=== PATIENT | male | born 1955 | race African-American/Black ===

== ENCOUNTER 2019-03-13 10:47 | Outpatient (CLI) | payer MEDICARE, MEDICAID, SELFPAY ==
--- NOTE | ~2019-03-13 | CT_ITS ---
EXAMINATION: CT abdomen wo con EXAM DATE: 03/13/2019 11:10 INDICATION: Abnormal serum lab levels. TECHNIQUE: Spiral CT of the abdomen was performed without contrast. Axial, coronal and sagittal emelia ges were reviewed. The dose-length product (DLP) for this examination was 860.82 mGy-cm. The exposu re was tailored according to patient size (auto mA exposure control), and iterative reconstruction (A SIR) was used as additional dose reduction technique. Comparison is made to prior examination from . FINDINGS: The liver, spleen, adrenal glands and pancreas are unremarkable. Tiny gallstone. Otherwise unremarkable gallbladder. There is no nephrolithiasis or hydronephrosis. There is no retroperito ketty lymphadenopathy. There is mild scattered arteriosclerotic disease. Small umbilical fat-contain ing hernia. The appendix is normal. The stomach and small bowel are unremarkable. There is expected amount of c olonic stool. No free intraperitoneal gas. The heart is normal in size. There are no pericardial or pleural effusions. There are bibasilar linear opacities, subsegmental atelectasis. There are no osteoblastic or osteolytic lesions identified. IMPRESSION: 1. Cholelithiasis. 2. Small umbilical hernia. Reviewed, dictated and finalized at location B. 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
== END 2019-03-13 10:48 | disposition home or self-care (01) ==
PROVIDERS: PCP Nurse Practitioner Family; Visit Provider Nurse Practitioner Family
DX: R74.8 Abnormal levels of other serum enzymes (principal); K80.20 Calculus of gallbladder without cholecystitis without obstruction; K42.9 Umbilical hernia without obstruction or gangrene
CPT/HCPCS: 74150

== ENCOUNTER 2019-05-01 09:21 | Outpatient (CLI) | payer MEDICARE, MEDICAID, SELFPAY ==
[2019-05-01 09:51] LABS: Hematocrit 39.7 % (42.0-52.0); Hemoglobin 11.5 g/dL (14.0-18.0); Mean Corpuscular Hemoglobin 22.3 pg (26-34); Mean Corpuscular Volume 77.1 fl (80-100); Mean Platelet Volume 10.9 fl (7.4-10.4); Platelet Count Result 259 k/mm3 (150-375); Red Blood Count 5.15 M/mm3 (4.6-6.20); Red Cell Distribution Width 16.3 % (11.5-14.5); White Blood Count 10.2 K/mm3 (4.5-10.0)
[2019-05-01 10:03] LABS: Alanine Aminotransferase 17 U/L (4-50); Albumin Level 4.1 g/dL (3.5-5.1); Alkaline Phosphatase 98 U/L (38-126); Amylase 137 U/L (30-110); Aspartate Amino Transferase 20 U/L (17-59); Bilirubin,Total 0.1 mg/dL (0.2-1.3); Blood Urea Nitrogen 14 mg/dL (9-20); Calcium 9.1 mg/dL (8.4-10.2); Carbon Dioxide 35 mmol/L (22-30); Chloride 101 mmol/L (98-107); Estimated Glomerular Filt Rate > 60; Glucose 174 mg/dL (75-110); Lipase 338 U/L (23-300); Potassium 4.2 mmol/L (3.4-5.0); Sodium 138 mmol/L (137-145)
[2019-05-01 12:43] LABS: T4 Thyroxine 5.34 ug/dL (5.53-11.0)
== END 2019-05-01 09:22 | disposition home or self-care (01) ==
PROVIDERS: PCP Family Medicine; Visit Provider Nurse Practitioner Family
DX: R74.8 Abnormal levels of other serum enzymes (principal); E03.9 Hypothyroidism, unspecified
CPT/HCPCS: 36415; 80053; 82150; 83690; 84436; 84443; 85027

== ENCOUNTER 2019-07-27 08:53 | Outpatient (CLI) | payer MEDICARE, MEDICAID, SELFPAY ==
[2019-07-27] VITALS (8 sets, daily range): PULSE 92–128; O2SAT 85–94
--- NOTE | 2019-07-27 10:23 | HOMEO2EVAL ---
Home Oxygen Evaluation RC: Home Oxygen (O2) Evaluation Start: 07/27/19 10:18 Freq: Status: Active Protocol: RPE Activity Type Activity Date Activity User E-Sign Co-Sign Detail Recorded Client Recorded Date Recorded By Document 07/27/19 09:30 [email or web address] [email or web address] 07/27/19 10:23 VIVIANA Document 07/27/19 09:33 VIVIANA [email or web address] 07/27/19 10:23 VIVIANA Document 07/27/19 09:35 VIVIANA [email or web address] 07/27/19 10:23 VIVIANA Document 07/27/19 09:40 VIVIANA [email or web address] 07/27/19 10:23 VIVIANA Document 07/27/19 09:42 VIVIANA [email or web address] 07/27/19 10:23 VIVIANA Document 07/27/19 09:44 VIVIANA [email or web address] 07/27/19 10:23 VIVIANA Document 07/27/19 09:46 VIVIANA [email or web address] 07/27/19 10:23 VIVIANA Document 07/27/19 09:55 VIVIANA [email or web address] 07/27/19 10:23 VIVIANA 07/27/19 07/27/19 07/27/19 09:30 09:33 09:35 Home O2 Evaluation Test Phase Resting Resting Resting Oxygen Delivery Room Air Nasal Cannula Nasal Cannula Oxygen Flow Rate (L/min) 1 2 Pulse Oximetry (90-100 %) 87 L 87 L 93 Pulse Rate (60-100 beats/min) 92 Ambulation Distance (feet) Home Oxygen Evaluation Comments Treatment Charges 07/27/19 07/27/19 07/27/19 09:40 09:42 09:44 Home O2 Evaluation Test Phase Exercise Exercise Exercise Oxygen Delivery Nasal Cannula Nasal Cannula Nasal Cannula Oxygen Flow Rate (L/min) 2 3 4 Pulse Oximetry (90-100 %) 85 L 86 L 87 L Pulse Rate (60-100 beats/min) 118 H 123 H Ambulation Distance (feet) Home Oxygen Evaluation Comments Treatment Charges 07/27/19 07/27/19 09:46 09:55 Home O2 Evaluation Test Phase Exercise Resting Oxygen Delivery Nasal Cannula Nasal Cannula Oxygen Flow Rate (L/min) 5 2 Pulse Oximetry (90-100 %) 90 94 Pulse Rate (60-100 beats/min) 128 H 93 Ambulation Distance (feet) 450 Home Oxygen Evaluation Comments PT REQUIRES 2L AT REST AND 5 L WITH ACTIVITY Treatment Charges O2 Evaluation
== END 2019-07-27 08:54 | disposition home or self-care (01) ==
PROVIDERS: PCP Family Medicine; Visit Provider Nurse Practitioner Family
DX: J44.9 Chronic obstructive pulmonary disease, unspecified (principal)
CPT/HCPCS: 94618

== ENCOUNTER 2019-08-26 09:39 | Outpatient (CLI) | payer MEDICARE, MEDICAID, SELFPAY ==
[2019-08-26 10:12] LABS: Basophils Percent Auto 0.3 % (0.2-1.2); Eosinophils Absolute Auto 0.4 K/mm3 (0-0.3); Eosinophils Percent Auto 3.9 % (0-4.4); Hematocrit 39.6 % (42.0-52.0); Hemoglobin 11.8 g/dL (14.0-18.0); Immature Granulocyte Absolute 0.03 K/mm3 (0.00-0.031); Immature Granulocyte Percent A 0.3 % (0-0.5); Lymphocytes Absolute Auto 2.71 K/mm3 (0.9-3.2); Lymphocytes Percent Auto 26.9 % (18.3-44.2); Mean Corpuscular HGB Conc 29.8 g/dl (32-36); Mean Corpuscular Hemoglobin 22.8 pg (26-34); Mean Corpuscular Volume 76.4 fl (80-100); Mean Platelet Volume 10.7 fl (7.4-10.4); Monocytes Absolute Auto 0.7 K/mm3 (0.1-0.6); Monocytes Percent Auto 7.2 % (2.6-8.5); Neutrophils Absolute Auto 6.2 K/mm3 (1.3-6.7); Neutrophils Percent Auto 61.4 % (45.5-73.1); Platelet Count Result 271 k/mm3 (150-375); Red Blood Count 5.18 M/mm3 (4.6-6.20); Red Cell Distribution Width 16.5 % (11.5-14.5); White Blood Count 10.1 K/mm3 (4.5-10.0)
[2019-08-26 10:34] LABS: Hypochromasia 1+ (NORMAL); Ovalocytes 1+ (NORMAL); Platelet Estimate Adequate (Adequate)
[2019-08-26 10:51] LABS: LDL Cholesterol Direct 86 mg/dL
[2019-08-26 11:20] LABS: Alanine Aminotransferase 17 U/L (4-50); Albumin Level 4.1 g/dL (3.5-5.1); Alkaline Phosphatase 105 U/L (38-126); Amylase 292 U/L (30-110); Aspartate Amino Transferase 20 U/L (17-59); Bilirubin,Total < 0.1 mg/dL (0.2-1.3); Blood Urea Nitrogen 13 mg/dL (9-20); Calcium 8.8 mg/dL (8.4-10.2); Carbon Dioxide 30 mmol/L (22-30); Chloride 102 mmol/L (98-107); Cholesterol 154 mg/dL (0-200); Estimated Glomerular Filt Rate > 60; Glucose 140 mg/dL (75-110); HDL Direct 38 mg/dL; Sodium 138 mmol/L (137-145); Triglycerides 139 mg/dL (<150)
[2019-08-26 11:43] LABS: Lipase 3229 U/L (23-300)
== END 2019-08-26 09:40 | disposition home or self-care (01) ==
PROVIDERS: PCP Family Medicine; Visit Provider Nurse Practitioner
DX: E78.5 Hyperlipidemia, unspecified (principal); E11.9 Type 2 diabetes mellitus without complications; Z79.4 Long term (current) use of insulin; R53.83 Other fatigue; I10 Essential (primary) hypertension; E03.9 Hypothyroidism, unspecified; R74.8 Abnormal levels of other serum enzymes
CPT/HCPCS: 36415; 80053; 80061; 82150; 83690; 84443; 85025

== ENCOUNTER 2019-10-15 06:33 | Outpatient (CLI) | payer MEDICARE, MEDICAID, SELFPAY ==
--- NOTE | ~2019-10-15 | MR_ITS ---
EXAMINATION: MR MRCP wo/w con/w 3D wo ind DATE: 10/15/2019 08:19 INDICATION: Abnormal levels of other serum enzymes, elevated pancreatic enzymes TECHNIQUE: Magnetic resonance imaging (MRI) of the abdomen was performed without and with intravenous contrast. Sequences included coronal T2-weighted SS-FSE ARC, coronal T2-weighted FS SS-FSE, coronal T2-weighted 2D FS FIESTA, Water:Coronal LAVA-Flex, sagittal T2-weighted SS-FSE ARC, axial SSFSE ARC, axial 3D DualEcho, axial DWI B=600, axial T1-weighted LAVA, FAT:Coronal LAVA-Flex, and coronal in and opposed phase LAVA-Flex. Thick-slab T2-weighted FRFSE-XL images were obtained for magnetic resonance cholangiopancreatography (MRCP). Maximum intensity projection 3-D reconstructions of the volumetric data were created by the technologist. Postcontrast sequences included a time course of axial T1-weig hted LAVA, FAT:Coronal LAVA-Flex, coronal in and opposed phase LAVA-Flex, and Water:Coronal LAVA-Flex . COMPARISON: CTs dated 03/13/2019 and 03/07/2017 CONTRAST: Multihance, 20 cc FINDINGS: ABDOMEN MRI: The visualized lung bases are clear. The heart size is normal. The liver, spleen, gallbl adder, and adrenal glands are normal. No pancreatic mass is identified. The kidneys are unremarkable. There is no abnormal enhancement after contrast administration. No pathologically enlarged abdominal lymph nodes are identified. There are no dilated loops of bowel. There is a fat-containing umbilical hernia. ABDOMEN MRCP: There is no intrahepatic or extrahepatic biliary dilatation. No biliary stones or stric ture are identified. The pancreatic duct is normal in caliber. An accessory pancreatic duct terminate s at the minor papilla. The main pancreatic duct loops in the head of the pancreas and terminates at the major papilla. IMPRESSION: 1. Variant pancreatic ductal anatomy in a configuration consistent with ansa pancreatica. Reviewed, dictated and finalized at location A. IMPRESSION: 1. Variant pancreatic ductal anatomy in a configuration consistent with ansa pa ncreatica.
[2019-10-15 07:33] LABS: Estimated Glomerular Filt Rate > 60
== END 2019-10-15 06:34 | disposition home or self-care (01) ==
LOC: ANHIMG 06:35
PROVIDERS: PCP Family Medicine; Visit Provider Internal Medicine Gastroenterology
DX: R74.8 Abnormal levels of other serum enzymes (principal)
CPT/HCPCS: 74183; 76376; A9577

== ENCOUNTER 2019-11-09 07:55 | Outpatient (CLI) | payer MEDICARE, MEDICAID, SELFPAY ==
--- NOTE | ~2019-11-09 | US_ITS ---
EXAMINATION: US carotid duplex BI DATE: 11/09/2019 08:34 INDICATION: Right internal carotid artery occlusion. TECHNIQUE: Grayscale, color Doppler, and pulsed Doppler images of the cervical carotid arteries were obtained. The degree of vessel stenosis is placed in one of the following categories: normal, <50%, 5 0-69%, >=70% but less than near-occlusion, near-occlusion, or total occlusion. Note that percent sten osis relative to normal distal artery lumen diameter is indirectly measured from velocity measurement s as described by James, et al. Radiology 2003; 229:340-346. COMPARISON: Ultrasound 08/25/2018 FINDINGS: RIGHT: The right common carotid artery (CCA) peak systolic velocity (PSV) is 106 cm/s. The right internal ca rotid artery (ICA) is totally occluded. There is antegrade flow in the right vertebral artery. LEFT: The left CCA PSV is 142 cm/s. The left ICA PSV is 116 cm/s. The left ICA end-diastolic velocity (EDV) is cm/s. The left ICA/CCA PSV ratio is 0.8. Grayscale and color Doppler images yield an estimate of <50% diameter reduction from plaque in the ICA. There is antegrade flow in the left vertebral artery. IMPRESSION: 1. Total occlusion of right internal carotid artery. 2. <50% stenosis in the left internal carotid artery. Reviewed, dictated and finalized at location A.
== END 2019-11-09 07:56 | disposition home or self-care (01) ==
LOC: ANHIMG 07:57
PROVIDERS: PCP Family Medicine; Visit Provider Internal Medicine Cardiovascular Disease
DX: I65.23 Occlusion and stenosis of bilateral carotid arteries (principal)
CPT/HCPCS: 93880

== ENCOUNTER 2020-02-19 07:43 | Outpatient (CLI) | payer MEDICARE, MEDICAID, SELFPAY ==
--- NOTE | ~2020-02-19 | CT_ITS ---
EXAMINATION: CT lung screening DATE: 02/19/2020 08:10 INDICATION: Back to use TECHNIQUE: Computed tomography (CT) of the chest was performed without intravenous contrast. The dose -length product was 405.07 mGy-cm. Automated exposure control and iterative reconstruction technique were employed. COMPARISON: CT dated 03/06/2019 and 03/05/2018 FINDINGS: There is emphysema. No endobronchial lesions. There is linear subsegmental atelectasis/scar ring in the lower lung zones. No thoracic lymphadenopathy. Heart size normal. No significant pleural or pericardial effusion. No pneumothorax. There is a 6 mm pleural-based nodule left lower lobe unchan ged dating back to 03/05/2018, likely benign. No new pulmonary nodules or masses. Upper abdomen is kimberly ssly unremarkable. IMPRESSION: 1. Lung-RADS category 2: Benign appearance or behavior. Continue annual screening with noncontrast lo w-dose chest CT in 12 months. Reviewed, dictated and finalized at location A. 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 Lung-RADS category 2: Benign appearance or behavior. Continue annual screeni ng with noncontrast low-dose chest CT in 12 months.
== END 2020-02-19 07:44 | disposition home or self-care (01) ==
PROVIDERS: PCP Family Medicine; Visit Provider Internal Medicine Critical Care Medicine
DX: J43.9 Emphysema, unspecified (principal); Z12.2 Encounter for screening for malignant neoplasm of respiratory organs; Z72.0 Tobacco use
CPT/HCPCS: 71271

== ENCOUNTER 2020-04-29 09:44 | Outpatient (CLI) | payer MEDICARE, MEDICAID, SELFPAY ==
[2020-04-29 10:15] LABS: Alanine Aminotransferase 17 U/L (4-50); Albumin Level 4.1 g/dL (3.5-5.1); Alkaline Phosphatase 101 U/L (38-126); Anion Gap 6 mmol/L (8-16); Aspartate Amino Transferase 20 U/L (17-59); Bilirubin,Total < 0.1 mg/dL (0.2-1.3); Blood Urea Nitrogen 10 mg/dL (9-20); Calcium 8.9 mg/dL (8.4-10.2); Carbon Dioxide 32 mmol/L (22-30); Chloride 103 mmol/L (98-107); Cholesterol 137 mg/dL (0-200); Estimated Glomerular Filt Rate > 60; Glucose 110 mg/dL (75-110); HDL Direct 35 mg/dL; Potassium 4.1 mmol/L (3.4-5.0); Sodium 141 mmol/L (137-145); Triglycerides 91 mg/dL (<150)
[2020-04-29 10:26] LABS: LDL Cholesterol Direct 75 mg/dL
== END 2020-04-29 09:45 | disposition home or self-care (01) ==
PROVIDERS: PCP Family Medicine; Visit Provider Internal Medicine Cardiovascular Disease
DX: E78.5 Hyperlipidemia, unspecified (principal)
CPT/HCPCS: 36415; 80053; 80061

== ENCOUNTER 2020-05-17 17:07 | Outpatient (CLI) | payer MEDICARE, MEDICAID, SELFPAY ==
[2020-05-17 10:55] LABS: Free T4 Free Thyroxine 0.71 ng/mL (0.78-2.19)
[2020-05-17 14:19] LABS: T4 Thyroxine 5.22 ug/dL (5.53-11.0)
[2020-05-23 20:59] LABS: Triiodothryronine T3 Uptake 39 % (22-35)
== END 2020-05-17 17:08 | disposition home or self-care (01) ==
LOC: ANHLAB 17:07
PROVIDERS: PCP Family Medicine; Visit Provider Nurse Practitioner
DX: E03.9 Hypothyroidism, unspecified (principal)
CPT/HCPCS: 36415; 84436; 84439; 84443; 84479

== ENCOUNTER 2020-05-26 09:36 | Outpatient (CLI) | payer MEDICARE, MEDICAID, SELFPAY ==
--- NOTE | ~2020-05-26 | XR_ITS ---
EXAMINATION: XR chest 2V EXAM DATE: 05/26/2020 09:53 INDICATION: R05 - Cough, congestion. TECHNIQUE: Frontal and lateral projections of the chest obtained and reviewed. There is no prior [place] dy for comparison. FINDINGS: The lungs are clear. There are no pleural effusions. The cardiomediastinal silhouette is within normal limits. There is no pneumothorax suspected. The bones and soft tissues are unremarkab le. IMPRESSION: The lungs are clear. There are no pleural effusions. The cardiomediastinal silhouette i s within normal limits. There is no pneumothorax suspected. The bones and soft tissues are unremark able. IMPRESSION: No acute cardiopulmonary findings. Reviewed, dictated and finalized at location A. IMPRESSION: The lungs are clear. There are no pleural effusions. The cardiome diastinal silhouette is within normal limits. There is no pneumothorax suspect ed. The bones and soft tissues are unremarkable.
== END 2020-05-26 09:37 | disposition home or self-care (01) ==
LOC: ANHIMG 09:40
PROVIDERS: PCP Family Medicine; Visit Provider Nurse Practitioner
DX: R05 Cough (principal)
CPT/HCPCS: 71046

== ENCOUNTER 2020-10-28 12:35 | Outpatient (CLI) | payer MEDICARE, MEDICAID, SELFPAY ==
[2020-10-28 13:30] LABS: Alanine Aminotransferase 20 U/L (4-50); Albumin Level 4.5 g/dL (3.5-5.1); Alkaline Phosphatase 119 U/L (38-126); Anion Gap 7 mmol/L (8-16); Aspartate Amino Transferase 29 U/L (17-59); Bilirubin,Total 0.1 mg/dL (0.2-1.3); Blood Urea Nitrogen 14 mg/dL (9-20); Calcium 9.5 mg/dL (8.4-10.2); Carbon Dioxide 35 mmol/L (22-30); Chloride 101 mmol/L (98-107); Cholesterol 158 mg/dL (0-200); Estimated Glomerular Filt Rate > 60; Glucose 138 mg/dL (65-110); HDL Direct 39 mg/dL; Potassium 4.1 mmol/L (3.4-5.0); Sodium 143 mmol/L (137-145); Triglycerides 94 mg/dL (<150)
[2020-10-28 13:41] LABS: LDL Cholesterol Direct 85 mg/dL
[2020-10-28 14:11] LABS: Creatinine Urine 33.5 mg/dL
[2020-10-28 14:29] LABS: Microalbumin Urine Random < 6.0 mg/L (0-16.7)
== END 2020-10-28 12:36 | disposition home or self-care (01) ==
PROVIDERS: PCP Nurse Practitioner; Visit Provider Internal Medicine Endocrinology, Diabetes & Metabolism
DX: E11.65 Type 2 diabetes mellitus with hyperglycemia (principal); Z79.4 Long term (current) use of insulin; E11.59 Type 2 diabetes mellitus with other circulatory complications; I10 Essential (primary) hypertension; E03.9 Hypothyroidism, unspecified; E78.5 Hyperlipidemia, unspecified
CPT/HCPCS: 36415; 80053; 80061; 82043; 84443

== ENCOUNTER 2020-11-22 09:37 | Outpatient (CLI) | payer MEDICARE, MEDICAID, SELFPAY ==
[2020-11-22] VITALS (8 sets, daily range): PULSE 96–132; O2SAT 87–93
--- NOTE | 2020-11-22 10:23 | HOMEO2EVAL ---
Evaluation was performed at [facility] Home Oxygen Evaluation RC: Home Oxygen (O2) Evaluation Start: 11/22/20 10:20 Freq: Status: Active Protocol: RPE Activity Type Activity Date Activity User E-Sign Co-Sign Detail Recorded Client Recorded Date Recorded By Document 11/22/20 10:00 VIVIANA [id number] 11/22/20 10:23 VIVIANA Document 11/22/20 10:01 VIVIANA [email or web address] 11/22/20 10:23 VIVIANA Document 11/22/20 10:02 VIVIANA [email or web address] 11/22/20 10:23 VIVIANA Document 11/22/20 10:03 VIVIANA [email or web address] 11/22/20 10:23 VIVIANA Document 11/22/20 10:04 VIVIANA [email or web address] 11/22/20 10:23 VIVIANA Document 11/22/20 10:05 VIVIANA [email or web address] 11/22/20 10:23 VIVIANA Document 11/22/20 10:06 VIVIANA [email or web address] 11/22/20 10:23 VIVIANA Document 11/22/20 10:20 VIVIANA [email or web address] 11/22/20 10:23 VIVIANA 11/22/20 11/22/20 11/22/20 10:00 10:01 10:02 Home O2 Evaluation Test Phase Resting Resting Resting Oxygen Delivery Room Air Nasal Cannula Nasal Cannula Oxygen Flow Rate (L/min) 1 2 Pulse Oximetry (90-100 %) 87 L 87 L 87 L Pulse Rate (60-100 beats/min) 97 Ambulation Distance (feet) Home Oxygen Evaluation Comments Treatment Charges O2 Evaluation - Outpatient 11/22/20 11/22/20 11/22/20 10:03 10:04 10:05 Home O2 Evaluation Test Phase Resting Resting Exercise Oxygen Delivery Nasal Cannula Nasal Cannula Nasal Cannula Oxygen Flow Rate (L/min) 3 4 4 Pulse Oximetry (90-100 %) 87 L 93 87 L Pulse Rate (60-100 beats/min) 132 H Ambulation Distance (feet) Home Oxygen Evaluation Comments Treatment Charges 11/22/20 11/22/20 10:06 10:20 Home O2 Evaluation Test Phase Exercise Resting Oxygen Delivery Nasal Cannula Nasal Cannula Oxygen Flow Rate (L/min) 5 4 Pulse Oximetry (90-100 %) 92 93 Pulse Rate (60-100 beats/min) 96 Ambulation Distance (feet) 700 Home Oxygen Evaluation Comments PT REQUIRES 4 L AT REST AND 5 L WITH EXERTION Treatment Charges
--- NOTE | 2020-11-22 10:24 | PCRCNOTE ---
HOME O2 EVAL COMPLETED. PT REQUIRES 4 L REST AND 5L WITH EXERTION. PT WALKED WELL, APPROX 700 FEET. PT USED [facility]OSPITAL [facility] WHILE AT [facility], WAITING FOR 1 OCCLAIRE CHANDRA, TO ENSURE HE HAS ENOUGH O2 TO GET BACK HOME. 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
== END 2020-11-22 09:38 | disposition home or self-care (01) ==
PROVIDERS: PCP Nurse Practitioner; Visit Provider Nurse Practitioner Family
DX: J44.9 Chronic obstructive pulmonary disease, unspecified (principal)
CPT/HCPCS: 94618

== ENCOUNTER 2021-01-15 10:28 | Emergency (ER) | payer MEDICARE, MEDICAID, SELFPAY ==
--- NOTE | ~2021-01-15 | XR_ITS ---
EXAMINATION: XR chest 1V portable DATE: 01/15/2021 12:44 INDICATION: Shortness of breath TECHNIQUE: frontal view of the chest was obtained. COMPARISON: Chest radiograph dated 05/26/2020 FINDINGS: The lungs remain clear with no focal airspace opacities, pulmonary edema, pleural effusion or pneumot horax. The cardiomediastinal silhouette is normal. IMPRESSION: 1. No acute cardiopulmonary disease. Reviewed, dictated and finalized at location A. 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
[2021-01-15 10:52] VITALS: BP 126/76; PULSE 95; RESP 18; TEMP 36.4; O2SAT 96
--- NOTE | 2021-01-15 10:58 | ECG_ITS ---
Measurements Intervals [place] Rate: 90 P: 68 RI: 139 QRS: 61 QRSD: 85 T: 87 QT: 334 QTc: 411 Interpretive Statements SINUS RHYTHM EARLY PRECORDIAL R/S TRANSITION NONSPECIFIC T-WAVE ABNORMALITY- LAT/HIGH LAT LEADS BORDERLINE ECG Electronically Signed On 01-15-2021 17:07:16 EMERGENCY MEDICAL SERVICES COORDINATOR by Júnior Harding D.O.
[2021-01-15 12:42] VITALS: BP 138/77; PULSE 89; RESP 21; O2SAT 100
[2021-01-15 12:58] VITALS: PULSE 79
[2021-01-15 13:09] LABS: Basophils Percent Auto 0.3 % (0.2-1.2); Eosinophils Absolute Auto 0.3 K/mm3 (0-0.3); Eosinophils Percent Auto 2.8 % (0-4.4); Hematocrit 41.1 % (42.0-52.0); Hemoglobin 12.2 g/dL (14.0-18.0); Immature Granulocyte Absolute 0.03 K/mm3 (0.00-0.031); Immature Granulocyte Percent A 0.3 % (0-0.5); Lymphocytes Percent Auto 22.1 % (18.3-44.2); Mean Corpuscular HGB Conc 29.7 g/dl (32-36); Mean Corpuscular Hemoglobin 22.6 pg (26-34); Mean Platelet Volume 10.3 fl (7.4-10.4); Monocytes Absolute Auto 0.7 K/mm3 (0.1-0.6); Monocytes Percent Auto 6.8 % (2.6-8.5); Neutrophils Absolute Auto 6.7 K/mm3 (1.3-6.7); Neutrophils Percent Auto 67.7 % (45.5-73.1); Platelet Count Result 276 k/mm3 (150-375); Red Blood Count 5.41 M/mm3 (4.6-6.20); Red Cell Distribution Width 18.1 % (11.5-14.5)
--- NOTE | 2021-01-15 13:10 | ED.GENADULT ---
HPI - General Adult General Chief complaint: Shortness of Breath/Dyspnea Stated complaint: SOB Time Seen by Provider: 01/15/21 12:33 Source: patient and RN notes reviewed History of Present Illness HPI narrative: Patient is a 65 y/o male complaining of moderate to severe SOB starting 1 week. He states that exertion like walking upstairs worsens his symptoms. He has some chest congestion and cough, which are resolving. He has no fever or chest pain. He has history of COPD and he is on O2 at 6L usually. He has been vaccinated against COVID. Related Data Home Medications Medication Instructions Recorded Confirmed aspirin 81 mg tablet,delayed 81 mg PO DAILY 01/29/19 11/22/20 release glimepiride 4 mg tablet 4 mg PO DAILY tablet 04/28/19 11/22/20 insulin degludec 100 unit/mL (3 44 unit SUB-Q DAILY ml 05/10/20 11/22/20 mL) subcutaneous pen Allergies Allergy/AdvReac Type Severity Reaction Status Date / Time lisinopril Allergy Unknown unknown Verified 11/22/20 12:58 Review of Systems Constitutional: Constitutional: Denies chills, Denies fever(s), Denies headache(s) and Denies weakness Eyes: Eyes: Denies blurry vision ENT: Denies headache(s) and Denies neck pain Cardiovascular: Cardiovascular: Denies chest pain and Reports dyspnea Respiratory: Respiratory: Reports chest congestion, Reports cough and Reports dyspnea Gastrointestinal: Gastrointestinal: Denies abdominal pain, Denies diarrhea, Denies nausea and Denies vomiting Genitourinary: Genitourinary: Denies hematuria and Denies dysuria Musculoskeletal: Musculoskeletal: Denies back pain and Denies neck pain Neurologic: Denies headache(s) and Denies weakness [facility] Past Medical History Medical History CAD (coronary artery disease) Carotid occlusion, right Chronic pancreatitis Chronic respiratory failure with hypoxia, on home O2 therapy COPD (chronic obstructive pulmonary disease) Dyslipidemia Former smoker Hypertension Hypothyroid OTTO (obstructive sleep apnea) Type 2 diabetes mellitus treated with insulin Follows with endocrine Surgical History Surgical History H/O colonoscopy 09/2014 Family History Family History Father Acute myocardial infarction Hypertension, Onset Age: 56 Family history of heart disease in male family member before age 55 Sibling Family history of congenital heart disease, Onset Age: 32 Mother Family history of malignant neoplasm of breast in first degree relative Family history of primary malignant neoplasm of liver Other Asthma Social History Social History Years smoked: 44 Smoking status: Former smoker Second hand tobacco smoke exposure: No Smoking end date: 02/11/13 Alcohol intake: never Substance use: never Gender identity (if verbalized by the patient): Male Exam Const: General: no acute distress and well developed Orientation/consciousness: oriented to person, oriented to place, oriented to time and patient oriented x3 HENMT: Head: normocephalic Ears: external ears normal General nose exam: Normal external nose present Eyes: General: appearance normal, both eyes and all related structures Conjunctivae: conjunctivae normal Neck: Neck: normal visual inspection and full ROM Chest: Chest palpation & inspection: normal inspection of the chest and no tenderness Resp: Effort & Inspection: normal respiratory effort Auscultation: clear to auscultation bilaterally Cardio: Rate: regular rate Rhythm: regular rhythm GI: GI Palp: No abdominal tenderness and Yes Soft to palpation Skin: General skin exam: normal color and turgor normal Neuro: General: oriented to person, oriented to place, oriented to time and patient oriented x3 Cognition (Neuro): normal cognition Extrem
[2021-01-15 13:19] LABS: Alanine Aminotransferase 19 U/L (4-50); Albumin Level 4.1 g/dL (3.5-5.1); Alkaline Phosphatase 105 U/L (38-126); Anion Gap 7 mmol/L (8-16); Aspartate Amino Transferase 22 U/L (17-59); Bilirubin,Total 0.2 mg/dL (0.2-1.3); Blood Urea Nitrogen 13 mg/dL (9-20); Calcium 8.9 mg/dL (8.4-10.2); Carbon Dioxide 35 mmol/L (22-30); Chloride 98 mmol/L (98-107); Estimated CRCL calculation 100 ml/min; Estimated Glomerular Filt Rate > 60; Glucose 59 mg/dL (65-110); Potassium 3.9 mmol/L (3.4-5.0); Sodium 140 mmol/L (137-145)
[2021-01-15 13:26] LABS: NT Pro B Type Natriuretic Pept 16 pg/mL (5-100)
[2021-01-15 13:28] LABS: Platelet Estimate Adequate (Adequate)
[2021-01-15 13:29] LABS: Anisocytosis 1+ (NORMAL); Troponin I < 0.012 ng/mL (0.000-0.034)
[2021-01-15] MEDS: IPRATROPIUM BR 0.02% INH SOLN 0.5 MG/2.5 ML VIAL 1 MG INHALATION (13:42)
[2021-01-15] MEDS: ALBUTEROL SULFATE NEB 2.5 MG/0.5 ML INH 5 MG INHALATION (13:42)
[2021-01-15 13:43] VITALS: PULSE 81; RESP 16
[2021-01-15 14:20] LABS: D Dimer 0.42 ug/mL (<0.48)
[2021-01-15 16:01] LABS: Troponin I < 0.012 ng/mL (0.000-0.034)
[2021-01-15 17:54] VITALS: BP 138/77; PULSE 73; RESP 18; O2SAT 100
== END 2021-01-15 17:55 | disposition home or self-care (01) ==
PROVIDERS: Emergency Provider Emergency Medicine; PCP Nurse Practitioner
DX: J44.1 Chronic obstructive pulmonary disease with (acute) exacerbation (principal); I25.10 Atherosclerotic heart disease of native coronary artery without angina pectoris; I10 Essential (primary) hypertension; E03.9 Hypothyroidism, unspecified; E11.9 Type 2 diabetes mellitus without complications; Z79.4 Long term (current) use of insulin; E78.5 Hyperlipidemia, unspecified
CPT/HCPCS: 36415; 71045; 80053; 83880; 84484; 85025; 85380; 93005; 94640; 99284

== ENCOUNTER 2021-04-28 08:56 | Outpatient (CLI) | payer MEDICARE, MEDICAID, SELFPAY ==
--- NOTE | ~2021-04-28 | CT_ITS ---
EXAMINATION:CT lung screening DATE: 04/28/2021 09:10 INDICATION: Personal history of nicotine dependence. Smoker who quit 8 years ago with 36 pack year hi story. TECHNIQUE: Computed tomography (CT) of the chest was performed without intravenous contrast. Automate d exposure control and iterative reconstruction technique were employed. The dose-length product (DLP ) was 466.63 mGy-cm. COMPARISON: Chest CT 02/19/2020 FINDINGS: There is moderate emphysema. There is mild atelectasis bilaterally. There is a 6 mm nodule in left lower lobe without change. No pleural effusion. The heart size is normal. There are coronary artery calcifications. No pericardial effusion. There is a gallstone in the gallbladder, which is nor mal in size. There is mild thoracic spondylosis. IMPRESSION: 1. Lung-RADS category 2: Benign appearance or behavior. Continue annual screening with noncontrast lo w-dose chest CT in 12 months. Reviewed, dictated and finalized at location A. IMPRESSION: 1. Lung-RADS category 2: Benign appearance or behavior. Continue annual screeni ng with noncontrast low-dose chest CT in 12 months.
== END 2021-04-28 08:57 | disposition home or self-care (01) ==
LOC: ANHIMG 08:58
PROVIDERS: PCP Nurse Practitioner; Visit Provider Physician Assistant
DX: Z12.2 Encounter for screening for malignant neoplasm of respiratory organs (principal); Z87.891 Personal history of nicotine dependence
CPT/HCPCS: 71271

== ENCOUNTER 2021-05-15 08:26 | Outpatient (CLI) | payer MEDICARE, MEDICAID, SELFPAY ==
--- NOTE | ~2021-05-15 | US_ITS ---
EXAMINATION: US carotid duplex BI EXAM DATE: 05/15/2021 09:52 INDICATION: I65.21 - Occlusion and stenosis of right carotid artery. TECHNIQUE: Grayscale, color and pulsed Doppler images of the cervical carotid arteries were obtained . The degree of vessel stenosis is placed in one of the following categories: normal, <50% stenosis, 50-69% stenosis, >=70% stenosis but less than near-occlusion, near-occlusion, or occlusion. Note that percent stenosis relative to normal distal artery lumen diameter is indirectly measured from velocit y measurements as described by James, et al. Radiology 2003; 229:340-346. Comparison is made to prior examination from 11/09/2019. FINDINGS: RIGHT SIDE: Right common carotid artery peak systolic velocity (PSV in cm/s): 80 Right bulb/internal carotid artery peak systolic velocity (PSV in cm/s): 68 proximally Right internal carotid artery end diastolic velocity (EDV in cm/s): 7 Right ICA/CCA peak systolic ratio: Right external carotid artery peak systolic velocity (PSV in cm/s): 94 Right vertebral artery antegrade flow: yes There is severe carotid bulb arteriosclerosis. Very weak Doppler signal within proximal ICA, can't co nfirm it more distally. Likely completely occluded ICA, which has been reported previously. LEFT SIDE: Left common carotid artery peak systolic velocity (PSV in cm/s): 122 Left bulb/internal carotid artery peak systolic velocity (PSV in cm/s): 98 Left internal carotid artery end diastolic velocity (EDV in cm/s): 35 Left ICA/CCA peak systolic ratio: 0.8 Left external carotid artery peak systolic velocity (PSV in cm/s): 104 Left vertebral artery antegrade flow: yes There is mild scattered carotid plaque. Velocity and Doppler waveforms in the common and internal carotid arteries is normal. IMPRESSION: 1. Severe right greater bulb arteriosclerosis, equivocal reconstitution, development of trickle of f low. 2. Less than 50 percent stenosis in the left internal carotid artery. Reviewed, dictated and finalized at location A. IMPRESSION: 1. Severe right greater bulb arteriosclerosis, equivocal reconstitution, devel opment of trickle of flow. 2. Less than 50 percent stenosis in the left internal carotid artery.
== END 2021-05-15 08:27 | disposition home or self-care (01) ==
LOC: ANHIMG 08:28
PROVIDERS: Visit Provider Internal Medicine Cardiovascular Disease
DX: I65.23 Occlusion and stenosis of bilateral carotid arteries (principal)
CPT/HCPCS: 93880

== ENCOUNTER 2021-06-07 10:14 | Outpatient (CLI) | payer MEDICARE, MEDICAID, SELFPAY ==
[2021-06-07 10:50] LABS: Basophils Percent Auto 0.4 % (0.2-1.2); Eosinophils Absolute Auto 0.3 K/mm3 (0-0.3); Hematocrit 43.2 % (42.0-52.0); Hemoglobin 12.2 g/dL (14.0-18.0); Immature Granulocyte Absolute 0.03 K/mm3 (0.00-0.031); Immature Granulocyte Percent A 0.3 % (0-0.5); Lymphocytes Absolute Auto 2.33 K/mm3 (0.9-3.2); Lymphocytes Percent Auto 23.3 % (18.3-44.2); Mean Corpuscular HGB Conc 28.2 g/dl (32-36); Mean Corpuscular Hemoglobin 21.9 pg (26-34); Mean Corpuscular Volume 77.7 fl (80-100); Mean Platelet Volume 10.6 fl (7.4-10.4); Monocytes Absolute Auto 0.8 K/mm3 (0.1-0.6); Monocytes Percent Auto 7.6 % (2.6-8.5); Neutrophils Absolute Auto 6.6 K/mm3 (1.3-6.7); Neutrophils Percent Auto 65.4 % (45.5-73.1); Platelet Count Result 287 k/mm3 (150-375); Red Blood Count 5.56 M/mm3 (4.6-6.20); Red Cell Distribution Width 16.7 % (11.5-14.5)
[2021-06-07 11:08] LABS: Alanine Aminotransferase 18 U/L (4-50); Albumin Level 4.5 g/dL (3.5-5.1); Alkaline Phosphatase 111 U/L (38-126); Anion Gap 4 mmol/L (8-16); Aspartate Amino Transferase 23 U/L (17-59); Bilirubin,Total 0.2 mg/dL (0.2-1.3); Blood Urea Nitrogen 14 mg/dL (9-20); Calcium 8.9 mg/dL (8.4-10.2); Carbon Dioxide 33 mmol/L (22-30); Chloride 101 mmol/L (98-107); Cholesterol 184 mg/dL (0-200); Estimated Glomerular Filt Rate > 60; Glucose 112 mg/dL (65-110); HDL Direct 42 mg/dL; Sodium 138 mmol/L (137-145); Triglycerides 90 mg/dL (<150)
[2021-06-07 11:19] LABS: LDL Cholesterol Direct 101 mg/dL
[2021-06-07 11:35] LABS: Platelet Estimate Adequate (Adequate)
[2021-06-07 11:36] LABS: Anisocytosis 1+ (NORMAL); Ovalocytes 1+ (NORMAL)
[2021-06-07 11:37] LABS: Prostate Specific Antigen 1.5 ng/mL (< OR = 4.0)
[2021-06-07 13:58] LABS: Free T4 Free Thyroxine Reflex 0.98 ng/dL (0.78-2.19)
[2021-06-07 14:41] LABS: Total Triiodothyronine (T3) 1.19 NG/ML (0.97-1.69)
== END 2021-06-07 10:15 | disposition home or self-care (01) ==
LOC: ANHLAB 10:18
PROVIDERS: PCP Nurse Practitioner; Visit Provider Nurse Practitioner
DX: E78.5 Hyperlipidemia, unspecified (principal); I10 Essential (primary) hypertension; E03.9 Hypothyroidism, unspecified; Z12.5 Encounter for screening for malignant neoplasm of prostate
CPT/HCPCS: 36415; 80053; 80061; 84153; 84439; 84443; 84480; 85025; G0103

== ENCOUNTER 2021-10-27 11:41 | Inpatient (IN) | payer MEDICARE, MEDICAID, SELFPAY ==
[2021-10-27] VITALS (22 sets, daily range): BP systolic 150–201; BP diastolic 66–85; PULSE 77–118; RESP 16–29; TEMP 36.5–36.8; O2SAT 94–100; BMI 44.4
--- NOTE | ~2021-10-27 | XR_ITS ---
EXAMINATION: XR chest 1V portable DATE: 10/27/2021 13:21 INDICATION: Chest pain. Shortness of breath. TECHNIQUE: A single frontal view of the chest was obtained on 2 radiographs. COMPARISON: Chest single view 01/15/2021, chest CT 04/28/2021 FINDINGS: Sensitivity is decreased by obesity. There is no pneumonia, pleural effusion, pneumothorax. The heart size is normal. IMPRESSION: 1. No acute cardiopulmonary disease. Reviewed, dictated and finalized at location A.
--- NOTE | ~2021-10-27 | CT_ITS ---
EXAMINATION: CTA chest PE protocol DATE: 10/29/2021 11:49 INDICATION: Shortness of breath. TECHNIQUE: Computed tomography angiography (CTA) of the chest was performed with 200 mL Omnipaque-350 intravenous contrast timed to evaluate the pulmonary arteries. Coronal maximum intensity projection 3D-reconstructions were created by the technologist. Automated exposure control and iterative reconst ruction technique were employed. The dose-length product was 2121.97 mGy-cm. COMPARISON: Chest CT 04/28/2021 FINDINGS: There is moderate emphysema. There is a chronic 6 mm nodule in left lower lobe, likely titus gn. There is mild atelectasis bilaterally. No pleural effusion. The heart size is normal. There are c oronary artery calcifications. No pericardial effusion. There is no pulmonary embolus. There is moder ate thoracic spondylosis. IMPRESSION: 1. No pulmonary embolus. 2. Moderate emphysema. Reviewed, dictated and finalized at location A.
--- NOTE | 2021-10-27 12:29 | ED.SOB ---
HPI - SOB/Dyspnea General Chief Complaint: Shortness of Breath/Dyspnea Stated Complaint: shortness of breath - COPD Time Seen by Provider: 10/27/21 12:18 History of Present Illness HPI Narrative: Patient is a 66-year-old male with a history of COPD (on 4 L O2), hypertension, hyperlipidemia, CAD, OTTO presenting with shortness of breath. Patient states that starting about 3 days ago he noticed worsening in his baseline dyspnea. States that he feels okay if he does not move but once he gets up to walk he quickly runs out of breath. He called his physician who called in oral steroids for him which seemed to help for about a day but then his symptoms returned. States he took a COVID test at home and it was negative. Also states that he has had a more productive cough than usual. States he has some chest tightness as well. He denies fevers, headache, palpitations, abdominal pain, nausea or vomiting, diarrhea, leg swelling, dysuria. Related Data Home Medications Medication Instructions Recorded Confirmed aspirin 81 mg tablet,delayed 81 mg PO DAILY 01/29/19 10/27/21 release (Adult Low Dose Aspirin) glimepiride 4 mg tablet 4 mg PO DAILY 04/28/19 10/27/21 insulin degludec 100 unit/mL (3 44 unit subcut DAILY 05/10/20 10/27/21 mL) subcutaneous pen (Tresiba FlexTouch U-100 insulin) budesonide-formoterol HFA 160 2 puff inhalation BID 10/27/21 10/27/21 mcg-4.5 mcg/actuation aerosol inhaler (Symbicort) ezetimibe 10 mg tablet 10 mg PO DAILY 10/27/21 10/27/21 fluticasone propionate 50 1 spray intranasal BID 10/27/21 10/27/21 mcg/actuation nasal spray,suspension furosemide 40 mg tablet 40 mg PO BID 10/27/21 10/27/21 Allergies Allergy/AdvReac Type Severity Reaction Status Date / Time lisinopril Allergy Unknown unknown Verified 10/27/21 19:25 Review of Systems Review of Systems: All systems reviewed & are unremarkable except as noted in HPI and below PMFSH Past Medical History Medical History CAD (coronary artery disease) Carotid occlusion, right Chronic pancreatitis Chronic respiratory failure with hypoxia, on home O2 therapy COPD (chronic obstructive pulmonary disease) Dyslipidemia Former smoker Hypertension Hypothyroid OTTO (obstructive sleep apnea) Type 2 diabetes mellitus treated with insulin Follows with endocrine Surgical History Surgical History H/O colonoscopy 09/2014 Family History Family History Father Acute myocardial infarction Hypertension, Onset Age: 56 Family history of heart disease in male family member before age 55 Sibling Family history of congenital heart disease, Onset Age: 32 Mother Family history of malignant neoplasm of breast in first degree relative Family history of primary malignant neoplasm of liver Other Asthma Social History Social History (Updated 10/27/21 @ 17:39 by Vanesa Neumann NP) Social History: The patient is and has his is the durable power contract attorney for healthcare. The patient has 5 biological children. He is disabled. He is a former smoker. He denies any alcohol marijuana or illicit drugs. Code status full code Years smoked: 44 Smoking status: Former smoker Second hand tobacco smoke exposure: No Smoking end date: 02/11/13 Alcohol intake: never Substance use: never Substance use type: does not use Gender identity (if verbalized by the patient): Male Spiritual care concerns: No Exam Narrative: GENERAL: Well-appearing, well-nourished, and in no acute distress. HEAD: Normocephalic, atraumatic. EYES: PERRLA and EOMI. ENT: Nares clear, no rhinorrhea or epistaxis. Mucous membranes moist. NECK: Supple. CHEST: Diminished breath sounds bilaterally with scattered wheezing HEART: Regular rate and rhythm. No murmur heard. Normal
--- NOTE | 2021-10-27 12:32 | ECG_ITS ---
Measurements Intervals [place] Rate: 80 P: 62 MT: 143 QRS: 35 QRSD: 83 T: 37 QT: 346 QTc: 401 Interpretive Statements SINUS RHYTHM WITH SINUS ARRHYTHMIA EARLY PRECORDIAL R/S TRANSITION NONSPECIFIC T-WAVE ABNORMALITY- INF/HIGH LAT LEADS BORDERLINE ECG COMPARED TO ECG 01/15/2021 11:01:21 SINUS ARRHYTHMIA NOW PRESENT Electronically Signed On 10-27-2021 21:23:37 CDT by Júnior Harding D.O.
[2021-10-27] MEDS: IPRATROPIUM BR 0.02% INH SOLN 0.5 MG/2.5 ML VIAL INHALATION ×2 (13:05→20:15)
[2021-10-27] MEDS: ALBUTEROL SULFATE NEB 2.5 MG/3 ML INH 5 MG INHALATION ×3 (13:05→13:49)
[2021-10-27 13:15] LABS: Basophils Percent Auto 0.2 % (0.2-1.2); Eosinophils Percent Auto 0.1 % (0-4.4); Hematocrit 41.9 % (42.0-52.0); Immature Granulocyte Absolute 0.12 K/mm3 (0.00-0.031); Lymphocytes Absolute Auto 0.88 K/mm3 (0.9-3.2); Mean Corpuscular HGB Conc 28.6 g/dl (32-36); Mean Corpuscular Volume 76.7 fl (80-100); Monocytes Absolute Auto 0.4 K/mm3 (0.1-0.6); Monocytes Percent Auto 2.8 % (2.6-8.5); Neutrophils Absolute Auto 11.2 K/mm3 (1.3-6.7); Neutrophils Percent Auto 88.9 % (45.5-73.1); Platelet Count Result 285 k/mm3 (150-375); Red Blood Count 5.46 M/mm3 (4.6-6.20); Red Cell Distribution Width 17.7 % (11.5-14.5); White Blood Count 12.6 K/mm3 (4.5-10.0)
[2021-10-27] MEDS: SODIUM CHLORIDE 0.9% IV 1,000 ML 999 ML IV CONT (13:25)
[2021-10-27 13:30] LABS: Alanine Aminotransferase 21 U/L (6-50); Albumin Level 4.3 g/dL (3.5-5.1); Alkaline Phosphatase 94 U/L (38-126); Anion Gap 7 mmol/L (8-16); Aspartate Amino Transferase 29 U/L (17-59); Bilirubin,Total 0.2 mg/dL (0.2-1.3); Blood Urea Nitrogen 15 mg/dL (9-20); Calcium 8.9 mg/dL (8.4-10.2); Carbon Dioxide 37 mmol/L (22-30); Chloride 97 mmol/L (98-107); Estimated Glomerular Filt Rate > 60; Glucose 183 mg/dL (65-110); Potassium 4.6 mmol/L (3.4-5.0); Sodium 141 mmol/L (137-145)
[2021-10-27] MEDS: methylPREDNISolone SOD SUCC 125 MG VIAL IV PUSH (13:31)
[2021-10-27 13:40] LABS: Troponin I < 0.012 ng/mL (0.000-0.034)
[2021-10-27 13:52] LABS: Ovalocytes 1+ (NORMAL); Platelet Estimate Adequate (Adequate)
[2021-10-27 13:53] LABS: Anisocytosis 1+ (NORMAL)
[2021-10-27] MEDS: ALBUTEROL SULFATE NEB 2.5 MG/3 ML INH 10 MG INHALATION (15:34)
--- NOTE | 2021-10-27 16:13 | PM.IMHP ---
H&P: HPI History of Present Illness Date/Time: 10/27/21 16:13 Chief Complaint: Shortness of breath Narrative: This is a 66-year-old male patient who has a history of COPD and states that he is chronically on oxygen at 6 L per nasal cannula. The patient also has a history of hypertension, hyperlipidemia, coronary artery disease and obstructive sleep apnea. The patient stated that he has been short of breath for the last 3 days. The patient took 2 COVID test at home was found to be negative. The patient feels okay he does not move but if he gets up and walks around he E become short of breath. The patient denies any nausea vomiting fever diarrhea. He has no leg swelling. His white count is elevated 12.6. His H&H is 12.0 in 41.9 which is his baseline. His COVID test is negative hears well. Chest x-ray was read as no acute cardiopulmonary disease. The patient was given IV fluids and nebulizer treatments in the emergency room. He was also given Solu-Medrol. The patient is being admitted to observation status on the date of service of 10/27/2021. Review of Systems Review of Systems: see hpi All systems reviewed & are unremarkable except as noted in HPI and below Constitutional: Constitutional: Reports as per HPI and Reports no additional constitutional complaints Eyes: Eyes: Reports as per HPI and Reports no additional eye complaints ENT: Reports system reviewed and no additional complaints, except as documented and Reports Normal hearing present Cardiovascular: Cardiovascular: Reports no additional cardiovascular complaints Respiratory: Respiratory: Reports no additional respiratory complaints and Reports no additional respiratory complaints Gastrointestinal: Gastrointestinal: Reports as per HPI and Reports no additional gastrointestinal complaints Musculoskeletal: Musculoskeletal: Reports no additional musculoskeletal complaints Integumentary/Breasts: Skin/Breast: Reports system reviewed and no additional complaints, except as docu and Reports as per HPI Neurologic: Reports system reviewed and no additional complaints, except as documented, Reports as per HPI and Reports Normal hearing present Psychiatric: Psychiatric: Reports no additional psychiatric complaints and Reports as per HPI Endocrine: Endocrine: Reports no additional endocrine complaints Hematologic/Lymphatic: Hematologic/Lymphatic: Reports no additional hematologic/lymphatic complaints Allergic/Immunologic: Allergic/Immunologic: Reports no additional allergic/immunologic complaints [facility] Past Medical History Medical History CAD (coronary artery disease) Carotid occlusion, right Chronic pancreatitis Chronic respiratory failure with hypoxia, on home O2 therapy COPD (chronic obstructive pulmonary disease) Dyslipidemia Former smoker Hypertension Hypothyroid OTTO (obstructive sleep apnea) Type 2 diabetes mellitus treated with insulin Follows with endocrine Surgical History Surgical History H/O colonoscopy 09/2014 Family History Family History Father Acute myocardial infarction Hypertension, Onset Age: 56 Family history of heart disease in male family member before age 55 Sibling Family history of congenital heart disease, Onset Age: 32 Mother Family history of malignant neoplasm of breast in first degree relative Family history of primary malignant neoplasm of liver Other Asthma Social History Social History (Updated 10/27/21 @ 17:39 by Vanesa Neumann NP) Social History: The 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 The patient has 5 biological children. He is disabled. He is a former smoker. He denies any alcohol marijuana or illicit drugs. Code status full code Years smoked: 44 Smoking status: Former smo
[2021-10-27 16:54] LABS: SARS-CoV-2 RNA PCR Negative
--- NOTE | 2021-10-27 19:25 | ADMGEN ---
This patient, Juni Merchant, was admitted to Medical Room 259-01 @1915. Patient/family oriented to hospital policies and general routines including ID bracelet, bed and alarms, visiting hours, pain management, procedures, bathroom and other care routines, personal items, smoking policy, room service/diet, and visiting hours. Information on how to activate the Rapid Response Team has been discussed. Patient/Family are encouraged to report perceived risks to care and to ask questions if they do not understand what they are told or what they should do.
[2021-10-27] MEDS: ALBUTEROL SULFATE NEB 2.5 MG/3 ML INH INHALATION (20:15)
[2021-10-27] MEDS: methylPREDNISolone SOD SUCC 125 MG VIAL 60 MG IV PUSH (21:18)
[2021-10-27 21:34] LABS: Glucose Point of Care 179 mg/dl (65-105)
[2021-10-27] MEDS: FLUTICASONE PROPIONATE 0.05% NA SPR 16 GM BTL (*BKC) 1 SPRAY NASAL (22:38)
[2021-10-27] MEDS: GABAPENTIN 300 MG CAPSULE PO (22:38)
[2021-10-28] VITALS (20 sets, daily range): BP systolic 148–154; BP diastolic 69–83; PULSE 83–110; RESP 16–22; TEMP 36.4–36.8; O2SAT 94–99
[2021-10-28] MEDS: IPRATROPIUM BR 0.02% INH SOLN 0.5 MG/2.5 ML VIAL INHALATION ×4 (02:21→20:25)
[2021-10-28] MEDS: ALBUTEROL SULFATE NEB 2.5 MG/3 ML INH INHALATION ×2 (02:21→08:17)
[2021-10-28] MEDS: LEVOTHYROXINE SODIUM 112 MCG TABLET PO (05:39)
[2021-10-28] MEDS: methylPREDNISolone SOD SUCC 125 MG VIAL 60 MG IV PUSH (05:39)
[2021-10-28 05:52] LABS: Basophils Percent Auto 0.1 % (0.2-1.2); Hematocrit 40.5 % (42.0-52.0); Hemoglobin 11.5 g/dL (14.0-18.0); Immature Granulocyte Percent A 0.7 % (0-0.5); Lymphocytes Absolute Auto 0.98 K/mm3 (0.9-3.2); Lymphocytes Percent Auto 6.8 % (18.3-44.2); Mean Corpuscular HGB Conc 28.4 g/dl (32-36); Mean Corpuscular Hemoglobin 22.1 pg (26-34); Mean Corpuscular Volume 77.7 fl (80-100); Mean Platelet Volume 11.4 fl (7.4-10.4); Monocytes Absolute Auto 0.4 K/mm3 (0.1-0.6); Monocytes Percent Auto 2.9 % (2.6-8.5); Neutrophils Absolute Auto 12.8 K/mm3 (1.3-6.7); Neutrophils Percent Auto 89.5 % (45.5-73.1); Platelet Count Result 279 k/mm3 (150-375); Red Blood Count 5.21 M/mm3 (4.6-6.20); Red Cell Distribution Width 18.2 % (11.5-14.5); White Blood Count 14.4 K/mm3 (4.5-10.0)
[2021-10-28 06:00] LABS: Alanine Aminotransferase 19 U/L (6-50); Alkaline Phosphatase 105 U/L (38-126); Anion Gap 9 mmol/L (8-16); Aspartate Amino Transferase 21 U/L (17-59); Bilirubin,Total 0.2 mg/dL (0.2-1.3); Blood Urea Nitrogen 19 mg/dL (9-20); Carbon Dioxide 31 mmol/L (22-30); Chloride 99 mmol/L (98-107); Estimated CRCL calculation 126 ml/min; Estimated Glomerular Filt Rate > 60; Glucose 215 mg/dL (65-110); Magnesium 2.4 mg/dL (1.6-2.3); Potassium 4.3 mmol/L (3.4-5.0); Sodium 139 mmol/L (137-145)
[2021-10-28 06:07] LABS: Lactic Acid Reflex 1.4 mmol/L (0.7-2.0)
[2021-10-28 07:00] LABS: Ovalocytes 1+ (NORMAL); Platelet Estimate Adequate (Adequate)
[2021-10-28] MEDS: FLUTICASONE/SALMETEROL 115-21 MCG INHALER 1 PUFF 2 PUFF INHALATION ×2 (08:19→20:34)
[2021-10-28 08:30] LABS: Free T4 Free Thyroxine Reflex 0.74 ng/dL (0.78-2.19)
[2021-10-28 09:02] LABS: Glucose Point of Care 164 mg/dl (65-105)
[2021-10-28] MEDS: FLUTICASONE PROPIONATE 0.05% NA SPR 16 GM BTL (*BKC) 1 SPRAY NASAL ×2 (09:27→17:38)
[2021-10-28] MEDS: INSULIN GLARGINE (*BKC) 100 UNITS/ML 44 UNITS SUB-Q (09:27)
[2021-10-28] MEDS: GLIMEPIRIDE 2 MG TABLET 4 MG PO (09:28)
[2021-10-28] MEDS: polyethylene glycoL 3350 17 GM POWD.PACK PO (09:28)
[2021-10-28] MEDS: GABAPENTIN 300 MG CAPSULE PO ×3 (09:28→17:38)
[2021-10-28] MEDS: LOVASTATIN 20 MG TABLET 40 MG PO (09:28)
[2021-10-28] MEDS: EZETIMIBE 10 MG TABLET PO (09:29)
[2021-10-28] MEDS: FUROSEMIDE 40 MG TABLET PO ×2 (09:29→17:38)
[2021-10-28] MEDS: ENOXAPARIN 40 MG/0.4 ML SYRINGE SUB-Q (09:29)
[2021-10-28] MEDS: ASPIRIN 81 MG ENTERIC TABLET PO (09:29)
[2021-10-28] MEDS: ROFLUMILAST 500 MCG TABLET PO (09:30)
[2021-10-28] MEDS: EMPAGLIFLOZIN 25 MG TABLET PO (09:30)
[2021-10-28] MEDS: POTASSIUM CHLORIDE 10 MEQ TABLET.ER PO (09:30)
[2021-10-28] MEDS: LORATADINE 10 MG TABLET PO (09:30)
--- NOTE | 2021-10-28 12:12 | PM.IMPN ---
Progress Note: A&P Assessment and Plan (1) COPD exacerbation: Code(s): J44.1 - Chronic obstructive pulmonary disease with (acute) exacerbation Status: Acute Assessment and Plan: patient presented with increased shortness of breath and wheezing, consistent with COPD exacerbation continue IV Solu-Medrol, weaned to 40 mg q8h continue breathing treatments. Transition albuterol nebs to Xopenex given mild tachycardia. Continue ipratropium nebs no indication for antibiotics at this time. No change in sputum quality. continue home daliresp and advair supportive care (2) Chronic respiratory failure with hypoxia, on home O2 therapy: Code(s): J96.11 - Chronic respiratory failure with hypoxia; Z99.81 - Dependence on supplemental oxygen Status: Acute Assessment and Plan: patient maintained on 6 L supplemental O2 at rest and with activity and 6 L bleed in to CPAP at night continue supplemental oxygen maintaining adequate O2 sats on his baseline oxygen requirement (3) OTTO (obstructive sleep apnea): Code(s): G47.33 - Obstructive sleep apnea (adult) (pediatric) Status: Chronic Assessment and Plan: continue home CPAP (4) Hypertension: Qualifiers: Hypertension type: essential hypertension Qualified Code(s): I10 - Essential (primary) hypertension Code(s): I10 - Essential (primary) hypertension Status: Acute Assessment and Plan: blood pressure reviewed and has been slightly elevated, however improved from admission. Last BP 154/83 continue home diltiazem monitor BP trends (5) Type 2 diabetes mellitus treated with insulin: Code(s): E11.9 - Type 2 diabetes mellitus without complications; Z79.4 - USP (current) use of insulin Status: Chronic Assessment and Plan: A1c is 7.4. blood sugars reasonably controlled today, 164-215 anticipate blood sugars to run a bit higher while on steroid continue Accu-Cheks, sliding scale insulin, hypoglycemic protocol continue home Lantus 44 units daily continue home Jardiance and glimepiride monitor glucose trends (6) Hypothyroid: Qualifiers: Hypothyroidism type: unspecified Qualified Code(s): E03.9 - Hypothyroidism, unspecified Code(s): E03.9 - Hypothyroidism, unspecified Status: Acute Assessment and Plan: TSH is low at 0.25, T4 is also low at 0.74 will check T3 continue home levothyroxine at this time Subjective Date/time seen: 10/28/21 12:12 Interval history: date of service: 10/28/2021 Juni Merchant is a 66-year-old male with a history of COPD, chronic respiratory failure on 6 L supplemental oxygen, OTTO on CPAP at night, CAD, carotid artery disease, type 2 diabetes mellitus, hypertension, hypothyroidism, chronic pancreatitis who is seen in follow-up for COPD exacerbation. The patient states he is feeling a little bit better today. He presented with complaints of shortness of breath and chest tightness. He states that his chest tightness is markedly improved, although he still notes slight discomfort. This seems to improve after getting a breathing treatment. He complains of nasal congestion, which seems to be a chronic issue for him. He endorses phlegm stuck in his throat. He denies increased sputum production, actually stating that his sputum has lessened but he is unfortunately not able to expect rate. He does admit it is easier for him to take a deep breath today. Does endorse dyspnea on exertion, stating earlier today he bent over to grab something and felt short of breath after that. He denies wheezing. He denies chest pain. No palpitations. He does endorse feeling some sensation of anxiety. He has no additional concerns. He is tolerating his diet. Denies nausea, vomiting, abdominal pain, urinary symptoms. Endorses chronic, unchanged lower extremity edema. Review of Systems Review of Syste
[2021-10-28 12:15] LABS: Hemoglobin A1C 7.4 % (<5.7)
[2021-10-28 12:51] LABS: Glucose Point of Care 198 mg/dl (65-105)
[2021-10-28] MEDS: methylPREDNISolone SOD SUCC 40 MG VIAL IV PUSH ×2 (14:20→21:06)
[2021-10-28 17:07] LABS: Glucose Point of Care 178 mg/dl (65-105)
[2021-10-28] MEDS: guaiFENesin 12 HR 600 MG TABCR PO (21:06)
[2021-10-28 21:25] LABS: Glucose Point of Care 244 mg/dl (65-105)
[2021-10-29] VITALS (17 sets, daily range): BP systolic 146–171; BP diastolic 71–82; PULSE 67–118; RESP 16–20; TEMP 36.5–36.8; O2SAT 95–99
[2021-10-29] MEDS: IPRATROPIUM BR 0.02% INH SOLN 0.5 MG/2.5 ML VIAL INHALATION ×2 (01:47→08:20)
[2021-10-29 05:30] LABS: Hematocrit 41.8 % (42.0-52.0); Hemoglobin 12.2 g/dL (14.0-18.0); Mean Corpuscular HGB Conc 29.2 g/dl (32-36); Mean Corpuscular Hemoglobin 22.1 pg (26-34); Mean Corpuscular Volume 75.6 fl (80-100); Mean Platelet Volume 10.8 fl (7.4-10.4); Platelet Count Result 306 k/mm3 (150-375); Red Blood Count 5.53 M/mm3 (4.6-6.20); Red Cell Distribution Width 17.6 % (11.5-14.5); White Blood Count 14.5 K/mm3 (4.5-10.0)
[2021-10-29 05:56] LABS: Anion Gap 9 mmol/L (8-16); Blood Urea Nitrogen 23 mg/dL (9-20); Calcium 8.9 mg/dL (8.4-10.2); Carbon Dioxide 35 mmol/L (22-30); Chloride 99 mmol/L (98-107); Estimated CRCL calculation 126 ml/min; Estimated Glomerular Filt Rate > 60; Glucose 159 mg/dL (65-110); Potassium 4.1 mmol/L (3.4-5.0); Sodium 143 mmol/L (137-145)
[2021-10-29] MEDS: methylPREDNISolone SOD SUCC 40 MG VIAL IV PUSH ×2 (05:56→17:52)
[2021-10-29] MEDS: LEVOTHYROXINE SODIUM 112 MCG TABLET PO (05:56)
[2021-10-29] MEDS: FLUTICASONE/SALMETEROL 115-21 MCG INHALER 1 PUFF 2 PUFF INHALATION ×2 (08:25→20:39)
[2021-10-29 08:43] LABS: Glucose Point of Care 159 mg/dl (65-105)
[2021-10-29] MEDS: FLUTICASONE PROPIONATE 0.05% NA SPR 16 GM BTL (*BKC) 1 SPRAY NASAL ×2 (09:05→17:53)
[2021-10-29] MEDS: polyethylene glycoL 3350 17 GM POWD.PACK PO (09:05)
[2021-10-29] MEDS: POTASSIUM CHLORIDE 10 MEQ TABLET.ER PO (09:06)
[2021-10-29] MEDS: ROFLUMILAST 500 MCG TABLET PO (09:06)
[2021-10-29] MEDS: FUROSEMIDE 40 MG TABLET PO ×2 (09:06→17:52)
[2021-10-29] MEDS: guaiFENesin 12 HR 600 MG TABCR PO ×2 (09:06→20:32)
[2021-10-29] MEDS: GLIMEPIRIDE 2 MG TABLET 4 MG PO (09:06)
[2021-10-29] MEDS: ASPIRIN 81 MG ENTERIC TABLET PO (09:06)
[2021-10-29] MEDS: EMPAGLIFLOZIN 25 MG TABLET PO (09:06)
[2021-10-29] MEDS: LOVASTATIN 20 MG TABLET 40 MG PO (09:06)
[2021-10-29] MEDS: EZETIMIBE 10 MG TABLET PO (09:06)
[2021-10-29] MEDS: GABAPENTIN 300 MG CAPSULE PO ×3 (09:06→17:52)
[2021-10-29] MEDS: LORATADINE 10 MG TABLET PO (09:06)
[2021-10-29] MEDS: INSULIN GLARGINE (*BKC) 100 UNITS/ML 44 UNITS SUB-Q (09:10)
--- NOTE | 2021-10-29 10:05 | ECG_ITS ---
Measurements Intervals [place] Rate: 104 P: 77 VT: 132 QRS: 35 QRSD: 80 T: 0 QT: 333 QTc: 440 Interpretive Statements SINUS TACHYCARDIA NONSPECIFIC ST & T-WAVE ABNORMALITY- DIFFUSE LEADS BASELINE ARTIFACT- V2, V4 BORDERLINE ECG COMPARED TO ECG 10/27/2021 13:31:36 SINUS TACHYCARDIA NOW PRESENT Electronically Signed On 10-29-2021 21:39:01 CDT by Júnior Harding D.O.
--- NOTE | 2021-10-29 10:40 | P.PNIM_ITS ---
Progress Note: A&P Assessment and Plan (1) COPD exacerbation: Code(s): J44.1 - Chronic obstructive pulmonary disease with (acute) exacerbation Status: Acute Assessment and Plan: patient presented with increased shortness of breath and wheezing, consistent with COPD exacerbation * continue IV Solu-Medrol, weaned to 40 mg q12h * continue breathing treatments. Xopenex and ipratropium. Transitioned to prn to reduce tachycardia. * no indication for antibiotics at this time. No change in sputum quality. * continue home daliresp and advair * supportive care (2) Chronic respiratory failure with hypoxia, on home O2 therapy: Code(s): J96.11 - Chronic respiratory failure with hypoxia; Z99.81 - Dependence on supplemental oxygen Status: Acute Assessment and Plan: patient maintained on 6 L supplemental O2 at rest and with activity and 6 L bleed in to CPAP at night * continue supplemental oxygen * maintaining adequate O2 sats on his baseline oxygen requirement (3) OTTO (obstructive sleep apnea): Code(s): G47.33 - Obstructive sleep apnea (adult) (pediatric) Status: Chronic Assessment and Plan: continue home CPAP (4) Hypertension: Qualifiers: Hypertension type: essential hypertension Qualified Code(s): I10 - Essential (primary) hypertension Code(s): I10 - Essential (primary) hypertension Status: Acute Assessment and Plan: blood pressure reviewed and has been slightly elevated, however improved from admission. Last BP 171/82 * continue home diltiazem and lasix * monitor BP trends (5) Type 2 diabetes mellitus treated with insulin: Code(s): E11.9 - Type 2 diabetes mellitus without complications; Z79.4 - transmitter tester (current) use of insulin Status: Chronic Assessment and Plan: A1c is 7.4. blood sugars reasonably controlled today, 150-190 * anticipate blood sugars to run a bit higher while on steroids * continue Accu-Cheks, sliding scale insulin, hypoglycemic protocol * continue home Lantus 44 units daily * continue home Jardiance and glimepiride * monitor glucose trends (6) Hypothyroid: Qualifiers: Hypothyroidism type: unspecified Qualified Code(s): E03.9 - Hypothyroidism, unspecified Code(s): E03.9 - Hypothyroidism, unspecified Status: Acute Assessment and Plan: TSH is low at 0.25, T4 is also low at 0.74 * T3 pending * continue home levothyroxine at this time (7) Sinus tachycardia: Code(s): R00.0 - Tachycardia, unspecified Status: Acute Assessment and Plan: Sinus tachycardia evident on telemetry and EKG * Likely secondary to albuterol * Possibly worsened due to anxiety * Continue to monitor on telemetry Subjective Date/time seen: 10/29/21 9:30 Interval history: Date of service: 10/29/2021 Juni Merchant is a 66-year-old male with a history of COPD, chronic respiratory failure on 6 L supplemental oxygen, OTTO on CPAP at night, CAD, carotid artery disease, type 2 diabetes mellitus, hypertension, hypothyroidism, chronic pancreatitis who is seen in follow-up for COPD exacerbation. He is feeling bet ter today But states he is still a bit under the weather. He still feels that he has mucus in his chest that he cannot get up. He was able to expectorates some clear sputum today. He denies wheezing. He has very mild chest tightness, but states overall this is improved. He did have a bowel movement today. He denies chest pain or palpitation
--- NOTE | 2021-10-29 10:40 | PM.IMPN ---
Progress Note: A&P Assessment and Plan (1) COPD exacerbation: Code(s): J44.1 - Chronic obstructive pulmonary disease with (acute) exacerbation Status: Acute Assessment and Plan: patient presented with increased shortness of breath and wheezing, consistent with COPD exacerbation continue IV Solu-Medrol, weaned to 40 mg q12h continue breathing treatments. Xopenex and ipratropium. Transitioned to prn to reduce tachycardia. no indication for antibiotics at this time. No change in sputum quality. continue home daliresp and advair supportive care (2) Chronic respiratory failure with hypoxia, on home O2 therapy: Code(s): J96.11 - Chronic respiratory failure with hypoxia; Z99.81 - Dependence on supplemental oxygen Status: Acute Assessment and Plan: patient maintained on 6 L supplemental O2 at rest and with activity and 6 L bleed in to CPAP at night continue supplemental oxygen maintaining adequate O2 sats on his baseline oxygen requirement (3) OTTO (obstructive sleep apnea): Code(s): G47.33 - Obstructive sleep apnea (adult) (pediatric) Status: Chronic Assessment and Plan: continue home CPAP (4) Hypertension: Qualifiers: Hypertension type: essential hypertension Qualified Code(s): I10 - Essential (primary) hypertension Code(s): I10 - Essential (primary) hypertension Status: Acute Assessment and Plan: blood pressure reviewed and has been slightly elevated, however improved from admission. Last BP 171/82 continue home diltiazem and lasix monitor BP trends (5) Type 2 diabetes mellitus treated with insulin: Code(s): E11.9 - Type 2 diabetes mellitus without complications; Z79.4 - superintendent terminal (current) use of insulin Status: Chronic Assessment and Plan: A1c is 7.4. blood sugars reasonably controlled today, 150-190 anticipate blood sugars to run a bit higher while on steroids continue Accu-Cheks, sliding scale insulin, hypoglycemic protocol continue home Lantus 44 units daily continue home Jardiance and glimepiride monitor glucose trends (6) Hypothyroid: Qualifiers: Hypothyroidism type: unspecified Qualified Code(s): E03.9 - Hypothyroidism, unspecified Code(s): E03.9 - Hypothyroidism, unspecified Status: Acute Assessment and Plan: TSH is low at 0.25, T4 is also low at 0.74 T3 pending continue home levothyroxine at this time (7) Sinus tachycardia: Code(s): R00.0 - Tachycardia, unspecified Status: Acute Assessment and Plan: Sinus tachycardia evident on telemetry and EKG Likely secondary to albuterol Possibly worsened due to anxiety Continue to monitor on telemetry Subjective Date/time seen: 10/29/21 9:30 Interval history: Date of service: 10/29/2021 Juni Merchant is a 66-year-old male with a history of COPD, chronic respiratory failure on 6 L supplemental oxygen, OTTO on CPAP at night, CAD, carotid artery disease, type 2 diabetes mellitus, hypertension, hypothyroidism, chronic pancreatitis who is seen in follow-up for COPD exacerbation. He is feeling better today But states he is still a bit under the weather. He still feels that he has mucus in his chest that he cannot get up. He was able to expectorates some clear sputum today. He denies wheezing. He has very mild chest tightness, but states overall this is improved. He did have a bowel movement today. He denies chest pain or palpitations. He has no additional concerns. Updated at 11:00 am Rapid response called. Patient found in room in respiratory distress with tachycardia. Patient states he had sputum stuck in his throat and was trying to expectorate but was not able to. This caused him to become short of breath. He then states that he panicked. He was up walking around trying to clear his throat. He complained of OLIVIER. Nursing and medical staff responde
[2021-10-29 12:31] LABS: Glucose Point of Care 189 mg/dl (65-105)
[2021-10-29] MEDS: FUROSEMIDE INJ 40 MG/4 ML VIAL IV PUSH (12:35)
[2021-10-29 17:23] LABS: Glucose Point of Care 166 mg/dl (65-105)
[2021-10-29 22:14] LABS: Glucose Point of Care 265 mg/dl (65-105)
[2021-10-30] VITALS (19 sets, daily range): BP systolic 148–170; BP diastolic 61–83; PULSE 69–107; RESP 14–20; TEMP 36.5–36.6; O2SAT 95–98
[2021-10-30] MEDS: methylPREDNISolone SOD SUCC 40 MG VIAL IV PUSH ×2 (05:46→17:40)
[2021-10-30] MEDS: LEVOTHYROXINE SODIUM 112 MCG TABLET PO (05:46)
[2021-10-30 06:30] LABS: Anion Gap 8 mmol/L (8-16); Blood Urea Nitrogen 23 mg/dL (9-20); Calcium 8.9 mg/dL (8.4-10.2); Carbon Dioxide 33 mmol/L (22-30); Chloride 98 mmol/L (98-107); Estimated CRCL calculation 126 ml/min; Estimated Glomerular Filt Rate > 60; Glucose 122 mg/dL (65-110); Sodium 139 mmol/L (137-145)
[2021-10-30 07:36] LABS: Hematocrit 44.1 % (42.0-52.0); Hemoglobin 12.9 g/dL (14.0-18.0); Mean Corpuscular HGB Conc 29.3 g/dl (32-36); Mean Corpuscular Volume 75.3 fl (80-100); Mean Platelet Volume 10.7 fl (7.4-10.4); Platelet Count Result 314 k/mm3 (150-375); Red Blood Count 5.86 M/mm3 (4.6-6.20); White Blood Count 15.1 K/mm3 (4.5-10.0)
[2021-10-30 08:29] LABS: Glucose Point of Care 132 mg/dl (65-105)
[2021-10-30] MEDS: GABAPENTIN 300 MG CAPSULE PO ×3 (09:33→17:40)
[2021-10-30] MEDS: EZETIMIBE 10 MG TABLET PO (09:33)
[2021-10-30] MEDS: FLUTICASONE PROPIONATE 0.05% NA SPR 16 GM BTL (*BKC) 1 SPRAY NASAL ×2 (09:33→17:39)
[2021-10-30] MEDS: guaiFENesin 12 HR 600 MG TABCR PO ×2 (09:33→19:32)
[2021-10-30] MEDS: EMPAGLIFLOZIN 25 MG TABLET PO (09:33)
[2021-10-30] MEDS: ASPIRIN 81 MG ENTERIC TABLET PO (09:34)
[2021-10-30] MEDS: ROFLUMILAST 500 MCG TABLET PO (09:34)
[2021-10-30] MEDS: FUROSEMIDE 40 MG TABLET PO ×2 (09:34→17:40)
[2021-10-30] MEDS: POTASSIUM CHLORIDE 10 MEQ TABLET.ER PO (09:34)
[2021-10-30] MEDS: GLIMEPIRIDE 2 MG TABLET 4 MG PO (09:34)
[2021-10-30] MEDS: LOVASTATIN 20 MG TABLET 40 MG PO (09:34)
[2021-10-30] MEDS: polyethylene glycoL 3350 17 GM POWD.PACK PO (09:34)
[2021-10-30] MEDS: LORATADINE 10 MG TABLET PO (09:34)
[2021-10-30] MEDS: INSULIN GLARGINE (*BKC) 100 UNITS/ML 44 UNITS SUB-Q (09:35)
[2021-10-30] MEDS: ENOXAPARIN 40 MG/0.4 ML SYRINGE SUB-Q (09:35)
[2021-10-30] MEDS: FLUTICASONE/SALMETEROL 115-21 MCG INHALER 1 PUFF 2 PUFF INHALATION ×2 (10:06→19:39)
[2021-10-30 12:11] LABS: Glucose Point of Care 215 mg/dl (65-105)
[2021-10-30] MEDS: INSULIN ASPART (*BKC) 100 UNITS/ML SUB-Q (12:41)
--- NOTE | 2021-10-30 13:19 | P.PNIM_ITS ---
Progress Note: A&P Assessment and Plan (1) COPD exacerbation: Code(s): J44.1 - Chronic obstructive pulmonary disease with (acute) exacerbation Status: Acute Assessment and Plan: patient presented with increased shortness of breath and wheezing, consistent with COPD exacerbation * continue IV Solu-Medrol 40 mg q12h. plan to transition to p.o. prednisone tomorrow * xopenex and ipratropium nebs p.r.n. * no indication for antibiotics at this time. No change in sputum quality. * continue home daliresp and advair * supportive care (2) Chronic respiratory failure with hypoxia, on home O2 therapy: Code(s): J96.11 - Chronic respiratory failure with hypoxia; Z99.81 - Dependence on supplemental oxygen Status: Acute Assessment and Plan: patient maintained on 6 L supplemental O2 at rest and with activity and 6 L bleed in to CPAP at night * continue supplemental oxygen * maintaining adequate O2 sats on his baseline oxygen requirement (3) OTTO (obstructive sleep apnea): Code(s): G47.33 - Obstructive sleep apnea (adult) (pediatric) Status: Chronic Assessment and Plan: continue home CPAP (4) Hypertension: Qualifiers: Hypertension type: essential hypertension Qualified Code(s): I10 - Essential (primary) hypertension Code(s): I10 - Essential (primary) hypertension Status: Acute Assessment and Plan: blood pressure reviewed and is stable. Last BP 158/83 * continue home diltiazem and lasix * monitor BP trends (5) Type 2 diabetes mellitus treated with insulin: Code(s): E11.9 - Type 2 diabetes mellitus without complications; Z79.4 - long term care social worker (current) use of insulin Status: Chronic Assessment and Plan: A1c is 7.4. blood sugars reasonably controlled today, 120-215 * anticipate blood sugars to run a bit higher while on steroids * continue Accu-Cheks, sliding scale insulin, hypoglycemic protocol * continue home Lantus 44 units daily * continue home Jardiance and glimepiride * monitor glucose trends (6) Hypothyroid: Qualifiers: Hypothyroidism type: unspecified Qualified Code(s): E03.9 - Hypothyroidism, unspecified Code(s): E03.9 - Hypothyroidism, unspecified Status: Acute Assessment and Plan: TSH is low at 0.25, T4 is also low at 0.74 * T3 pending * continue home levothyroxine at this time (7) Sinus tachycardia: Code(s): R00.0 - Tachycardia, unspecified Status: Acute Assessment and Plan: Sinus tachycardia evident on telemetry and EKG * Likely secondary to albuterol * Possibly worsened due to anxiety * CTA negative for PE * Will check orthostatics * Improved today * Continue to monitor on telemetry Subjective Date/time seen: 10/30/21 13:19 Interval history: Date of service: 10/29/2021 Juni Merchant is a 66-year-old male with a history of COPD, chronic respiratory failure on 6 L supplemental oxygen, OTTO on CPAP at night, CAD, carotid artery disease, type 2 diabetes mellitus, hypertension, hypothyroidism, chronic pancreatitis who is seen in follow-up for COPD exacerbation. he feels better today. He endorses some mild chest tightness. He states he has been coughing a bit more today but is not able to unlodge any phlegm. he did get up with bit of clear white mucus this morning. He denies wheezing. He denies chest pain or palpitations. Today he states that some food got caught in his throat while he was trying to eat. he states
--- NOTE | 2021-10-30 13:19 | PM.IMPN ---
Progress Note: A&P Assessment and Plan (1) COPD exacerbation: Code(s): J44.1 - Chronic obstructive pulmonary disease with (acute) exacerbation Status: Acute Assessment and Plan: patient presented with increased shortness of breath and wheezing, consistent with COPD exacerbation continue IV Solu-Medrol 40 mg q12h. plan to transition to p.o. prednisone tomorrow xopenex and ipratropium nebs p.r.n. no indication for antibiotics at this time. No change in sputum quality. continue home daliresp and advair supportive care (2) Chronic respiratory failure with hypoxia, on home O2 therapy: Code(s): J96.11 - Chronic respiratory failure with hypoxia; Z99.81 - Dependence on supplemental oxygen Status: Acute Assessment and Plan: patient maintained on 6 L supplemental O2 at rest and with activity and 6 L bleed in to CPAP at night continue supplemental oxygen maintaining adequate O2 sats on his baseline oxygen requirement (3) OTTO (obstructive sleep apnea): Code(s): G47.33 - Obstructive sleep apnea (adult) (pediatric) Status: Chronic Assessment and Plan: continue home CPAP (4) Hypertension: Qualifiers: Hypertension type: essential hypertension Qualified Code(s): I10 - Essential (primary) hypertension Code(s): I10 - Essential (primary) hypertension Status: Acute Assessment and Plan: blood pressure reviewed and is stable. 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 blood sugars reasonably controlled today, 120-215 anticipate blood sugars to run a bit higher while on steroids continue Accu-Cheks, sliding scale insulin, hypoglycemic protocol continue home Lantus 44 units daily continue home Jardiance and glimepiride monitor glucose trends (6) Hypothyroid: Qualifiers: Hypothyroidism type: unspecified Qualified Code(s): E03.9 - Hypothyroidism, unspecified Code(s): E03.9 - Hypothyroidism, unspecified Status: Acute Assessment and Plan: TSH is low at 0.25, T4 is also low at 0.74 T3 pending continue home levothyroxine at this time (7) Sinus tachycardia: Code(s): R00.0 - Tachycardia, unspecified Status: Acute Assessment and Plan: Sinus tachycardia evident on telemetry and EKG Likely secondary to albuterol Possibly worsened due to anxiety CTA negative for PE Will check orthostatics Improved today Continue to monitor on telemetry Subjective Date/time seen: 10/30/21 13:19 Interval history: Date of service: 10/29/2021 Juni Merchant is a 66-year-old male with a history of COPD, chronic respiratory failure on 6 L supplemental oxygen, OTTO on CPAP at night, CAD, carotid artery disease, type 2 diabetes mellitus, hypertension, hypothyroidism, chronic pancreatitis who is seen in follow-up for COPD exacerbation. he feels better today. He endorses some mild chest tightness. He states he has been coughing a bit more today but is not able to unlodge any phlegm. he did get up with bit of clear white mucus this morning. He denies wheezing. He denies chest pain or palpitations. Today he states that some food got caught in his throat while he was trying to eat. he states this happens to him from time to time. He denies dysphagia with liquids and denies odynophagia. Denies nausea, vomiting, abdominal pain. No fevers or chills. He does admit that yesterday when he became tachycardic and a rapid response was called, he had been up attempting jumping jacks and toe touches. He states he wanted to get back on to his exercise regimen. discussed that while he is in the hospital, should focus on rest and re
[2021-10-30 17:07] LABS: Glucose Point of Care 125 mg/dl (65-105)
--- NOTE | 2021-10-30 17:40 | PCSTNOTE ---
Please refer to the Bedside Swallow Evaluation in the EMR. Please note, silent aspiration cannot be ruled out at bedside.
[2021-10-30] MEDS: IPRATROPIUM BR 0.02% INH SOLN 0.5 MG/2.5 ML VIAL INHALATION (19:40)
[2021-10-30 21:48] LABS: Glucose Point of Care 225 mg/dl (65-105)
[2021-10-31] VITALS (9 sets, daily range): BP systolic 157; BP diastolic 84; PULSE 74–113; RESP 16–20; TEMP 36.7; O2SAT 98
[2021-10-31 05:46] LABS: Mean Corpuscular HGB Conc 29.5 g/dl (32-36); Mean Corpuscular Hemoglobin 22.3 pg (26-34); Mean Corpuscular Volume 75.3 fl (80-100); Mean Platelet Volume 11.1 fl (7.4-10.4); Platelet Count Result 322 k/mm3 (150-375); Red Blood Count 5.84 M/mm3 (4.6-6.20); White Blood Count 16.1 K/mm3 (4.5-10.0)
[2021-10-31 05:55] LABS: Anion Gap 10 mmol/L (8-16); Blood Urea Nitrogen 21 mg/dL (9-20); Calcium 8.8 mg/dL (8.4-10.2); Carbon Dioxide 35 mmol/L (22-30); Chloride 95 mmol/L (98-107); Estimated CRCL calculation 126 ml/min; Estimated Glomerular Filt Rate > 60; Glucose 142 mg/dL (65-110); Potassium 3.7 mmol/L (3.4-5.0); Sodium 140 mmol/L (137-145)
[2021-10-31] MEDS: LEVOTHYROXINE SODIUM 112 MCG TABLET PO (06:32)
[2021-10-31 07:51] LABS: Glucose Point of Care 116 mg/dl (65-105)
[2021-10-31] MEDS: FLUTICASONE/SALMETEROL 115-21 MCG INHALER 1 PUFF 2 PUFF INHALATION (08:13)
[2021-10-31] MEDS: ASPIRIN 81 MG ENTERIC TABLET PO (08:14)
[2021-10-31] MEDS: predniSONE 20 MG TABLET 40 MG PO (08:14)
[2021-10-31] MEDS: EMPAGLIFLOZIN 25 MG TABLET PO (08:15)
[2021-10-31] MEDS: ENOXAPARIN 40 MG/0.4 ML SYRINGE SUB-Q (08:15)
[2021-10-31] MEDS: EZETIMIBE 10 MG TABLET PO (08:15)
[2021-10-31] MEDS: GABAPENTIN 300 MG CAPSULE PO ×2 (08:16→12:13)
[2021-10-31] MEDS: GLIMEPIRIDE 2 MG TABLET 4 MG PO (08:16)
[2021-10-31] MEDS: FLUTICASONE PROPIONATE 0.05% NA SPR 16 GM BTL (*BKC) 1 SPRAY NASAL (08:16)
[2021-10-31] MEDS: guaiFENesin 12 HR 600 MG TABCR PO (08:16)
[2021-10-31] MEDS: FUROSEMIDE 40 MG TABLET PO (08:16)
[2021-10-31] MEDS: LORATADINE 10 MG TABLET PO (08:17)
[2021-10-31] MEDS: LOVASTATIN 20 MG TABLET 40 MG PO (08:17)
[2021-10-31] MEDS: POTASSIUM CHLORIDE 10 MEQ TABLET.ER PO (08:17)
[2021-10-31] MEDS: ROFLUMILAST 500 MCG TABLET PO (08:17)
[2021-10-31] MEDS: polyethylene glycoL 3350 17 GM POWD.PACK PO (08:17)
[2021-10-31] MEDS: INSULIN GLARGINE (*BKC) 100 UNITS/ML 44 UNITS SUB-Q (08:22)
--- NOTE | 2021-10-31 11:21 | PM.DS ---
DS: Admitting Diagnosis Discharge Date 10/31/2021 Admitting Diagnosis COPD exacerbation DS: Discharge Diagnosis Discharge Diagnosis (1) COPD exacerbation: Code(s): J44.1 - Chronic obstructive pulmonary disease with (acute) exacerbation Status: Acute Assessment and Plan: patient presented with increased shortness of breath and wheezing, consistent with COPD exacerbation treated with IV Solu-Medrol which was able to be weaned to p.o. prednisone. Continue prednisone as an outpatient to complete 5 total days. symptomatic improvement with xopenex and ipratropium nebs during admission. Continue home nebs as needed with rescue inhaler no indication for antibiotics . No change in sputum quality. continue home daliresp and advair patient has pulmonology follow-up scheduled in 2 weeks (2) Chronic respiratory failure with hypoxia, on home O2 therapy: Code(s): J96.11 - Chronic respiratory failure with hypoxia; Z99.81 - Dependence on supplemental oxygen Status: Acute Assessment and Plan: patient maintained on 6 L supplemental O2 at rest and with activity and 6 L bleed in to CPAP at night O2 sats remained stable on home oxygen requirements (3) OTTO (obstructive sleep apnea): Code(s): G47.33 - Obstructive sleep apnea (adult) (pediatric) Status: Chronic Assessment and Plan: continue home CPAP (4) Hypertension: Qualifiers: Hypertension type: essential hypertension Qualified Code(s): I10 - Essential (primary) hypertension Code(s): I10 - Essential (primary) hypertension Status: Acute Assessment and Plan: blood pressure reviewed and remained stable continue home diltiazem and lasix (5) Type 2 diabetes mellitus treated with insulin: Code(s): E11.9 - Type 2 diabetes mellitus without complications; 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 blood sugars were reasonably controlled during admission especially while on IV antibiotics continue home insulin regimen continue home Jardiance and glimepiride (6) Hypothyroid: Qualifiers: Hypothyroidism type: unspecified Qualified Code(s): E03.9 - Hypothyroidism, unspecified Code(s): E03.9 - Hypothyroidism, unspecified Status: Acute Assessment and Plan: TSH is low at 0.25, T4 is also low at 0.74 T3 pending at time of discharge patient will follow-up with PCP and will need repeat TSH in 4 weeks continue home levothyroxine (7) Sinus tachycardia: Code(s): R00.0 - Tachycardia, unspecified Status: Acute Assessment and Plan: Sinus tachycardia evident on telemetry and EKG Likely secondary to beta agonist effect, possibly worsened due to anxiety CTA negative for PE Orthostatics negative Improved with transition to Xopenox and then decreasing nebs from scheduled to prn DS: Summary Hospital Course Hospital Course: date of admission: 10/27/2021 date of discharge: 10/31/2021 Juni Merchant is a 66-year-old male with a history of COPD, chronic respiratory failure on 6 L supplemental oxygen, OTTO on CPAP at night, CAD, carotid artery disease, type 2 diabetes mellitus, hypertension, hypothyroidism, chronic pancreatitis who presented to the emergency department on 10/27/2021 with with complaints of worsened dyspnea. On presentation to the ED, he was mildly tachypneic and tachycardic with BP elevated and oxygen says stable on chronic 6 L O2, white blood cell count 14.5, additional laboratory workup unremarkable, TSH low, and CXR showed no acute cardiopulmonary disease. He was admitted to the hospitalist service for further evaluation and management. Please see above for further details. He had symptomatic improvement following steroids and breathing treatments. He will continue prednisone as an outpatient. 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
[2021-10-31] MEDS: IPRATROPIUM BR 0.02% INH SOLN 0.5 MG/2.5 ML VIAL INHALATION (11:32)
[2021-10-31 12:07] LABS: Glucose Point of Care 149 mg/dl (65-105)
== END 2021-10-31 14:22 | disposition home or self-care (01) | DRG 191 ==
LOC: ANHED 12:32 → ANH3MEDSUR 17:54 → ANH2MED 18:29
PROVIDERS: Nurse Practitioner; Physician Assistant; Admitting Provider Internal Medicine; Emergency Provider Emergency Medicine; PCP Nurse Practitioner; Visit Provider Family Medicine
DX: J44.1 Chronic obstructive pulmonary disease with (acute) exacerbation (principal); J96.11 Chronic respiratory failure with hypoxia; Z68.41 Body mass index [BMI] 40.0-44.9, adult; Z20.822 Contact with and (suspected) exposure to COVID-19; G47.33 Obstructive sleep apnea (adult) (pediatric); E11.9 Type 2 diabetes mellitus without complications; E03.9 Hypothyroidism, unspecified; R00.0 Tachycardia, unspecified; T48.6X5A Adverse effect of antiasthmatics, initial encounter; F41.9 Anxiety disorder, unspecified; I25.10 Atherosclerotic heart disease of native coronary artery without angina pectoris; I10 Essential (primary) hypertension; E78.5 Hyperlipidemia, unspecified; I65.21 Occlusion and stenosis of right carotid artery; E66.9 Obesity, unspecified; Z99.81 Dependence on supplemental oxygen; Z79.4 Long term (current) use of insulin; Z79.82 Long term (current) use of aspirin; Z87.891 Personal history of nicotine dependence
CPT/HCPCS: 36415; 71045; 71275; 80048; 80053; 82728; 82948; 83036; 83605; 83735; 84439; 84443; 84481; 84484; 85025; 85027; 92610; 93005; 94640; 94667; 96361; 96372; 96374; 96376; 99285; A9270; C9803; G0378; J1650; J1815; J1940; J2920; J2930; J7030; J7512; Q9967; U0003; U0005

== ENCOUNTER 2021-11-10 09:33 | Outpatient (CLI) | payer MEDICARE, MEDICAID, SELFPAY ==
[2021-11-10 20:58] LABS: Alanine Aminotransferase 29 U/L (6-50); Albumin Level 3.9 g/dL (3.5-5.1); Alkaline Phosphatase 102 U/L (38-126); Amylase 176 U/L (30-110); Anion Gap 6 mmol/L (8-16); Aspartate Amino Transferase 32 U/L (17-59); Bilirubin,Total 0.2 mg/dL (0.2-1.3); Blood Urea Nitrogen 15 mg/dL (9-20); Calcium 9.2 mg/dL (8.4-10.2); Carbon Dioxide 37 mmol/L (22-30); Chloride 97 mmol/L (98-107); Cholesterol 179 mg/dL (0-200); Estimated Glomerular Filt Rate > 60; Glucose 191 mg/dL (65-110); HDL Direct 58 mg/dL; Lipase 546 U/L (23-300); Potassium 4.4 mmol/L (3.4-5.0); Sodium 140 mmol/L (137-145); Triglycerides 140 mg/dL (<150)
[2021-11-10 21:06] LABS: Basophils Absolute Auto 0.1 K/mm3 (0.0-0.1); Basophils Percent Auto 0.3 % (0.2-1.2); Eosinophils Absolute Auto 0.2 K/mm3 (0-0.3); Eosinophils Percent Auto 1.6 % (0-4.4); Hematocrit 41.8 % (42.0-52.0); Hemoglobin 11.9 g/dL (14.0-18.0); Immature Granulocyte Absolute 0.08 K/mm3 (0.00-0.031); Immature Granulocyte Percent A 0.5 % (0-0.5); Lymphocytes Absolute Auto 2.14 K/mm3 (0.9-3.2); Lymphocytes Percent Auto 14.5 % (18.3-44.2); Mean Corpuscular HGB Conc 28.5 g/dl (32-36); Mean Corpuscular Hemoglobin 21.7 pg (26-34); Mean Corpuscular Volume 76.3 fl (80-100); Mean Platelet Volume 11.1 fl (7.4-10.4); Monocytes Absolute Auto 1.2 K/mm3 (0.1-0.6); Monocytes Percent Auto 7.8 % (2.6-8.5); Neutrophils Absolute Auto 11.1 K/mm3 (1.3-6.7); Neutrophils Percent Auto 75.3 % (45.5-73.1); Platelet Count Result 270 k/mm3 (150-375); Red Blood Count 5.48 M/mm3 (4.6-6.20); Red Cell Distribution Width 17.5 % (11.5-14.5); White Blood Count 14.7 K/mm3 (4.5-10.0)
[2021-11-10 21:10] LABS: LDL Cholesterol Direct 94 mg/dL
[2021-11-10 21:26] LABS: Creatinine Urine 68.8 mg/dL
[2021-11-10 21:34] LABS: MALB Creatinine Ratio < 8.7 mg/g (0-30); Microalbumin Urine Random < 6.0 mg/L (0-16.7)
[2021-11-10 21:49] LABS: Hypochromasia 1+ (NORMAL); Platelet Estimate Adequate (Adequate)
[2021-11-10 21:50] LABS: Ovalocytes 1+ (NORMAL); Target Cells 1+ (NORMAL)
[2021-11-10 21:51] LABS: Schistocytes None Seen (NORMAL)
== END 2021-11-10 09:34 | disposition home or self-care (01) ==
PROVIDERS: PCP Nurse Practitioner; Visit Provider Nurse Practitioner
DX: D72.829 Elevated white blood cell count, unspecified (principal); R10.10 Upper abdominal pain, unspecified; E11.65 Type 2 diabetes mellitus with hyperglycemia; Z79.4 Long term (current) use of insulin; E11.69 Type 2 diabetes mellitus with other specified complication; E78.5 Hyperlipidemia, unspecified; E11.59 Type 2 diabetes mellitus with other circulatory complications; I15.2 Hypertension secondary to endocrine disorders; E03.9 Hypothyroidism, unspecified
CPT/HCPCS: 36415; 80053; 80061; 82043; 82150; 83690; 84443; 85025

== ENCOUNTER 2021-11-29 11:49 | Outpatient (CLI) | payer MEDICARE, MEDICAID, SELFPAY ==
[2021-11-29 12:48] VITALS: PULSE 104; O2SAT 87
[2021-11-29 12:50] VITALS: PULSE 104; O2SAT 86
[2021-11-29 12:51] VITALS: PULSE 104; O2SAT 92
[2021-11-29 12:53] VITALS: PULSE 114; O2SAT 87
[2021-11-29 12:55] VITALS: PULSE 114; O2SAT 93
--- NOTE | 2021-11-29 14:05 | HOMEO2EVAL ---
Evaluation was performed at [facility] Home Oxygen Evaluation RC: Home Oxygen (O2) Evaluation Start: 11/29/21 13:19 Freq: Status: Active Protocol: RPE Activity Type Activity Date Activity User E-sign Co-sign Detail Recorded Client Recorded Date Recorded By Document 11/29/21 12:48 DJO [email or web address] 11/29/21 14:05 DJO Document 11/29/21 12:50 [email or web address] [email or web address] 11/29/21 14:05 DJO Document 11/29/21 12:51 [email or web address] [email or web address] 11/29/21 14:05 DJO Document 11/29/21 12:53 [email or web address] [email or web address] 11/29/21 14:05 DJO Document 11/29/21 12:55 [email or web address] [email or web address] 11/29/21 14:05 DJO 11/29/21 11/29/21 11/29/21 12:48 12:50 12:51 Home O2 Evaluation [Oxygen] -Test Phase Resting Resting Resting -Oxygen Delivery Room Air Nasal Cannula Nasal Cannula -Oxygen Flow Rate (L/min) 1 2 [Pulse Oximetry] -Pulse Oximetry (90-100 %) 87 L 86 L 92 [Pulse Rate] -Pulse Rate (60-100 beats/min) 104 H 104 H 104 H [Evaluation] -Activity Tolerance [Exercise] -Ambulation Distance (feet) -Ambulation Distance (meters) [Comments] -Home Oxygen Evaluation Comments [Charges] -Treatment Charges 11/29/21 11/29/21 12:53 12:55 Home O2 Evaluation [Oxygen] -Test Phase Exercise Exercise -Oxygen Delivery Nasal Cannula Nasal Cannula -Oxygen Flow Rate (L/min) 2 3 [Pulse Oximetry] -Pulse Oximetry (90-100 %) 87 L 93 [Pulse Rate] -Pulse Rate (60-100 beats/min) 114 H 114 H [Evaluation] -Activity Tolerance Good Good [Exercise] -Ambulation Distance (feet) 100 -Ambulation Distance (meters) 30.47 [Comments] -Home Oxygen Evaluation Comments 2LPM AT REST, 3LPM WITH ACTIVITY. [Charges] -Treatment Charges O2 Evaluation - Inpatient
--- NOTE | 2021-11-29 14:07 | PCRCNOTE ---
PT. REFUSED ABG, PROVIDERS OFFICE AWARE.
--- NOTE | 2021-12-08 17:02 | WPDPFTINT ---
PFT Procedure Performed PFT Procedure Performed Spirometry with Pre/Post Bronchodilator Plethysmography (Lung Vol) Diffusing Cap (DLCO) Flow Vol Loop PFT Interpretation DOS: 11/29/2021 REQUESTING: Yamilet Mazariegos PA-C REASON FOR TESTING: COPD, chronic respiratory failure on oxygen PULMONARY FUNCTION TESTS Results are reliable and reproducible. Spirometry: pre bronchodilator FEV1 is 0.71 L, 25%, severely decreased. Pre bronchodilator FVC is 1.87 L, 50%, severely reduced. FEV1 / FVC ratio is 38%, consistent with airflow obstruction. After bronchodilator administration there is a 5% increase in FEV1, not significant. There is a 23% increase in the FVC, this becomes 2.3 L, 62% predicted. This is greater than 12% and greater than 200 mL so this is statistically significant. Lung volumes: Total lung capacity 7.45 L, 120%, upper limit normal. Residual volume is 5.58 L, 253% predicted, severe air trapping. RV/TLC is 75%, severe air trapping. Airway resistance increased, 548%. Diffusion: DLCO 10.8, 40% predicted, severely decreased. DLCO/VA is 3.54, 87% predicted, normal. Flow volume loop: Severe coving of the expiratory limb. IMPRESSION: Extremely severe obstructive ventilatory impairment with good response to bronchodilator, severe air trapping, severe diffusion impairment which corrects for alveolar volume. Compared to a study 02/22/2017, FVC about the same, and FEV1 was similar. FEV1/FVC the same. There was a good response to bronchodilator 29% increase in the FVC. Total lung capacity was 109%, now 120%. RV was 207%, now 253%. DLCO was 44% now 40%. DLCO/ VA was 101% now 87%. Nancy Jimenez MD
== END 2021-11-29 11:50 | disposition home or self-care (01) ==
LOC: ANHPFT 11:52
PROVIDERS: PCP Nurse Practitioner; Visit Provider Physician Assistant
DX: J44.9 Chronic obstructive pulmonary disease, unspecified (principal); J96.11 Chronic respiratory failure with hypoxia; Z99.81 Dependence on supplemental oxygen
CPT/HCPCS: 94060; 94618; 94726; 94729

== ENCOUNTER 2022-01-18 07:55 | Outpatient (CLI) | payer MEDICARE, MEDICAID, SELFPAY ==
--- NOTE | 2022-01-18 08:07 | ECHO_ITS ---
Patient Info Name: Juni Merchant Age: 66 years : 1955 Gender: Male Ht: 70 in Wt: 300 lbs BSA: 2.66 m2 HR: 87 bpm BP: 153 / 82 mmHg Technical Quality: Poor Exam Date: 01/18/2022 9:17 AM Exam Location: [facility] Patient Status: Outpatient Admit Date: 01/18/2022 Staff Ordering Physician: Júnior Harding DO Senior Consulting Manager: Azar Francisco RDCS Attending Provider: Júnior Harding DO Referring Physician: Mehdi SHARP; Exam Type: CA echo dop color flow w con Study Info Indications R06.09 - Other forms of dyspnea Complete two-dimensional, color flow and Doppler transthoracic echocardiogram is performed with contrast to opacify the left ventricle and to improve the deliniation of the left ventricle endocardial borders. Contrast/Agitated Saline Contrast/Ag. Saline: Definity Amount: 3.00 ml Administered By: Azar Francisco RDCS Existing IV Access: Yes IV Access Condition: patent with no signs of infiltration Summary 1. Technically suboptimal study due to poor sonographic images. 2. Definity contrast administered improved wall motion interpretation. 3. Left ventricular chamber dimension is normal. 4. Left ventricular systolic function is normal, estimated at 60-65%. 5. The left ventricular diastolic function is grade I diastolic dysfunction. 6. E/e' 6 is not elevated. Left Ventricle Definity contrast administered improved wall motion interpretation. Technically suboptimal study due to poor sonographic images. E/e' 6 is not elevated. Left ventricular chamber dimension is normal. Left ventricular systolic function is normal, estimated at 60-65%. The left ventricular diastolic function is grade I diastolic dysfunction. Right Ventricle Right ventricular systolic function is normal and with normal TAPSE 2.1 cm. Right ventricular chamber dimension is normal. Left Atria Left atrial chamber dimension is normal. Right Atria Right atrial chamber dimension is normal. Aortic Valve The aortic valve is not well visualized. Cannot determine number of aortic valve leaflets. There is no aortic valve stenosis. There is no aortic valve regurgitation. Pulmonic Valve There is no pulmonic regurgitation. Mitral Valve There is no mitral valve stenosis. There is no mitral valve regurgitation. Tricuspid Valve There is no tricuspid valve regurgitation. Pericardium/Pleural There is no pericardial effusion. Inferior Vena Cava Normal inferior vena cava with >50% collapse upon inspiration consistent with normal right atrial pressure, 5 mmHg. Aorta The aortic root size at the sinus of Valsalva is not well visualized. Left Ventricular Outflow Tract Name Value Normal LVOT Doppler LVOT Peak Gradient 5 mmHg LVOT Mean Gradient 3 mmHg LVOT VTI 23.43 cm LVOT VTI/AV VTI Ratio 0.95 Mitral Valve Name Value Normal MV Doppler
[2022-01-18] MEDS: PERFLUTREN LIPID MICROSPHERES 1.5 ML VIAL DILUTED TO 10 ML TOTAL VOLUME IV PUSH (09:30)
== END 2022-01-18 07:56 | disposition home or self-care (01) ==
LOC: ANHCARD 07:57
PROVIDERS: PCP Nurse Practitioner; Visit Provider Internal Medicine Cardiovascular Disease
DX: R06.09 Other forms of dyspnea (principal)
CPT/HCPCS: C8929; Q9957

== ENCOUNTER 2022-03-13 11:14 | Outpatient (RCR) | payer MEDICARE, MEDICAID, SELFPAY | END 2022-06-11 23:59 | disposition home or self-care (01) | LOC: ANHLAB 11:14 | PROVIDERS: PCP Nurse Practitioner; Visit Provider Internal Medicine Critical Care Medicine | DX: J44.9 Chronic obstructive pulmonary disease, unspecified (principal) | CPT/HCPCS: 87015; 87070; 87077; 87102; 87106; 87116; 87185; 87205; 87206 ==

== ENCOUNTER 2022-04-30 08:44 | Outpatient (CLI) | payer MEDICARE, MEDICAID, SELFPAY ==
--- NOTE | ~2022-04-30 | CT_ITS ---
CT Scan of the Chest without Contrast: Clinical Indication: Smoking history, lung cancer screening Technique: Contiguous sections were acquired throughout the chest without intravenous contrast. Dose reduction technique was used on this scan by utilizing automated exposure control and iterative recon struction technique. The dose-length product (DLP) was 516.08 mGy-cm. COMPARISON: 10/29/2021 Findings: There is no evidence of any significant mediastinal, hilar or axillary lymphadenopathy. There are ath erosclerotic calcifications of the aorta. Coronary calcium cages are present. There is no evidence of pleural or pericardial effusion. The lungs are clear. No pulmonary nodules or infiltrates are noted. Mild emphysema noted. Minimal bib asilar scarring noted. Images through the upper abdomen reveal no abnormalities. Impression: Lung-RADS 2: Benign appearance. 12 month follow-up screening CT advised. Mild emphysema. Mild bibasilar scarring. Reviewed, dictated and finalized at [facility]. Impression: Lung-RADS 2: Benign appearance. 12 month follow-up screening CT advised. Mild emphysema. Mild bibasilar scarring.
== END 2022-04-30 08:45 | disposition home or self-care (01) ==
PROVIDERS: PCP Nurse Practitioner; Visit Provider Physician Assistant
DX: Z12.2 Encounter for screening for malignant neoplasm of respiratory organs (principal); Z87.891 Personal history of nicotine dependence
CPT/HCPCS: 71271

== ENCOUNTER 2022-05-21 09:33 | Outpatient (CLI) | payer MEDICARE, MEDICAID, SELFPAY ==
[2022-05-21 10:10] LABS: Basophils Percent Auto 0.3 % (0.2-1.2); Eosinophils Absolute Auto 0.3 K/mm3 (0-0.3); Eosinophils Percent Auto 2.9 % (0-4.4); Hematocrit 44.6 % (42.0-52.0); Hemoglobin 12.7 g/dL (14.0-18.0); Immature Granulocyte Absolute 0.02 K/mm3 (0.00-0.031); Immature Granulocyte Percent A 0.2 % (0-0.5); Lymphocytes Absolute Auto 2.11 K/mm3 (0.9-3.2); Lymphocytes Percent Auto 22.2 % (18.3-44.2); Mean Corpuscular HGB Conc 28.5 g/dl (32-36); Mean Corpuscular Hemoglobin 22.7 pg (26-34); Mean Corpuscular Volume 79.8 fl (80-100); Mean Platelet Volume 10.4 fl (7.4-10.4); Monocytes Absolute Auto 0.6 K/mm3 (0.1-0.6); Monocytes Percent Auto 6.5 % (2.6-8.5); Neutrophils Absolute Auto 6.4 K/mm3 (1.3-6.7); Neutrophils Percent Auto 67.9 % (45.5-73.1); Platelet Count Result 232 k/mm3 (150-375); Red Blood Count 5.59 M/mm3 (4.6-6.20); Red Cell Distribution Width 17.5 % (11.5-14.5); White Blood Count 9.5 K/mm3 (4.5-10.0)
[2022-05-21 10:25] LABS: Hemoglobin A1C 6.5 % (<5.7)
[2022-05-21 10:28] LABS: Amylase 121 U/L (30-110)
[2022-05-21 10:29] LABS: Alanine Aminotransferase 20 U/L (6-50); Alkaline Phosphatase 99 U/L (38-126); Anisocytosis 1+ (NORMAL); Aspartate Amino Transferase 24 U/L (17-59); Bilirubin,Total 0.4 mg/dL (0.2-1.3); Blood Urea Nitrogen 12 mg/dL (9-20); Calcium 8.8 mg/dL (8.4-10.2); Carbon Dioxide > 40 mmol/L (22-30); Chloride 96 mmol/L (98-107); Cholesterol 188 mg/dL (0-200); Estimated Glomerular Filt Rate > 60; Glucose 82 mg/dL (65-110); HDL Direct 41 mg/dL; Hypochromasia 2+ (NORMAL); Platelet Estimate Adequate (Adequate); Potassium 4.2 mmol/L (3.4-5.0); Sodium 140 mmol/L (137-145); Triglycerides 112 mg/dL (<150)
[2022-05-21 10:30] LABS: Schistocytes None Seen (NORMAL)
[2022-05-21 10:37] LABS: LDL Cholesterol Direct 111 mg/dL
[2022-05-21 10:54] LABS: Prostate Specific Antigen 1.9 ng/mL (< OR = 4.0)
[2022-05-21 11:03] LABS: Creatinine Urine 144.7 mg/dL
[2022-05-21 11:21] LABS: MALB Creatinine Ratio < 4.1 mg/g (0-30); Microalbumin Urine Random < 6.0 mg/L (0-16.7)
== END 2022-05-21 09:34 | disposition home or self-care (01) ==
PROVIDERS: PCP Nurse Practitioner; Visit Provider Internal Medicine Gastroenterology
DX: Z12.5 Encounter for screening for malignant neoplasm of prostate (principal); I10 Essential (primary) hypertension; J44.9 Chronic obstructive pulmonary disease, unspecified; E11.9 Type 2 diabetes mellitus without complications; E78.5 Hyperlipidemia, unspecified; K86.1 Other chronic pancreatitis; R74.8 Abnormal levels of other serum enzymes
CPT/HCPCS: 36415; 80053; 80061; 82043; 82150; 83036; 84153; 85025; G0103

== ENCOUNTER 2022-06-06 11:05 | Outpatient (CLI) | payer MEDICARE, MEDICAID, SELFPAY ==
--- NOTE | ~2022-06-06 | US_ITS ---
EXAMINATION: US carotid duplex BI DATE: 06/06/2022 11:50 INDICATION: Occlusion and stenosis of right carotid artery. TECHNIQUE: Grayscale, color Doppler, and pulsed Doppler images of the cervical carotid arteries were obtained. The degree of vessel stenosis is placed in one of the following categories: normal, <50%, 5 0-69%, >=70% but less than near-occlusion, near-occlusion, or total occlusion. Note that percent sten osis relative to normal distal artery lumen diameter is indirectly measured from velocity measurement s as described by James, et al. Radiology 2003; 229:340-346. COMPARISON: Ultrasound 05/15/2021 FINDINGS: RIGHT: The right common carotid artery (CCA) peak systolic velocity (PSV) is 64 cm/s. There is total occlusi on of right internal carotid artery (ICA). There is antegrade flow in the right vertebral artery. LEFT: The left CCA PSV is 165 cm/s. The left ICA PSV is 173 cm/s. The left ICA end-diastolic velocity is 33 cm/s. The left ICA/CCA PSV ratio is 1.1. Grayscale and color Doppler images yield an estimate of <50 % diameter reduction from plaque in the ICA. There is antegrade flow in the left vertebral artery. IMPRESSION: 1. Total occlusion of right internal carotid artery. 2. <50% stenosis in the left internal carotid artery. Reviewed, dictated and finalized at location A.
== END 2022-06-06 11:06 | disposition home or self-care (01) ==
LOC: ANHIMG 11:06
PROVIDERS: PCP Nurse Practitioner; Visit Provider Internal Medicine Cardiovascular Disease
DX: I65.23 Occlusion and stenosis of bilateral carotid arteries (principal)
CPT/HCPCS: 93880

== ENCOUNTER 2022-10-08 09:19 | Outpatient (CLI) | payer MEDICARE, MEDICAID, SELFPAY ==
[2022-10-08 15:05] LABS: Alanine Aminotransferase 19 U/L (6-50); Alkaline Phosphatase 79 U/L (38-126); Anion Gap 6 mmol/L (8-16); Aspartate Amino Transferase 28 U/L (17-59); Bilirubin,Total 0.3 mg/dL (0.2-1.3); Blood Urea Nitrogen 13 mg/dL (9-20); Calcium 8.9 mg/dL (8.4-10.2); Carbon Dioxide 39 mmol/L (22-30); Chloride 97 mmol/L (98-107); Estimated Glomerular Filt Rate > 60; Glucose 87 mg/dL (65-110); Potassium 4.1 mmol/L (3.4-5.0); Sodium 142 mmol/L (137-145)
== END 2022-10-08 09:20 | disposition home or self-care (01) ==
PROVIDERS: PCP Family Medicine; Visit Provider Nurse Practitioner Family
DX: R74.8 Abnormal levels of other serum enzymes (principal); R10.9 Unspecified abdominal pain
CPT/HCPCS: 36415; 80053

== ENCOUNTER 2022-11-05 08:49 | Outpatient (CLI) | payer MEDICARE, MEDICAID, SELFPAY ==
[2022-11-05 18:58] LABS: Alanine Aminotransferase 18 U/L (6-50); Albumin Level 4.2 g/dL (3.5-5.1); Alkaline Phosphatase 86 U/L (38-126); Anion Gap 4 mmol/L (8-16); Aspartate Amino Transferase 25 U/L (17-59); Bilirubin,Total 0.4 mg/dL (0.2-1.3); Blood Urea Nitrogen 16 mg/dL (9-20); Calcium 8.8 mg/dL (8.4-10.2); Carbon Dioxide 39 mmol/L (22-30); Chloride 98 mmol/L (98-107); Cholesterol 163 mg/dL (0-200); Estimated Glomerular Filt Rate > 60; Glucose 90 mg/dL (65-110); HDL Direct 39 mg/dL; Lipase 292 U/L (23-300); Potassium 4.1 mmol/L (3.4-5.0); Sodium 141 mmol/L (137-145); Triglycerides 61 mg/dL (<150)
[2022-11-05 19:09] LABS: LDL Cholesterol Direct 95 mg/dL
[2022-11-05 19:28] LABS: Hemoglobin A1C 6.3 % (<5.7)
[2022-11-05 19:48] LABS: Basophils Percent Auto 0.4 % (0.2-1.2); Eosinophils Absolute Auto 0.3 K/mm3 (0-0.3); Eosinophils Percent Auto 2.5 % (0-4.4); Hematocrit 43.5 % (42.0-52.0); Hemoglobin 12.1 g/dL (14.0-18.0); Immature Granulocyte Absolute 0.03 K/mm3 (0.00-0.031); Immature Granulocyte Percent A 0.3 % (0-0.5); Lymphocytes Absolute Auto 2.51 K/mm3 (0.9-3.2); Lymphocytes Percent Auto 24.1 % (18.3-44.2); Mean Corpuscular HGB Conc 27.8 g/dl (32-36); Mean Corpuscular Hemoglobin 22.1 pg (26-34); Mean Corpuscular Volume 79.5 fl (80-100); Mean Platelet Volume 11.7 fl (7.4-10.4); Monocytes Absolute Auto 0.7 K/mm3 (0.1-0.6); Monocytes Percent Auto 7.1 % (2.6-8.5); Neutrophils Absolute Auto 6.8 K/mm3 (1.3-6.7); Neutrophils Percent Auto 65.6 % (45.5-73.1); Platelet Count Result 219 k/mm3 (150-375); Red Blood Count 5.47 M/mm3 (4.6-6.20); Red Cell Distribution Width 16.2 % (11.5-14.5); White Blood Count 10.4 K/mm3 (4.5-10.0)
[2022-11-05 20:02] LABS: Hypochromasia 1+ (NORMAL); Platelet Estimate Adequate (Adequate)
[2022-11-05 20:03] LABS: Ovalocytes 1+ (NORMAL); Schistocytes None Seen (NORMAL)
[2022-11-05 20:19] LABS: Vitamin D 25 Hydroxy 41.6 ng/mL
[2022-11-06 17:49] LABS: Prostate Specific Antigen 2.1 ng/mL (< OR = 4.0)
== END 2022-11-05 08:50 | disposition home or self-care (01) ==
PROVIDERS: PCP Family Medicine; Visit Provider Nurse Practitioner Family
DX: E11.9 Type 2 diabetes mellitus without complications (principal); Z79.4 Long term (current) use of insulin; E78.5 Hyperlipidemia, unspecified; I10 Essential (primary) hypertension; K86.1 Other chronic pancreatitis; Z12.5 Encounter for screening for malignant neoplasm of prostate; Z13.21 Encounter for screening for nutritional disorder; Z13.29 Encounter for screening for other suspected endocrine disorder; E53.8 Deficiency of other specified B group vitamins
CPT/HCPCS: 36415; 80053; 80061; 82306; 82607; 83036; 83690; 84153; 84443; 85025; G0103

== ENCOUNTER → 2022-11-07 09:55 | Outpatient (CLI) | payer MEDICARE, MEDICAID, SELFPAY ==
--- NOTE | ~2022-11-07 | US_ITS ---
US soft tissue UE RT 11/07/2022 10:17 Indication: Evaluate for foreign body. Procedure: High-resolution Limited ultrasound of the right upper extremity soft tissues Comparison: No prior studies for comparison. Findings: Normal heterogeneous soft tissues. No foreign bodies identified. Impression: 1: Normal limited ultrasound of the right upper extremity soft tissues without evidence for foreign b giovana. Reviewed, dictated and finalized at location L. Impression: 1: Normal limited ultrasound of the right upper extremity soft tissues without evidence for foreign body.
== END ==
PROVIDERS: PCP Nurse Practitioner Family; Visit Provider Nurse Practitioner Family
DX: S50.859A Superficial foreign body of unspecified forearm, initial encounter (principal); X58.XXXA Exposure to other specified factors, initial encounter
CPT/HCPCS: 76882

== ENCOUNTER 2022-11-12 10:38 | Outpatient (CLI) | payer MEDICARE, MEDICAID, SELFPAY ==
--- NOTE | ~2022-11-12 | CT_ITS ---
CT Scan of the Chest without Contrast: Clinical Indication: Lung cancer screening, personal history of nicotine dependence Technique: Contiguous sections were acquired throughout the chest without intravenous contrast. Dose reduction technique was used on this scan by utilizing automated exposure control and iterative recon struction technique. The dose-length product (DLP) was 443.22 mGy-cm. COMPARISON: 04/30/2022, 04/28/2021 Findings: There is no evidence of any significant mediastinal, hilar or axillary lymphadenopathy. The mediastin al soft tissues appear normal. There is no evidence of pleural or pericardial effusion. Mild emphysema noted. There are areas of linear bibasilar scarring. No distinct pulmonary nodule evid ent. Images through the upper abdomen reveal small calcified gallstone. Impression: Lung RADS 2: Benign appearance. 12 month follow-up screening CT advised. Reviewed, dictated and finalized at [facility]. Impression: Lung RADS 2: Benign appearance. 12 month follow-up screening CT advised.
== END 2022-11-12 10:39 | disposition home or self-care (01) ==
PROVIDERS: PCP Nurse Practitioner Family; Visit Provider Internal Medicine Critical Care Medicine
DX: Z12.2 Encounter for screening for malignant neoplasm of respiratory organs (principal); Z87.891 Personal history of nicotine dependence
CPT/HCPCS: 71271

== ENCOUNTER 2022-11-27 11:05 | Outpatient (CLI) | payer MEDICARE, MEDICAID, SELFPAY ==
[2022-11-27 11:50] LABS: Alanine Aminotransferase 17 U/L (6-50); Albumin Level 4.3 g/dL (3.5-5.1); Alkaline Phosphatase 90 U/L (38-126); Amylase 191 U/L (30-110); Aspartate Amino Transferase 22 U/L (17-59); Bilirubin,Total 0.4 mg/dL (0.2-1.3); Blood Urea Nitrogen 13 mg/dL (9-20); Carbon Dioxide > 40 mmol/L (22-30); Chloride 95 mmol/L (98-107); Estimated Glomerular Filt Rate > 60; Glucose 95 mg/dL (65-110); Lipase 621 U/L (23-300); Potassium 4.3 mmol/L (3.4-5.0); Sodium 140 mmol/L (137-145)
== END 2022-11-27 11:06 | disposition home or self-care (01) ==
LOC: ANHLAB 11:07
PROVIDERS: PCP Nurse Practitioner Family; Visit Provider Internal Medicine Gastroenterology
DX: R74.8 Abnormal levels of other serum enzymes (principal); K86.1 Other chronic pancreatitis
CPT/HCPCS: 36415; 80053; 82150; 83690

== ENCOUNTER 2022-12-14 17:09 | Inpatient (IN) | payer MEDICARE, MEDICAID, SELFPAY ==
[2022-12-14] VITALS (18 sets, daily range): BP systolic 101–184; BP diastolic 77–107; PULSE 64–118; RESP 14–30; TEMP 36.6–36.8; O2SAT 80–100; BMI 40.4
--- NOTE | ~2022-12-14 | XR_ITS ---
XR chest 2V 12/14/2022 18:20 Indication: Shortness of breath. COPD. Procedure: PA and lateral views of the chest Comparison: Comparison to multiple prior studies sequentially, with oldest reviewed study dated 05/04. Findings: Patchy bilateral airspace disease, compatible with pneumonia. Heart size normal. No pleural effusion or pneumothorax. No acute osseous abnormality. Impression: 1: Patchy bilateral airspace disease, compatible with pneumonia. Reviewed, dictated and finalized at location A. Impression: 1: Patchy bilateral airspace disease, compatible with pneumonia.
--- NOTE | 2022-12-14 17:28 | ECG_ITS ---
Measurements Intervals [place] Rate: 108 P: 68 CA: 155 QRS: 60 QRSD: 72 T: 57 QT: 304 QTc: 409 Interpretive Statements SINUS TACHYCARDIA NONSPECIFIC T-WAVE ABNORMALITY- INF/HIGH LAT LEADS BASELINE WANDER- V1-V3 ABNORMAL ECG COMPARED TO ECG 10/29/2021 10:20:27 NO SIGNIFICANT CHANGES Electronically Signed On 12-14-2022 19:00:05 CDT by Júnior Harding D.O.
--- NOTE | 2022-12-14 17:28 | ECG_ITS ---
Measurements Intervals [place] Rate: 81 P: 59 [place]: 128 QRS: 66 QRSD: 90 T: 45 QT: 346 QTc: 403 Interpretive Statements SINUS RHYTHM CANNOT RULE OUT SEPTAL INFARCT, AGE INDETERMINATE ST ELEVATION IN DIFFUSE LEADS- PROBABLY EARLY REPOOLARIZATION ABNORMALITY BORDERLINE ECG COMPARED TO ECG 12/14/2022 18:02:55 SINUS RHYTHM NOW PRESENT Electronically Signed On 12-14-2022 19:01:06 CDT by Júnior Harding D.O.
[2022-12-14 18:20] LABS: Basophils Percent Auto 0.3 % (0.2-1.2); Eosinophils Absolute Auto 0.3 K/mm3 (0-0.3); Eosinophils Percent Auto 2.9 % (0-4.4); Hematocrit 42.6 % (42.0-52.0); Hemoglobin 11.4 g/dL (14.0-18.0); Immature Granulocyte Absolute 0.03 K/mm3 (0.00-0.031); Immature Granulocyte Percent A 0.3 % (0-0.5); Lymphocytes Absolute Auto 1.95 K/mm3 (0.9-3.2); Lymphocytes Percent Auto 17.2 % (18.3-44.2); Mean Corpuscular HGB Conc 26.8 g/dl (32-36); Mean Corpuscular Hemoglobin 21.8 pg (26-34); Mean Corpuscular Volume 81.5 fl (80-100); Mean Platelet Volume 11.4 fl (7.4-10.4); Monocytes Absolute Auto 0.7 K/mm3 (0.1-0.6); Monocytes Percent Auto 6.1 % (2.6-8.5); Neutrophils Absolute Auto 8.3 K/mm3 (1.3-6.7); Neutrophils Percent Auto 73.2 % (45.5-73.1); Platelet Count Result 216 k/mm3 (150-375); Red Blood Count 5.23 M/mm3 (4.6-6.20); Red Cell Distribution Width 16.3 % (11.5-14.5); White Blood Count 11.4 K/mm3 (4.5-10.0)
[2022-12-14 18:38] LABS: Alanine Aminotransferase 17 U/L (6-50); Albumin Level 3.9 g/dL (3.5-5.1); Alkaline Phosphatase 89 U/L (38-126); Aspartate Amino Transferase 24 U/L (17-59); Bilirubin,Total 0.4 mg/dL (0.2-1.3); Blood Urea Nitrogen 13 mg/dL (9-20); Calcium 8.6 mg/dL (8.4-10.2); Carbon Dioxide > 40 mmol/L (22-30); Chloride 98 mmol/L (98-107); Estimated CRCL calculation 123 ml/min; Estimated Glomerular Filt Rate > 60; Glucose 138 mg/dL (65-110); Sodium 140 mmol/L (137-145)
[2022-12-14 18:53] LABS: Platelet Estimate Adequate (Adequate)
[2022-12-14 18:54] LABS: Hypochromasia 1+ (NORMAL); Schistocytes None Seen (NORMAL)
[2022-12-14 18:55] LABS: Anisocytosis 2+ (NORMAL)
--- NOTE | 2022-12-14 19:13 | PC.NURSE ---
Assumed care of pt from MYA Skelton at this time.
--- NOTE | 2022-12-14 19:49 | ED.SOB ---
HPI - SOB/Dyspnea General Chief Complaint: Shortness of Breath/Dyspnea Stated Complaint: COPD Time Seen by Provider: 12/14/22 19:08 History of Present Illness HPI Narrative: Patient is a 67-year-old male who presents the emergency department this afternoon complaining of shortness of breath. Patient does have a history of COPD and does wear oxygen at home [id number] 5 L. Today he was noted to be satting 79 to 80% on his home 5 L and he was increased to 6 L with improvement of his oxygenation to 90%. Patient admits that he has been having a mild cough the past few days but thought that it was just his COPD. Patient states that within the past week his shortness of breath has significantly increased and he finally decided to come to the emergency department for further evaluation. He denies any sick contacts or exposure to COVID and denies any additional symptoms including chest pain, nausea, vomiting, abdominal pain, dysuria, hematuria, constipation, diarrhea, melena, hematochezia, fevers or chills. He also denies any headaches, dizziness, lightheadedness, blurry visions, focal weakness, numbness and or tingling. There are no other modifying, alleviating, or precipitating factors at this time. Related Data Home Medications Medication Instructions Recorded Confirmed aspirin 81 mg tablet,delayed 81 mg PO DAILY 01/29/19 12/14/22 release (Adult Low Dose Aspirin) glimepiride 4 mg tablet 4 mg PO DAILY 04/28/19 12/14/22 insulin degludec 100 unit/mL (3 40 unit subcut DAILY 05/11/22 12/14/22 mL) subcutaneous pen (Tresiba FlexTouch U-100 insulin) insulin lispro 200 unit/mL (3 mL) 18 unit subcut QACDINNER 05/11/22 12/14/22 subcutaneous pen (Humalog KwikPen U-200 Insulin) blood-glucose meter,continuous 11/05/22 12/14/22 (Ibotta G7 Qual Research Manager) atorvastatin 40 mg tablet 40 mg PO DAILY 12/14/22 12/14/22 azelastine 137 mcg (0.1 %) nasal 1 spray intranasal HS 12/14/22 12/14/22 spray aerosol ezetimibe 10 mg tablet 10 mg PO DAILY 12/14/22 12/14/22 fluticasone propionate 50 1 spray intranasal DAILY 12/14/22 12/14/22 mcg/actuation nasal spray,suspension furosemide 40 mg tablet 40 mg PO BID 12/14/22 12/14/22 levothyroxine 100 mcg tablet 100 mcg PO DAILY 12/14/22 12/14/22 [id number] cap PO 12/14/22 12,000-38,000-60,000 unit capsule,delayed rel (Creon) Allergies Allergy/AdvReac Type Severity Reaction Status Date / Time lisinopril Allergy Unknown Swelling Verified 12/14/22 23:53 Review of Systems Review of Systems: All systems are reviewed and are negative unless stated otherwise in the HPI. [facility] Past Medical History Medical History Bloating CAD (coronary artery disease) Carotid occlusion, right Chronic pancreatitis Chronic respiratory failure with hypoxia, on home O2 therapy COPD (chronic obstructive pulmonary disease) Dyslipidemia Elevated amylase Former smoker Hypertension Hypothyroid OTTO (obstructive sleep apnea) Right flank discomfort Type 2 diabetes mellitus treated with insulin Follows with endocrine Surgical History Surgical History H/O colonoscopy 09/2014 Family History Family History Father Acute myocardial infarction Hypertension, Onset Age: 56 Family history of heart disease in male family member before age 55 Sibling Family history of congenital heart disease, Onset Age: 32 Mother Family history of malignant neoplasm of breast in first degree relative Family history of primary malignant neoplasm of liver Other Asthma Social History Social History Social History: The patient is and has his is the durable power insurance attorney for healthcare. The patient has 5 biological children. He is disabled. He is a former smoker.
--- NOTE | 2022-12-14 20:09 | PM.IMHP ---
H&P: HPI History of Present Illness Date/Time: 12/14/22 20:09 Chief Complaint: SOB Narrative: This is a 67-year-old male with past medical history significant for COPD, dyslipidemia, type diabetes mellitus, peripheral neuropathy, chronic pancreatic insufficiency, chronic respiratory failure on supplemental oxygen at home, obstructive sleep apnea. Patient presents to the emergency room due to worsening shortness of breath worse at exertion, bilateral lower extremity ankle edema, cough productive of clear white sputum in the mornings. Denies fevers, rigors, chills, no n/v/abdominal pain. Preliminary work up was significant for chest x-ray show patchy infiltrates. Patient has been admitted for further evaluation management and treatment. CT Scan of the Chest without Contrast: Clinical Indication: Lung cancer screening, personal history of nicotine dependence Technique: Contiguous sections were acquired throughout the chest without intravenous contrast. Dose reduction technique was used on this scan by utilizing automated exposure control and iterative reconstruction technique. The dose-length product (DLP) was 443.22 mGy-cm. COMPARISON: 04/30/2022, 04/28/2021 Findings: There is no evidence of any significant mediastinal, hilar or axillary lymphadenopathy. The mediastinal soft tissues appear normal. There is no evidence of pleural or pericardial effusion. Mild emphysema noted. There are areas of linear bibasilar scarring. No distinct pulmonary nodule evident. Images through the upper abdomen reveal small calcified gallstone. Impression: Lung RADS 2: Benign appearance. 12 month follow-up screening CT advised. XR chest 2V 12/14/2022 18:20 Indication: Shortness of breath. COPD. Procedure: PA and lateral views of the chest Comparison: Comparison to multiple prior studies sequentially, with oldest reviewed study dated? 05/04/2018. Findings: Patchy bilateral airspace disease, compatible with pneumonia. Heart size normal. No pleural effusion or pneumothorax. No acute osseous abnormality. Impression: 1: Patchy bilateral airspace disease, compatible with pneumonia. Review of Systems Review of Systems: sob, leg swelling Constitutional: Constitutional: Denies chills, Reports fatigue, Denies fever(s), Denies malaise, Denies night sweats and Reports weakness Eyes: Eyes: Denies change in vision ENT: Denies dysphagia, Denies vertigo, Denies dizziness and Denies odynophagia Cardiovascular: Cardiovascular: Denies chest pain, Reports leg edema, Denies radiating jaw, neck or arm pain, Denies palpitations, Reports dyspnea, Reports dyspnea on exertion and Reports orthopnea Respiratory: Respiratory: Denies change in phlegm color and Reports cough Gastrointestinal: Gastrointestinal: Denies abdominal pain, Denies dyspepsia, Denies heartburn, Denies diarrhea, Denies nausea and Denies vomiting Genitourinary: Genitourinary: Denies dysuria and Denies flank pain Musculoskeletal: Musculoskeletal: Reports back pain and Reports muscle weakness Integumentary/Breasts: Skin/Breast: Denies rash Neurologic: Denies focal weakness and Denies Sensory deficit (Neuro) Psychiatric: Psychiatric: Reports no additional psychiatric complaints and Reports as per HPI Endocrine: Endocrine: Denies cold intolerance, Denies fatigue, Denies flushing, Denies heat intolerance, Denies polyphagia, Denies polydipsia and Denies palpitations Hematologic/Lymphatic: Hematologic/Lymphatic: Reports no additional hematologic/lymphatic complaints and Reports as per HPI Allergic/Immunologic: Allergic/Immunologic: Reports no additional allergic/immunologic complaints and Reports as per HPI PMFSH Past Medical History Medical History Bloating CAD (coronary artery disease) Carotid occlusion, right Chronic pancreatitis Chronic respiratory failure with hypoxia, on home O2 therapy COPD (chronic obstructiv
[2022-12-14] MEDS: AZITHROMYCIN 500 MG/NS 250 ML 500 MG/250 ML BAG 250 MG IVPB (21:21)
--- NOTE | 2022-12-14 23:07 | ADMGEN ---
This patient, Juni Merchant, was admitted to Medical Room 255-. Patient/family oriented to hospital policies and general routines including ID bracelet, bed and alarms, visiting hours, pain management, procedures, bathroom and other care routines, personal items, smoking policy, room service/diet, and visiting hours. Information on how to activate the Rapid Response Team has been discussed. Patient/Family are encouraged to report perceived risks to care and to ask questions if they do not understand what they are told or what they should do.
[2022-12-15] VITALS (13 sets, daily range): BP systolic 136–158; BP diastolic 63–76; PULSE 82–105; RESP 16–22; TEMP 36.3–36.4; O2SAT 95–98
--- NOTE | 2022-12-15 | ECHO_ITS ---
Patient Info Name: Juni Merchant Age: 67 years : 1955 Gender: Male Ht: 70 in Wt: 282 lbs BSA: 2.57 m2 HR: 78 bpm BP: 148 / 69 mmHg Technical Quality: Poor Exam Date: 12/15/2022 10:10 AM Exam Location: Echo Lab Exam Room: [facility] Patient Status: Inpatient Admit Date: 12/14/2022 Staff Ordering Physician: Beba Adler MD Corporate Compliance Manager: Stephanie Villanueva RDCS Attending Provider: Beba Adler MD Referring Physician: Vitor ROACH; Exam Type: CA echo dop color flow w con Study Info Indications - edema copd Complete two-dimensional, color flow and Doppler transthoracic echocardiogram is performed with contrast to opacify the left ventricle and to improve the deliniation of the left ventricle endocardial borders. Contrast/Agitated Saline Contrast/Ag. Saline: Definity Amount: 3.00 ml Administered By: Stephanie Villanueva [facility] Existing IV Access: Yes IV Access Condition: patent with no signs of infiltration Reason for Poor Study: patient body habitus Summary 1. Technically suboptimal study due to poor sonographic images. 2. Definity contrast administered improved wall motion interpretation. 3. Left ventricular chamber dimension is normal. 4. Left ventricular systolic function is normal, estimated at 65-70%. 5. The left ventricular diastolic function is grade I diastolic dysfunction. 6. Right ventricular chamber dimension is mildly enlarged. 7. Left atrial chamber dimension is mildly enlarged. 8. There is mild mitral valve regurgitation. 9. Mild pulmonary hypertension, estimated pulmonary arterial systolic pressure is 40 mmHg. Left Ventricle Definity contrast administered improved wall motion interpretation. Tissue doppler is not performed. Technically suboptimal study due to poor sonographic images. Left ventricular chamber dimension is normal. Left ventricular systolic function is normal, estimated at 65-70%. The left ventricular diastolic function is grade I diastolic dysfunction. Right Ventricle Right ventricular chamber dimension is mildly enlarged. Right ventricular systolic function is normal. Left Atria Left atrial chamber dimension is mildly enlarged. Right Atria Right atrial chamber dimension is normal. Aortic Valve The aortic valve is trileaflet. There is no aortic valve stenosis. There is no aortic valve regurgitation. Pulmonic Valve There is no pulmonic regurgitation. Mitral Valve There is no mitral valve stenosis. There is mild mitral valve regurgitation. Tricuspid Valve There is no tricuspid valve regurgitation. Mild pulmonary hypertension, estimated pulmonary arterial systolic pressure is 40 mmHg. Pericardium/Pleural There is no pericardial effusion. Inferior Vena Cava Normal inferior vena cava with >50% collapse upon inspiration consistent with normal right atrial pressure, 5 mmHg. Aorta The aortic root size at the sinus of Valsalva is not well visualized. Left Ventricular Outflow Tract Name Value Normal LVOT Doppler LVOT Peak Gradient 5 mmHg LVOT Mean Gradient 3 mmHg LVOT VTI 16.94 cm LVOT VTI/AV VTI Ratio 0.84 Pulmonic Valve
[2022-12-15] MEDS: IPRATROPIUM BR 0.02% INH SOLN 0.5 MG/2.5 ML VIAL INHALATION ×4 (01:50→21:01)
[2022-12-15] MEDS: ALBUTEROL SULFATE NEB 2.5 MG/3 ML INH INHALATION ×4 (01:50→21:03)
[2022-12-15 02:30] LABS: NT Pro B Type Natriuretic Pept < 20 pg/mL (19.9-100)
[2022-12-15] MEDS: LEVOTHYROXINE SODIUM 100 MCG TABLET PO (06:21)
--- NOTE | 2022-12-15 07:24 | PM.IMPN ---
Progress Note: A&P Assessment and Plan (1) Community acquired pneumonia: Code(s): J18.9 - Pneumonia, unspecified organism Status: Acute Assessment and Plan: Presented with shortness of breath Leukocytosis 11.4, Neutrophils 73% Chest XR with patchy bilateral airspace disease, compatible with PNA. Respiratory panel ordered Blood cultures pending On Rocephin and Azithromycin Scheduled ipratropium/albuterol, Flonase, Mucinex DM IS and PEP therapy (2) Chronic respiratory failure with hypoxia, on home O2 therapy: Code(s): J96.11 - Chronic respiratory failure with hypoxia; Z99.81 - Dependence on supplemental oxygen Status: Acute Assessment and Plan: Baseline oxygen requirements are 6 L nc at home Currently on baseline oxygen at rest (3) COPD exacerbation: Code(s): J44.1 - Chronic obstructive pulmonary disease with (acute) exacerbation Status: Acute Assessment and Plan: Home inhalers ordered No audible wheeze appreciated (4) OTTO (obstructive sleep apnea): Code(s): G47.33 - Obstructive sleep apnea (adult) (pediatric) Status: Chronic Assessment and Plan: Auto titrate for OTTO home orders (5) Type 2 diabetes mellitus treated with insulin: Code(s): E11.9 - Type 2 diabetes mellitus without complications; Z79.4 - terminal operator (current) use of insulin Status: Chronic Assessment and Plan: Lantus 40 units daily and oral antidiabetics at home hold oral agents and place on SSI achs accu checks DM diet hypoglycemia protocol (6) CAD (coronary artery disease): Qualifiers: Associated angina: unspecified whether angina present Coronary Disease-Associated Artery/Lesion type: unspecified vessel or lesion type [place] vs. transplanted heart: [place] heart Qualified Code(s): I25.10 - Atherosclerotic heart disease of [place] coronary artery without angina pectoris Code(s): I25.10 - Atherosclerotic heart disease of [place] coronary artery without angina pectoris Status: Chronic Assessment and Plan: On ASA, Atorvastatin, zetia and lovastatin. Also taking diltiazem and Lasix. Plan Feeding:DM diet Analgesia:Tylenol Thromboembolic prophylaxis: lovenox Ulcer prophylaxis: na Glycemic control: SSI with hypoglycemia protocol and Lantus Bowel regimen: prn miralax Lines: PIV Antibiotics: Rocephin and Azithromycin Disposition: Subjective Date/time seen: 12/15/22 07:24 Interval history: HPI obtained from the chart, This is a 67-year-old male with past medical history significant for COPD, dyslipidemia, type diabetes mellitus, peripheral neuropathy, chronic pancreatic insufficiency, chronic respiratory failure on supplemental oxygen at home, obstructive sleep apnea.? Patient presents to the emergency room due to worsening shortness of breath worse at exertion, bilateral lower extremity ankle edema. 12/15: Very pleasant gentleman seen in his room today, sitting at the edge of the bed in no acute distress. He says that he is feeling much improved from when he 1st presented to the ER. He is still having shortness of breath at rest at times but he says that his dizziness and headache have resolved. At baseline he wears 6 L nasal cannula and can ambulate approximately 25 ft with his oxygen tank before becoming short of breath. He states that he has a good appetite and is drinking plenty of fluids. I reviewed plain the care with him and answered questions. Review of Systems Review of Systems: All systems reviewed & are unremarkable except as noted in HPI and below Exam Narrative: General: well appearing, well developed, well nourished, appears stated age. HEENT: normocephalic, atraumatic. Mucous membranes moist. EOMI, PERRLA, bilateral sclera anicteric, no conjunctival injection. Neck supple without JVD, lymphadenopathy, or bruit. Respiratory: diminised to auscultation bilaterally. No rales/rhonic/w
[2022-12-15] MEDS: FLUTICASONE/UMECLIDIN/VILANTER 100-62.5-25 MCG ELLIPTA 1 PUFF INHALATION (07:26)
[2022-12-15 08:09] LABS: Basophils Percent Auto 0.2 % (0.2-1.2); Eosinophils Absolute Auto 0.3 K/mm3 (0-0.3); Eosinophils Percent Auto 2.8 % (0-4.4); Hematocrit 42.3 % (42.0-52.0); Hemoglobin 11.5 g/dL (14.0-18.0); Immature Granulocyte Absolute 0.03 K/mm3 (0.00-0.031); Immature Granulocyte Percent A 0.3 % (0-0.5); Lymphocytes Absolute Auto 2.17 K/mm3 (0.9-3.2); Mean Corpuscular HGB Conc 27.2 g/dl (32-36); Mean Corpuscular Hemoglobin 22.1 pg (26-34); Mean Corpuscular Volume 81.3 fl (80-100); Mean Platelet Volume 10.9 fl (7.4-10.4); Monocytes Absolute Auto 0.7 K/mm3 (0.1-0.6); Neutrophils Absolute Auto 6.7 K/mm3 (1.3-6.7); Neutrophils Percent Auto 67.7 % (45.5-73.1); Platelet Count Result 209 k/mm3 (150-375); Red Cell Distribution Width 16.3 % (11.5-14.5); White Blood Count 9.9 K/mm3 (4.5-10.0)
[2022-12-15 08:23] LABS: Alanine Aminotransferase 17 U/L (6-50); Alkaline Phosphatase 89 U/L (38-126); Aspartate Amino Transferase 22 U/L (17-59); Bilirubin,Total 0.4 mg/dL (0.2-1.3); Blood Urea Nitrogen 12 mg/dL (9-20); Calcium 8.7 mg/dL (8.4-10.2); Carbon Dioxide > 40 mmol/L (22-30); Chloride 96 mmol/L (98-107); Estimated CRCL calculation 119 ml/min; Estimated Glomerular Filt Rate > 60; Glucose 94 mg/dL (65-110); Potassium 3.8 mmol/L (3.4-5.0); Sodium 143 mmol/L (137-145)
[2022-12-15 08:37] LABS: Glucose Point of Care 88 mg/dl (65-105)
[2022-12-15 08:56] LABS: Platelet Estimate Adequate (Adequate)
[2022-12-15 08:57] LABS: Hypochromasia 1+ (NORMAL); Poikilocytosis 1+ (NORMAL); Schistocytes None Seen (NORMAL)
[2022-12-15] MEDS: ASPIRIN 81 MG ENTERIC TABLET PO (10:08)
[2022-12-15] MEDS: cefTRIAXone 2 GM/NS 100 ML 2 GM/100 ML BAG IVPB (10:08)
[2022-12-15] MEDS: FLUTICASONE PROPIONATE 0.05% NA SPR 16 GM BTL (*BKC) 2 SPRAY NASAL (10:08)
[2022-12-15] MEDS: FUROSEMIDE 40 MG TABLET PO ×2 (10:09→17:48)
[2022-12-15] MEDS: dilTIAZem HCL CD 240 MG CAP.24HR PO (10:09)
[2022-12-15] MEDS: ROFLUMILAST 500 MCG TABLET PO (10:09)
[2022-12-15] MEDS: GABAPENTIN 300 MG CAPSULE PO ×2 (10:09→17:48)
[2022-12-15] MEDS: EZETIMIBE 10 MG TABLET PO (10:09)
[2022-12-15] MEDS: ATORVASTATIN 40 MG TABLET PO (10:10)
[2022-12-15] MEDS: LOVASTATIN 20 MG TABLET 40 MG PO (10:10)
[2022-12-15] MEDS: ENOXAPARIN 40 MG/0.4 ML SYRINGE SUB-Q (10:14)
[2022-12-15] MEDS: PERFLUTREN LIPID MICROSPHERES 1.5 ML VIAL DILUTED TO 10 ML TOTAL VOLUME IV PUSH (10:30)
--- NOTE | 2022-12-15 12:03 | IVDEFINITY ---
Prior to administration of IV Definity the patient was educated on the risks and benefits of the imaging enhancing agent including potential adverse side effects. The patient verbalized understanding. Allergies were verified. No exclusion criteria were identified and at least one of the following inclusion criteria were met: 1) physician request, 2) patient technically difficult to image (per the [place] [employer]chocardi[employer] guidelines of two or more segments not discernable within the apical view), or 3) questionable left ventricular function. ?
[2022-12-15 12:09] LABS: Glucose Point of Care 269 mg/dl (65-105)
[2022-12-15] MEDS: INSULIN ASPART (*BKC) 100 UNITS/ML SUB-Q (12:20)
[2022-12-15 16:55] LABS: Glucose Point of Care 138 mg/dl (65-105)
[2022-12-15] MEDS: AZELASTINE HCL NASAL 0.1% 137 MCG/SPR 30 ML BTL 2 SPRAY NASAL (20:13)
[2022-12-15] MEDS: guaiFENesin 600 MG/DEXTROMETHORPHAN 30 MG SR TAB 12 HR 1 TAB PO (20:13)
[2022-12-15 21:35] LABS: Glucose Point of Care 133 mg/dl (65-105)
[2022-12-15] MEDS: AZITHROMYCIN 250 MG TABLET 500 MG PO (22:58)
[2022-12-16] VITALS (9 sets, daily range): BP systolic 148–156; BP diastolic 66–75; PULSE 86–100; RESP 16–20; TEMP 36.2; O2SAT 92–98
[2022-12-16] MEDS: ALBUTEROL SULFATE NEB 2.5 MG/3 ML INH INHALATION ×2 (01:34→09:01)
[2022-12-16] MEDS: IPRATROPIUM BR 0.02% INH SOLN 0.5 MG/2.5 ML VIAL INHALATION ×2 (01:35→09:01)
[2022-12-16] MEDS: LEVOTHYROXINE SODIUM 100 MCG TABLET PO (05:32)
--- NOTE | 2022-12-16 06:52 | PM.IMPN ---
Progress Note: A&P Assessment and Plan (1) Community acquired pneumonia: Code(s): J18.9 - Pneumonia, unspecified organism Status: Acute Assessment and Plan: Admit to med tele Started on Zithromax and Rocephin Continue to monitor Supportive care (2) Chronic respiratory failure with hypoxia, on home O2 therapy: Code(s): J96.11 - Chronic respiratory failure with hypoxia; Z99.81 - Dependence on supplemental oxygen Status: Acute Assessment and Plan: Continue supplemental O2 Try and keep O2 sat at 92-94% (3) COPD exacerbation: Code(s): J44.1 - Chronic obstructive pulmonary disease with (acute) exacerbation Status: Acute Assessment and Plan: Breathing treatments (4) OTTO (obstructive sleep apnea): Code(s): G47.33 - Obstructive sleep apnea (adult) (pediatric) Status: Chronic Assessment and Plan: Currently on Oxygen by [facility] (5) Obesity, morbid, BMI 40.0-49.9: Code(s): E66.01 - Morbid (severe) obesity due to excess calories Status: Acute Assessment and Plan: Lifestyle and diet modifications (6) Type 2 diabetes mellitus treated with insulin: Code(s): E11.9 - Type 2 diabetes mellitus without complications; Z79.4 - alf (current) use of insulin Status: Chronic Assessment and Plan: Holding Ezetimibe/Glimepiride Continue Insulin lantus and rapid acting continue to monitor (7) CAD (coronary artery disease): Qualifiers: Associated angina: unspecified whether angina present Coronary Disease-Associated Artery/Lesion type: unspecified vessel or lesion type [place] vs. transplanted heart: [place] heart Qualified Code(s): I25.10 - Atherosclerotic heart disease of [place] coronary artery without angina pectoris Code(s): I25.10 - Atherosclerotic heart disease of [place] coronary artery without angina pectoris Status: Chronic Assessment and Plan: chest pain free Subjective Date/time seen: 12/16/22 06:52 Interval history: HPI obtained from the chart, This is a 67-year-old male with past medical history significant for COPD, dyslipidemia, type diabetes mellitus, peripheral neuropathy, chronic pancreatic insufficiency, chronic respiratory failure on supplemental oxygen at home, obstructive sleep apnea.? Patient presents to the emergency room due to worsening shortness of breath worse at exertion, bilateral lower extremity ankle edema. 12/15: Very pleasant gentleman seen in his room today, sitting at the edge of the bed in no acute distress. He says that he is feeling much improved from when he 1st presented to the ER. He is still having shortness of breath at rest at times but he says that his dizziness and headache have resolved. At baseline he wears 6 L nasal cannula and can ambulate approximately 25 ft with his oxygen tank before becoming short of breath. He states that he has a good appetite and is drinking plenty of fluids. I reviewed plain the care with him and answered questions. 12/16: No acute events overnight. Mr. Merchant states he feels even better today than yesterday. He has not been having dizziness and his weakness and fatigue have resolved. He is requiring only 3 L of nasal cannula and usually he uses up to 6 L at home. His lung sounds are clear and diminished. He feels well enough to discharge home today. Exam Narrative: General: well appearing, well developed, well nourished, appears stated age. HEENT: normocephalic, atraumatic. Mucous membranes moist. EOMI, PERRLA, bilateral sclera anicteric, no conjunctival injection. Neck supple without JVD, lymphadenopathy, or bruit. Respiratory: diminised to auscultation bilaterally. No rales/rhonic/wheezes. Cardiovascular: Regular rate and rhythm, normal S1-S2 upon auscultation. No murmurs, rubs, or clicks. PMI is nondisplaced, capillary re-fill less than 3 second. Abdomen: Soft, obese, no pulsatile masses, non-distended and non-tender. N
[2022-12-16 07:13] LABS: Basophils Percent Auto 0.2 % (0.2-1.2); Eosinophils Absolute Auto 0.3 K/mm3 (0-0.3); Eosinophils Percent Auto 3.1 % (0-4.4); Hemoglobin 10.9 g/dL (14.0-18.0); Immature Granulocyte Absolute 0.02 K/mm3 (0.00-0.031); Immature Granulocyte Percent A 0.2 % (0-0.5); Lymphocytes Absolute Auto 2.04 K/mm3 (0.9-3.2); Lymphocytes Percent Auto 22.4 % (18.3-44.2); Mean Corpuscular HGB Conc 27.3 g/dl (32-36); Mean Corpuscular Hemoglobin 21.9 pg (26-34); Mean Corpuscular Volume 80.5 fl (80-100); Mean Platelet Volume 10.9 fl (7.4-10.4); Monocytes Absolute Auto 0.6 K/mm3 (0.1-0.6); Monocytes Percent Auto 6.9 % (2.6-8.5); Neutrophils Absolute Auto 6.1 K/mm3 (1.3-6.7); Neutrophils Percent Auto 67.2 % (45.5-73.1); Platelet Count Result 202 k/mm3 (150-375); Red Blood Count 4.97 M/mm3 (4.6-6.20); Red Cell Distribution Width 16.1 % (11.5-14.5); White Blood Count 9.1 K/mm3 (4.5-10.0)
[2022-12-16 07:23] LABS: Alanine Aminotransferase 17 U/L (6-50); Albumin Level 3.9 g/dL (3.5-5.1); Alkaline Phosphatase 83 U/L (38-126); Aspartate Amino Transferase 21 U/L (17-59); Bilirubin,Total 0.5 mg/dL (0.2-1.3); Blood Urea Nitrogen 13 mg/dL (9-20); Calcium 8.7 mg/dL (8.4-10.2); Carbon Dioxide > 40 mmol/L (22-30); Chloride 96 mmol/L (98-107); Estimated CRCL calculation 136 ml/min; Estimated Glomerular Filt Rate > 60; Glucose 102 mg/dL (65-110); Potassium 3.8 mmol/L (3.4-5.0); Sodium 139 mmol/L (137-145)
[2022-12-16 08:23] LABS: Hypochromasia 2+ (NORMAL); Ovalocytes 1+ (NORMAL); Platelet Estimate Adequate (Adequate); Poikilocytosis 1+ (NORMAL); Schistocytes None Seen (NORMAL)
[2022-12-16 08:37] LABS: Glucose Point of Care 103 mg/dl (65-105)
[2022-12-16] MEDS: FLUTICASONE/UMECLIDIN/VILANTER 100-62.5-25 MCG ELLIPTA 1 PUFF INHALATION (09:01)
[2022-12-16] MEDS: FLUTICASONE PROPIONATE 0.05% NA SPR 16 GM BTL (*BKC) 2 SPRAY NASAL (10:19)
[2022-12-16] MEDS: ASPIRIN 81 MG ENTERIC TABLET PO (10:19)
[2022-12-16] MEDS: GABAPENTIN 300 MG CAPSULE PO (10:20)
[2022-12-16] MEDS: EZETIMIBE 10 MG TABLET PO (10:20)
[2022-12-16] MEDS: LOVASTATIN 20 MG TABLET 40 MG PO (10:20)
[2022-12-16] MEDS: ROFLUMILAST 500 MCG TABLET PO (10:20)
[2022-12-16] MEDS: ATORVASTATIN 40 MG TABLET PO (10:20)
[2022-12-16] MEDS: dilTIAZem HCL CD 240 MG CAP.24HR PO (10:20)
[2022-12-16] MEDS: FUROSEMIDE 40 MG TABLET PO (10:20)
[2022-12-16] MEDS: guaiFENesin 600 MG/DEXTROMETHORPHAN 30 MG SR TAB 12 HR 1 TAB PO (10:21)
[2022-12-16] MEDS: ENOXAPARIN 40 MG/0.4 ML SYRINGE SUB-Q (10:28)
[2022-12-16] MEDS: INSULIN GLARGINE (*BKC) 100 UNITS/ML 40 UNITS SUB-Q (10:28)
--- NOTE | 2022-12-16 11:34 | PM.DS ---
DS: Admitting Diagnosis Discharge Date 12/16 Admitting Diagnosis Shortness of breath DS: Discharge Diagnosis Discharge Diagnosis (1) Community acquired pneumonia: Code(s): J18.9 - Pneumonia, unspecified organism Status: Acute Assessment and Plan: Admit to med tele Started on Zithromax and Rocephin Continue to monitor Supportive care (2) Chronic respiratory failure with hypoxia, on home O2 therapy: Code(s): J96.11 - Chronic respiratory failure with hypoxia; Z99.81 - Dependence on supplemental oxygen Status: Acute Assessment and Plan: Continue supplemental O2 Try and keep O2 sat at 92-94% (3) COPD exacerbation: Code(s): J44.1 - Chronic obstructive pulmonary disease with (acute) exacerbation Status: Acute Assessment and Plan: Breathing treatments (4) OTTO (obstructive sleep apnea): Code(s): G47.33 - Obstructive sleep apnea (adult) (pediatric) Status: Chronic Assessment and Plan: Currently on O[facility] by [facility] (5) Obesity, morbid, BMI 40.0-49.9: Code(s): E66.01 - Morbid (severe) obesity due to excess calories Status: Acute Assessment and Plan: Lifestyle and diet modifications (6) Type 2 diabetes mellitus treated with insulin: Code(s): E11.9 - Type 2 diabetes mellitus without complications; Z79.4 - custodial (current) use of insulin Status: Chronic Assessment and Plan: Holding Ezetimibe/Glimepiride Continue Insulin lantus and rapid acting continue to monitor (7) CAD (coronary artery disease): Qualifiers: Coronary Disease-Associated Artery/Lesion type: unspecified vessel or lesion type [place] vs. transplanted heart: [place] heart Associated angina: unspecified whether angina present Qualified Code(s): I25.10 - Atherosclerotic heart disease of [place] coronary artery without angina pectoris Code(s): I25.10 - Atherosclerotic heart disease of [place] coronary artery without angina pectoris Status: Chronic Assessment and Plan: chest pain free DS: Summary Hospital Course Hospital Course: This is a 67-year-old male with past medical history significant for COPD, dyslipidemia, type diabetes mellitus, peripheral neuropathy, chronic pancreatic insufficiency, chronic respiratory failure on supplemental oxygen at home, obstructive sleep apnea.? Patient presents to the emergency room due to worsening shortness of breath worse at exertion, bilateral lower extremity ankle edema. 12/15:? Very pleasant gentleman seen in his room today, sitting at the edge of the bed in no acute distress.? He says that he is feeling much improved from when he 1st presented to the ER.? He is still having shortness of breath at rest at times but he says that his dizziness and headache have resolved.? At baseline he wears 6 L nasal cannula and can ambulate approximately 25 ft with his oxygen tank before becoming short of breath.? He states that he has a good appetite and is drinking plenty of fluids.? I reviewed plain the care with him and answered questions. 12/16:? No acute events overnight.? Mr. Merchant states he feels even better today than yesterday.? He has not been having dizziness and his weakness and fatigue have resolved.? He is requiring only 3 L of nasal cannula and usually he uses up to 5-6 L at home.? His lung sounds are clear and diminished. He denies increased sputum production and has lung sounds have no adventitious wheeze, rhonchi, rales. Blood cultures have NGTD.He feels well enough to discharge home today. Status at Discharge Cognitive/behavioral status at discharge: A&O x4 pleasant Time Spent with Patient Time attestation: Total time spent providing and/or coordinating discharge services:47 Exam Narrative: General: well appearing, well developed, well nourished, appears stated age. HEENT: normocephalic, atraumatic. Mucous membranes moist. EOMI, PERRLA, bilateral sclera anicteric, no conjunctival injectio
[2022-12-16 11:53] LABS: Glucose Point of Care 132 mg/dl (65-105)
== END 2022-12-16 14:40 | disposition home or self-care (01) | DRG 194 ==
LOC: ANHED 20:26 → ANH2MED 22:26
PROVIDERS: Emergency Medicine; Admitting Provider Internal Medicine; Emergency Provider Emergency Medicine; PCP Nurse Practitioner Family; Visit Provider Nurse Practitioner Acute Care
DX: J18.9 Pneumonia, unspecified organism (principal); J44.0 Chronic obstructive pulmonary disease with (acute) lower respiratory infection; J44.1 Chronic obstructive pulmonary disease with (acute) exacerbation; J96.11 Chronic respiratory failure with hypoxia; K86.1 Other chronic pancreatitis; E78.5 Hyperlipidemia, unspecified; E03.9 Hypothyroidism, unspecified; E11.42 Type 2 diabetes mellitus with diabetic polyneuropathy; E66.01 Morbid (severe) obesity due to excess calories; G47.33 Obstructive sleep apnea (adult) (pediatric); I25.10 Atherosclerotic heart disease of native coronary artery without angina pectoris; I10 Essential (primary) hypertension; Z68.41 Body mass index [BMI] 40.0-44.9, adult; Z20.822 Contact with and (suspected) exposure to COVID-19; Z87.891 Personal history of nicotine dependence; Z99.81 Dependence on supplemental oxygen; Z79.82 Long term (current) use of aspirin; Z79.84 Long term (current) use of oral hypoglycemic drugs; Z79.4 Long term (current) use of insulin
CPT/HCPCS: 36415; 71046; 80053; 82948; 83880; 85025; 87040; 87633; 93005; 94640; 94667; 99285; A9270; C8929; J0456; J0696; J1650; J1815; Q9957

== ENCOUNTER 2023-01-17 07:58 | Outpatient (CLI) | payer MEDICARE, MEDICAID, SELFPAY ==
[2023-01-17] VITALS (8 sets, daily range): PULSE 96–124; O2SAT 84–90
--- NOTE | 2023-01-17 08:35 | HOMEO2EVAL ---
Evaluation was performed at [facility] Home Oxygen Evaluation RC: Home Oxygen (O2) Evaluation Start: 01/17/23 08:31 Freq: Status: Active Protocol: RPE Activity Type Activity Date Activity User E-sign Co-sign Detail Recorded Client Recorded Date Recorded By Document 01/17/23 07:45 DJO [email or web address] 01/17/23 08:35 DJO Document 01/17/23 07:50 [email or web address] [email or web address] 01/17/23 08:35 DJO Document 01/17/23 07:55 [email or web address] [email or web address] 01/17/23 08:35 DJO Document 01/17/23 08:00 [email or web address] [email or web address] 01/17/23 08:35 DJO Document 01/17/23 08:05 [email or web address] [email or web address] 01/17/23 08:35 DJO Document 01/17/23 08:10 [email or web address] [email or web address] 01/17/23 08:35 DJO Document 01/17/23 08:15 [email or web address] [email or web address] 01/17/23 08:35 DJO Document 01/17/23 08:25 [email or web address] [email or web address] 01/17/23 08:35 DJO 01/17/23 01/17/23 01/17/23 07:45 07:50 07:55 Home O2 Evaluation [Oxygen] -Test Phase Resting Resting Resting -Oxygen Delivery Room Air Nasal Cannula Nasal Cannula -Oxygen Flow Rate (L/min) 2 3 [Pulse Oximetry] -Pulse Oximetry (90-100 %) 84 L 85 L 86 L [Pulse Rate] -Pulse Rate (60-100 beats/min) 104 H 104 H 102 H [Charges] -Evaluation Charges O2 Evaluation by Pulmonary 01/17/23 01/17/23 01/17/23 08:00 08:05 08:10 Home O2 Evaluation [Oxygen] -Test Phase Resting Resting Exercise -Oxygen Delivery Nasal Cannula Nasal Cannula Nasal Cannula -Oxygen Flow Rate (L/min) 4 5 5 [Pulse Oximetry] -Pulse Oximetry (90-100 %) 87 L 90 87 L [Pulse Rate] -Pulse Rate (60-100 beats/min) 100 96 122 H [Charges] -Evaluation Charges 01/17/23 01/17/23 08:15 08:25 Home O2 Evaluation [Oxygen] -Test Phase Exercise Resting -Oxygen Delivery Nasal Cannula Nasal Cannula -Oxygen Flow Rate (L/min) 6 5 [Pulse Oximetry] -Pulse Oximetry (90-100 %) 90 90 [Pulse Rate] -Pulse Rate (60-100 beats/min) 124 H 96 [Charges] -Evaluation Charges
== END 2023-01-17 07:59 | disposition home or self-care (01) ==
LOC: ANHPFT 08:00
PROVIDERS: PCP Family Medicine; Visit Provider Internal Medicine Critical Care Medicine
DX: J96.11 Chronic respiratory failure with hypoxia (principal); J44.9 Chronic obstructive pulmonary disease, unspecified; Z99.81 Dependence on supplemental oxygen
CPT/HCPCS: 94618

== ENCOUNTER 2023-03-05 11:34 | Outpatient (CLI) | payer MEDICARE, MEDICAID, SELFPAY ==
--- NOTE | ~2023-03-05 | XR_ITS ---
EXAMINATION: XR chest 2V 03/05/2023 12:00 INDICATION: Recent pneumonia. PROCEDURE: 2 view chest COMPARISON: Comparison to multiple prior studies sequentially, with oldest reviewed study dated 04/2022. FINDINGS: Heart size normal. No focal air space disease, pulmonary edema, pleural effusion or suspect ed pneumothorax. No definite persistent focal infiltrate in either lung. No effusion or pneumothorax. No acute osseous abnormality. The cardiomediastinal silhouette is within normal limits. There are n o pleural effusions. There is no pneumothorax suspected. IMPRESSION: 1: NO ACUTE CARDIOPULMONARY DISEASE. Reviewed, dictated and finalized at location L. [place] HOST/HOSTESS
== END 2023-03-05 11:35 | disposition home or self-care (01) ==
LOC: ANHIMG 11:41
PROVIDERS: PCP Family Medicine; Visit Provider Internal Medicine Critical Care Medicine
DX: R06.00 Dyspnea, unspecified (principal)
CPT/HCPCS: 71046

== ENCOUNTER 2023-03-20 07:33 | Outpatient (CLI) | payer MEDICARE, MEDICAID, SELFPAY ==
[2023-03-20 08:16] LABS: PCO2 ABG 74.6 mmHg (35.0-45.0); pH ABG 7.355 (7.350-7.450)
[2023-03-20 08:17] LABS: Base Excess ABG 12.3 mEq/l (+/-2.0); HCO3 ABG 40.7 mEq/l (22.0-26.0); PO2 ABG 44.5 mmHg (80.0-100.0)
[2023-03-20 08:18] LABS: Alveolar/Arterial O2 Gradient 154.9 mmHg; Oxygen Content ABG 13.6 %vol (16.0-22.0); Oxygen Saturation ABG 76.2 % (95.0-100.0)
[2023-03-20 08:19] LABS: Device NASAL CANNULA; Modified Allen's Test Pass; Oxyhemoglobin 80.9 % THb (90.0-100.0); PO2 FiO2 Ratio Arterial Blood 1.11 %; Site Drawn RIGHT RADIAL
[2023-03-20 08:20] LABS: Fractional Inspired Oxygen 40 %
[2023-03-20 08:44] LABS: Alveolar/Arterial O2 Gradient 154.9 mmHg; Base Excess ABG 12.3 mEq/l (+/-2.0); Carboxyhemoglobin 0.5 % THb (0-2.0); Fractional Inspired Oxygen 40 %; HCO3 ABG 40.7 mEq/l (22.0-26.0); Methemoglobin ABG 0.3 %THb (0-1.5); Oxygen Content ABG 13.6 %vol (16.0-22.0); PO2 FiO2 Ratio Arterial Blood 1.11 %; Reduced Hemoglobin 18.4 %THb (0-5.0); pH ABG 7.355 (7.350-7.450)
[2023-03-20 08:45] LABS: PCO2 ABG 74.6 mmHg (35.0-45.0); PO2 ABG 44.5 mmHg (80.0-100.0)
[2023-03-20 08:46] LABS: Device NASAL CANNULA; Modified Allen's Test Pass; Oxygen Saturation ABG 76.2 % (95.0-100.0); Oxyhemoglobin 80.8 % THb (90.0-100.0); Site Drawn RIGHT RADIAL
== END 2023-03-20 07:34 | disposition home or self-care (01) ==
LOC: ANHPFT 07:33
PROVIDERS: PCP Family Medicine; Visit Provider Internal Medicine Critical Care Medicine
DX: R06.00 Dyspnea, unspecified (principal); Z87.891 Personal history of nicotine dependence
CPT/HCPCS: 36600; 82375; 82805; 83050

== ENCOUNTER 2023-03-26 11:49 | Inpatient (IN) | payer MEDICARE, MEDICAID, SELFPAY ==
[2023-03-26] VITALS (19 sets, daily range): BP systolic 146–184; BP diastolic 71–88; PULSE 93–128; RESP 22–36; TEMP 36.1–37.6; O2SAT 74–100; BMI 42.3
--- NOTE | ~2023-03-26 | XR_ITS ---
XR chest 1V portable DATE: 03/26/2023 12:19 INDICATION: Dyspnea TECHNIQUE: Portable AP chest on March 26, 2023 at 1209 hours COMPARISON: 03/05/2023 2 view chest FINDINGS: Mild infiltrate or atelectasis is suggested in the mid and lower lung zones. Normal heart size. No hilar or mediastinal enlargement. Left costophrenic angle is excluded. No right pleural effusion is evident. No evidence of pneumothorax. Pulmonary vasculature appears within wily l range. IMPRESSION: Limited examination with suggestion of mild infiltrate or atelectasis in the mid and lowe r lung zones Reviewed, dictated and finalized at location L. AGE BATTERY CHARGER IMPRESSION: Limited examination with suggestion of mild infiltrate or atelectas is in the mid and lower lung zones
--- NOTE | ~2023-03-26 | XR_ITS ---
EXAM: XR shoulder LT min 2V DATE: 03/29/2023 13:47 HISTORY: shoulder pain . COMPARISON: None available. FINDINGS: Normal mineralization. No fracture or dislocation. No lytic or blastic lesion. Mild AC prabha nt and glenohumeral joint degenerative change. No erosion or periosteal change. Soft tissues within n ormal limits. IMPRESSION: No acute osseous finding the left shoulder. Reviewed, dictated and finalized at location K. [facility]
--- NOTE | 2023-03-26 11:58 | ECG_ITS ---
Measurements Intervals [place] Rate: 116 P: 71 MN: 140 QRS: 56 QRSD: 76 T: 165 QT: 276 QTc: 384 Interpretive Statements SINUS TACHYCARDIA NONSPECIFIC ST AND T-WAVE ABNORMALITY COMPARED TO ECG 12/14/2022 18:50:[address] NOW PRESENT [address] AND T-WAVE ABNORMALITY NOW PRESENT Electronically Signed On 03-26-2023 15:20:51 THIRD HELPER by Diamond Vidal M.D.
[2023-03-26 12:36] LABS: Base Excess ABG 10.4 mEq/l (+/-2.0); Fractional Inspired Oxygen 36 %; Oxygen Content ABG 16.8 %vol (16.0-22.0); Oxygen Saturation ABG 90.7 % (95.0-100.0); Oxyhemoglobin 92.5 % THb (90.0-100.0); PO2 ABG 73.9 mmHg (80.0-100.0); PO2 FiO2 Ratio Arterial Blood 2.05 %; Total Hemoglobin 12.9 g/dL (12.0-18.0)
[2023-03-26 12:39] LABS: pH ABG 7.227 (7.350-7.450)
[2023-03-26] MEDS: SODIUM CHLORIDE 0.9% IV 1,000 ML 999 ML IV CONT ×2 (12:39→14:34)
[2023-03-26 12:40] LABS: Device NASAL CANNULA; Modified Allen's Test Pass; PCO2 ABG 103.3 mmHg (35.0-45.0); Site Drawn RIGHT RADIAL
--- NOTE | 2023-03-26 12:41 | ED.SOB ---
HPI - SOB/Dyspnea General Chief Complaint: Shortness of Breath/Dyspnea Stated Complaint: trouble breathing Time Seen by Provider: 03/26/23 11:58 Source: patient Limitations: no limitations History of Present Illness HPI Narrative: Patient is a 67-year-old male presents emergency department complaining of shortness of breath. Patient states she has been feeling short of breath for past 3 days it has been getting progressively worse 14, further evaluation. Patient is to history of stone passed. Patient admits to wearing 6 L supplemental oxygen via nasal cannula as of late. Patient admits to a recent increase in his diuretic. Patient admits to follow with her doctor regularly. Patient denies chest pain, bloody bowel movements, urinary discomfort, nausea, vomiting, abdominal pain, numbness, weakness, fever, sore throat, nasal congestion, history of blood clots, unilateral lower extremity swelling. Patient admits to slight cough that is nonproductive. Patient admits to smoking. Related Data Home Medications Medication Instructions Recorded Confirmed aspirin 81 mg tablet,delayed 81 mg PO DAILY 01/29/19 03/05/23 release (Adult Low Dose Aspirin) glimepiride 4 mg tablet 4 mg PO DAILY 04/28/19 03/05/23 insulin degludec 100 unit/mL (3 40 unit subcut DAILY 05/11/22 03/05/23 mL) subcutaneous pen (Tresiba FlexTouch U-100 insulin) insulin lispro 200 unit/mL (3 mL) 18 unit subcut QACDINNER 05/11/22 03/05/23 subcutaneous pen (Humalog KwikPen U-200 Insulin) blood-glucose meter,continuous 11/05/22 03/05/23 (Dexcom G7 General Office Assistant) atorvastatin 40 mg tablet 40 mg PO DAILY 12/14/22 03/05/23 ezetimibe 10 mg tablet 10 mg PO DAILY 12/14/22 03/05/23 levothyroxine 100 mcg tablet 100 mcg PO DAILY 12/14/22 03/05/23 raezmh-zulnaosp-ygigpyd cap PO 12/14/22 03/05/23 12,000-38,000-60,000 unit capsule,delayed rel (Creon) Allergies Allergy/AdvReac Type Severity Reaction Status Date / Time lisinopril Allergy Unknown Swelling Verified 03/05/23 10:30 Review of Systems Review of Systems: A 10 system review of systems was completed on the patient and is negative except for what is stated in the HPI. Nursing and ancillary documentation was reviewed. [facility] Past Medical History Medical History Bloating CAD (coronary artery disease) Carotid occlusion, right Chronic pancreatitis Chronic respiratory failure with hypoxia, on home O2 therapy COPD (chronic obstructive pulmonary disease) Dyslipidemia Elevated amylase Former smoker Hypertension Hypothyroid OTTO (obstructive sleep apnea) Right flank discomfort Type 2 diabetes mellitus treated with insulin Follows with endocrine Surgical History Surgical History H/O colonoscopy 09/2014 Family History Family History Father Acute myocardial infarction Hypertension, Onset Age: 56 Family history of heart disease in male family member before age 55 Sibling Family history of congenital heart disease, Onset Age: 32 Mother Family history of malignant neoplasm of breast in first degree relative Family history of primary malignant neoplasm of liver Other Asthma Social History Social History Social History: The patient is and has his is 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 The patient has 5 biological children. He is disabled. He is a former smoker. He denies any alcohol marijuana or illicit drugs. Code status full code Caffeine-coffee/soda Years smoked: 44 Smoking status: Never smoker Second hand tobacco smoke exposure: No Smoking end date: 02/11/13 Alcohol intake: never Substance use: never Substance use type: does not use Lack of Transportation: YES Lack of Food: Often True Current Housing: I Have Ho
[2023-03-26 12:45] LABS: Basophils Percent Auto 0.4 % (0.2-1.2); Eosinophils Absolute Auto 0.2 K/mm3 (0-0.3); Eosinophils Percent Auto 1.8 % (0-4.4); Hematocrit 44.6 % (42.0-52.0); Hemoglobin 11.8 g/dL (14.0-18.0); Immature Granulocyte Absolute 0.08 K/mm3 (0.00-0.031); Immature Granulocyte Percent A 0.8 % (0-0.5); Lymphocytes Absolute Auto 1.95 K/mm3 (0.9-3.2); Lymphocytes Percent Auto 20.4 % (18.3-44.2); Mean Corpuscular HGB Conc 26.5 g/dl (32-36); Mean Corpuscular Hemoglobin 22.2 pg (26-34); Mean Corpuscular Volume 83.8 fl (80-100); Mean Platelet Volume 10.2 fl (7.4-10.4); Monocytes Absolute Auto 0.9 K/mm3 (0.1-0.6); Monocytes Percent Auto 9.3 % (2.6-8.5); Neutrophils Absolute Auto 6.5 K/mm3 (1.3-6.7); Neutrophils Percent Auto 67.3 % (45.5-73.1); Nucleated Red Blood Cells Perc 0.2 % (0.0-0.2); Platelet Count Result 237 k/mm3 (150-375); Red Blood Count 5.32 M/mm3 (4.6-6.20); Red Cell Distribution Width 16.4 % (11.5-14.5); White Blood Count 9.6 K/mm3 (4.5-10.0)
[2023-03-26 12:55] LABS: Lactic Acid Reflex 0.8 mmol/L (0.7-2.0)
[2023-03-26 12:58] LABS: Alanine Aminotransferase 21 U/L (6-50); Albumin Level 4.2 g/dL (3.5-5.1); Alkaline Phosphatase 102 U/L (38-126); Aspartate Amino Transferase 24 U/L (17-59); Bilirubin,Total 0.3 mg/dL (0.2-1.3); Blood Urea Nitrogen 11 mg/dL (9-20); Calcium 9.2 mg/dL (8.4-10.2); Carbon Dioxide > 40 mmol/L (22-30); Chloride 99 mmol/L (98-107); Estimated CRCL calculation 109 ml/min; Estimated Glomerular Filt Rate > 60; Glucose 102 mg/dL (65-110); Potassium 4.6 mmol/L (3.4-5.0); Sodium 141 mmol/L (137-145)
[2023-03-26 12:59] LABS: INR 0.9; Prothrombin Time 12.8 Seconds (11.1-14.7)
[2023-03-26 12:59] LABS: CRP 1.1 mg/dL (<1.0); Lipase 118 U/L (23-300); Magnesium 2.5 mg/dL (1.6-2.3)
[2023-03-26] MEDS: IPRATROPIUM 0.5 MG/ALBUTEROL SULFATE 2.5 MG AMPUL.NEB 3 ML 6 ML INHALATION (12:59)
[2023-03-26 13:00] LABS: Partial Thromboplastin Time 25.3 SECONDS (22.3-36.8)
[2023-03-26 13:06] LABS: D Dimer 0.64 ug/mL (<0.48)
[2023-03-26 13:08] LABS: NT Pro B Type Natriuretic Pept < 20 pg/mL (19.9-100); Troponin I < 0.012 ng/mL (0.000-0.034)
[2023-03-26 13:21] LABS: Influenza A QL RT-PCR Negative (Negative); Influenza B QL RT-PCR Negative (Negative); RSV RNA, RT-PCR Negative (Negative); SARS-CoV-2 RNA PCR Negative (Negative)
[2023-03-26] MEDS: FUROSEMIDE INJ 40 MG/4 ML VIAL IV PUSH (13:23)
[2023-03-26 14:20] LABS: Appearance Urine Clear (Clear); Bilirubin Urine Negative (Negative); Blood Urine Negative (Negative); Color Urine Yellow (Yellow); Glucose Urine UA 3+ mg/dL (Negative); Ketones Urine Negative (Negative); Leukocyte Esterase Ur Negative LEU/UL (Negative); Nitrate Urine Negative (Negative); Protein Urine Negative (Negative); Specific Grav Ur 1.016 (1.001-1.035); Urobilinogen Urine 0.2 mg/dL (<2.0)
[2023-03-26 14:26] LABS: Add Urine Microscopic? NO
[2023-03-26] MEDS: AZITHROMYCIN 500 MG/NS 250 ML 500 MG/250 ML BAG 250 MG IVPB (14:34)
--- NOTE | 2023-03-26 16:00 | PM.IMHP ---
H&P: HPI History of Present Illness Date/Time: 03/26/23 16:00 Chief Complaint: SOB Narrative: 67 y/o M presents here with SOB with PMH of CAD, COPD on home O2 (6L NC), chronic pancreatitis, dyslipidemia, HTN, hypothyroidism, carotid occlusion (R), HTN, OTTO (on CPAP), and DM2. Patient presents here with SOB and dry cough for the past 3 days with progressive worsening. Patient has been wears 6L NC at baseline. Patient did have a recent increase in his diuretic (Lasix 40 mg once daily to 40 mg BID) 2 weeks ago. Denies any chest pain or tightness, N/V/D, fever, chills, body aches. No history of DVT, PE or unilateral LE swelling. No increased fatigue or changes in appetite. Reports compliance with CPAP at night. Patient reports has been sick - has bronchitis. No other sick contacts or recent illnesses. Initial VS at presentation: 99.6F, HR 125, RR 24, 159/71, 74% on RA. Placed on 4L with improvement to 97%, ultimately placed on BiPAP. ED workup showed no leukocytosis, mild anemia with a hemoglobin of 11.8, D-dimer 0.64 (age adjusted cut off - 0.67), CO2 >40 and magnesium 2.5 otherwise unremarkable chemistry panel. UA showed 3+ glucose. Viral PCR negative. CXR was a limited examination, imaging suggestive of mild infiltrate or atelectasis in the mid and lower lung zones. EKG showed sinus tachycardia with ST/T wave abnormality. pH 7.227, pCO2 103.3, pO2 73.9, HCO3 42, O2 sat 90.7% while on NC. No current complaints upon admission. Mild somnolence and remains moderately tachypneic. Review of Systems Review of Systems: All systems reviewed & are unremarkable except as noted in HPI and below [facility] Past Medical History Medical History Bloating CAD (coronary artery disease) Carotid occlusion, right Chronic pancreatitis Chronic respiratory failure with hypoxia, on home O2 therapy COPD (chronic obstructive pulmonary disease) Dyslipidemia Elevated amylase Former smoker Hypertension Hypothyroid OTTO (obstructive sleep apnea) Right flank discomfort Type 2 diabetes mellitus treated with insulin Follows with endocrine Surgical History Surgical History H/O colonoscopy 09/2014 Family History Family History Father Acute myocardial infarction Hypertension, Onset Age: 56 Family history of heart disease in male family member before age 55 Sibling Family history of congenital heart disease, Onset Age: 32 Mother Family history of malignant neoplasm of breast in first degree relative Family history of primary malignant neoplasm of liver Other Asthma Social History Social History Social History: The patient is and has his is the durable power corporate attorney for healthcare. The patient has 5 biological children. He is disabled. He is a former smoker. He denies any alcohol marijuana or illicit drugs. Code status full code Caffeine-coffee/soda Smoking packs per day: 1 Smoking cigarettes per day: 20.0 Years smoked: 9 Smoking pack-years: 9.00 Smoking status: Former smoker Tobacco type: cigarettes Second hand tobacco smoke exposure: No Smoking end date: 02/11/13 Alcohol intake: never Substance use: never Substance use type: does not use Do You Feel Safe in your Home?: Yes Lack of Transportation: No Lack of Food: Never True Current Housing: I Have Housing Concerned About Future Housing: No Difficulty Paying Gas/Electric Bills: No Difficulty Paying for Meds: No Currently Unemployed: No Education: High School Diploma/GED Difficulty w/ Childcare or Family Care: No Living arrangements: with family Occupation/Education: retired Gender identity (if verbalized by the patient): Male Spiritual care concerns: No Meds Home Medicat
[2023-03-26 16:20] LABS: Troponin I < 0.012 ng/mL (0.000-0.034)
--- NOTE | 2023-03-26 16:44 | ADMGEN ---
This patient, Juni Merchant, was admitted to IMU Room 213-01. Patient/family oriented to hospital policies and general routines including ID bracelet, bed and alarms, visiting hours, pain management, procedures, bathroom and other care routines, personal items, smoking policy, room service/diet, and visiting hours. Information on how to activate the Rapid Response Team has been discussed. Patient/Family are encouraged to report perceived risks to care and to ask questions if they do not understand what they are told or what they should do.
[2023-03-26 16:48] LABS: Glucose Point of Care 70 mg/dl (65-105)
[2023-03-26 17:08] LABS: Alveolar/Arterial O2 Gradient 80.7 mmHg; Base Excess ABG 6.7 mEq/l (+/-2.0); Fractional Inspired Oxygen 35 %; HCO3 ABG 37.1 mEq/l (22.0-26.0); Oxygen Content ABG 16.5 %vol (16.0-22.0); Oxygen Saturation ABG 88.3 % (95.0-100.0); Oxyhemoglobin 91.7 % THb (90.0-100.0); PO2 ABG 66.1 mmHg (80.0-100.0); PO2 FiO2 Ratio Arterial Blood 1.89 %; Total Hemoglobin 12.8 g/dL (12.0-18.0)
[2023-03-26 17:11] LABS: pH ABG 7.241 (7.350-7.450)
[2023-03-26 17:12] LABS: Device NON-INVASIVE VENT; Modified Allen's Test Pass; PCO2 ABG 88.4 mmHg (35.0-45.0); Site Drawn RIGHT RADIAL
[2023-03-26 17:13] LABS: Non-Invasive Expiratory Pressure 6 CMH2O; Non-Invasive Inspiratory Pressure 14 CMH2O; Non-Invasive Vent Rate 4 /MIN
[2023-03-26] MEDS: predniSONE 20 MG TABLET 40 MG PO (18:29)
[2023-03-26] MEDS: IPRATROPIUM 0.5 MG/ALBUTEROL SULFATE 2.5 MG AMPUL.NEB 3 ML INHALATION ×2 (19:43→23:11)
[2023-03-26 20:23] LABS: MRSA (PCR) NOT DETECTED (NOT DETECTE)
[2023-03-26] MEDS: FUROSEMIDE 40 MG TABLET PO (20:28)
[2023-03-26] MEDS: GABAPENTIN 300 MG CAPSULE PO (20:28)
[2023-03-27] VITALS (30 sets, daily range): BP systolic 130–182; BP diastolic 69–84; PULSE 92–128; RESP 17–29; TEMP 36.2–36.9; O2SAT 91–100
[2023-03-27 00:41] LABS: Glucose Point of Care 84 mg/dl (65-105)
[2023-03-27] MEDS: IPRATROPIUM 0.5 MG/ALBUTEROL SULFATE 2.5 MG AMPUL.NEB 3 ML INHALATION ×5 (03:57→21:11)
[2023-03-27 04:40] LABS: Alveolar/Arterial O2 Gradient 85.4 mmHg; Base Excess ABG 9.9 mEq/l (+/-2.0); Fractional Inspired Oxygen 35 %; HCO3 ABG 39.8 mEq/l (22.0-26.0); Oxygen Saturation ABG 88.6 % (95.0-100.0); Oxyhemoglobin 91.2 % THb (90.0-100.0); PO2 ABG 64.2 mmHg (80.0-100.0); PO2 FiO2 Ratio Arterial Blood 1.83 %; Total Hemoglobin 12.5 g/dL (12.0-18.0)
[2023-03-27 04:41] LABS: Basophils Percent Auto 0.2 % (0.2-1.2); Hematocrit 42.3 % (42.0-52.0); Hemoglobin 11.3 g/dL (14.0-18.0); Immature Granulocyte Absolute 0.07 K/mm3 (0.00-0.031); Immature Granulocyte Percent A 0.7 % (0-0.5); Lymphocytes Absolute Auto 1.02 K/mm3 (0.9-3.2); Lymphocytes Percent Auto 9.7 % (18.3-44.2); Mean Corpuscular HGB Conc 26.7 g/dl (32-36); Mean Corpuscular Hemoglobin 22.1 pg (26-34); Mean Corpuscular Volume 82.8 fl (80-100); Mean Platelet Volume 10.7 fl (7.4-10.4); Monocytes Absolute Auto 0.4 K/mm3 (0.1-0.6); Monocytes Percent Auto 3.3 % (2.6-8.5); Neutrophils Absolute Auto 9.1 K/mm3 (1.3-6.7); Neutrophils Percent Auto 86.1 % (45.5-73.1); Platelet Count Result 245 k/mm3 (150-375); Red Blood Count 5.11 M/mm3 (4.6-6.20); Red Cell Distribution Width 16.2 % (11.5-14.5); White Blood Count 10.5 K/mm3 (4.5-10.0)
[2023-03-27 04:41] LABS: Modified Allen's Test Pass; Site Drawn LEFT RADIAL; pH ABG 7.283 (7.350-7.450)
[2023-03-27 04:42] LABS: Device NON-INVASIVE VENT; Non-Invasive Expiratory Pressure 6 CMH2O; Non-Invasive Inspiratory Pressure 14 CMH2O; Non-Invasive Vent Rate 4 /MIN
[2023-03-27 05:12] LABS: Alanine Aminotransferase 17 U/L (6-50); Albumin Level 3.9 g/dL (3.5-5.1); Alkaline Phosphatase 103 U/L (38-126); Aspartate Amino Transferase 31 U/L (17-59); Bilirubin,Total 0.4 mg/dL (0.2-1.3); Blood Urea Nitrogen 16 mg/dL (9-20); Calcium 8.9 mg/dL (8.4-10.2); Carbon Dioxide > 40 mmol/L (22-30); Chloride 99 mmol/L (98-107); Estimated CRCL calculation 107 ml/min; Estimated Glomerular Filt Rate > 60; Glucose 130 mg/dL (65-110); Magnesium 2.4 mg/dL (1.6-2.3); Potassium 4.4 mmol/L (3.4-5.0); Sodium 140 mmol/L (137-145)
[2023-03-27 05:28] LABS: Hemoglobin A1C 6.1 % (<5.7)
[2023-03-27] MEDS: LEVOTHYROXINE SODIUM 100 MCG TABLET PO (06:18)
[2023-03-27] MEDS: ENOXAPARIN 40 MG/0.4 ML SYRINGE SUB-Q ×2 (08:14→21:39)
[2023-03-27] MEDS: POTASSIUM CHLORIDE 10 MEQ ER TABLET PO (08:14)
[2023-03-27] MEDS: predniSONE 20 MG TABLET 40 MG PO (08:14)
[2023-03-27] MEDS: dilTIAZem HCL CD 240 MG CAP.24HR PO (08:14)
[2023-03-27] MEDS: GABAPENTIN 300 MG CAPSULE PO ×2 (08:15→17:14)
[2023-03-27] MEDS: EZETIMIBE 10 MG TABLET PO (08:15)
[2023-03-27] MEDS: ATORVASTATIN 40 MG TABLET PO (08:15)
[2023-03-27] MEDS: EMPAGLIFLOZIN 25 MG TABLET PO (08:15)
[2023-03-27] MEDS: FUROSEMIDE 40 MG TABLET PO (08:15)
[2023-03-27] MEDS: ROFLUMILAST 500 MCG TABLET PO (08:15)
[2023-03-27] MEDS: FLUTICASONE/UMECLIDIN/VILANTER 100-62.5-25 MCG ELLIPTA 1 PUFF INHALATION (08:18)
[2023-03-27 08:36] LABS: Glucose Point of Care 117 mg/dl (65-105)
[2023-03-27] MEDS: AZITHROMYCIN 500 MG/NS 250 ML 500 MG/250 ML BAG 250 MG IVPB (09:31)
[2023-03-27] MEDS: INSULIN GLARGINE (*BKC) 100 UNITS/ML 40 UNITS SUB-Q (10:01)
--- NOTE | 2023-03-27 11:33 | PM.IMPN ---
Progress Note: A&P Assessment and Plan (1) COPD exacerbation: Code(s): J44.1 - Chronic obstructive pulmonary disease with (acute) exacerbation Status: Acute (2) Pneumonia: Qualifiers: Laterality: unspecified laterality Lung location: unspecified part of lung Pneumonia type: due to unspecified organism Qualified Code(s): J18.9 - Pneumonia, unspecified organism Code(s): J18.9 - Pneumonia, unspecified organism Status: Acute (3) Dyspnea: Code(s): R06.00 - Dyspnea, unspecified Status: Acute (4) Community acquired pneumonia: Code(s): J18.9 - Pneumonia, unspecified organism Status: Acute (5) COPD exacerbation: Code(s): J44.1 - Chronic obstructive pulmonary disease with (acute) exacerbation Status: Acute (6) OTTO (obstructive sleep apnea): Code(s): G47.33 - Obstructive sleep apnea (adult) (pediatric) Status: Chronic (7) Obesity, morbid, BMI 40.0-49.9: Code(s): E66.01 - Morbid (severe) obesity due to excess calories Status: Acute Plan Acute on chronic respiratory failure with hypercapnia - initial O2 sat - 74%, improvement with NC. - ABG, initial: pH 7.227, pCO2 103.3, pO2 73.9, HCO3 42, O2 sat 90.7% while on NC. Placed on BiPAP. - ABG, post-BiPAP: pH? 7.241, pCO2? 88.4, pO2 66.1, HCO3 37.1, O2 sat 88.3% while on BiPAP. continue BiPAP. - repeat ABG in AM, patient agrees with plan to continue BiPAP overnight. - CXR: limited examination with suggestion of mild infiltrate or atelectasis in the mid and lower lung zones? - BNP: <20 - d dimer: 0.64, age adjusted cut off - 0.67 - DDx: acute/chronic hypercapnic respiratory failure, pneumonia, and/or COPD exacerbation. Less likely PE given d-dimer WNL when adjusted for age. Possible resulting in COPD exacerbation and pneumonia Continue current management Consult automatic paint sprayer operator for evaluation treatment. Composition Weatherboard Applier recommend continue antibiotics, or steroid, discontinue Lasix and diamox (2) Pneumonia: ?Qualifiers: ?Laterality:?unspecified laterality??Lung location:?unspecified part of lung??Pneumonia type:?due to unspecified organism? Qualified Code(s):?J18.9 - Pneumonia, unspecified organism ?Code(s): J18.9 - Pneumonia, unspecified organism ?Status:?Acute ?Assessment and Plan: - Meets SIRS criteria: tachycardia and tachypnea. no elevation in WBC, afebrile, and lactic acid is 0.8 - blood cultures pending - started on ceftriaxone and azithromycin - continue to monitor VS - maintain O2 sat above 92% - add MRSA PCR and sputum culture (3) COPD exacerbation: ?Code(s): J44.1 - Chronic obstructive pulmonary disease with (acute) exacerbation ?Status:?Acute ?Assessment and Plan: - ipratropium/albuterol inhaler Q6H JAMES - started on? azithromycin and ceftriaxone - prednisone 40 mg p.o. daily times 7 days, start today -continue: daliresp, breztri inhaler, (4) Type 2 diabetes mellitus treated with insulin: ?Code(s): E11.9 - Type 2 diabetes mellitus without complications; Z79.4 - group home (current) use of insulin ?Status:?Chronic ?Assessment and Plan: - Hypoglycemia protocol - POC blood glucose ACHS - home medications -? continue Jardiance, Tresiba 40 units daily, Humalog? 18 units QACDinner, and glimepiride - correct regimen ordered - high dose TIDWM and HS due to BMI and patient placed on steroids - A1C ordered. Last 6.3% on 11/05/22 - continue gabapentin (5) Hypertension: ?Qualifiers: ?Hypertension type:?essential hypertension? Qualified Code(s):?I10 - Essential (primary) hypertension ?Code(s): I10 - Essential (primary) hypertension ?Status:?Acute ?Assessment and Plan: - chronic, modestly elevated at present - continue diltiazem and diuretics (Lasix 40 BID and diamox 125 mg PO daily) - monitor - HLD: continue home statin and zetia - hypothyroidism:? Continue levothyroxine, reassess TSH Di
--- NOTE | 2023-03-27 15:12 | PM.CNPUL ---
Assessment and Plan Assessment and plan (1) COPD exacerbation: Code(s): J44.1 - Chronic obstructive pulmonary disease with (acute) exacerbation Status: Acute Assessment and Plan: This 67-year-old man with a history of morbid obesity obstructive sleep apnea advanced COPD with chronic hypoxemic hypercapnic respiratory failure presented with increasing shortness of breath. Diagnostic studies suggest acute on chronic hypercapnic respiratory failure related to COPD exacerbation. The patient is currently on BiPAP support with blood gases still showing low pH. On physical exam he had distant breath sounds. There is no evidence of a new infiltrates on chest x-ray and no evidence of congestive heart failure as the BNP on admission was very low. Agree with current antibiotic regimen and oral steroids. I have discontinued Lasix and Diamox tablets. I have increased Lovenox to b.i.d. for better DVT prophylaxis given his morbid obesity. Need to increase the minute ventilation via BiPAP to lower pCO2. Blood gases were ordered. (2) Chronic respiratory failure with hypoxia, on home O2 therapy: Code(s): J96.11 - Chronic respiratory failure with hypoxia; Z99.81 - Dependence on supplemental oxygen Status: Acute (3) OTTO (obstructive sleep apnea): Code(s): G47.33 - Obstructive sleep apnea (adult) (pediatric) Status: Chronic (4) Obesity, morbid, BMI 40.0-49.9: Code(s): E66.01 - Morbid (severe) obesity due to excess calories Status: Acute (5) Type 2 diabetes mellitus treated with insulin: Code(s): E11.9 - Type 2 diabetes mellitus without complications; Z79.4 - [facility] (current) use of insulin Status: Chronic (6) CAD (coronary artery disease): Qualifiers: Coronary Disease-Associated Artery/Lesion type: unspecified vessel or lesion type [place] vs. transplanted heart: [place] heart Associated angina: unspecified whether angina present Qualified Code(s): I25.10 - Atherosclerotic heart disease of [place] coronary artery without angina pectoris Code(s): I25.10 - Atherosclerotic heart disease of [place] coronary artery without angina pectoris Status: Chronic History of Present Illness History of Present Illness Consult date: 03/27/23 Chief complaint: COPD Exacerbation Narrative: This 67-year-old man with a history of chronic hypoxemic hypercapnic respiratory failure related to COPD presented with shortness of breath. The patient has advanced COPD with moderate centrilobular emphysema on chest imaging studies and pulmonary function testing showing FEV1 of approximately 0.7 L along with air trapping and severely reduced lung diffusion capacity. The patient has had history of a frequent COPD exacerbations, obstructive sleep apnea on CPAP, intolerance to NPPV, hypertension hypothyroidism, diabetes mellitus type 2, history of chronic pancreatitis. The patient has been on triple inhaler Daliresp and supplemental oxygen at 5 6 liters/minute via nasal cannula. One day prior to hospitalization he is overnight oximetry showed significant oxyhemoglobin desaturation on his stander oxygen flow. The patient presented with a shortness of breath and dry cough for the past 3 days. He had no significant sputum production chest pain or wheezing. He had mild coughing. On evaluation in the emergency room he was found to have acute on chronic hypercapnic respiratory failure in a patient has been treated with BiPAP support using pressures 14/6 and 35% FiO2. His last ABG earlier today still showed acute on chronic hypercapnic respiratory failure with a pH around 7.22. Patient has been on treatment with steroids antibiotics for COPD exacerbation. Review of previous chest imaging studies showed prominent pulmonary arteries but on recent echocardiogram his calculated pulmonary artery systolic pressure is in the range of 35-40 mmHg. Review of Systems Review of Systems: All systems reviewed & are unrema
[2023-03-27] MEDS: GLIMEPIRIDE 2 MG TABLET 4 MG PO (17:14)
[2023-03-27 17:23] LABS: Glucose Point of Care 164 mg/dl (65-105)
[2023-03-27 20:43] LABS: Glucose Point of Care 177 mg/dl (65-105)
[2023-03-28] VITALS (30 sets, daily range): BP systolic 124–158; BP diastolic 67–77; PULSE 82–116; RESP 17–30; TEMP 36.3–36.6; O2SAT 94–100
[2023-03-28] MEDS: IPRATROPIUM 0.5 MG/ALBUTEROL SULFATE 2.5 MG AMPUL.NEB 3 ML INHALATION ×5 (00:10→20:03)
[2023-03-28] MEDS: SALINE 0.65% NAS SOLN 44 ML BTL 1 SPRAY NASAL (00:51)
[2023-03-28] MEDS: LEVOTHYROXINE SODIUM 100 MCG TABLET PO (05:58)
[2023-03-28 07:45] LABS: Glucose Point of Care 53 mg/dl (65-105)
[2023-03-28] MEDS: GLUCOSE ORAL GEL 15 GM OF GLUCSE IN 37.5 GM TUBE PO (07:50)
[2023-03-28 08:18] LABS: Glucose Point of Care 108 mg/dl (65-105)
[2023-03-28] MEDS: FLUTICASONE/UMECLIDIN/VILANTER 100-62.5-25 MCG ELLIPTA 1 PUFF INHALATION (08:22)
[2023-03-28] MEDS: predniSONE 20 MG TABLET 40 MG PO (09:12)
[2023-03-28] MEDS: POTASSIUM CHLORIDE 10 MEQ ER TABLET PO (09:13)
[2023-03-28] MEDS: EZETIMIBE 10 MG TABLET PO (09:13)
[2023-03-28] MEDS: GABAPENTIN 300 MG CAPSULE PO ×2 (09:13→17:19)
[2023-03-28] MEDS: ROFLUMILAST 500 MCG TABLET PO (09:14)
[2023-03-28] MEDS: EMPAGLIFLOZIN 25 MG TABLET PO (09:14)
[2023-03-28] MEDS: dilTIAZem HCL CD 240 MG CAP.24HR PO (09:14)
[2023-03-28] MEDS: ATORVASTATIN 40 MG TABLET PO (09:14)
[2023-03-28] MEDS: INSULIN GLARGINE (*BKC) 100 UNITS/ML 40 UNITS SUB-Q (09:16)
[2023-03-28] MEDS: ENOXAPARIN 40 MG/0.4 ML SYRINGE SUB-Q ×2 (09:18→21:54)
--- NOTE | 2023-03-28 09:49 | PM.PNPUL ---
Progress Note: A&P Assessment and Plan (1) COPD exacerbation: Code(s): J44.1 - Chronic obstructive pulmonary disease with (acute) exacerbation Status: Acute Assessment and Plan: This 67-year-old man with a history of morbid obesity obstructive sleep apnea advanced COPD with chronic hypoxemic hypercapnic respiratory failure presented with increasing shortness of breath. Diagnostic studies suggest acute on chronic hypercapnic respiratory failure related to COPD exacerbation. . On physical exam he had distant breath sounds. There is no evidence of a new infiltrates on chest x-ray and no evidence of congestive heart failure as the BNP on admission was very low. Patient has been on BiPAP support and on last ABG his pH was 7.28. No new ABGs could be drawn. BiPAP pressures were increased yesterday in an effort to decrease the hypercapnia. Patient had some difficulty getting used to higher IPAP pressure. On today's exam he looks with less shortness of breath, very alert and cooperative. He still has distant breath sounds with a very mild expiratory wheezing. Plan: Continue with current regimen i.e. oral steroids antibiotics DVT prophylaxis. I will lower BiPAP support to 16/8. Will follow along with you. (2) Chronic respiratory failure with hypoxia, on home O2 therapy: Code(s): J96.11 - Chronic respiratory failure with hypoxia; Z99.81 - Dependence on supplemental oxygen Status: Acute (3) Obesity, morbid, BMI 40.0-49.9: Code(s): E66.01 - Morbid (severe) obesity due to excess calories Status: Acute (4) OTTO (obstructive sleep apnea): Code(s): G47.33 - Obstructive sleep apnea (adult) (pediatric) Status: Chronic Subjective Date/time seen: 03/28/23 09:49 Interval history: Patient has no new respiratory symptoms. He stated his breathing seems to be getting better. Currently on nasal cannula. He had some difficulty adjusting to higher BiPAP pressures last night. No blood gases were drawn yesterday. Appears fully alert and cooperative. Review of Systems Review of Systems: All systems reviewed & are unremarkable except as noted in HPI and below (HPI and below) Exam Narrative: GENERAL APPEARANCE: Well developed, well nourished, alert and cooperative, appears to be in [id number] distress while on BiPAP support SKIN: Inspection of the skin reveals no rashes, ulcerations or petechiae. HEENT: Sclerae anicteric and conjunctivae pink and moist. Extraocular movements were intact and pupils were equal, round, and reactive to light. NECK: Supple. There was no thyroid enlargement, and no tenderness, or masses were felt. LUNGS: Distant breath sounds, no wheezing CARDIAC: There was a regular rate and rhythm without any murmurs, gallops, rubs. ABDOMEN: Soft and nontender with normal bowel sounds. There was no organomegaly. LYMPH NODES: No lymphadenopathy was appreciated in the neck. EXTREMITIES: No cyanosis, clubbing or edema. NEUROLOGIC: Alert and oriented x 3. Normal affect. Objective Data Vital Signs Vital Signs: Vital Signs - 24 hr 03/27/23 10:00 03/27/23 12:08 03/27/23 12:13 Temperature Pulse Rate 111 H 100 104 H Respiratory Rate Blood Pressure Pulse Oximetry Oxygen Delivery Oxygen Flow Rate Fraction of Inspired Oxygen 03/27/23 12:12 03/27/23 12:00 03/27/23 14:00 Temperature 36.8 C Pulse Rate 114 H 107 H 99 Respiratory Rate 19 Blood Pressure 149/74 H Pulse Oximetry 96 Oxygen Delivery Oxygen Flow Rate Fraction of Inspired Oxygen 03/27/23 12:00 03/27/23 16:05 03/27/23 16:16 Temperature 36.9 C Pulse Rate 95 100 Respiratory Rate 20 19 Blood Pressure 132/77 Pulse Oximetry 95 96 96 Oxygen Delivery Nasal Cannula BiPAP Oxygen Flow Rate 6 Fraction of Inspired Oxygen 03/27/23 16:35 03/27/23 16:00 03/27/23 18:00 Temperature Pulse Rate 93 99 102 H Respiratory Rate 17 Blood Pressure Pulse Oxim
--- NOTE | 2023-03-28 10:26 | PM.IMPN ---
Progress Note: A&P Assessment and Plan (1) COPD exacerbation: Code(s): J44.1 - Chronic obstructive pulmonary disease with (acute) exacerbation Status: Acute (2) Pneumonia: Qualifiers: Laterality: unspecified laterality Lung location: unspecified part of lung Pneumonia type: due to unspecified organism Qualified Code(s): J18.9 - Pneumonia, unspecified organism Code(s): J18.9 - Pneumonia, unspecified organism Status: Acute (3) Dyspnea: Code(s): R06.00 - Dyspnea, unspecified Status: Acute (4) Community acquired pneumonia: Code(s): J18.9 - Pneumonia, unspecified organism Status: Acute (5) OTTO (obstructive sleep apnea): Code(s): G47.33 - Obstructive sleep apnea (adult) (pediatric) Status: Chronic (6) Obesity, morbid, BMI 40.0-49.9: Code(s): E66.01 - Morbid (severe) obesity due to excess calories Status: Acute Plan Acute on chronic respiratory failure with hypercapnia - initial O2 sat - 74%, improvement with NC. - ABG, initial: pH 7.227, pCO2 103.3, pO2 73.9, HCO3 42, O2 sat 90.7% while on NC. Placed on BiPAP. - ABG, post-BiPAP: pH? 7.241, pCO2? 88.4, pO2 66.1, HCO3 37.1, O2 sat 88.3% while on BiPAP. continue BiPAP. - repeat ABG in AM, patient agrees with plan to continue BiPAP overnight. - CXR: limited examination with suggestion of mild infiltrate or atelectasis in the mid and lower lung zones? - BNP: <20 - d dimer: 0.64, age adjusted cut off - 0.67 - DDx: acute/chronic hypercapnic respiratory failure, pneumonia, and/or COPD exacerbation. Less likely PE given d-dimer WNL when adjusted for age. Possible resulting in COPD exacerbation and pneumonia Continue current management Consult rotary soil stabilizer operator for evaluation treatment. Portable Canteen Operator recommend continue antibiotics, or steroid, discontinue Lasix and diamox Will obtain ABG today, patient is off BiPAP during the day (2) Pneumonia: ?Qualifiers: ?Laterality:?unspecified laterality??Lung location:?unspecified part of lung??Pneumonia type:?due to unspecified organism? Qualified Code(s):?J18.9 - Pneumonia, unspecified organism ?Code(s): J18.9 - Pneumonia, unspecified organism ?Status:?Acute ?Assessment and Plan: - Meets SIRS criteria: tachycardia and tachypnea. no elevation in WBC, afebrile, and lactic acid is 0.8 - blood cultures pending - started on ceftriaxone and azithromycin - continue to monitor VS - maintain O2 sat above 92% - add MRSA PCR and sputum culture (3) COPD exacerbation: ?Code(s): J44.1 - Chronic obstructive pulmonary disease with (acute) exacerbation ?Status:?Acute ?Assessment and Plan: - ipratropium/albuterol inhaler Q6H JAMES - started on? azithromycin and ceftriaxone - prednisone 40 mg p.o. daily times 7 days, start today -continue: daliresp, breztri inhaler, (4) Type 2 diabetes mellitus treated with insulin: ?Code(s): E11.9 - Type 2 diabetes mellitus without complications; Z79.4 - jail (current) use of insulin ?Status:?Chronic ?Assessment and Plan: - Hypoglycemia protocol - POC blood glucose ACHS - home medications -? continue Jardiance, Tresiba 40 units daily, Humalog? 18 units QACDinner, and glimepiride - correct regimen ordered - high dose TIDWM and HS due to BMI and patient placed on steroids - A1C ordered. Last 6.3% on 11/05/22 - continue gabapentin (5) Hypertension: ?Qualifiers: ?Hypertension type:?essential hypertension? Qualified Code(s):?I10 - Essential (primary) hypertension ?Code(s): I10 - Essential (primary) hypertension ?Status:?Acute ?Assessment and Plan: - chronic, modestly elevated at present - continue diltiazem and diuretics (Lasix 40 BID and diamox 125 mg PO daily) - monitor - HLD: continue home statin and zetia - hypothyroidism:? Continue levothyroxine, reassess TSH Diet: NPO GI Prophylaxis: not currently indicated DVT Prophylaxis: SCDs, En
[2023-03-28] MEDS: AZITHROMYCIN 500 MG/NS 250 ML 500 MG/250 ML BAG 250 MG IVPB (11:09)
[2023-03-28 11:18] LABS: Basophils Percent Auto 0.3 % (0.2-1.2); Eosinophils Absolute Auto 0.2 K/mm3 (0-0.3); Eosinophils Percent Auto 1.5 % (0-4.4); Hematocrit 41.4 % (42.0-52.0); Hemoglobin 11.5 g/dL (14.0-18.0); Immature Granulocyte Absolute 0.05 K/mm3 (0.00-0.031); Immature Granulocyte Percent A 0.4 % (0-0.5); Mean Corpuscular HGB Conc 27.8 g/dl (32-36); Mean Corpuscular Hemoglobin 22.3 pg (26-34); Mean Corpuscular Volume 80.2 fl (80-100); Mean Platelet Volume 10.9 fl (7.4-10.4); Monocytes Absolute Auto 0.9 K/mm3 (0.1-0.6); Monocytes Percent Auto 8.2 % (2.6-8.5); Neutrophils Percent Auto 71.6 % (45.5-73.1); Platelet Count Result 267 k/mm3 (150-375); Red Blood Count 5.16 M/mm3 (4.6-6.20); Red Cell Distribution Width 16.1 % (11.5-14.5); White Blood Count 11.1 K/mm3 (4.5-10.0)
[2023-03-28 11:21] LABS: Glucose Point of Care 94 mg/dl (65-105)
[2023-03-28 11:33] LABS: Anion Gap 3 mmol/L (8-16); Blood Urea Nitrogen 18 mg/dL (9-20); Calcium 9.1 mg/dL (8.4-10.2); Carbon Dioxide 39 mmol/L (22-30); Chloride 98 mmol/L (98-107); Estimated CRCL calculation 107 ml/min; Estimated Glomerular Filt Rate > 60; Glucose 101 mg/dL (65-110); Potassium 3.6 mmol/L (3.4-5.0); Sodium 140 mmol/L (137-145)
[2023-03-28 12:01] LABS: Platelet Estimate Adequate (Adequate); Schistocytes None Seen (NORMAL)
[2023-03-28 12:02] LABS: Hypochromasia 1+ (NORMAL)
[2023-03-28 13:55] LABS: Alveolar/Arterial O2 Gradient 144.9 mmHg; Base Excess ABG 7.9 mEq/l (+/-2.0); Device NASAL CANNULA; Fractional Inspired Oxygen 44 %; HCO3 ABG 36.4 mEq/l (22.0-26.0); Modified Allen's Test Pass; Oxygen Content ABG 17.4 %vol (16.0-22.0); Oxygen Saturation ABG 95.7 % (95.0-100.0); Oxyhemoglobin 95.3 % THb (90.0-100.0); PO2 ABG 87.8 mmHg (80.0-100.0); Site Drawn RIGHT RADIAL; Total Hemoglobin 12.9 g/dL (12.0-18.0); pH ABG 7.327 (7.350-7.450)
[2023-03-28 13:57] LABS: PCO2 ABG 71.1 mmHg (35.0-45.0)
--- NOTE | 2023-03-28 14:39 | PC.NURSE ---
On 03/28/23, the student, [Anastacia Carlos ], provided care and completed [employer] documentation on this patient. I have reviewed the student's documentation and agree with the findings.
--- NOTE | 2023-03-28 15:04 | PC.NURSE ---
On 03/28/23, the student, [Anastacia Carlos ], provided care and completed Tame documentation on this patient. I have reviewed the student's documentation and agree with the findings.
[2023-03-28 16:06] LABS: Glucose Point of Care 133 mg/dl (65-105)
[2023-03-28] MEDS: GLIMEPIRIDE 2 MG TABLET 4 MG PO (17:19)
[2023-03-28 20:31] LABS: Glucose Point of Care 169 mg/dl (65-105)
[2023-03-29] VITALS (22 sets, daily range): BP systolic 139–192; BP diastolic 54–90; PULSE 83–106; RESP 16–31; TEMP 36.5–37.1; O2SAT 91–100
[2023-03-29] MEDS: IPRATROPIUM 0.5 MG/ALBUTEROL SULFATE 2.5 MG AMPUL.NEB 3 ML INHALATION ×4 (00:37→20:28)
[2023-03-29] MEDS: LEVOTHYROXINE SODIUM 100 MCG TABLET PO (05:30)
[2023-03-29 06:32] LABS: Glucose Point of Care 166 mg/dl (65-105)
[2023-03-29] MEDS: FLUTICASONE/UMECLIDIN/VILANTER 100-62.5-25 MCG ELLIPTA 1 PUFF INHALATION (07:51)
[2023-03-29 08:03] LABS: Glucose Point of Care 57 mg/dl (65-105)
--- NOTE | 2023-03-29 08:03 | PM.IMPN ---
Progress Note: A&P Assessment and Plan (1) COPD exacerbation: Code(s): J44.1 - Chronic obstructive pulmonary disease with (acute) exacerbation Status: Acute (2) Pneumonia: Qualifiers: Laterality: unspecified laterality Lung location: unspecified part of lung Pneumonia type: due to unspecified organism Qualified Code(s): J18.9 - Pneumonia, unspecified organism Code(s): J18.9 - Pneumonia, unspecified organism Status: Acute (3) Dyspnea: Code(s): R06.00 - Dyspnea, unspecified Status: Acute (4) Community acquired pneumonia: Code(s): J18.9 - Pneumonia, unspecified organism Status: Acute (5) OTTO (obstructive sleep apnea): Code(s): G47.33 - Obstructive sleep apnea (adult) (pediatric) Status: Chronic (6) Obesity, morbid, BMI 40.0-49.9: Code(s): E66.01 - Morbid (severe) obesity due to excess calories Status: Acute Plan Acute on chronic respiratory failure with hypercapnia - initial O2 sat - 74%, improvement with NC. - ABG, initial: pH 7.227, pCO2 103.3, pO2 73.9, HCO3 42, O2 sat 90.7% while on NC. Placed on BiPAP. - ABG, post-BiPAP: pH? 7.241, pCO2? 88.4, pO2 66.1, HCO3 37.1, O2 sat 88.3% while on BiPAP. continue BiPAP. - repeat ABG in AM, patient agrees with plan to continue BiPAP overnight. - CXR: limited examination with suggestion of mild infiltrate or atelectasis in the mid and lower lung zones? - BNP: <20 - d dimer: 0.64, age adjusted cut off - 0.67 - DDx: acute/chronic hypercapnic respiratory failure, pneumonia, and/or COPD exacerbation. Less likely PE given d-dimer WNL when adjusted for age. Possible resulting in COPD exacerbation and pneumonia Continue current management Consult polytechnic teacher for evaluation treatment. Hand Reamer recommend continue antibiotics, or steroid, discontinue Lasix and diamox ABG showed improvement of CO2 retention. Patient is off BiPAP during the day (2) Pneumonia: ?Qualifiers: ?Laterality:?unspecified laterality??Lung location:?unspecified part of lung??Pneumonia type:?due to unspecified organism? Qualified Code(s):?J18.9 - Pneumonia, unspecified organism ?Code(s): J18.9 - Pneumonia, unspecified organism ?Status:?Acute ?Assessment and Plan: - Meets SIRS criteria: tachycardia and tachypnea. no elevation in WBC, afebrile, and lactic acid is 0.8 - blood cultures pending - started on ceftriaxone and azithromycin - continue to monitor VS - maintain O2 sat above 92% - add MRSA PCR and sputum culture (3) COPD exacerbation: ?Code(s): J44.1 - Chronic obstructive pulmonary disease with (acute) exacerbation ?Status:?Acute ?Assessment and Plan: - ipratropium/albuterol inhaler Q6H JAMES - started on? azithromycin and ceftriaxone - prednisone 40 mg p.o. daily times 7 days, start today -continue: daliresp, breztri inhaler, (4) Type 2 diabetes mellitus treated with insulin: ?Code(s): E11.9 - Type 2 diabetes mellitus without complications; Z79.4 - detention (current) use of insulin ?Status:?Chronic ?Assessment and Plan: - Hypoglycemia protocol - POC blood glucose ACHS Home medication: jardiance, Tresiba 40 units daily, Humalog? 18 units QACDinner, and glimepiride Due to hypoglycemia, discontinue Amaryl Humalog 18 dinner time, decrease Lantus to 40 units daily Continue insulin sliding scale high dose TIDWM Hypothyroidism Continue Synthroid 100 mcg daily p.o. (5) Hypertension: ?Qualifiers: ?Hypertension type:?essential hypertension? Qualified Code(s):?I10 - Essential (primary) hypertension ?Code(s): I10 - Essential (primary) hypertension ?Status:?Acute ?Assessment and Plan: - chronic, modestly elevated at present - continue diltiazem and diuretics (Lasix 40 BID and diamox 125 mg PO daily) - monitor - HLD: continue home statin and zetia - hypothyroidism:? Continue levothyroxine, reassess TSH Diet: Diabetic diet GI P
[2023-03-29 08:36] LABS: Glucose Point of Care 101 mg/dl (65-105)
--- NOTE | 2023-03-29 09:39 | PM.PNPUL ---
Progress Note: A&P Assessment and Plan (1) COPD exacerbation: Code(s): J44.1 - Chronic obstructive pulmonary disease with (acute) exacerbation Status: Acute Assessment and Plan: This 67-year-old man with a history of morbid obesity obstructive sleep apnea advanced COPD with chronic hypoxemic hypercapnic respiratory failure presented with increasing shortness of breath. Diagnostic studies suggest acute on chronic hypercapnic respiratory failure related to COPD exacerbation. . On physical exam he had distant breath sounds. There is no evidence of a new infiltrates on chest x-ray and no evidence of congestive heart failure as the BNP on admission was very low. Patient has been on BiPAP support and on last ABG his pH was 7.32. Current BiPAP pressures 16/6. On today's exam he looks with less shortness of breath, very alert and cooperative. Chest auscultation showed distant breath sounds no wheezing. Of note the patient has had history of COPD with chronic hypoxemic hypercapnic respiratory failure, requiring relatively high oxygen flow to maintain O2 saturation over 90. CPAP at night for sleep disordered breathing and reportedly did not tolerate NPPV. Plan: Continue with current regimen i.e. oral steroids antibiotics DVT prophylaxis. Restart Lasix p.o. (2) Chronic respiratory failure with hypoxia, on home O2 therapy: Code(s): J96.11 - Chronic respiratory failure with hypoxia; Z99.81 - Dependence on supplemental oxygen Status: Acute (3) Obesity, morbid, BMI 40.0-49.9: Code(s): E66.01 - Morbid (severe) obesity due to excess calories Status: Acute (4) OTTO (obstructive sleep apnea): Code(s): G47.33 - Obstructive sleep apnea (adult) (pediatric) Status: Chronic Subjective Date/time seen: 03/29/23 09:39 Interval history: Patient has no new respiratory symptoms. Has been using BiPAP support at night but not during the day. Less shortness of breath. No fever or lower extremity edema Review of Systems Review of Systems: All systems reviewed & are unremarkable except as noted in HPI and below (HPI and below) Exam Narrative: GENERAL APPEARANCE: Well developed, well nourished, alert and cooperative, appears to be in [id number] distress while on BiPAP support SKIN: Inspection of the skin reveals no rashes, ulcerations or petechiae. HEENT: Sclerae anicteric and conjunctivae pink and moist. Extraocular movements were intact and pupils were equal, round, and reactive to light. NECK: Supple. There was no thyroid enlargement, and no tenderness, or masses were felt. LUNGS: Distant breath sounds, no wheezing CARDIAC: There was a regular rate and rhythm without any murmurs, gallops, rubs. ABDOMEN: Soft and nontender with normal bowel sounds. There was no organomegaly. LYMPH NODES: No lymphadenopathy was appreciated in the neck. EXTREMITIES: No cyanosis, clubbing or edema. NEUROLOGIC: Alert and oriented x 3. Normal affect. Objective Data Vital Signs Vital Signs: Vital Signs - 24 hr 03/28/23 10:00 03/28/23 10:00 03/28/23 12:30 Temperature 36.3 C L Pulse Rate 104 H 111 H 104 H Respiratory Rate 20 20 Blood Pressure 124/70 Pulse Oximetry 96 96 Oxygen Delivery Nasal Cannula Oxygen Flow Rate 6 03/28/23 13:15 03/28/23 12:00 03/28/23 12:00 Temperature Pulse Rate 102 H 113 H Respiratory Rate 17 Blood Pressure Pulse Oximetry 96 Oxygen Delivery Nasal Cannula Oxygen Flow Rate 6 03/28/23 14:00 03/28/23 15:51 03/28/23 17:05 Temperature 36.4 C Pulse Rate 94 106 H 99 Respiratory Rate 20 18 Blood Pressure 154/67 H Pulse Oximetry 95 Oxygen Delivery Oxygen Flow Rate 03/28/23 17:21 03/28/23 16:00 03/28/23 18:00 Temperature Pulse Rate 105 H 106 H 103 H Respiratory Rate 18 Blood Pressure Pulse Oximetry Oxygen Delivery Oxygen Flow Rate 03/28/23 16:00 03/28/23 19:35 03/28/23 20:03 Temperature 36.6 C
[2023-03-29] MEDS: ENOXAPARIN 40 MG/0.4 ML SYRINGE SUB-Q ×2 (10:14→20:26)
[2023-03-29] MEDS: dilTIAZem HCL CD 240 MG CAP.24HR PO (10:15)
[2023-03-29] MEDS: EMPAGLIFLOZIN 25 MG TABLET PO (10:15)
[2023-03-29] MEDS: ROFLUMILAST 500 MCG TABLET PO (10:15)
[2023-03-29] MEDS: POTASSIUM CHLORIDE 10 MEQ ER TABLET PO (10:15)
[2023-03-29] MEDS: EZETIMIBE 10 MG TABLET PO (10:15)
[2023-03-29] MEDS: GABAPENTIN 300 MG CAPSULE PO ×2 (10:15→16:28)
[2023-03-29] MEDS: ATORVASTATIN 40 MG TABLET PO (10:15)
[2023-03-29] MEDS: predniSONE 20 MG TABLET 40 MG PO (10:15)
[2023-03-29] MEDS: AZITHROMYCIN 500 MG/NS 250 ML 500 MG/250 ML BAG 250 MG IVPB (10:16)
[2023-03-29 10:32] LABS: Basophils Percent Auto 0.3 % (0.2-1.2); Eosinophils Absolute Auto 0.1 K/mm3 (0-0.3); Eosinophils Percent Auto 0.9 % (0-4.4); Hematocrit 39.7 % (42.0-52.0); Hemoglobin 11.2 g/dL (14.0-18.0); Immature Granulocyte Absolute 0.04 K/mm3 (0.00-0.031); Immature Granulocyte Percent A 0.3 % (0-0.5); Lymphocytes Absolute Auto 2.52 K/mm3 (0.9-3.2); Lymphocytes Percent Auto 21.4 % (18.3-44.2); Mean Corpuscular HGB Conc 28.2 g/dl (32-36); Mean Corpuscular Hemoglobin 22.4 pg (26-34); Mean Corpuscular Volume 79.6 fl (80-100); Monocytes Percent Auto 8.2 % (2.6-8.5); Neutrophils Absolute Auto 8.1 K/mm3 (1.3-6.7); Neutrophils Percent Auto 68.9 % (45.5-73.1); Platelet Count Result 261 k/mm3 (150-375); Red Blood Count 4.99 M/mm3 (4.6-6.20); Red Cell Distribution Width 16.2 % (11.5-14.5); White Blood Count 11.8 K/mm3 (4.5-10.0)
[2023-03-29 10:47] LABS: Anion Gap 2 mmol/L (8-16); Blood Urea Nitrogen 18 mg/dL (9-20); Carbon Dioxide 38 mmol/L (22-30); Chloride 99 mmol/L (98-107); Estimated CRCL calculation 108 ml/min; Estimated Glomerular Filt Rate > 60; Glucose 113 mg/dL (65-110); Potassium 3.6 mmol/L (3.4-5.0); Sodium 139 mmol/L (137-145)
[2023-03-29 10:48] LABS: Hypochromasia 1+ (NORMAL); Platelet Estimate Adequate (Adequate); Schistocytes None Seen (NORMAL)
[2023-03-29 12:22] LABS: Glucose Point of Care 121 mg/dl (65-105)
[2023-03-29 16:22] LABS: Glucose Point of Care 167 mg/dl (65-105)
--- NOTE | 2023-03-29 17:48 | PC.NURSE ---
This patient, Juni Merchant, was transferred to [facility] on 03/29/23 at 1748. Personal belongings sent with patient. Report given to Lali ROQUE. Appropriate documentation sent with patient.
[2023-03-29 21:13] LABS: Glucose Point of Care 185 mg/dl (65-105)
[2023-03-30] VITALS (16 sets, daily range): BP systolic 122–165; BP diastolic 52–67; PULSE 84–104; RESP 18–28; TEMP 36.1–36.4; O2SAT 93–100
[2023-03-30] MEDS: IPRATROPIUM 0.5 MG/ALBUTEROL SULFATE 2.5 MG AMPUL.NEB 3 ML INHALATION ×4 (02:46→21:22)
[2023-03-30] MEDS: LEVOTHYROXINE SODIUM 100 MCG TABLET PO (05:24)
[2023-03-30 06:31] LABS: Glucose Point of Care 68 mg/dl (65-105)
[2023-03-30 06:46] LABS: Basophils Percent Auto 0.2 % (0.2-1.2); Eosinophils Absolute Auto 0.1 K/mm3 (0-0.3); Eosinophils Percent Auto 0.5 % (0-4.4); Hematocrit 40.9 % (42.0-52.0); Hemoglobin 11.6 g/dL (14.0-18.0); Immature Granulocyte Absolute 0.05 K/mm3 (0.00-0.031); Immature Granulocyte Percent A 0.4 % (0-0.5); Lymphocytes Absolute Auto 2.83 K/mm3 (0.9-3.2); Lymphocytes Percent Auto 21.1 % (18.3-44.2); Mean Corpuscular HGB Conc 28.4 g/dl (32-36); Mean Corpuscular Hemoglobin 22.4 pg (26-34); Mean Corpuscular Volume 78.8 fl (80-100); Mean Platelet Volume 10.7 fl (7.4-10.4); Monocytes Absolute Auto 0.9 K/mm3 (0.1-0.6); Monocytes Percent Auto 6.9 % (2.6-8.5); Neutrophils Absolute Auto 9.5 K/mm3 (1.3-6.7); Neutrophils Percent Auto 70.9 % (45.5-73.1); Platelet Count Result 269 k/mm3 (150-375); Red Blood Count 5.19 M/mm3 (4.6-6.20); Red Cell Distribution Width 15.9 % (11.5-14.5); White Blood Count 13.4 K/mm3 (4.5-10.0)
[2023-03-30 06:52] LABS: Anion Gap 2 mmol/L (8-16); Blood Urea Nitrogen 15 mg/dL (9-20); Calcium 9.1 mg/dL (8.4-10.2); Carbon Dioxide 36 mmol/L (22-30); Chloride 102 mmol/L (98-107); Estimated CRCL calculation 124 ml/min; Estimated Glomerular Filt Rate > 60; Glucose 81 mg/dL (65-110); Potassium 3.8 mmol/L (3.4-5.0); Sodium 140 mmol/L (137-145)
[2023-03-30 07:03] LABS: Glucose Point of Care 100 mg/dl (65-105)
[2023-03-30 07:48] LABS: Anisocytosis 1+ (NORMAL); Hypochromasia 1+ (NORMAL); Microcytosis 1+ (NORMAL); Ovalocytes 1+ (NORMAL); Platelet Estimate Adequate (Adequate); Schistocytes None Seen (NORMAL)
[2023-03-30] MEDS: FLUTICASONE/UMECLIDIN/VILANTER 100-62.5-25 MCG ELLIPTA 1 PUFF INHALATION (08:34)
[2023-03-30] MEDS: ATORVASTATIN 40 MG TABLET PO (08:49)
[2023-03-30] MEDS: EZETIMIBE 10 MG TABLET PO (08:49)
[2023-03-30] MEDS: EMPAGLIFLOZIN 25 MG TABLET PO (08:49)
[2023-03-30] MEDS: ENOXAPARIN 40 MG/0.4 ML SYRINGE SUB-Q ×2 (08:49→20:15)
[2023-03-30] MEDS: POTASSIUM CHLORIDE 10 MEQ ER TABLET PO (08:49)
[2023-03-30] MEDS: FUROSEMIDE 40 MG TABLET PO (08:49)
[2023-03-30] MEDS: predniSONE 20 MG TABLET 40 MG PO (08:49)
[2023-03-30] MEDS: GABAPENTIN 300 MG CAPSULE PO ×2 (08:49→17:36)
[2023-03-30] MEDS: dilTIAZem HCL CD 240 MG CAP.24HR PO (08:49)
[2023-03-30] MEDS: AZITHROMYCIN 500 MG/NS 250 ML 500 MG/250 ML BAG 250 MG IVPB (08:50)
[2023-03-30] MEDS: ROFLUMILAST 500 MCG TABLET PO (08:50)
--- NOTE | 2023-03-30 09:49 | PM.PNPUL ---
Progress Note: A&P Assessment and Plan (1) COPD exacerbation: Code(s): J44.1 - Chronic obstructive pulmonary disease with (acute) exacerbation Status: Acute Assessment and Plan: This 67-year-old man with a history of morbid obesity obstructive sleep apnea advanced COPD with chronic hypoxemic hypercapnic respiratory failure presented with increasing shortness of breath. Diagnostic studies suggest acute on chronic hypercapnic respiratory failure related to COPD exacerbation. Initially, on physical exam he had distant breath sounds. There is no evidence of a new infiltrates on chest x-ray and no evidence of congestive heart failure as the BNP on admission was very low. Patient was treated with steroids nebulized short-acting bronchodilators antibiotics and BiPAP support for COPD exacerbation. His respiratory status has improved over the last 24 hours. On physical exam, there is more air entry to his lungs with no wheezing. Last ABGs showed pH 7.32. Continues to use a BiPAP support at night. Plan: Continue with current regimen i.e. oral steroids, antibiotics DVT, prophylaxis, BiPAP support at night. Anticipate discharging patient home a in a day or so. (2) Chronic respiratory failure with hypoxia, on home O2 therapy: Code(s): J96.11 - Chronic respiratory failure with hypoxia; Z99.81 - Dependence on supplemental oxygen Status: Acute (3) Obesity, morbid, BMI 40.0-49.9: Code(s): E66.01 - Morbid (severe) obesity due to excess calories Status: Acute (4) OTTO (obstructive sleep apnea): Code(s): G47.33 - Obstructive sleep apnea (adult) (pediatric) Status: Chronic Subjective Date/time seen: 03/30/23 09:49 Interval history: Patient doing better. Has less shortness of breath no cough or wheezing. Using BiPAP support at night, just supplemental oxygen via nasal cannula during the day Review of Systems Review of Systems: All systems reviewed & are unremarkable except as noted in HPI and below (HPI and below) Exam Narrative: GENERAL APPEARANCE: Well developed, well nourished, alert and cooperative, appears to be in mild respiratory distress while on supplemental oxygen via nasal cannula SKIN: Inspection of the skin reveals no rashes, ulcerations or petechiae. HEENT: Sclerae anicteric and conjunctivae pink and moist. Extraocular movements were intact and pupils were equal, round, and reactive to light. NECK: Supple. There was no thyroid enlargement, and no tenderness, or masses were felt. LUNGS: Distant breath sounds, no wheezing CARDIAC: There was a regular rate and rhythm without any murmurs, gallops, rubs. ABDOMEN: Soft and nontender with normal bowel sounds. There was no organomegaly. LYMPH NODES: No lymphadenopathy was appreciated in the neck. EXTREMITIES: No cyanosis, clubbing or edema. NEUROLOGIC: Alert and oriented x 3. Normal affect. Objective Data Vital Signs Vital Signs: Vital Signs - 24 hr 03/29/23 12:00 03/29/23 14:02 03/29/23 14:13 Temperature 37.1 C Pulse Rate 96 89 85 Respiratory Rate 18 18 18 Blood Pressure 140/76 Pulse Oximetry 99 Oxygen Delivery Oxygen Flow Rate 03/29/23 15:38 03/29/23 20:29 03/29/23 20:29 Temperature 36.7 C Pulse Rate 106 H 87 87 Respiratory Rate 21 H 18 18 Blood Pressure 139/86 Pulse Oximetry 98 95 Oxygen Delivery Nasal Cannula Oxygen Flow Rate 3 03/29/23 20:45 03/30/23 02:43 03/29/23 23:45 Temperature 36.5 C Pulse Rate 94 84 92 Respiratory Rate 18 26 H 31 H Blood Pressure 155/71 H Pulse Oximetry 91 100 Oxygen Delivery BiPAP Oxygen Flow Rate 03/30/23 02:49 03/30/23 02:51 03/30/23 04:45 Temperature 36.1 C L Pulse Rate 85 98 Respiratory Rate 22 H 28 H 20 Blood Pressure 122/52 L Pulse Oximetry 100 96 Oxygen Delivery BiPAP Oxygen Flow Rate 03/30/23 08:09 03/30/23 08:09 03/30/23 08:20 Temperature Pulse Rate 90 88 Respiratory Rate 24 H 24 H Blood Pressu
[2023-03-30 11:32] LABS: Glucose Point of Care 134 mg/dl (65-105)
--- NOTE | 2023-03-30 15:54 | PM.IMPN ---
Progress Note: A&P Assessment and Plan (1) COPD exacerbation: Code(s): J44.1 - Chronic obstructive pulmonary disease with (acute) exacerbation Status: Acute (2) Pneumonia: Qualifiers: Laterality: unspecified laterality Lung location: unspecified part of lung Pneumonia type: due to unspecified organism Qualified Code(s): J18.9 - Pneumonia, unspecified organism Code(s): J18.9 - Pneumonia, unspecified organism Status: Acute (3) Dyspnea: Code(s): R06.00 - Dyspnea, unspecified Status: Acute (4) Community acquired pneumonia: Code(s): J18.9 - Pneumonia, unspecified organism Status: Acute (5) OTTO (obstructive sleep apnea): Code(s): G47.33 - Obstructive sleep apnea (adult) (pediatric) Status: Chronic (6) Obesity, morbid, BMI 40.0-49.9: Code(s): E66.01 - Morbid (severe) obesity due to excess calories Status: Acute Plan Acute on chronic respiratory failure with hypercapnia - initial O2 sat - 74%, improvement with NC. - ABG, initial: pH 7.227, pCO2 103.3, pO2 73.9, HCO3 42, O2 sat 90.7% while on NC. Placed on BiPAP. - ABG, post-BiPAP: pH? 7.241, pCO2? 88.4, pO2 66.1, HCO3 37.1, O2 sat 88.3% while on BiPAP. continue BiPAP. - repeat ABG in AM, patient agrees with plan to continue BiPAP overnight. - CXR: limited examination with suggestion of mild infiltrate or atelectasis in the mid and lower lung zones? - BNP: <20 - d dimer: 0.64, age adjusted cut off - 0.67 - DDx: acute/chronic hypercapnic respiratory failure, pneumonia, and/or COPD exacerbation. Less likely PE given d-dimer WNL when adjusted for age. Possible resulting in COPD exacerbation and pneumonia Continue current management Consult painter hand for evaluation treatment. Temporary Data Entry Clerk recommend continue antibiotics, or steroid, discontinue Lasix and diamox ABG showed improvement of CO2 retention. Patient is off BiPAP during the day (2) Pneumonia: ?Qualifiers: ?Laterality:?unspecified laterality??Lung location:?unspecified part of lung??Pneumonia type:?due to unspecified organism? Qualified Code(s):?J18.9 - Pneumonia, unspecified organism ?Code(s): J18.9 - Pneumonia, unspecified organism ?Status:?Acute ?Assessment and Plan: - Meets SIRS criteria: tachycardia and tachypnea. no elevation in WBC, afebrile, and lactic acid is 0.8 - blood cultures pending - started on ceftriaxone and azithromycin - continue to monitor VS - maintain O2 sat above 92% - add MRSA PCR and sputum culture 03/30/23: Currently on Ceftriaxone and Azithromycin; may be able to DC tomorrow (3) COPD exacerbation: ?Code(s): J44.1 - Chronic obstructive pulmonary disease with (acute) exacerbation ?Status:?Acute ?Assessment and Plan: - ipratropium/albuterol inhaler Q6H JAMES - started on? azithromycin and ceftriaxone - prednisone 40 mg p.o. daily times 7 days, start today -continue: daliresp, breztri inhaler, 03/30/23: No wheezing; improved dyspneic (4) Type 2 diabetes mellitus treated with insulin: ?Code(s): E11.9 - Type 2 diabetes mellitus without complications; Z79.4 - assisted (current) use of insulin ?Status:?Chronic ?Assessment and Plan: - Hypoglycemia protocol - POC blood glucose ACHS Home medication: jardiance, Tresiba 40 units daily, Humalog? 18 units QACDinner, and glimepiride Due to hypoglycemia, discontinue Amaryl Humalog 18 dinner time, decrease Lantus to 40 units daily Continue insulin sliding scale high dose TIDWM Hypothyroidism Continue Synthroid 100 mcg daily p.o. (5) Hypertension: ?Qualifiers: ?Hypertension type:?essential hypertension? Qualified Code(s):?I10 - Essential (primary) hypertension ?Code(s): I10 - Essential (primary) hypertension ?Status:?Acute ?Assessment and Plan: - chronic, modestly elevated at present - continue diltiazem and diuretics (Lasix 40 BID and diamox 125 mg PO daily) - monitor - HLD:
[2023-03-30 16:37] LABS: Fractional Inspired Oxygen 28 %; HCO3 VBG 32.8 mEq/l (24.0-30.0); PCO2 VBG 51.2 mmHg (42.0-48.0); PO2 VBG 81.1 mmHg (35.0-45.0)
[2023-03-30 16:41] LABS: Device NASAL CANNULA; pH VBG 7.424 (7.300-7.400)
[2023-03-30 16:53] LABS: Glucose Point of Care 194 mg/dl (65-105)
[2023-03-30 20:55] LABS: Glucose Point of Care 156 mg/dl (65-105)
[2023-03-31] VITALS (14 sets, daily range): BP systolic 166; BP diastolic 78; PULSE 71–144; RESP 18–28; TEMP 37.2; O2SAT 83–98
[2023-03-31] MEDS: IPRATROPIUM 0.5 MG/ALBUTEROL SULFATE 2.5 MG AMPUL.NEB 3 ML INHALATION ×2 (02:41→08:51)
[2023-03-31] MEDS: LEVOTHYROXINE SODIUM 100 MCG TABLET PO (06:08)
[2023-03-31 06:39] LABS: Alanine Aminotransferase 21 U/L (6-50); Albumin Level 3.8 g/dL (3.5-5.1); Alkaline Phosphatase 84 U/L (38-126); Anion Gap 6 mmol/L (8-16); Aspartate Amino Transferase 22 U/L (17-59); Bilirubin,Total 0.5 mg/dL (0.2-1.3); Blood Urea Nitrogen 16 mg/dL (9-20); Calcium 9.2 mg/dL (8.4-10.2); Carbon Dioxide 33 mmol/L (22-30); Chloride 100 mmol/L (98-107); Estimated CRCL calculation 143 ml/min; Estimated Glomerular Filt Rate > 60; Glucose 90 mg/dL (65-110); Potassium 3.7 mmol/L (3.4-5.0); Sodium 139 mmol/L (137-145)
[2023-03-31 07:33] LABS: Glucose Point of Care 92 mg/dl (65-105)
[2023-03-31] MEDS: FLUTICASONE/UMECLIDIN/VILANTER 100-62.5-25 MCG ELLIPTA 1 PUFF INHALATION (08:51)
[2023-03-31 08:57] LABS: Basophils Percent Auto 0.2 % (0.2-1.2); Eosinophils Absolute Auto 0.1 K/mm3 (0-0.3); Eosinophils Percent Auto 0.6 % (0-4.4); Hematocrit 39.4 % (42.0-52.0); Hemoglobin 11.3 g/dL (14.0-18.0); Immature Granulocyte Absolute 0.05 K/mm3 (0.00-0.031); Immature Granulocyte Percent A 0.4 % (0-0.5); Lymphocytes Absolute Auto 3.17 K/mm3 (0.9-3.2); Mean Corpuscular HGB Conc 28.7 g/dl (32-36); Mean Corpuscular Hemoglobin 22.3 pg (26-34); Mean Corpuscular Volume 77.7 fl (80-100); Mean Platelet Volume 11.4 fl (7.4-10.4); Monocytes Absolute Auto 0.7 K/mm3 (0.1-0.6); Neutrophils Absolute Auto 9.8 K/mm3 (1.3-6.7); Neutrophils Percent Auto 70.8 % (45.5-73.1); Platelet Count Result 245 k/mm3 (150-375); Red Blood Count 5.07 M/mm3 (4.6-6.20); White Blood Count 13.8 K/mm3 (4.5-10.0)
[2023-03-31] MEDS: AZITHROMYCIN 500 MG/NS 250 ML 500 MG/250 ML BAG 250 MG IVPB (09:23)
[2023-03-31] MEDS: predniSONE 20 MG TABLET 40 MG PO (09:29)
[2023-03-31] MEDS: ATORVASTATIN 40 MG TABLET PO (09:29)
[2023-03-31] MEDS: EMPAGLIFLOZIN 25 MG TABLET PO (09:34)
[2023-03-31] MEDS: ROFLUMILAST 500 MCG TABLET PO (09:34)
[2023-03-31] MEDS: GABAPENTIN 300 MG CAPSULE PO (09:34)
[2023-03-31] MEDS: FUROSEMIDE 40 MG TABLET PO (09:34)
[2023-03-31] MEDS: dilTIAZem HCL CD 240 MG CAP.24HR PO (09:34)
[2023-03-31] MEDS: EZETIMIBE 10 MG TABLET PO (09:34)
[2023-03-31] MEDS: POTASSIUM CHLORIDE 10 MEQ ER TABLET PO (09:34)
--- NOTE | 2023-03-31 10:26 | PM.PNPUL ---
Progress Note: A&P Assessment and Plan (1) COPD exacerbation: Code(s): J44.1 - Chronic obstructive pulmonary disease with (acute) exacerbation Status: Acute Assessment and Plan: A 67-year-old male patient with a history of morbid obesity, obstructive sleep apnea, and advanced COPD with chronic hypoxemic hypercapnic respiratory failure was admitted due to increased shortness of breath. Diagnostic tests indicate acute on chronic hypercapnic respiratory failure attributed to a COPD exacerbation. On initial physical examination, breath sounds were distant. No new infiltrates were detected on the chest x-ray and there was no sign of congestive heart failure, as indicated by low BNP levels on admission. The patient was treated for COPD exacerbation with steroids, nebulized short-acting bronchodilators, antibiotics, and BiPAP support. Over the past 48 hours, his respiratory status has improved significantly, with increased air entry to his lungs and no wheezing. The latest ABGs showed a pH of 7.32. He continues to use BiPAP support at night and is currently on a relatively low oxygen flow of about 2-3 liters/minute via nasal cannula, compared to the higher flows of 5-6 liters/minute he was using at home prior to hospitalization. Recent overnight oximetry at home showed significant oxyhemoglobin desaturation while the patient was receiving CPAP for his sleep apnea and supplemental oxygen via nasal cannula. It is likely that the patient's nocturnal hypoxemia was related to the longstanding exacerbation of his COPD. Now that his COPD has improved, he requires less oxygen. Discharge Plan: The patient is approved for discharge. He will continue with his maintenance bronchodilators, Breztri inhaler twice daily, short-acting bronchodilators for p.r.n. use, including a rescue albuterol inhaler and nebulized short-acting bronchodilators, Daliresp 500 mcg p.o. daily, and his regular Lasix dose of 40 mg p.o. daily. He will also continue with his CPAP support at night and home supplemental oxygen at his usual flow of 5-6 liters/minute at night. Oxygen use during the day will be determined by a home oxygen evaluation prior to discharge. He will need to continue with Augmentin twice daily for another 5 days, and a prednisone taper regimen as follows: Prednisone 30 mg p.o. daily for 3 days, then 20 mg daily for 3 days, then 10 mg daily for 3 days. The patient is followed by the outpatient pulmonary clinic at [facility] and he will schedule an appointment with his market investigator in about 3-4 weeks. Please feel free to call with any questions. (2) Chronic respiratory failure with hypoxia, on home O2 therapy: Code(s): J96.11 - Chronic respiratory failure with hypoxia; Z99.81 - Dependence on supplemental oxygen Status: Acute (3) Obesity, morbid, BMI 40.0-49.9: Code(s): E66.01 - Morbid (severe) obesity due to excess calories Status: Acute (4) OTTO (obstructive sleep apnea): Code(s): G47.33 - Obstructive sleep apnea (adult) (pediatric) Status: Chronic Subjective Date/time seen: 03/31/23 10:26 Interval history: Patient feels better. He has no new respiratory symptoms. No cough wheezing. Shortness of breath about baseline while on low-flow oxygen via nasal cannula. Willing to go home Review of Systems Review of Systems: All systems reviewed & are unremarkable except as noted in HPI and below Exam Narrative: GENERAL APPEARANCE: Well developed, well nourished, alert and cooperative, appears to be in mild respiratory distress while on supplemental oxygen via nasal cannula SKIN: Inspection of the skin reveals no rashes, ulcerations or petechiae. HEENT: Sclerae anicteric and conjunctivae pink and moist. Extraocular movements were intact and pupils were equal, round, and reactive to light. NECK: Supple. There was no thyroid enlargement, and no tenderness, or masses were felt. LUNGS: Distant breath sounds, no wheezing
[2023-03-31 11:35] LABS: Glucose Point of Care 111 mg/dl (65-105)
--- NOTE | 2023-03-31 13:55 | PM.DS ---
DS: Admitting Diagnosis Discharge Date 03/31/23 Admitting Diagnosis 1. Shortness of breath 2. COPD Exacerbation 3. CAP DS: Discharge Diagnosis Discharge Diagnosis (1) COPD exacerbation: Code(s): J44.1 - Chronic obstructive pulmonary disease with (acute) exacerbation Status: Acute (2) Pneumonia: Qualifiers: Laterality: unspecified laterality Lung location: unspecified part of lung Pneumonia type: due to unspecified organism Qualified Code(s): J18.9 - Pneumonia, unspecified organism Code(s): J18.9 - Pneumonia, unspecified organism Status: Acute (3) Dyspnea: Code(s): R06.00 - Dyspnea, unspecified Status: Acute (4) Community acquired pneumonia: Code(s): J18.9 - Pneumonia, unspecified organism Status: Acute (5) OTTO (obstructive sleep apnea): Code(s): G47.33 - Obstructive sleep apnea (adult) (pediatric) Status: Chronic (6) Obesity, morbid, BMI 40.0-49.9: Code(s): E66.01 - Morbid (severe) obesity due to excess calories Status: Acute Plan Acute on chronic respiratory failure with hypercapnia - initial O2 sat - 74%, improvement with NC. - ABG, initial: pH 7.227, pCO2 103.3, pO2 73.9, HCO3 42, O2 sat 90.7% while on NC. Placed on BiPAP. - ABG, post-BiPAP: pH? 7.241, pCO2? 88.4, pO2 66.1, HCO3 37.1, O2 sat 88.3% while on BiPAP. continue BiPAP. - repeat ABG in AM, patient agrees with plan to continue BiPAP overnight. - CXR: limited examination with suggestion of mild infiltrate or atelectasis in the mid and lower lung zones? - BNP: <20 - d dimer: 0.64, age adjusted cut off - 0.67 - DDx: acute/chronic hypercapnic respiratory failure, pneumonia, and/or COPD exacerbation. Less likely PE given d-dimer WNL when adjusted for age. Possible resulting in COPD exacerbation and pneumonia Continue current management Consult director learning for evaluation treatment. Sas Developer Analyst recommend continue antibiotics, or steroid, discontinue Lasix and diamox ABG showed improvement of CO2 retention. Patient is off BiPAP during the day (2) Pneumonia: ?Qualifiers: ?Laterality:?unspecified laterality??Lung location:?unspecified part of lung??Pneumonia type:?due to unspecified organism? Qualified Code(s):?J18.9 - Pneumonia, unspecified organism ?Code(s): J18.9 - Pneumonia, unspecified organism ?Status:?Acute ?Assessment and Plan: - Meets SIRS criteria: tachycardia and tachypnea. no elevation in WBC, afebrile, and lactic acid is 0.8 - blood cultures pending - started on ceftriaxone and azithromycin - continue to monitor VS - maintain O2 sat above 92% - add MRSA PCR and sputum culture 03/30/23: Currently on Ceftriaxone and Azithromycin; may be able to DC tomorrow (3) COPD exacerbation: ?Code(s): J44.1 - Chronic obstructive pulmonary disease with (acute) exacerbation ?Status:?Acute ?Assessment and Plan: - ipratropium/albuterol inhaler Q6H JAMES - started on? azithromycin and ceftriaxone - prednisone 40 mg p.o. daily times 7 days, start today -continue: daliresp, breztri inhaler, 03/30/23: No wheezing; improved dyspneic (4) Type 2 diabetes mellitus treated with insulin: ?Code(s): E11.9 - Type 2 diabetes mellitus without complications; Z79.4 - shelter (current) use of insulin ?Status:?Chronic ?Assessment and Plan: - Hypoglycemia protocol - POC blood glucose ACHS Home medication: jardiance, Tresiba 40 units daily, Humalog? 18 units QACDinner, and glimepiride Due to hypoglycemia, discontinue Amaryl Humalog 18 dinner time, decrease Lantus to 40 units daily Continue insulin sliding scale high dose TIDWM Hypothyroidism Continue Synthroid 100 mcg daily p.o. (5) Hypertension: ?Qualifiers: ?Hypertension type:?essential hypertension? Qualified Code(s):?I10 - Essential (primary) hypertension ?Code(s): I10 - Essential (primary) hypertension ?Status:?Acute ?Assessment and Plan: - chroni
--- NOTE | 2023-03-31 14:00 | HOMEO2EVAL ---
Evaluation was performed at [facility] Home Oxygen Evaluation RC: Home Oxygen (O2) Evaluation Start: 03/31/23 11:21 Freq: ONCE Status: Active Protocol: RPE Activity Type Activity Date Activity User E-sign Co-sign Detail Recorded Client Recorded Date Recorded By Document 03/31/23 13:20 DLW [email or web address] 03/31/23 13:47 DLW Document 03/31/23 13:22 DLW [email or web address] 03/31/23 13:48 DLW Document 03/31/23 13:24 DLW [email or web address] 03/31/23 13:49 DLW Document 03/31/23 13:26 DLW [email or web address] 03/31/23 13:54 DLW Document 03/31/23 13:27 [email or web address] [email or web address] 03/31/23 13:57 DLW Document 03/31/23 13:28 DLW [email or web address] 03/31/23 13:57 DLW Document 03/31/23 13:29 DLW [email or web address] 03/31/23 13:58 DLW Document 03/31/23 13:31 DLW [email or web address] 03/31/23 13:59 DLW Document 03/31/23 13:32 [email or web address] [email or web address] 03/31/23 14:00 DLW 03/31/23 03/31/23 03/31/23 13:20 13:22 13:24 Home O2 Evaluation [Oxygen] -Test Phase Resting Resting Resting -Oxygen Delivery Room Air Nasal Cannula Nasal Cannula -Oxygen Flow Rate (L/min) 1 2 [Pulse Oximetry] -Pulse Oximetry (90-100 %) 87 L 89 L 91 [Pulse Rate] -Pulse Rate (60-100 beats/min) 116 H 114 H 113 H [Evaluation] -Activity Tolerance Good Good -Rating of Perceived Dyspnea (PD) [Exercise] -Ambulation Distance (feet) -Ambulation Distance (meters) [Charges] -Evaluation Charges O2 Evaluation by 03/31/23 03/31/23 03/31/23 13:26 13:27 13:28 Home O2 Evaluation [Oxygen] -Test Phase Exercise Exercise Exercise -Oxygen Delivery Nasal Cannula Nasal Cannula Nasal Cannula -Oxygen Flow Rate (L/min) 2 2 3 [Pulse Oximetry] -Pulse Oximetry (90-100 %) 89 L 83 L 83 L [Pulse Rate] -Pulse Rate (60-100 beats/min) 131 H 141 H 144 H [Evaluation] -Activity Tolerance Good Good Good -Rating of Perceived Dyspnea (PD) +2 Mild, Some +2 Mild, Some Difficulty, Difficulty, Noticeable to Noticeable to the Observer the Observer [Exercise] -Ambulation Distance (feet) -Ambulation Distance (meters) [Charges] -Evaluation Charges 03/31/23 03/31/23 03/31/23 13:29 13:31 13:32 Home O2 Evaluation [Oxygen] -Test Phase Exercise Exercise Exercise -Oxygen Delivery Nasal Cannula Nasal Cannula Nasal Cannula -Oxygen Flow Rate (L/min) 4 5 6 [Pulse Oximetry] -Pulse Oximetry (90-100 %) 84 L 85 L 92 [Pulse Rate] -Pulse Rate (60-100 beats/min) 136 H 144 H 127 H [Evaluation] -Activity Tolerance Good Good Good -Rating of Perceived Dyspnea (PD) +2 Mild, Some +2 Mild, Some +2 Mild, Some Difficulty, Difficulty, Difficulty, Noticeable to Noticeable to Noticeable to the Observer the Observer the Observer [Exercise] -Ambulation Distance (feet) 500 -Ambulation Distance (meters) 152.39 [Charges] -Evaluation Charges
--- NOTE | 2023-03-31 14:01 | PCRCNOTE ---
Home oxygen evaluation done. Pt requires 2L at rest 6L with activity . RN informed.
== END 2023-03-31 14:31 | disposition home or self-care (01) | DRG 189 ==
LOC: ANHED 15:22 → ANHIMU 15:59 → ANH3MEDSUR 03-29 17:38
PROVIDERS: Hospitalist; Student in an Organized Health Care Education/Training Program; Admitting Provider Internal Medicine; Emergency Provider Student in an Organized Health Care Education/Training Program; PCP Nurse Practitioner Family; Visit Provider Internal Medicine
DX: J96.22 Acute and chronic respiratory failure with hypercapnia (principal); J18.9 Pneumonia, unspecified organism; J44.0 Chronic obstructive pulmonary disease with (acute) lower respiratory infection; J44.1 Chronic obstructive pulmonary disease with (acute) exacerbation; K86.1 Other chronic pancreatitis; Z68.41 Body mass index [BMI] 40.0-44.9, adult; J96.11 Chronic respiratory failure with hypoxia; J43.2 Centrilobular emphysema; E66.01 Morbid (severe) obesity due to excess calories; E03.9 Hypothyroidism, unspecified; E11.9 Type 2 diabetes mellitus without complications; E78.5 Hyperlipidemia, unspecified; G47.33 Obstructive sleep apnea (adult) (pediatric); I65.21 Occlusion and stenosis of right carotid artery; I10 Essential (primary) hypertension; I25.10 Atherosclerotic heart disease of native coronary artery without angina pectoris; Z79.84 Long term (current) use of oral hypoglycemic drugs; Z79.4 Long term (current) use of insulin; Z20.822 Contact with and (suspected) exposure to COVID-19; Z99.81 Dependence on supplemental oxygen; Z99.89 Dependence on other enabling machines and devices; Z79.82 Long term (current) use of aspirin; Z87.891 Personal history of nicotine dependence
CPT/HCPCS: 36415; 36600; 71045; 73030; 80048; 80053; 81003; 82803; 82805; 82948; 83036; 83605; 83690; 83735; 83880; 84443; 84484; 85025; 85380; 85610; 85730; 86140; 87040; 87637; 87641; 93005; 94002; 94003; 94618; 94640; 96365; 96366; 96367; 96372; 96375; 96376; 99285; A9270; G0378; J0456; J0696; J1650; J1815; J1940; J7030; J7512

== ENCOUNTER 2023-04-30 09:03 | Outpatient (CLI) | payer MEDICARE, MEDICAID, SELFPAY ==
--- NOTE | ~2023-04-30 | XR_ITS ---
Left Shoulder Technique: AP and scapular Y views were obtained. Clinical History: Pain Findings: No fracture or dislocation is seen. Osseous alignment is anatomic. The glenohumeral and acr omioclavicular joint spaces are preserved. Possible tiny focus of calcific tendinitis at the supraspi natus tendon insertion. Impression: Possible tiny focus of calcific tendinitis of the rotator cuff, as detailed above. Reviewed, dictated and finalized at location M. Impression: Possible tiny focus of calcific tendinitis of the rotator cuff, as detailed abo fermín.
--- NOTE | ~2023-04-30 | XR_ITS ---
AP view of the pelvis and AP and lateral views of the left hip Clinical history: Pain Findings: No acute fracture or dislocation is seen. Osseous alignment is anatomic. Bilateral hip and SI joint spaces are preserved. Soft tissues are unremarkable. Impression: No significant abnormality is seen. Reviewed, dictated and finalized at [facility]. Impression: No significant abnormality is seen.
[2023-04-30 10:38] LABS: Anion Gap 4 mmol/L (8-16); Blood Urea Nitrogen 11 mg/dL (9-20); Calcium 9.3 mg/dL (8.4-10.2); Carbon Dioxide 34 mmol/L (22-30); Chloride 102 mmol/L (98-107); Estimated Glomerular Filt Rate > 60; Glucose 94 mg/dL (65-110); Potassium 4.3 mmol/L (3.4-5.0); Sodium 140 mmol/L (137-145)
== END 2023-04-30 09:04 | disposition home or self-care (01) ==
PROVIDERS: PCP Nurse Practitioner Family; Referring Provider Nurse Practitioner Family; Visit Provider Internal Medicine Endocrinology, Diabetes & Metabolism
DX: M25.512 Pain in left shoulder (principal); M25.552 Pain in left hip; E11.65 Type 2 diabetes mellitus with hyperglycemia; E11.59 Type 2 diabetes mellitus with other circulatory complications; I15.2 Hypertension secondary to endocrine disorders; E03.9 Hypothyroidism, unspecified; Z79.4 Long term (current) use of insulin
CPT/HCPCS: 36415; 73030; 73502; 80048; 84443

== ENCOUNTER 2023-05-23 08:52 | Outpatient (CLI) | payer MEDICARE, MEDICAID, SELFPAY ==
--- NOTE | ~2023-05-23 | US_ITS ---
EXAMINATION: US soft tissue abdomen DATE: 05/23/2023 09:26 INDICATION: Upper abdominal pain. TECHNIQUE: Multiple grayscale and Doppler ultrasound images of the abdomen were obtained. COMPARISON: None FINDINGS: There is no abnormal mass or hernia in the patient's area of concern in anterior abdominal wall. IMPRESSION: 1. No abnormal mass or hernia in the patient's area of concern in anterior abdominal wall. Reviewed, dictated and finalized at location A. IMPRESSION: 1. No abnormal mass or hernia in the patient's area of concern in anterior abdo ashu wall.
--- NOTE | ~2023-05-23 | US_ITS ---
EXAMINATION: US carotid duplex BI DATE: 05/23/2023 09:26 INDICATION: Right carotid stenosis/occlusion. TECHNIQUE: Grayscale, color Doppler, and pulsed Doppler images of the cervical carotid arteries were obtained. The degree of vessel stenosis is placed in one of the following categories: normal, <50%, 5 0-69%, >=70% but less than near-occlusion, near-occlusion, or total occlusion. Note that percent sten osis relative to normal distal artery lumen diameter is indirectly measured from velocity measurement s as described by James, et al. Radiology 2003; 229:340-346. COMPARISON: None. FINDINGS: LEFT: The left common carotid artery (CCA) peak systolic velocity (PSV) is 126 cm/s. The left internal [place] artery (ICA) PSV is 103 cm/s. The left ICA end-diastolic velocity (EDV) is 34 cm/s. The left ICA/ CCA PSV ratio is 1.2. Grayscale and color Doppler images yield an estimate of <50% diameter reduction from plaque in the ICA. The external carotid artery (ECA) PSV is 104 cm/s. There is antegrade flow i n the left vertebral artery. RIGHT: The right CCA PSV is 97 cm/s. The right ICA is occluded with no vascular flow on color Doppler. The E CA PSV is 71 cm/s. There is antegrade flow in the left vertebral artery. IMPRESSION: 1. Persistent complete occlusion of the right internal carotid artery. 2. <50% stenosis in the left internal carotid artery. Reviewed, dictated and finalized at location B.
== END 2023-05-23 08:53 | disposition home or self-care (01) ==
PROVIDERS: PCP Nurse Practitioner Family; Referring Provider Internal Medicine Cardiovascular Disease; Visit Provider Nurse Practitioner Family
DX: I65.23 Occlusion and stenosis of bilateral carotid arteries (principal)
CPT/HCPCS: 76705; 93880

== ENCOUNTER 2023-05-30 09:24 | Outpatient (CLI) | payer MEDICARE, MEDICAID, SELFPAY ==
[2023-05-30 10:47] LABS: Alanine Aminotransferase 15 U/L (6-50); Albumin Level 4.5 g/dL (3.5-5.1); Alkaline Phosphatase 85 U/L (38-126); Amylase 111 U/L (30-110); Anion Gap 7 mmol/L (4-12); Aspartate Amino Transferase 22 U/L (17-59); Bilirubin,Total 0.5 mg/dL (0.2-1.3); Blood Urea Nitrogen 14 mg/dL (9-20); Calcium 8.9 mg/dL (8.4-10.2); Carbon Dioxide 33 mmol/L (22-30); Chloride 101 mmol/L (98-107); Estimated Glomerular Filt Rate > 60; Glucose 132 mg/dL (65-110); Lipase 296 U/L (23-300); Sodium 141 mmol/L (137-145)
== END 2023-05-30 09:25 | disposition home or self-care (01) ==
LOC: ANHLAB 09:25
PROVIDERS: PCP Nurse Practitioner Family; Visit Provider Internal Medicine Gastroenterology
DX: R74.8 Abnormal levels of other serum enzymes (principal); K86.1 Other chronic pancreatitis; R14.0 Abdominal distension (gaseous)
CPT/HCPCS: 36415; 80053; 82150; 83690

== ENCOUNTER 2023-08-29 12:08 | Outpatient (CLI) | payer MEDICARE, MEDICAID, SELFPAY ==
[2023-08-29 13:42] LABS: Creatinine Urine 165.4 mg/dL
[2023-08-29 13:47] LABS: MALB Creatinine Ratio 4.1 mg/g (0-30); Microalbumin Urine Random 6.7 mg/L (0-16.7)
[2023-08-29 13:52] LABS: Free T4 Free Thyroxine 0.88 ng/mL (0.78-2.19)
== END 2023-08-29 12:09 | disposition home or self-care (01) ==
PROVIDERS: PCP Nurse Practitioner Family
DX: E78.5 Hyperlipidemia, unspecified (principal); E11.65 Type 2 diabetes mellitus with hyperglycemia; E03.9 Hypothyroidism, unspecified; E11.69 Type 2 diabetes mellitus with other specified complication; Z79.4 Long term (current) use of insulin
CPT/HCPCS: 36415; 82043; 84439; 84443

== ENCOUNTER 2023-11-18 09:56 | Outpatient (CLI) | payer MEDICARE, MEDICAID, SELFPAY ==
[2023-11-18 10:57] LABS: Creatinine Urine 123.6 mg/dL
[2023-11-18 10:57] LABS: Alanine Aminotransferase 20 U/L (6-50); Alkaline Phosphatase 102 U/L (38-126); Anion Gap 5 mmol/L (4-12); Aspartate Amino Transferase 24 U/L (17-59); Bilirubin,Total 0.4 mg/dL (0.2-1.3); Blood Urea Nitrogen 11 mg/dL (9-20); Calcium 8.9 mg/dL (8.4-10.2); Carbon Dioxide 37 mmol/L (22-30); Chloride 97 mmol/L (98-107); Cholesterol 165 mg/dL (0-200); Estimated Glomerular Filt Rate > 60; Glucose 117 mg/dL (65-110); HDL Direct 46 mg/dL; Potassium 4.3 mmol/L (3.4-5.0); Sodium 139 mmol/L (137-145); Triglycerides 113 mg/dL (<150)
[2023-11-18 10:58] LABS: Hemoglobin A1C 7.6 % (<5.7)
[2023-11-18 11:09] LABS: LDL Cholesterol Direct 80 mg/dL
[2023-11-18 11:13] LABS: MALB Creatinine Ratio < 4.9 mg/g (0-30); Microalbumin Urine Random < 6.0 mg/L (0-16.7)
[2023-11-18 11:30] LABS: Prostate Specific Antigen 2.5 ng/mL (< OR = 4.0)
[2023-11-18 11:33] LABS: Free T4 Free Thyroxine 1.02 ng/mL (0.78-2.19)
== END 2023-11-18 09:57 | disposition home or self-care (01) ==
PROVIDERS: Internal Medicine Cardiovascular Disease; Internal Medicine Endocrinology, Diabetes & Metabolism; PCP Student in an Organized Health Care Education/Training Program; Visit Provider Student in an Organized Health Care Education/Training Program
DX: E78.5 Hyperlipidemia, unspecified (principal); Z79.4 Long term (current) use of insulin; E11.65 Type 2 diabetes mellitus with hyperglycemia; E03.9 Hypothyroidism, unspecified; Z12.5 Encounter for screening for malignant neoplasm of prostate
CPT/HCPCS: 36415; 80053; 80061; 82043; 83036; 84153; 84439; 84443; G0103

== ENCOUNTER 2023-12-05 10:12 | Outpatient (CLI) | payer MEDICARE, MEDICAID, SELFPAY ==
--- NOTE | ~2023-12-05 | CT_ITS ---
EXAMINATION: CT lung screening DATE: 12/05/2023 10:49 INDICATION: Z87.891 - Personal history of nicotine dependence TECHNIQUE: Computed tomography (CT) of the chest was performed without intravenous contrast. Addition al 3D reconstructions utilizing coronal maximum intensity projection (MIP) were performed. Automated exposure control and iterative reconstruction technique were employed. The dose-length product was 35 1.46 mGy-cm. COMPARISON: 11/12/2022 FINDINGS: Mild to moderate emphysema. Again seen are a few scattered <3 mm pulmonary nodules in both lungs. No interval change in a larger 5 mm pleural-based nodule at the lateral left lower lobe. Mild discoid at electasis at the right middle and bilateral lower lobes. No pneumonia, pulmonary edema or pleural eff usion. Heart size is normal. Atherosclerotic coronary artery calcifications. No pericardial effusion. Thoracic aorta is normal in caliber. No pathologically enlarged thoracic lymphadenopathy. Calcified gallstone within the normal-appearing portion of the incompletely visualized gallbladder. Moderate th oracic spondylosis. IMPRESSION: 1. Lung-RADS category 2: Benign appearance or behavior. Continue annual screening with noncontrast lo w-dose chest CT in 12 months. Reviewed, dictated and finalized at location A. IMPRESSION: 1. Lung-RADS category 2: Benign appearance or behavior. Continue annual screeni ng with noncontrast low-dose chest CT in 12 months.
== END 2023-12-05 10:13 | disposition home or self-care (01) ==
LOC: ANHIMG 10:13
PROVIDERS: PCP Student in an Organized Health Care Education/Training Program; Visit Provider Internal Medicine Critical Care Medicine
DX: Z12.2 Encounter for screening for malignant neoplasm of respiratory organs (principal); Z87.891 Personal history of nicotine dependence
CPT/HCPCS: 71271

== ENCOUNTER 2024-02-07 15:45 | Inpatient (IN) | payer MEDICARE, MEDICAID, SELFPAY ==
[2024-02-07] VITALS (7 sets, daily range): BP systolic 127–153; BP diastolic 61–77; PULSE 114–139; RESP 19–25; TEMP 38.8; O2SAT 84–97
--- NOTE | ~2024-02-07 | XR_ITS ---
XR chest 1V portable Ordering provider: Kike Tsang MD History: 68 years Male with . cough, fever . Comparison: March 26, 2023 FINDINGS: MEDIASTINUM: The cardiac silhouette is not enlarged. Congestive cris. LUNGS: No effusions or pneumothorax. Bilateral interstitial thickening more on the left side suggesti ve of pneumonitis. Pulmonary edema is not excluded. OTHER: No free air under the diaphragm. Degenerative changes of the spine. IMPRESSION: Bilateral pneumonitis more on the left side. Differential include pulmonary edema although less likel y. Reviewed, dictated and finalized at location A. EIN CHEMIST IMPRESSION: Bilateral pneumonitis more on the left side. Differential include pulmonary swapna ma although less likely.
--- NOTE | ~2024-02-07 | US_ITS ---
EXAMINATION: US venous doppler [facility] DATE: 02/08/2024 07:57 INDICATION: Covid positive. Elevated d-dimer. TECHNIQUE: Grayscale ultrasound images without and with compression and Doppler ultrasound images of the bilateral lower extremity veins were obtained. COMPARISON: None. FINDINGS: The visualized portions of right common femoral vein, profunda (deep) femoral vein, femoral vein, pop liteal vein, posterior tibial veins, peroneal veins, gastrocnemius vein and greater saphenous vein ou tflow are patent. The visualized portions of left common femoral vein, profunda femoral vein, femoral vein, popliteal v ein, posterior tibial veins, peroneal veins, gastrocnemius vein and greater saphenous vein outflow ar e patent. IMPRESSION: 1. No deep venous thrombosis in either lower limb. Reviewed, dictated and finalized at location A. [employer]OR OF PROPERTY MANAGEMENT
--- NOTE | 2024-02-07 17:04 | ECG_ITS ---
Test Date: 2024-02-07 17:14:42 Measurements Intervals [place] Rate: 128 P: 73 MT: 136 QRS: 60 QRSD: 68 T: 89 QT: 279 QTc: 408 Interpretive Statements SINUS TACHYCARDIA NONSPECIFIC T-WAVE ABNORMALITY ABNORMAL ECG Electronically Signed On 02-07-2024 17:29:34 [employer] by Juan Myers M.D.
--- NOTE | 2024-02-07 17:32 | ED_ITS ---
HPI - SOB/Dyspnea General Chief Complaint: Shortness of Breath/Dyspnea <Fauzia Kern PA-C - Last Filed: 02/07/24 23:43> Stated Complaint: sob, dizzy <Fauzia Kern PA-C - Last Filed: 02/07/24 23:43> Time Seen by Provider: 02/07/24 17:05 <KUN Sims Last Filed: 02/07/24 23:43> Source: patient <KUN Sims Last Filed: 02/07/24 23:43> Mode of arrival: EMS <KUN Sims Last Filed: 02/07/24 23:43> Limitations: no limitations <KUN Sims Last Filed: 02/07/24 23:43> History of Present Illness HPI Narrative: Patient is a 68 y/o male, with PMH of COPD, chronic resp failure on 5L NC, DM, diastolic dysfunction, who presents to the ED via EMS with report of shortness of breath. Patient reports he has been sick for the last 1 week with cough, congestion, body aches, weakness. Began feeling increasingly weak and short of breath today which prompted him to contact EMS. Was noted to be hypoxic into the 70s on his 5 L. Also noted to be febrile. Patient denied known fevers at home. Denies chest pain. Denies lower extremity swelling. Denies nausea, vomiting. 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) atorvastatin 40 mg tablet 40 mg PO DAILY 12/14/22 02/08/24 02/07/24 10:00 History levothyroxine 100 mcg tablet 100 mcg PO DAILY 12/14/22 02/08/24 02/07/24 10:00 History albuterol sulfate 2.5 mg/3 mL 2.5 mg inhalation Q6H shortness of 02/08/24 02/08/24 02/07/24 19:00 History (0.083 %) solution for nebulization breath or wheezing albuterol sulfate 90 mcg/actuation See Rx Instructions .Route 02/08/24 02/08/24 02/05/24 History aerosol inhaler .COMPLEX PRN shortness of breath or wheezing roflumilast 500 mcg tablet 500 mcg PO HS 02/08/24 02/08/24 02/06/24 22:00 History <Fauzia Kern PA-C - Last Filed: 02/07/24 23:43> Allergies/Adverse Reactions: Allergies Allergy/AdvReac Type Severity Reaction Status Date / Time lisinopril Allergy Unknown Swelling Verified 02/07/24 18:53 <Fauzia Kern PA-C - Last Filed: 02/07/24 23:43> Review of Systems 2 Review of Systems: All systems reviewed & are unremarkable except as noted in HPI. 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 Calcific tendinitis of left shoulder Abdominal pain Rotator cuff dysfunction Left shoulder pain Bloating Elevated amylase Right flank discomfort Chronic respiratory failure with hypoxia, on home O2 therapy Carotid occlusion, right Chronic pancreatitis Former smoker COPD (chronic obstructive pulmonary disease) OTTO (obstructive sleep apnea) Hypertension Dyslipidemia Type 2 diabetes mellitus treated with insulin Follows with endocrine CAD (coronary artery disease) Hypothyroid <Fauzia Kern PA-C - Last Filed: 02/07/24 23:43> Surgical History Surgical History: Surgical History H/O colonoscopy 09/2014 <Fauzia Kern PA-C - Last Filed: 02/07/24 23:43> Family History Family History: Family History Father Family history of heart disease in male family member before age 55 Acute myocardial infarction Hypertension, Onset Age: 56 Drug addiction Sibling Family history of congenital heart disease, Onset Age: 32 Mother Family history of primary malignant neoplasm of liver Family history of malignant neoplasm of breast in first degree relative Asthma Sibling Chronic obstructive pulmonary disease <Fauzia Kern PA-C - Last Filed: 02/07/24 23:43> Social History Social History: Social History Social History: The patient is and has his is the durable power finance attorney for healthcare. The patient has 5 biological children. He is disabled. He is a former smoker. He denies any alcohol marijuana or illicit drugs. Code status full code Caffeine-coffee/soda Smoking packs per day: 1 Smoking cigarettes per day: 20.0 Years smoked: 30 Smoking pack-years: 30.00 Smoking status: Former smoker Tobacco type: cigarettes Second hand tobacco smoke exposure: No Smoking end date: 02/11/13 Alcohol intake: former Substance use: former Substance use type: crack/cocaine Other substance usage details: Pt states that he quit drinking 12 yrs ago and quit doing drugs 20 yrs ago. Do You Feel Safe in your Home?: Yes Lack of Transportation: No Lack of Food: Never True Current Housing: I Have Housing Concerned About Future Housing: No Difficulty Paying Gas/Electric Bills: YES Difficulty Paying for Meds: YES Currently Unemployed: No Education: High School Diploma/GED Difficulty w/ Childcare or Family Care: No Living arrangements: with family Occupation/Education: retired Gender identity (if verbalized by the patient): Male Spiritual care concerns: No <Fauzia Kern PA-C - Last Filed: 02/07/24 23:43> Exam 2 Narrative: GENERAL: Chronically ill-appearing, morbidly obese with BMI of 40.2, non-toxic, in no acute distress. HEAD: Normocephalic, atraumatic. RESPIRATORY: Airway patent, respirations mildly labored. Decreased air movement throughout. Decreased lung sounds in bases bilaterally. No significant wheezing or rhonchi. CARDIOVASCULAR: Tachycardic with regular rhythm without murmurs, rubs, or gallops. Peripheral pulses intact. MUSCULOSKELETAL: Moves all extremities. No gross deformities. No significant peripheral edema. SKIN: Warm, dry, normal color. NEURO: A&O X3. Speech clear. Cranial nerves II-XII grossly intact. No ataxic movements. PSYCHIATRIC: Appropriate mood and affect. Normal interaction. 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 WRITER/PA Physician Supervision i have reviewed the chart and agree with manaagement <Kike Tsang MD - Last Filed: 02/10/24 17:47> Vital Signs Vital signs: Vital Signs Temperature 38.8 C H 02/07/24 16:21 Pulse Rate 139 H 02/07/24 16:21 Respiratory Rate 22 H 02/07/24 16:21 Blood Pressure 127/61 02/07/24 16:21 Pulse Oximetry 84 L 02/07/24 16:21 Oxygen Delivery Nasal Cannula 02/07/24 16:21 Oxygen Flow Rate 5 02/07/24 16:21 Temperature 36.4 C 02/10/24 16:00 Pulse Rate 96 02/10/24 16:00 Respiratory Rate 25 H 02/10/24 16:00 Blood Pressure 150/81 H 02/10/24 16:00 Pulse Oximetry 96 02/10/24 16:00 Oxygen Delivery Nasal Cannula 02/10/24 12:00 Oxygen Flow Rate 5 02/10/24 12:00 Fraction of Inspired Oxygen 40 02/09/24 16:00 <Fauzia Kern PA-C - Last Filed: 02/07/24 23:43> Vital Signs Temperature 38.8 C H 02/07/24 16:21 Pulse Rate 139 H 02/07/24 16:21 Respiratory Rate 22 H 02/07/24 16:21 Blood Pressure 127/61 02/07/24 16:21 Pulse Oximetry 84 L 02/07/24 16:21 Oxygen Delivery Nasal Cannula 02/07/24 16:21 Oxygen Flow Rate 5 02/07/24 16:21 Temperature 36.4 C 02/10/24 16:00 Pulse Rate 96 02/10/24 16:00 Respiratory Rate 25 H 02/10/24 16:00 Blood Pressure 150/81 H 02/10/24 16:00 Pulse Oximetry 96 02/10/24 16:00 Oxygen Delivery Nasal Cannula 02/10/24 12:00 Oxygen Flow Rate 5 02/10/24 12:00 Fraction of Inspired Oxygen 40 02/09/24 16:00 <Kike Tsang MD - Last Filed: 02/10/24 17:47> MDM - SOB/Dyspnea MDM Narrative Medical decision making narrative: Patient presented to ED with shortness of breath, URI symptoms x1 week. History of COPD, chronically on 5 L nasal cannula. Patient initially tachycardic, tachypneic, febrile, hypoxic down to lower 80s on his normal 5 L. This was improved by the time of my evaluation. At the time of my evaluation, currently 94-100% on his 5 L. EKG with sinus tachycardia. No significant ST changes. Fluids and Tylenol initiated. Hour long neb given. Patient was a very difficulty stick, unable to obtain peripheral access despite multiple attempts by multiple nurses. Vascular access was consulted to place midline. Cbc without leukocytosis. Mild anemia noted, consistent with previous records. CMP is fairly unremarkable. Lactic acid within normal range. ABG with minimal acidosis, pCO2 is 65. Appears chronic for patient. Patient typically much higher records. Patient is COVID positive. Consistent with clinical picture. was tested positive for COVID as well. Baseline troponin is undetectable. Patient denies chest pain. BNP is within normal range. D-dimer minimally elevated. Given covid/hypoxia/tachycardia/positive dimer, CTA of chest was ordered but unable to be performed through midline per radiology. Will discuss with hospitalist. Patient given decadron in the ED given covid hypoxia. Will also start remdesivir. Discussed case with Dr. Adler, hospitalist, accepted patient for admission. IMU status. Will continue to monitor his progress to determine need for potential VQ scan. Will obtain venous Doppler ultrasound of BLE. Patient is still remaining stable on his 5 L at this time. He has not required an increase in oxygen requirement. He is in agreement with plan and need for admission. <Fauzia Kern PA-C - Last Filed: 02/07/24 23:43> Medical Records Attestation: I reviewed the patient's medical records. <Fauzia Kern PA-C - Last Filed: 02/07/24 23:43> Lab Data Attestation: I reviewed the patient's lab results. <Fauzia Kern PA-C - Last Filed: 02/07/24 23:43> Result diagrams: 02/10/24 04:29 02/10/24 04:29 <Fauzia Kern PA-C - Last Filed: 02/07/24 23:43> Labs: Lab Results 02/07/24 02/07/24 02/07/24 Range/Units 17:32 19:29 19:47 WBC 8.9 (4.5-10.0) K/mm3 RBC 5.37 (4.6-6.20) M/mm3 Hgb 12.0 L (14.0-18.0) g/dL Hct 41.3 L (42.0-52.0) % MCV 76.9 L (80-100) fl MCH 22.3 L (26-34) pg MCHC 29.1 L (32-36) g/dl RDW 16.3 H (11.5-14.5) % Plt Count 218 (150-375) k/mm3 MPV 11.4 H (7.4-10.4) fl Immature Gran % (Auto) 0.3 (0-0.5) % Neut % (Auto) 56.2 (45.5-73.1) % Lymph % (Auto) 28.7 (18.3-44.2) % [place] % (Auto) 14.2 H (2.6-8.5) % Eos % (Auto) 0.1 (0-4.4) % Baso % (Auto) 0.5 (0.2-1.2) % Lymph # (Auto) 2.55 (0.9-3.2) K/mm3 [place] # (Auto) 1.3 H (0.1-0.6) K/mm3 Eos # (Auto) 0.0 (0-0.3) K/mm3 Baso # (Auto) 0.0 (0.0-0.1) K/mm3 Abs Immat Gran (auto) 0.03 (0.00-0.031) K/mm3 Absolute Neuts (auto) 5.0 (1.3-6.7) K/mm3 Absolute Nucleated RBC 0.000 (0.0-0.012) K/mm3 Nucleated RBC % 0.0 (0.0-0.2) % PT 13.5 (11.1-14.7) Seconds INR 1.0 APTT 26.7 (22.3-36.8) Seconds D-Dimer 0.72 H (<0.48) ug/mL Methemoglobin 0.3 (0-1.5) %THb Sodium 136 L (137-145) mmol/L Potassium 4.1 (3.4-5.0) mmol/L Chloride 97 L (98-107) mmol/L Carbon Dioxide 39 H (22-30) mmol/L Anion Gap 0 L (4-12) mmol/L BUN 14 (9-20) mg/dL Creatinine 0.90 (0.7-1.3) mg/dL Estim Creat Clear Calc 92 ml/min Estimated GFR > 60 (59 - ) Glucose 103 (65-110) mg/dL Lactic Acid (0.7-2.0) mmol/L Calcium 8.3 L (8.4-10.2) mg/dL Total Bilirubin 0.3 (0.2-1.3) mg/dL AST 28 (17-59) U/L ALT 17 (6-50) U/L Alkaline Phosphatase 90 (38-126) U/L Troponin I < 0.012 (0.000-0.034) ng/mL NT-Pro-B Natriuret Pep < 20 (19.9-100) pg/mL Total Protein 8.0 (6.3-8.2) g/dL Albumin 3.8 (3.5-5.1) g/dL Urine Color (Yellow) Urine Appearance (Clear) Urine pH (5.0-9.0) Ur Specific [place] (1.001-1.035) Urine Protein (Negative) mg/dL Urine Glucose (UA) (Negative) mg/dL Urine Ketones (Negative) mg/dL Ur Blood (Man) (Negative) Urine Nitrate (Negative) Urine Bilirubin (Negative) Urine Urobilinogen (<2.0) mg/dL Leukocyte Esterase Rfl (Negative) KARUNA/UL Influenza A (RT-PCR) Negative (Negative) Influenza B (RT-PCR) Negative (Negative) RSV (RT-PCR) Negative (Negative) SARS-CoV-2 RNA (RT-PCR) Positive A (Negative) 02/07/24 02/07/24 Range/Units 19:48 21:32 WBC (4.5-10.0) K/mm3 RBC (4.6-6.20) M/mm3 Hgb (14.0-18.0) g/dL Hct (42.0-52.0) % MCV (80-100) fl MCH (26-34) pg MCHC (32-36) g/dl RDW (11.5-14.5) % Plt Count (150-375) k/mm3 MPV (7.4-10.4) fl Immature Gran % (Auto) (0-0.5) % Neut % (Auto) (45.5-73.1) % Lymph % (Auto) (18.3-44.2) % [place] % (Auto) (2.6-8.5) % Eos % (Auto) (0-4.4) % Baso % (Auto) (0.2-1.2) % Lymph # (Auto) (0.9-3.2) K/mm3 [place] # (Auto) (0.1-0.6) K/mm3 Eos # (Auto) (0-0.3) K/mm3 Baso # (Auto) (0.0-0.1) K/mm3 Abs Immat Gran (auto) (0.00-0.031) K/mm3 Absolute Neuts (auto) (1.3-6.7) K/mm3 Absolute Nucleated RBC (0.0-0.012) K/mm3 Nucleated RBC % (0.0-0.2) % PT (11.1-14.7) Seconds INR APTT (22.3-36.8) Seconds D-Dimer (<0.48) ug/mL Methemoglobin (0-1.5) %THb Sodium (137-145) mmol/L Potassium (3.4-5.0) mmol/L Chloride (98-107) mmol/L Carbon Dioxide (22-30) mmol/L Anion Gap (4-12) mmol/L BUN (9-20) mg/dL Creatinine (0.7-1.3) mg/dL Estim Creat Clear Calc ml/min Estimated GFR (59 - ) Glucose (65-110) mg/dL Lactic Acid 0.8 (0.7-2.0) mmol/L Calcium (8.4-10.2) mg/dL Total Bilirubin (0.2-1.3) mg/dL AST (17-59) U/L ALT (6-50) U/L Alkaline Phosphatase (38-126) U/L Troponin I (0.000-0.034) ng/mL NT-Pro-B Natriuret Pep (19.9-100) pg/mL Total Protein (6.3-8.2) g/dL Albumin (3.5-5.1) g/dL Urine Color Yellow (Yellow) Urine Appearance Clear (Clear) Urine pH 5.0 (5.0-9.0) Ur Specific [place] 1.024 (1.001-1.035) Urine Protein Negative (Negative) mg/dL Urine Glucose (UA) 3+ H (Negative) mg/dL Urine Ketones Negative (Negative) mg/dL Ur Blood (Man) Negative (Negative) Urine Nitrate Negative (Negative) Urine Bilirubin Negative (Negative) Urine Urobilinogen 0.2 (<2.0) mg/dL Leukocyte Esterase Rfl Negative (Negative) KARUNA/UL Influenza A (RT-PCR) (Negative) Influenza B (RT-PCR) (Negative) RSV (RT-PCR) (Negative) SARS-CoV-2 RNA (RT-PCR) (Negative) <Fauzia Kern PA-C - Last Filed: 02/07/24 23:43> Lab Results 02/07/24 02/07/24 02/07/24 Range/Units 17:32 19:29 19:47 WBC 8.9 (4.5-10.0) K/mm3 RBC 5.37 (4.6-6.20) M/mm3 Hgb 12.0 L (14.0-18.0) g/dL Hct 41.3 L (42.0-52.0) % MCV 76.9 L (80-100) fl MCH 22.3 L (26-34) pg MCHC 29.1 L (32-36) g/dl RDW 16.3 H (11.5-14.5) % Plt Count 218 (150-375) k/mm3 MPV 11.4 H (7.4-10.4) fl Immature Gran % (Auto) 0.3 (0-0.5) % Neut % (Auto) 56.2 (45.5-73.1) % Lymph % (Auto) 28.7 (18.3-44.2) % [place] % (Auto) 14.2 H (2.6-8.5) % Eos % (Auto) 0.1 (0-4.4) % Baso % (Auto) 0.5 (0.2-1.2) % Lymph # (Auto) 2.55 (0.9-3.2) K/mm3 [place] # (Auto) 1.3 H (0.1-0.6) K/mm3 Eos # (Auto) 0.0 (0-0.3) K/mm3 Baso # (Auto) 0.0 (0.0-0.1) K/mm3 Abs Immat Gran (auto) 0.03 (0.00-0.031) K/mm3 Absolute Neuts (auto) 5.0 (1.3-6.7) K/mm3 Absolute Nucleated RBC 0.000 (0.0-0.012) K/mm3 Nucleated RBC % 0.0 (0.0-0.2) % PT 13.5 (11.1-14.7) Seconds INR 1.0 APTT 26.7 (22.3-36.8) Seconds D-Dimer 0.72 H (<0.48) ug/mL Methemoglobin 0.3 (0-1.5) %THb Sodium 136 L (137-145) mmol/L Potassium 4.1 (3.4-5.0) mmol/L Chloride 97 L (98-107) mmol/L Carbon Dioxide 39 H (22-30) mmol/L Anion Gap 0 L (4-12) mmol/L BUN 14 (9-20) mg/dL Creatinine 0.90 (0.7-1.3) mg/dL Estim Creat Clear Calc 92 ml/min Estimated GFR > 60 (59 - ) Glucose 103 (65-110) mg/dL Lactic Acid (0.7-2.0) mmol/L Calcium 8.3 L (8.4-10.2) mg/dL Total Bilirubin 0.3 (0.2-1.3) mg/dL AST 28 (17-59) U/L ALT 17 (6-50) U/L Alkaline Phosphatase 90 (38-126) U/L Troponin I < 0.012 (0.000-0.034) ng/mL NT-Pro-B Natriuret Pep < 20 (19.9-100) pg/mL Total Protein 8.0 (6.3-8.2) g/dL Albumin 3.8 (3.5-5.1) g/dL Urine Color (Yellow) Urine Appearance (Clear) Urine pH (5.0-9.0) Ur Specific [place] (1.001-1.035) Urine Protein (Negative) mg/dL Urine Glucose (UA) (Negative) mg/dL Urine Ketones (Negative) mg/dL Ur Blood (Man) (Negative) Urine Nitrate (Negative) Urine Bilirubin (Negative) Urine Urobilinogen (<2.0) mg/dL Leukocyte Esterase Rfl (Negative) KARUNA/UL Influenza A (RT-PCR) Negative (Negative) Influenza B (RT-PCR) Negative (Negative) RSV (RT-PCR) Negative (Negative) SARS-CoV-2 RNA (RT-PCR) Positive A (Negative) 02/07/24 02/07/24 Range/Units 19:48 21:32 WBC (4.5-10.0) K/mm3 RBC (4.6-6.20) M/mm3 Hgb (14.0-18.0) g/dL Hct (42.0-52.0) % MCV (80-100) fl MCH (26-34) pg MCHC (32-36) g/dl RDW (11.5-14.5) % Plt Count (150-375) k/mm3 MPV (7.4-10.4) fl Immature Gran % (Auto) (0-0.5) % Neut % (Auto) (45.5-73.1) % Lymph % (Auto) (18.3-44.2) % [place] % (Auto) (2.6-8.5) % Eos % (Auto) (0-4.4) % Baso % (Auto) (0.2-1.2) % Lymph # (Auto) (0.9-3.2) K/mm3 [place] # (Auto) (0.1-0.6) K/mm3 Eos # (Auto) (0-0.3) K/mm3 Baso # (Auto) (0.0-0.1) K/mm3 Abs Immat Gran (auto) (0.00-0.031) K/mm3 Absolute Neuts (auto) (1.3-6.7) K/mm3 Absolute Nucleated RBC (0.0-0.012) K/mm3 Nucleated RBC % (0.0-0.2) % PT (11.1-14.7) Seconds INR APTT (22.3-36.8) Seconds D-Dimer (<0.48) ug/mL Methemoglobin (0-1.5) %THb Sodium (137-145) mmol/L Potassium (3.4-5.0) mmol/L Chloride (98-107) mmol/L Carbon Dioxide (22-30) mmol/L Anion Gap (4-12) mmol/L BUN (9-20) mg/dL Creatinine (0.7-1.3) mg/dL Estim Creat Clear Calc ml/min Estimated GFR (59 - ) Glucose (65-110) mg/dL Lactic Acid 0.8 (0.7-2.0) mmol/L Calcium (8.4-10.2) mg/dL Total Bilirubin (0.2-1.3) mg/dL AST (17-59) U/L ALT (6-50) U/L Alkaline Phosphatase (38-126) U/L Troponin I (0.000-0.034) ng/mL NT-Pro-B Natriuret Pep (19.9-100) pg/mL Total Protein (6.3-8.2) g/dL Albumin (3.5-5.1) g/dL Urine Color Yellow (Yellow) Urine Appearance Clear (Clear) Urine pH 5.0 (5.0-9.0) Ur Specific [place] 1.024 (1.001-1.035) Urine Protein Negative (Negative) mg/dL Urine Glucose (UA) 3+ H (Negative) mg/dL Urine Ketones Negative (Negative) mg/dL Ur Blood (Man) Negative (Negative) Urine Nitrate Negative (Negative) Urine Bilirubin Negative (Negative) Urine Urobilinogen 0.2 (<2.0) mg/dL Leukocyte Esterase Rfl Negative (Negative) KARUNA/UL Influenza A (RT-PCR) (Negative) Influenza B (RT-PCR) (Negative) RSV (RT-PCR) (Negative) SARS-CoV-2 RNA (RT-PCR) (Negative) <Kike Tsang MD - Last Filed: 02/10/24 17:47> ABG Data ABG results: 02/07/24 17:32 Puncture Site Right brachial ABG pH 7.347 L ABG pCO2 65.0 H* ABG pO2 63.5 L ABG PO2/FiO2 Ratio 1.59 ABG HCO3 34.8 H ABG O2 Saturation 90.5 L ABG O2 Content 16.9 ABG Base Excess 7.1 A-a Gradient 147.0 Oxyhemoglobin 91.8 Carboxyhemoglobin 1.2 Reduced Hemoglobin 6.7 H Total Hemoglobin 13.1 O2 Delivery Device Nasal cannula O2 Liters/Min 5.0 FiO2 40 <KUN Sims Last Filed: 02/07/24 23:43> 02/07/24 17:32 Puncture Site Right brachial ABG pH 7.347 L ABG pCO2 65.0 H* ABG pO2 63.5 L ABG PO2/FiO2 Ratio 1.59 ABG HCO3 34.8 H ABG O2 Saturation 90.5 L ABG O2 Content 16.9 ABG Base Excess 7.1 A-a Gradient 147.0 Oxyhemoglobin 91.8 Carboxyhemoglobin 1.2 Reduced Hemoglobin 6.7 H Total Hemoglobin 13.1 O2 Delivery Device Nasal cannula O2 Liters/Min 5.0 FiO2 40 <Kike Tsang MD - Last Filed: 02/10/24 17:47> Attestation: I personally reviewed and interpreted this ABG as follows: <KUN Sims Last Filed: 02/07/24 23:43> Imaging Data Attestation: I personally reviewed and interpreted this imaging study as follows: < KUN Sims Last Filed: 02/07/24 23:43> Radiologist's impression: ITS Impressions Chest X-Ray 02/07/24 17:03 IMPRESSION: Bilateral pneumonitis more on the left side. Differential include pulmonary edema although less likely. <KUN Sims Last Filed: 02/07/24 23:43> ECG Data EKG #1: Attestation: I personally reviewed and interpreted this ECG as follows: <KUN Sims Last Filed: 02/07/24 23:43> ECG completion date: 02/07/24 <KUN Sims Last Filed: 02/07/24 23:43> ECG completion time: 17:14 <KUN Sims Last Filed: 02/07/24 23:43> EKG Interpretation: tachycardia (128), sinus rhythm and non-specific ST changes <KUN Sims Last Filed: 02/07/24 23:43> Discharge Plan Discharge Clinical Impression: Acute on chronic hypoxic respiratory failure, COVID-19, Pneumonitis <KUN Sims Last Filed: 02/07/24 23:43> Patient Disposition: Still a Patient <KUN Sims Last Filed: 02/07/24 23:43> Condition: Serious <KUN Sims Last Filed: 02/07/24 23:43>
[2024-02-07 17:49] LABS: Base Excess ABG 7.1 mEq/l (+/-2.0); Carboxyhemoglobin 1.2 % THb (0-2.0); Fractional Inspired Oxygen 40 %; HCO3 ABG 34.8 mEq/l (22.0-26.0); Methemoglobin ABG 0.3 %THb (0-1.5); Oxygen Content ABG 16.9 %vol (16.0-22.0); Oxygen Saturation ABG 90.5 % (95.0-100.0); Oxyhemoglobin 91.8 % THb (90.0-100.0); PO2 ABG 63.5 mmHg (80.0-100.0); PO2 FiO2 Ratio Arterial Blood 1.59 %; Reduced Hemoglobin 6.7 %THb (0-5.0); Total Hemoglobin 13.1 g/dL (12.0-18.0); pH ABG 7.347 (7.350-7.450)
[2024-02-07 17:58] LABS: Device NASAL CANNULA; Site Drawn RIGHT BRACHIAL
--- NOTE | 2024-02-07 18:32 | PC.NURSE ---
Multiple attempts at IV start and lab collection unsuccessful.
[2024-02-07] MEDS: ACETAMINOPHEN 500 MG TABLET 1000 MG PO (18:50)
--- NOTE | 2024-02-07 18:53 | PC.NURSE ---
Blair with [facility] called, states is reluctant to start a PICC line in a pt who may be infectiosus, would consider Midline. Staff to have both PICC & Midline trays available with ultrasound. Fauzia AGUILAR informed & central notified for trays
[2024-02-07] MEDS: IPRATROPIUM BR 0.02% INH SOLN 0.5 MG/2.5 ML VIAL 1.5 MG INHALATION (18:58)
[2024-02-07] MEDS: LEVALBUTEROL NEB 1.25 MG/3 ML 2.5 MG INHALATION (18:58)
[2024-02-07 19:59] LABS: Basophils Percent Auto 0.5 % (0.2-1.2); Eosinophils Percent Auto 0.1 % (0-4.4); Hematocrit 41.3 % (42.0-52.0); Immature Granulocyte Absolute 0.03 K/mm3 (0.00-0.031); Immature Granulocyte Percent A 0.3 % (0-0.5); Lymphocytes Absolute Auto 2.55 K/mm3 (0.9-3.2); Lymphocytes Percent Auto 28.7 % (18.3-44.2); Mean Corpuscular HGB Conc 29.1 g/dl (32-36); Mean Corpuscular Hemoglobin 22.3 pg (26-34); Mean Corpuscular Volume 76.9 fl (80-100); Mean Platelet Volume 11.4 fl (7.4-10.4); Monocytes Absolute Auto 1.3 K/mm3 (0.1-0.6); Monocytes Percent Auto 14.2 % (2.6-8.5); Neutrophils Percent Auto 56.2 % (45.5-73.1); Platelet Count Result 218 k/mm3 (150-375); Red Blood Count 5.37 M/mm3 (4.6-6.20); Red Cell Distribution Width 16.3 % (11.5-14.5); White Blood Count 8.9 K/mm3 (4.5-10.0)
[2024-02-07 20:08] LABS: Lactic Acid Reflex 0.8 mmol/L (0.7-2.0)
[2024-02-07 20:08] LABS: Alanine Aminotransferase 17 U/L (6-50); Albumin Level 3.8 g/dL (3.5-5.1); Alkaline Phosphatase 90 U/L (38-126); Anion Gap 0 mmol/L (4-12); Aspartate Amino Transferase 28 U/L (17-59); Bilirubin,Total 0.3 mg/dL (0.2-1.3); Blood Urea Nitrogen 14 mg/dL (9-20); Calcium 8.3 mg/dL (8.4-10.2); Carbon Dioxide 39 mmol/L (22-30); Chloride 97 mmol/L (98-107); Estimated CRCL calculation 92 ml/min; Estimated Glomerular Filt Rate > 60; Glucose 103 mg/dL (65-110); Potassium 4.1 mmol/L (3.4-5.0); Sodium 136 mmol/L (137-145)
[2024-02-07 20:09] LABS: Prothrombin Time 13.5 Seconds (11.1-14.7)
[2024-02-07 20:10] LABS: Partial Thromboplastin Time 26.7 Seconds (22.3-36.8)
[2024-02-07 20:12] LABS: Influenza A QL RT-PCR Negative (Negative); Influenza B QL RT-PCR Negative (Negative); RSV RNA, RT-PCR Negative (Negative); SARS-CoV-2 RNA PCR Positive (Negative)
[2024-02-07 20:22] LABS: D Dimer 0.72 ug/mL (<0.48)
[2024-02-07 20:57] LABS: NT Pro B Type Natriuretic Pept < 20 pg/mL (19.9-100); Troponin I < 0.012 ng/mL (0.000-0.034)
[2024-02-07] MEDS: dexAMETHasone SOD PHOS INJ 10 MG/ML 1 ML VIAL 6 MG IV PUSH (21:24)
[2024-02-07] MEDS: SODIUM CHLORIDE 0.9% IV 1,000 ML 999 ML IV CONT (21:24)
[2024-02-07 21:49] LABS: Add Urine Microscopic? NO; Appearance Urine Clear (Clear); Bilirubin Urine Negative (Negative); Blood Urine Negative (Negative); Color Urine Yellow (Yellow); Glucose Urine UA 3+ mg/dL (Negative); Ketones Urine Negative (Negative); Leukocyte Esterase Ur Negative LEU/UL (Negative); Nitrate Urine Negative (Negative); Protein Urine Negative (Negative); Specific Grav Ur 1.024 (1.001-1.035); Urobilinogen Urine 0.2 mg/dL (<2.0)
--- NOTE | 2024-02-07 21:49 | P.HP_ITS ---
H&P: HPI History of Present Illness Date/Time: 02/07/24 21:49 Chief Complaint: sob Narrative: This is a 68-year-old male with past medical history significant for obesity, COPD/emphysema, chronic hypoxic respiratory failure on 5 L by nasal cannula, BiPAP at nighttime, atrial fibrillation, rate controlled, dyslipidemia, former smoker, coronary artery disease. Patient presents to the emergency room due to shortness of breath worsening over the period of 1 week with cough productive of sputum which is scanty and greenish, patient has had some chills, night sweats, fevers. Patient tested positive for COVID. Patient having body aches and pains and generalized malaise as well upon presentation to emergency room patient was tachycardic. Preliminary workup was significant for tested positive for COVID. A chest x-ray showed pneumonitis. Patient has been admitted for further evaluation management and treatment. EXAMINATION: CT lung screening DATE: 12/05/2023 10:49 INDICATION: Z87.891 - Personal history of nicotine dependence TECHNIQUE: Computed tomography (CT) of the chest was performed without intravenous contrast. Additional 3D reconstructions utilizing coronal maximum intensity projection (MIP) were performed. Automated exposure control and iterative reconstruction technique were employed. The dose-length product was 351.46 mGy-cm. COMPARISON: 11/12/2022 FINDINGS: Mild to moderate emphysema. Again seen are a few scattered <3 mm pulmonary nodules in both lungs. No interval change in a larger 5 mm pleural-based nodule at the lateral left lower lobe. Mild discoid atelectasis at the right middle and bilateral lower lobes. No pneumonia, pulmonary edema or pleural effusion. Heart size is normal. Atherosclerotic coronary artery calcifications. No pericardial effusion. Thoracic aorta is normal in caliber. No pathologically enlarged thoracic lymphadenopathy. Calcified gallstone within the normal-appearing portion of the incompletely visualized gallbladder. Moderate thoracic spon dylosis. IMPRESSION: 1. Lung-RADS category 2: Benign appearance or behavior. Continue annual screening with noncontrast low-dose chest CT in 12 months. XR chest 1V portable Ordering provider: Kike Tsang MD History: 68 years Male with . cough, fever . Comparison: March 26, 2023 FINDINGS: MEDIASTINUM: The cardiac silhouette is not enlarged. Congestive cris. LUNGS: No effusions or pneumothorax. Bilateral interstitial thickening more on the left side suggestive of pneumonitis. Pulmonary edema is not excluded. OTHER: No free air under the diaphragm. Degenerative changes of the spine. IMPRESSION: Bilateral pneumonitis more on the left side. Differential include pulmonary edema although less likely. Review of Systems Review of Systems: Shortness of breath, cough productive of scanty sputum, generalized body aches pains generalized malaise, chills. 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 Calcific tendinitis of left shoulder Abdominal pain Rotator cuff dysfunction Left shoulder pain Bloating Elevated amylase Right flank discomfort Chronic respiratory failure with hypoxia, on home O2 therapy Carotid occlusion, right Chronic pancreatitis Former smoker COPD (chronic obstructive pulmonary disease) OTTO (obstructive sleep apnea) Hypertension Dyslipidemia Type 2 diabetes mellitus treated with insulin Follows with endocrine CAD (coronary artery disease) Hypothyroid Surgical History Surgical History H/O colonoscopy 09/2014 Family History Family History Father Family history of heart disease in male family member before age 55 Acute myocardial infarction Hypertension, Onset Age: 56 Drug addiction Sibling Family history of congenital heart disease, Onset Age: 32 Mother Family history of primary malignant neoplasm of liver Family history of malignant neoplasm of breast in first degree relative Asthma Sibling Chronic obstructive pulmonary disease Social History Social History Social History: The patient is and has 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 The patient has 5 biological children. He is disabled. He is a former smoker. He denies any alcohol marijuana or illicit drugs. Code status full code Caffeine-coffee/soda Smoking packs per day: 1 Smoking cigarettes per day: 20.0 Years smoked: 9 Smoking pack-years: 9.00 Smoking status: Former smoker Tobacco type: cigarettes Second hand tobacco smoke exposure: No Smoking end date: 02/11/13 Alcohol intake: former Substance use: former Substance use type: crack/cocaine Other substance usage details: Pt states that he quit drinking 12 yrs ago and quit doing drugs 20 yrs ago. Do You Feel Safe in your Home?: Yes Lack of Transportation: No Lack of Food: Never True Current Housing: I Have Housing Concerned About Future Housing: No Difficulty Paying Gas/Electric Bills: YES Difficulty Paying for Meds: YES Currently Unemployed: No Education: High School Diploma/GED Difficulty w/ Childcare or Family Care: No Living arrangements: with family Occupation/Education: retired Gender identity (if verbalized by the patient): Male Spiritual care concerns: No Meds Home Medications and Allergies Home Medications ?Medication ?Instructions ?Recorded ?Confirmed ?Type empagliflozin 25 mg tablet 25 mg PO DAILY #90 tabs 04/28/19 01/14/24 Rx (Jardiance) insulin degludec 100 unit/mL (3 40 unit subcut DAILY 05/11/22 01/14/24 History mL) subcutaneous pen (Tresiba FlexTouch U-100 insulin) insulin lispro 200 unit/mL (3 mL) 18 unit subcut QACDINNER 05/11/22 01/14/24 History subcutaneous pen (Humalog KwikPen U-200 Insulin) blood-glucose meter,continuous 11/05/22 01/14/24 History (Dexcom G7 Systems Analyst) atorvastatin 40 mg tablet 40 mg PO DAILY 12/14/22 01/14/24 History levothyroxine 100 mcg tablet 100 mcg PO DAILY 12/14/22 01/14/24 History albuterol sulfate 2.5 mg/3 mL 2.5 mg (3 mL) inhalation DAILY 06/04/23 01/14/24 Rx (0.083 %) solution for nebulization shortness of breath or wheezing 1 month #90 mL ezetimibe 10 mg tablet See Rx Instructions .Route 06/10/23 01/14/24 Rx .COMPLEX #90 tabs budesonide 160 mcg-glycopyr 9 2 inh inhalation BID 1 month #10.7 06/27/23 01/14/24 Rx mcg-formot 4.8 mcg/actuation HFA grams inhaler (Breztri Aerosphere) gabapentin 300 mg capsule 300 mg PO BID #180 caps 08/30/23 01/14/24 Rx albuterol sulfate 90 mcg/actuation See Rx Instructions .Route 09/12/23 01/14/24 Rx aerosol inhaler .COMPLEX #9 grams potassium chloride 10 mEq 10 meq PO DAILY #90 tabs 10/15/23 01/14/24 Rx tablet,extended release (Klor-Con) azelastine 137 mcg (0.1 %) nasal 137 mcg (0.137 mL) intranasal Q12H 11/04/23 01/14/24 Rx spray 1 month #8.22 mL fluticasone propionate 50 2 spray intranasal DAILY PRN nasal 11/08/23 01/14/24 Rx mcg/actuation nasal congestion #9.9 mL spray,suspension (Flonase Allergy Relief) furosemide 40 mg tablet See Rx Instructions .Route 12/03/23 01/14/24 Rx .COMPLEX #180 tabs diltiazem HCl 240 mg 240 mg PO DAILY #90 caps 12/25/23 01/14/24 Rx capsule,extended release 24 hr azithromycin 250 mg tablet 250 mg PO .COMPLEX 3 months #44 01/14/24 01/14/24 Rx tabs prednisone 10 mg tablet 10 mg PO DAILY #30 tabs 01/14/24 01/14/24 Rx roflumilast 500 mcg tablet See Rx Instructions .Route 01/16/24 Rx .COMPLEX #30 tabs Allergies Allergy/AdvReac Type Severity Reaction Status Date / Time lisinopril Allergy Unknown Swelling Verified 02/07/24 18:53 Vital Signs Vital Signs - 24 hr 02/07/24 16:21 02/07/24 18:36 02/07/24 18:36 Temperature 101.9 F H Pulse Rate 139 H 120 H Respiratory Rate 22 H Blood Pressure 127/61 Pulse Oximetry 84 L 95 Oxygen Delivery Nasal Cannula Nasal Cannula Oxygen Flow Rate 5 5 02/07/24 18:57 02/07/24 20:19 02/07/24 21:32 Temperature Pulse Rate 120 H 120 H 114 H Respiratory Rate 22 H 25 H 19 Blood Pressure 147/70 H 153/77 H Pulse Oximetry 97 93 Oxygen Delivery Oxygen Flow Rate Exam Narrative: sitting by the edge of stretcher. Const: General: comfortable, no acute distress, well developed, alert, awake, ill appearing acutely and obese Nutritional Appearance: obese Orientation/consciousness: patient oriented x3 Other: On supplemental oxygen by nasal cannula 5 L HENMT: Head: normal to inspection, normocephalic and atraumatic Ears: hearing grossly normal bilaterally Face/Nose/Sinus: normal facial exam Face and sinus: normal facial exam Eyes: General: appearance normal, both eyes and all related structures Pupils: Equal, round and reactive pupils present EOM: EOMs intact bilaterally Neck: Neck: full ROM, no lymphadenopathy and no JVD Thyroid: thyroid normal Lymphatic: no lymphadenopathy noted Resp: Effort & Inspection: normal respiratory effort, able to speak in complete sentences and tachypneic Auscultation: rales and diminished lung sounds Cardio: Jugular venous distension: no JVD Rate: regular rate Rhythm: regular rhythm Heart sounds: S1 normal heart sound present and S2 normal heart sound present GI: Inspection: Pannus present and obesity GI Palp: Yes Soft to palpation and Yes No hepatosplenomegaly present : General: Yes deferred Skin: Rashes: no rashes Wounds: no wounds Neuro: General: patient oriented x3 and CN's II-XI intact bilaterally Cranial nerves: Yes CN's II-XII intact bilaterally and Yes Equal, round and reactive pupils present Cognition (Neuro): normal cognition Speech: normal speech Gait exam (Neuro): Normal gait present Motor exam (neuro): 5/5 motor strength present throughout Extrem: General: normal to inspection, full ROM, no joint enlargement and no pedal edema H&P: Results Labs Labs: Short CBC 02/07/24 Range/Units 19:47 WBC 8.9 (4.5-10.0) K/mm3 Hgb 12.0 L (14.0-18.0) g/dL Hct 41.3 L (42.0-52.0) % Plt Count 218 (150-375) k/mm3 BMP 02/07/24 19:47 Sodium 136 L Potassium 4.1 Chloride 97 L Carbon Dioxide 39 H BUN 14 Creatinine 0.90 Glucose 103 Calcium 8.3 L Cardiac Enzymes 02/07/24 Range/Units 19:47 Troponin I < 0.012 (0.000-0.034) ng/mL Liver Function 02/07/24 Range/Units 19:47 Total Bilirubin 0.3 (0.2-1.3) mg/dL AST 28 (17-59) U/L ALT 17 (6-50) U/L Alkaline Phosphatase 90 (38-126) U/L Albumin 3.8 (3.5-5.1) g/dL Assessment and Plan Assessment and plan (1) Pneumonia: Qualifiers: Laterality: unspecified laterality Lung location: unspecified part of lung Pneumonia type: due to unspecified organism Qualified Code(s): J18.9 - Pneumonia, unspecified organism Code(s): J18.9 - Pneumonia, unspecified organism Status: Acute Assessment and Plan: Admit to IMU Patient started on remdesivir added Zithromax on Rocephin Patient with changes in sputum quality Await cultures (2) COPD exacerbation: Code(s): J44.1 - Chronic obstructive pulmonary disease with (acute) exacerbation Status: Acute Assessment and Plan: DuoNeb scheduled every 6 hours Decadron (3) Former smoker: Code(s): Z87.891 - Personal history of nicotine dependence Status: Acute Assessment and Plan: Unchanged (4) Chronic respiratory failure with hypoxia, on home O2 therapy: Code(s): J96.11 - Chronic respiratory failure with hypoxia; Z99.81 - Dependence on supplemental oxygen Status: Acute Assessment and Plan: On 5 L of oxygen by nasal cannula (5) OTTO (obstructive sleep apnea): Code(s): G47.33 - Obstructive sleep apnea (adult) (pediatric) Status: Chronic Assessment and Plan: Patient is on BiPAP at nighttime (6) Chronic pancreatitis: Qualifiers: Pancreatitis type: unspecified pancreatitis type Qualified Code(s): K86.1 - Other chronic pancreatitis Code(s): K86.1 - Other chronic pancreatitis Status: Acute Assessment and Plan: Stable (7) Type 2 diabetes mellitus treated with insulin: Code(s): E11.9 - Type 2 diabetes mellitus without complications; Z79.4 - long term care phlebotomist (current) use of insulin Status: Chronic Assessment and Plan: Continue insulin Continue empagliflozin Hold Ezetimibe (8) CAD (coronary artery disease): Qualifiers: Associated angina: unspecified whether angina present Coronary Disease-Associated Artery/Lesion type: unspecified vessel or lesion type [place] vs. transplanted heart: [place] heart Qualified Code(s): I25.10 - Atheroscl erotic heart disease of [place] coronary artery without angina pectoris Code(s): I25.10 - Atherosclerotic heart disease of [place] coronary artery without angina pectoris Status: Chronic Assessment and Plan: Chest pain-free (9) COVID-19: Code(s): U07.1 - COVID-19 Status: Acute Assessment and Plan: Supportive care Started on remdesivir Hospitalist MIPS Advance Care Plan I have confirmed that the patient's Advanced Care Plan is present, code status is documented, or surrogate decision maker is listed in patient medical record.: Yes Medication Reconciliation I have utilized all available resources to obtain, update and review the patients current medications (includes all prescriptions, OTC, herbals, cannabis, and nutritional supplements).: Yes
[2024-02-07] MEDS: REMDESIVIR 200 MG/NS 250 ML 200 MG/250 ML BAG 250 MG IVPB (22:57)
[2024-02-08] VITALS (25 sets, daily range): BP systolic 128–162; BP diastolic 61–96; PULSE 94–120; RESP 18–24; TEMP 36.5–37.4; O2SAT 93–98; BMI 39.8
--- NOTE | 2024-02-08 02:46 | ADMGEN ---
This patient, Juni Merchant, was admitted to IMU Room 201-01 on 02/08/24 at 0200. Patient/family oriented to hospital policies and general routines including ID bracelet, bed and alarms, visiting hours, pain management, procedures, bathroom and other care routines, personal items, smoking policy, room service/diet, and visiting hours. Information on how to activate the Rapid Response Team has been discussed. Patient/Family are encouraged to report perceived risks to care and to ask questions if they do not understand what they are told or what they should do.
--- NOTE | 2024-02-08 03:28 | ADMGEN ---
This patient, Juni Merchant, was admitted to IMU Room 201-01 on 02/08/24 at 0205. Patient/family oriented to hospital policies and general routines including ID bracelet, bed and alarms, visiting hours, pain management, procedures, bathroom and other care routines, personal items, smoking policy, room service/diet, and visiting hours. Information on how to activate the Rapid Response Team has been discussed. Patient/Family are encouraged to report perceived risks to care and to ask questions if they do not understand what they are told or what they should do.
[2024-02-08] MEDS: cefTRIAXone 2 GM/NS 100 ML 2 GM/100 ML BAG IVPB (05:15)
[2024-02-08] MEDS: AZITHROMYCIN 500 MG/NS 250 ML 500 MG/250 ML BAG 250 MG IVPB (06:09)
[2024-02-08] MEDS: LEVOTHYROXINE SODIUM 100 MCG TABLET PO (06:13)
[2024-02-08] MEDS: IPRATROPIUM BR 0.02% INH SOLN 0.5 MG/2.5 ML VIAL INHALATION ×3 (07:31→20:08)
[2024-02-08] MEDS: LEVALBUTEROL NEB 1.25 MG/3 ML 0.63 MG INHALATION ×3 (07:31→20:09)
[2024-02-08] MEDS: dilTIAZem HCL CD 240 MG CAP.24HR PO (08:15)
[2024-02-08] MEDS: dexAMETHasone SOD PHOS INJ 10 MG/ML 1 ML VIAL 6 MG IV PUSH (08:16)
[2024-02-08] MEDS: EMPAGLIFLOZIN 25 MG TABLET PO (08:16)
[2024-02-08 08:40] LABS: Glucose Point of Care 147 mg/dl (65-105)
[2024-02-08] MEDS: FLUTICASONE/UMECLIDIN/VILANTER 100-62.5-25 MCG ELLIPTA 1 PUFF INHALATION (08:40)
[2024-02-08] MEDS: AZELASTINE HCL NASAL 0.1% 137 MCG/SPR 30 ML BTL 1 SPRAY NASAL ×2 (09:00→22:00)
--- NOTE | 2024-02-08 10:18 | P.PNIM_ITS ---
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: Code(s): E11.618 - Type 2 diabetes mellitus with other diabetic arthropathy; M75.00 - Adhesive capsulitis of unspecified shoulder Status: Acute (6) Calcific tendinitis of left shoulder: Code(s): M75.32 - Calcific tendinitis of left shoulder Status: Acute (7) Abdominal pain: Code(s): R10.9 - Unspecified abdominal pain Status: Acute (8) Rotator cuff dysfunction: Code(s): M67.919 - Unspecified disorder of synovium and tendon, unspecified shoulder Status: Acute (9) Left shoulder pain: Qualifiers: Chronicity: chronic Qualified Code(s): M25.512 - Pain in left shoulder; G89.29 - Other chronic pain Code(s): M25.512 - Pain in left shoulder Status: Acute Plan This is a 68-year-old male with past medical history significant for obesity, COPD/emphysema, chronic hypoxic respiratory failure on 5 L by nasal cannula, BiPAP at nighttime, atrial fibrillation, rate controlled, dyslipidemia, former smoker, coronary artery disease. Patient presents to the emergency room due to shortness of breath worsening over the period of 1 week with cough productive of sputum which is scanty and greenish, patient has had some chills, night sweats, fevers. Patient tested positive for COVID. Pneumonia: Qualifiers: Laterality: unspecified laterality Lung location: unspecified part of lung Pneumonia type: due to unspecified organism Qualified Code(s): J18.9 - Pneumonia, unspecified organism Code(s): J18.9 - Pneumonia, unspecified organism Status: Acute Assessment and Plan: Patient started on remdesivir added Zithromax on Rocephin Patient with changes in sputum quality Await cultures Continue current antibiotics COPD exacerbation: Code(s): J44.1 - Chronic obstructive pulmonary disease with (acute) exacerbation Status: Acute Assessment and Plan: Resulting from pneumonia Continue DuoNeb scheduled every 6 hours Decadron Antibiotics see above Acute on chronic respiratory failure with hypoxia, on home O2 therapy: Code(s): J96.11 - Chronic respiratory failure with hypoxia; Z99.81 - Dependence on supplemental oxygen Status: Acute Assessment and Plan: Patient is off of BiPAP On 5 L of oxygen by nasal cannula ABG showed CO2 retention improving Former smoker: Code(s): Z87.891 - Personal history of nicotine dependence Status: Acute Assessment and Plan: Unchanged OTTO (obstructive sleep apnea): Code(s): G47.33 - Obstructive sleep apnea (adult) (pediatric) Status: Chronic Assessment and Plan: Patient is on BiPAP at nighttime (6) Chronic pancreatitis: Qualifiers: Pancreatitis type: unspecified pancreatitis type Qualified Code(s): K86.1 - Other chronic pancreatitis Code(s): K86.1 - Other chronic pancreatitis Status: Acute Assessment and Plan: Stable Type 2 diabetes mellitus treated with insulin: Code(s): E11.9 - Type 2 diabetes mellitus without complications; Z79.4 - joint terminal attack controller (current) use of insulin Status: Chronic Assessment and Plan: Continue insulin Continue empagliflozin Hold Ezetimibe CAD (coronary artery disease): Qualifiers: Associated angina: unspecified whether angina present Coronary Disease- Associated Artery/Lesion type: unspecified vessel or lesion type [place] vs. transplanted heart: [place] heart Qualified Code(s): I25.10 - Atherosclerotic heart disease of [place] coronary artery without angina pectoris Code(s): I25.10 - Atherosclerotic heart disease of [place] coronary artery without angina pectoris Status: Chronic Assessment and Plan: Chest pain-free COVID-19: Code(s): U07.1 - COVID-19 Status: Acute Assessment and Plan: Supportive care Started on remdesivir Subjective Date/time seen: 02/08/24 10:18 Interval history: Patient is off BiPAP, on nasal cannula, patient feels dyspnea is improving. Patient still has cough with some phlegm. Repeated ABG showed improving of CO2 retention. Patient afebrile, blood pressure stable Exam Narrative: GENERAL: Pleasant, in no acute distress. Well-nourished. - EYES: EOMI. Anicteric. - HENT: Moist mucous membranes. - LUNGS: Coarse breath sound bilaterall y - CARDIOVASCULAR: Regular rate and rhyth m. No murmur. No JVD. - ABDOMEN: Soft, non-tender and non-dist ended. No palpable masses. - EXTREMITIES: No edema. Peripheral puls es 2+. Non-tender. - NEUROLOGIC: No focal neurological defi cits. CN II-XII grossly intact. - PSYCHIATRIC: Awake, Alert and oriented x 3. Appropriate mood and affect. - SKIN: No rashes or lesions. Warm. - LYMPH: No cervical lymphadenopathy. Objective Data Vital Signs Vital Signs: Vital Signs - 24 hr 02/07/24 16:21 02/07/24 18:36 02/07/24 18:36 Temperature 101.9 F H Pulse Rate 139 H 120 H Respiratory Rate 22 H Blood Pressure 127/61 Pulse Oximetry 84 L 95 Oxygen Delivery Nasal Cannula Nasal Cannula Oxygen Flow Rate 5 5 02/07/24 18:57 02/07/24 19:30 02/07/24 20:19 Temperature Pulse Rate 120 H 120 H Respiratory Rate 22 H 25 H Blood Pressure 147/70 H Pulse Oximetry 94 97 Oxygen Delivery Nasal Cannula Oxygen Flow Rate 5 02/07/24 21:32 02/07/24 23:13 02/08/24 01:30 Temperature Pulse Rate 114 H 115 H 120 H Respiratory Rate 19 24 H 21 H Blood Pressure 153/77 H 135/69 159/77 H Pulse Oximetry 93 93 94 Oxygen Delivery Oxygen Flow Rate 02/08/24 02:05 02/08/24 02:10 02/08/24 02:11 Temperature 97.7 F Pulse Rate 118 H 118 H 118 H Respiratory Rate 18 18 Blood Pressure 151/70 H Pulse Oximetry 98 98 Oxygen Delivery Nasal Cannula Oxygen Flow Rate 5 02/08/24 04:00 02/08/24 04:00 02/08/24 04:00 Temperature 99.4 F Pulse Rate 112 H 112 H 118 H Respiratory Rate 20 20 Blood Pressure 128/61 Pulse Oximetry 93 93 Oxygen Delivery High Flow Nasal Cannula Oxygen Flow Rate 5 02/08/24 06:00 02/08/24 07:31 02/08/24 07:45 Temperature Pulse Rate 109 H 108 H 104 H Respiratory Rate 24 H 24 H Blood Pressure Pulse Oximetry Oxygen Delivery Oxygen Flow Rate 02/08/24 08:00 02/08/24 08:00 02/08/24 08:00 Temperature 98.6 F Pulse Rate 111 H 111 H 115 H Respiratory Rate 20 20 Blood Pressure 130/96 H Pulse Oximetry 94 94 Oxygen Delivery High Flow Nasal Cannula Oxygen Flow Rate 5 02/08/24 08:48 02/08/24 08:55 Temperature Pulse Rate 115 H Respiratory Rate Blood Pressure Pulse Oximetry 95 Oxygen Delivery BiPAP Oxygen Flow Rate Intake/Output Intake/Output: Intake & Output 02/05/24 02/06/24 02/07/24 02/08/24 23:59 23:59 23:59 23:59 Intake Total 1000 1350 Output Total 500 Balance 1000 850 Meds/Results Medications: Active Medications Generic Name Dose Route Start Last Admin Trade Name Freq PRN Reason Stop Dose Admin Acetaminophen 1,000 mg 02/07/24 21:55 Acetaminophen 500 Mg Tablet PO Q6H PRN Mild Pain (1-3) or Fever Albuterol 1 puff 02/08/24 05:56 Albuterol Sulfate (*Sp) Aerosol 1 Puff INHALATION Q4HRT PRN shortness of breath or wheezing Albuterol 2.5 mg 02/08/24 08:00 Albuterol Sulfate Neb 2.5 Mg/3 Ml Inh INHALATION Q6HRT JAMES Azelastine HCl 1 spray 02/08/24 09:00 Azelastine Hcl Nasal 0.1% 137 Mcg/Spr 30 Ml Btl NASAL Q12HR JAMES Dexamethasone Sodium Phosphate 6 mg 02/08/24 09:00 02/08/24 08:16 Dexamethasone Sod Phos Inj 10 Mg/Ml 1 Ml Vial IV PUSH 02/16/24 09:01 6 mg DAILY JAMES Administration Dextrose 12.5 gm 02/07/24 22:10 Dextrose 50% 25 Gm/50 Ml Syringe IV PUSH PRN PRN Hypoglycemia Protocol Diltiazem HCl 240 mg 02/08/24 09:00 02/08/24 08:15 Diltiazem Hcl Cd 240 Mg Cap.24hr PO 240 mg DAILY JAMES Administration Empagliflozin 25 mg 02/08/24 09:00 02/08/24 08:16 Empagliflozin 25 Mg Tablet PO 25 mg DAILY JAMES Administration Fluticasone Propionate 2 spray 02/08/24 05:56 Fluticasone Propionate 0.05% Na Spr 16 Gm Btl (*Bkc) NASAL DAILY PRN nasal congestion Fluticasone/Umeclidinium/Vilanterol 1 puff 02/08/24 08:00 02/08/24 08:40 Fluticasone/Umeclidin/Vilanter 100-62.5-25 Mcg Ellipta INHALATION 1 puff DAILYRT JAMES Administration Glucagon 1 mg 02/07/24 22:10 Glucagon For Inj 1 Mg Vial IM PRN PRN Hypoglycemia Protocol Glucose 15 gm 02/07/24 22:10 Glucose Oral Gel 15 Gm Of Glucse In 37.5 Gm Tube PO PRN PRN Hypoglycemia Protocol Remdesivir 100 mg in 250 mls @ 250 mls/hr 02/08/24 22:00 IVPB 02/11/24 22:59 Q24H JAMES Dextrose 1,000 mls @ 100 mls/hr 02/07/24 22:10 Dextrose 5% 1,000 Ml IVPB PRN PRN Hypoglycemia Protocol Ceftriaxone Sodium 2 gm in 100 mls @ 200 mls/hr 02/08/24 05:00 02/08/24 05:45 Rocephin 2 Gm/Ns 100 Ml IVPB Infused Q24H JAMES Infusion Azithromycin 500 mg in 250 mls @ 250 mls/hr 02/08/24 06:00 02/08/24 07:09 Zithromax IVPB Infused Q24H JAMES Infusion Insulin Glargine 30 units 02/08/24 09:00 02/08/24 08:16 Insulin Glargine (*Bkc) 100 Units/Ml SUB-Q Not Given DAILY JAMES Ipratropium [place] 0.5 mg 02/08/24 08:00 02/08/24 07:31 Ipratropium Br 0.02% Inh Soln 0.5 Mg/2.5 Ml Vial INHALATION 0.5 mg Q6HRT JAMES Administration Levalbuterol HCl 0.63 mg 02/08/24 08:00 02/08/24 07:31 Levalbuterol Neb 1.25 Mg/3 Ml INHALATION 0.63 mg Q6HRT JAMES Administration Levothyroxine Sodium 100 mcg 02/08/24 06:30 02/08/24 06:13 Levothyroxine Sodium 100 Mcg Tablet PO 100 mcg DAILY@0630 JAMES Administration Ondansetron HCl 4 mg 02/07/24 21:55 Ondansetron Inj 4 Mg/2 Ml Vial IV PUSH Q4H PRN Nausea Roflumilast 500 mcg 02/08/24 21:00 Roflumilast 500 Mcg Tablet PO HS [facility] Radiology Results: ITS Impressions Chest X-Ray 02/07/24 17:03 IMPRESSION: Bilateral pneumonitis more on the left side. Differential include pulmonary edema although less likely. Venous Doppler Study 02/08/24 09:48 IMPRESSION: 1. No deep venous thrombosis in either lower limb. Labs Labs: Laboratory Results - last 24 hr 02/07/24 02/07/24 02/07/24 17:32 19:29 19:47 WBC 8.9 RBC 5.37 Hgb 12.0 L Hct 41.3 L MCV 76.9 L MCH 22.3 L MCHC 29.1 L RDW 16.3 H Plt Count 218 MPV 11.4 H Immature Gran % (Auto) 0.3 Neut % (Auto) 56.2 Lymph % (Auto) 28.7 [place] % (Auto) 14.2 H Eos % (Auto) 0.1 Baso % (Auto) 0.5 Lymph # (Auto) 2.55 [place] # (Auto) 1.3 H Eos # (Auto) 0.0 Baso # (Auto) 0.0 Abs Immat Gran (auto) 0.03 Absolute Neuts (auto) 5.0 Absolute Nucleated RBC 0.000 Nucleated RBC % 0.0 PT 13.5 INR 1.0 APTT 26.7 D-Dimer 0.72 H Puncture Site Right brachial ABG pH 7.347 L ABG pCO2 65.0 H* ABG pO2 63.5 L ABG PO2/FiO2 Ratio 1.59 ABG HCO3 34.8 H ABG O2 Saturation 90.5 L ABG O2 Content 16.9 ABG Base Excess 7.1 A-a Gradient 147.0 Oxyhemoglobin 91.8 Carboxyhemoglobin 1.2 Methemoglobin 0.3 Reduced Hemoglobin 6.7 H Total Hemoglobin 13.1 O2 Delivery Device Nasal cannula O2 Liters/Min 5.0 FiO2 40 Sodium 136 L Potassium 4.1 Chloride 97 L Carbon Dioxide 39 H Anion Gap 0 L BUN 14 Creatinine 0.90 Estim Creat Clear Calc 92 Estimated GFR > 60 Glucose 103 POC Capillary Glucose Lactic Acid Calcium 8.3 L Total Bilirubin 0.3 AST 28 ALT 17 Alkaline Phosphatase 90 Troponin I < 0.012 NT-Pro-B Natriuret Pep < 20 Total Protein 8.0 Albumin 3.8 Urine Color Urine Appearance Urine pH Ur Specific [place] Urine Protein Urine Glucose (UA) Urine Ketones Ur Blood (Man) Urine Nitrate Urine Bilirubin Urine Urobilinogen Leukocyte Esterase Rfl Influenza A (RT-PCR) Negative Influenza B (RT-PCR) Negative RSV (RT-PCR) Negative SARS-CoV-2 RNA (RT-PCR) Positive A 02/07/24 02/07/24 02/08/24 19:48 21:32 08:15 WBC RBC Hgb Hct MCV MCH MCHC RDW Plt Count MPV Immature Gran % (Auto) Neut % (Auto) Lymph % (Auto) [place] % (Auto) Eos % (Auto) Baso % (Auto) Lymph # (Auto) [place] # (Auto) Eos # (Auto) Baso # (Auto) Abs Immat Gran (auto) Absolute Neuts (auto) Absolute Nucleated RBC Nucleated RBC % PT INR APTT D-Dimer Puncture Site ABG pH ABG pCO2 ABG pO2 ABG PO2/FiO2 Ratio ABG HCO3 ABG O2 Saturation ABG O2 Content ABG Base Excess A-a Gradient Oxyhemoglobin Carboxyhemoglobin Methemoglobin Reduced Hemoglobin Total Hemoglobin O2 Delivery Device O2 Liters/Min FiO2 Sodium Potassium Chloride Carbon Dioxide Anion Gap BUN Creatinine Estim Creat Clear Calc Estimated GFR Glucose POC Capillary Glucose 147 H Lactic Acid 0.8 Calcium Total Bilirubin AST ALT Alkaline Phosphatase Troponin I NT-Pro-B Natriuret Pep Total Protein Albumin Urine Color Yellow Urine Appearance Clear Urine pH 5.0 Ur Specific [place] 1.024 Urine Protein Negative Urine Glucose (UA) 3+ H Urine Ketones Negative Ur Blood (Man) Negative Urine Nitrate Negative Urine Bilirubin Negative Urine Urobilinogen 0.2 Leukocyte Esterase Rfl Negative Influenza A (RT-PCR) Influenza B (RT-PCR) RSV (RT-PCR) SARS-CoV-2 RNA (RT-PCR)
[2024-02-08 10:59] LABS: Alveolar/Arterial O2 Gradient 208.6 mmHg; Base Excess ABG 5.7 mEq/l (+/-2.0); Fractional Inspired Oxygen 44 %; HCO3 ABG 33.7 mEq/l (22.0-26.0); Oxygen Content ABG 11.1 %vol (16.0-22.0); Total Hemoglobin 13.2 g/dL (12.0-18.0); pH ABG 7.331 (7.350-7.450)
[2024-02-08 11:21] LABS: PCO2 ABG 65.2 mmHg (35.0-45.0)
[2024-02-08 11:22] LABS: PO2 ABG 30.8 mmHg (80.0-100.0)
[2024-02-08 11:23] LABS: Oxygen Saturation ABG 52.7 % (95.0-100.0); Oxyhemoglobin 59.9 % THb (90.0-100.0); Site Drawn RIGHT RADIAL
[2024-02-08 11:24] LABS: Hematocrit 42.8 % (42.0-52.0); Hemoglobin 12.4 g/dL (14.0-18.0); Immature Granulocyte Absolute 0.01 K/mm3 (0.00-0.031); Immature Granulocyte Percent A 0.1 % (0-0.5); Lymphocytes Absolute Auto 0.61 K/mm3 (0.9-3.2); Lymphocytes Percent Auto 8.8 % (18.3-44.2); Mean Corpuscular Hemoglobin 22.2 pg (26-34); Mean Corpuscular Volume 76.7 fl (80-100); Mean Platelet Volume 10.7 fl (7.4-10.4); Monocytes Absolute Auto 0.3 K/mm3 (0.1-0.6); Monocytes Percent Auto 3.6 % (2.6-8.5); Neutrophils Percent Auto 87.5 % (45.5-73.1); Platelet Count Result 212 k/mm3 (150-375); Red Blood Count 5.58 M/mm3 (4.6-6.20); Red Cell Distribution Width 16.2 % (11.5-14.5); White Blood Count 6.9 K/mm3 (4.5-10.0)
[2024-02-08 11:24] LABS: Device NASAL CANNULA
[2024-02-08 11:34] LABS: Anion Gap 2 mmol/L (4-12); Blood Urea Nitrogen 19 mg/dL (9-20); Calcium 8.8 mg/dL (8.4-10.2); Carbon Dioxide 36 mmol/L (22-30); Chloride 101 mmol/L (98-107); Estimated CRCL calculation 102 ml/min; Estimated Glomerular Filt Rate > 60; Glucose 194 mg/dL (65-110); Potassium 4.6 mmol/L (3.4-5.0); Sodium 139 mmol/L (137-145)
[2024-02-08 11:51] LABS: Anisocytosis 1+; Hypochromasia 1+; Ovalocytes 1+; Platelet Estimate Adequate (Adequate); Schistocytes None Seen
[2024-02-08 18:19] LABS: Glucose Point of Care 191 mg/dl (65-105)
[2024-02-08 18:19] LABS: Glucose Point of Care 193 mg/dl (65-105)
[2024-02-08 19:27] LABS: Glucose Point of Care 314 mg/dl (65-105)
[2024-02-08] MEDS: ROFLUMILAST 500 MCG TABLET PO (22:00)
[2024-02-08] MEDS: REMDESIVIR 100 MG/NS 250 ML 100 MG/250 ML BAG 250 MG IVPB (22:00)
[2024-02-09] VITALS (27 sets, daily range): BP systolic 136–152; BP diastolic 62–74; PULSE 79–113; RESP 16–24; TEMP 36.7–37.1; O2SAT 91–100
[2024-02-09] MEDS: LEVALBUTEROL NEB 1.25 MG/3 ML 0.63 MG INHALATION ×4 (01:36→21:10)
[2024-02-09] MEDS: IPRATROPIUM BR 0.02% INH SOLN 0.5 MG/2.5 ML VIAL INHALATION ×4 (01:36→21:10)
[2024-02-09] MEDS: cefTRIAXone 2 GM/NS 100 ML 2 GM/100 ML BAG IVPB (04:45)
[2024-02-09] MEDS: AZITHROMYCIN 500 MG/NS 250 ML 500 MG/250 ML BAG 250 MG IVPB (05:30)
[2024-02-09] MEDS: LEVOTHYROXINE SODIUM 100 MCG TABLET PO (05:31)
[2024-02-09 07:44] LABS: Glucose Point of Care 136 mg/dl (65-105)
[2024-02-09 07:46] LABS: Basophils Percent Auto 0.1 % (0.2-1.2); Hematocrit 40.2 % (42.0-52.0); Hemoglobin 11.5 g/dL (14.0-18.0); Immature Granulocyte Absolute 0.04 K/mm3 (0.00-0.031); Immature Granulocyte Percent A 0.5 % (0-0.5); Lymphocytes Absolute Auto 1.11 K/mm3 (0.9-3.2); Lymphocytes Percent Auto 12.6 % (18.3-44.2); Mean Corpuscular HGB Conc 28.6 g/dl (32-36); Mean Corpuscular Hemoglobin 22.1 pg (26-34); Mean Corpuscular Volume 77.3 fl (80-100); Mean Platelet Volume 11.3 fl (7.4-10.4); Monocytes Absolute Auto 0.8 K/mm3 (0.1-0.6); Monocytes Percent Auto 8.7 % (2.6-8.5); Neutrophils Absolute Auto 6.9 K/mm3 (1.3-6.7); Neutrophils Percent Auto 78.1 % (45.5-73.1); Platelet Count Result 200 k/mm3 (150-375); Red Cell Distribution Width 16.3 % (11.5-14.5); White Blood Count 8.8 K/mm3 (4.5-10.0)
[2024-02-09 07:55] LABS: Anion Gap 0 mmol/L (4-12); Blood Urea Nitrogen 18 mg/dL (9-20); Calcium 8.7 mg/dL (8.4-10.2); Carbon Dioxide 34 mmol/L (22-30); Chloride 106 mmol/L (98-107); Estimated CRCL calculation 133 ml/min; Estimated Glomerular Filt Rate > 60; Glucose 132 mg/dL (65-110); Potassium 4.2 mmol/L (3.4-5.0); Sodium 140 mmol/L (137-145)
[2024-02-09] MEDS: FLUTICASONE/UMECLIDIN/VILANTER 100-62.5-25 MCG ELLIPTA 1 PUFF INHALATION (07:55)
[2024-02-09 07:56] LABS: Alanine Aminotransferase 18 U/L (6-50); Albumin Level 3.6 g/dL (3.5-5.1); Alkaline Phosphatase 70 U/L (38-126); Aspartate Amino Transferase 29 U/L (17-59); Bilirubin,Total 0.3 mg/dL (0.2-1.3)
[2024-02-09 08:04] LABS: Prothrombin Time 13.3 Seconds (11.1-14.7)
[2024-02-09] MEDS: EMPAGLIFLOZIN 25 MG TABLET PO (10:03)
[2024-02-09] MEDS: AZELASTINE HCL NASAL 0.1% 137 MCG/SPR 30 ML BTL 1 SPRAY NASAL ×2 (10:03→21:07)
[2024-02-09] MEDS: dilTIAZem HCL CD 240 MG CAP.24HR PO (10:03)
[2024-02-09] MEDS: dexAMETHasone SOD PHOS INJ 10 MG/ML 1 ML VIAL 6 MG IV PUSH (10:03)
[2024-02-09] MEDS: INSULIN GLARGINE (*BKC) 100 UNITS/ML 30 UNITS SUB-Q (10:41)
--- NOTE | 2024-02-09 13:33 | P.PNIM_ITS ---
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: Code(s): E11.618 - Type 2 diabetes mellitus with other diabetic arthropathy; M75.00 - Adhesive capsulitis of unspecified shoulder Status: Acute (6) Calcific tendinitis of left shoulder: Code(s): M75.32 - Calcific tendinitis of left shoulder Status: Acute (7) Abdominal pain: Code(s): R10.9 - Unspecified abdominal pain Status: Acute (8) Rotator cuff dysfunction: Code(s): M67.919 - Unspecified disorder of synovium and tendon, unspecified shoulder Status: Acute (9) Left shoulder pain: Qualifiers: Chronicity: chronic Qualified Code(s): M25.512 - Pain in left shoulder; G89.29 - Other chronic pain Code(s): M25.512 - Pain in left shoulder Status: Acute Plan Pneumonia: Qualifiers: Laterality: unspecified laterality Lung location: unspecified part of lung Pneumonia type: due to unspecified organism Qualified Code(s): J18.9 - Pneumonia, unspecified organism Code(s): J18.9 - Pneumonia, unspecified organism Status: Acute Assessment and Plan: Patient started on remdesivir added Zithromax on Rocephin Patient with changes in sputum quality Await cultures Continue current antibiotics continue current theraphies COPD exacerbation: Code(s): J44.1 - Chronic obstructive pulmonary disease with (acute) exacerbation Status: Acute Assessment and Plan: Resulting from pneumonia Continue DuoNeb scheduled every 6 hours Decadron Antibiotics Oxygen down to 5 liters and bipap at night Acute on chronic respiratory failure with hypoxia, on home O2 therapy: Code(s): J96.11 - Chronic respiratory failure with hypoxia; Z99.81 - Dependence on supplemental oxygen Status: Acute Assessment and Plan: Patient is off of BiPAP On 5 L of oxygen by nasal cannula Former smoker: Code(s): Z87.891 - Personal history of nicotine dependence Status: Acute Assessment and Plan: Unchanged OTTO (obstructive sleep apnea): Code(s): G47.33 - Obstructive sleep apnea (adult) (pediatric) Status: Chronic Assessment and Plan: Patient is on BiPAP at nighttime (6) Chronic pancreatitis: Qualifiers: Pancreatitis type: unspecified pancreatitis type Qualified Code(s): K86.1 - Other chronic pancreatitis Code(s): K86.1 - Other chronic pancreatitis Status: Acute Assessment and Plan: Stable Type 2 diabetes mellitus treated with insulin: Code(s): E11.9 - Type 2 diabetes mellitus without complications; 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 transplanted heart: [place] heart Qualified Code(s): I25.10 - Atherosclerotic heart disease of [place] coronary artery without angina pectoris Code(s): I25.10 - Atherosclerotic heart disease of [place] coronary artery without angina pectoris Status: Chronic Assessment and Plan: Chest pain-free COVID-19: Code(s): U07.1 - COVID-19 Status: Acute Assessment and Plan: Supportive care Started on remdesivir Subjective Date/time seen: 02/09/24 13:33 Interval history: 68-year-old male with past medical history significant for obesity, COPD/emphysema, chronic hypoxic respiratory failure on 5 L by nasal cannula, BiPAP at nighttime, atrial fibrillation, rate controlled, dyslipidemia, former smoker, coronary artery disease. Patient presents to the emergency room due to shortness of breath worsening over the period of 1 week with cough productive of sputum which is scanty and greenish, patient has had some chills, night sweats, fevers. Patient tested positive for COVID. Patient is off BiPAP, on 5 liters of oxygen presently. pt admitted for COVID and pneumonitis Review of Systems Review of Systems: SOB at rest with cough Exam Narrative: GENERAL: Pleasant, unwell on oxygen - HENT: Moist mucous membranes. - LUNGS: Coarse breath sound bilaterall y - CARDIOVASCULAR: Regular rate and rhyth m. No murmur. No JVD. - ABDOMEN: Soft, non-tender and non-dist ended. No palpable masses. - EXTREMITIES: No edema. Peripheral puls es 2+. Non-tender. - NEUROLOGIC: No focal neurological defi cits. CN II-XII grossly intact. - PSYCHIATRIC: Awake, Alert and oriented x 3. Appropriate mood and affect. - SKIN: No rashes or lesions. Warm. - LYMPH: No cervical lymphadenopathy. Objective Data Vital Signs Vital Signs: Vital Signs - 24 hr 02/08/24 13:40 02/08/24 14:00 02/08/24 16:00 Temperature 36.8 C Pulse Rate 106 H 106 H 102 H Respiratory Rate 22 H 20 Blood Pressure 147/79 H Pulse Oximetry 96 Oxygen Delivery Oxygen Flow Rate Fraction of Inspired Oxygen 02/08/24 16:00 02/08/24 16:00 02/08/24 16:59 Temperature Pulse Rate 102 H 102 H 103 H Respiratory Rate 20 Blood Pressure Pulse Oximetry 96 Oxygen Delivery BiPAP Oxygen Flow Rate Fraction of Inspired Oxygen 02/08/24 20:00 02/08/24 20:07 02/08/24 20:12 Temperature 36.8 C Pulse Rate 94 102 H 99 Respiratory Rate 20 20 Blood Pressure 140/73 Pulse Oximetry 96 Oxygen Delivery Oxygen Flow Rate Fraction of Inspired Oxygen 02/08/24 20:26 02/08/24 21:30 02/08/24 22:00 Temperature Pulse Rate 97 102 H 104 H Respiratory Rate 20 20 Blood Pressure Pulse Oximetry 96 Oxygen Delivery High Flow Nasal Cannula Oxygen Flow Rate 6 Fraction of Inspired Oxygen 02/08/24 23:30 02/08/24 23:30 02/09/24 00:00 Temperature 37.0 C Pulse Rate 106 H 106 H 103 H Respiratory Rate 20 20 Blood Pressure 136/68 Pulse Oximetry 98 98 Oxygen Delivery Nasal Cannula Oxygen Flow Rate 5 Fraction of Inspired Oxygen 02/09/24 01:40 02/09/24 01:56 02/09/24 02:00 Temperature Pulse Rate 107 H 102 H 108 H Respiratory Rate 20 20 Blood Pressure Pulse Oximetry Oxygen Delivery Oxygen Flow Rate Fraction of Inspired Oxygen 02/09/24 02:03 02/09/24 03:50 02/09/24 04:00 Temperature 37.1 C Pulse Rate 103 H 113 H 99 Respiratory Rate 20 22 H Blood Pressure 148/69 H Pulse Oximetry 100 98 Oxygen Delivery BiPAP Oxygen Flow Rate Fraction of Inspired Oxygen 02/09/24 04:30 02/09/24 05:40 02/09/24 07:44 Temperature Pulse Rate 113 H 99 Respiratory Rate 22 H Blood Pressure Pulse Oximetry 98 93 Oxygen Delivery BiPAP Nasal Cannula Oxygen Flow Rate 5 5 Fraction of Inspired Oxygen 40 02/09/24 07:44 02/09/24 07:53 02/09/24 08:00 Temperature 37.0 C Pulse Rate 97 100 100 Respiratory Rate 20 20 16 Blood Pressure 137/74 Pulse Oximetry 94 Oxygen Delivery Oxygen Flow Rate Fraction of Inspired Oxygen 02/09/24 08:00 02/09/24 08:00 02/09/24 10:00 Temperature Pulse Rate 100 100 102 H Respiratory Rate 16 Blood Pressure Pulse Oximetry 94 Oxygen Delivery Nasal Cannula Oxygen Flow Rate 6 Fraction of Inspired Oxygen 40 02/09/24 11:48 02/09/24 11:48 02/09/24 13:17 Temperature Pulse Rate 102 H 100 95 Respiratory Rate 16 Blood Pressure Pulse Oximetry 94 Oxygen Delivery Nasal Cannula Oxygen Flow Rate 6 Fraction of Inspired Oxygen 40 02/09/24 13:21 02/09/24 13:21 02/09/24 13:32 Temperature Pulse Rate 103 H 110 H Respiratory Rate 20 20 Blood Pressure Pulse Oximetry 98 Oxygen Delivery Nasal Cannula Oxygen Flow Rate 5 Fraction of Inspired Oxygen 40 Intake/Output Intake/Output: Intake & Output 02/06/24 02/07/24 02/08/24 02/09/24 23:59 23:59 23:59 23:59 Intake Total 1000 2390 1310 Output Total 1480 1280 Balance 1000 910 30 Meds/Results Medications: Active Medications Generic Name Dose Route Start Last Admin Trade Name Freq PRN Reason Stop Dose Admin Acetaminophen 1,000 mg 02/07/24 21:55 Acetaminophen 500 Mg Tablet PO Q6H PRN Mild Pain (1-3) or Fever Albuterol 1 puff 02/08/24 05:56 Albuterol Sulfate (*Sp) Aerosol 1 Puff INHALATION Q4HRT PRN shortness of breath or wheezing Azelastine HCl 1 spray 02/08/24 09:00 02/09/24 10:03 Azelastine Hcl Nasal 0.1% 137 Mcg/Spr 30 Ml Btl NASAL 1 spray Q12HR JAMES Administration Dexamethasone Sodium Phosphate 6 mg 02/08/24 09:00 02/09/24 10:03 Dexamethasone Sod Phos Inj 10 Mg/Ml 1 Ml Vial IV PUSH 02/16/24 09:01 6 mg DAILY JAMES Administration Dextrose 12.5 gm 02/07/24 22:10 Dextrose 50% 25 Gm/50 Ml Syringe IV PUSH PRN PRN Hypoglycemia Protocol Diltiazem HCl 240 mg 02/08/24 09:00 02/09/24 10:03 Diltiazem Hcl Cd 240 Mg Cap.24hr PO 240 mg DAILY JAMES Administration Empagliflozin 25 mg 02/08/24 09:00 02/09/24 10:03 Empagliflozin 25 Mg Tablet PO 25 mg DAILY JAMES Administration Fluticasone Propionate 2 spray 02/08/24 05:56 Fluticasone Propionate 0.05% Na Spr 16 Gm Btl (*Bkc) NASAL DAILY PRN nasal congestion Fluticasone/Umeclidinium/Vilanterol 1 puff 02/08/24 08:00 02/09/24 07:55 Fluticasone/Umeclidin/Vilanter 100-62.5-25 Mcg Ellipta INHALATION 1 puff DAILYRT JAMES Administration Glucagon 1 mg 02/07/24 22:10 Glucagon For Inj 1 Mg Vial IM PRN PRN Hypoglycemia Protocol Glucose 15 gm 02/07/24 22:10 Glucose Oral Gel 15 Gm Of Glucse In 37.5 Gm Tube PO PRN PRN Hypoglycemia Protocol Remdesivir 100 mg in 250 mls @ 250 mls/hr 02/08/24 22:00 02/08/24 23:00 IVPB 02/11/24 22:59 Infused Q24H JAMES Infusion Dextrose 1,000 mls @ 100 mls/hr 02/07/24 22:10 Dextrose 5% 1,000 Ml IVPB PRN PRN Hypoglycemia Protocol Ceftriaxone Sodium 2 gm in 100 mls @ 200 mls/hr 02/08/24 05:00 02/09/24 05:15 Rocephin 2 Gm/Ns 100 Ml IVPB Infused Q24H JAMES Infusion Azithromycin 500 mg in 250 mls @ 250 mls/hr 02/08/24 06:00 02/09/24 06:30 Zithromax IVPB Infused Q24H JAMES Infusion Insulin Glargine 30 units 02/08/24 09:00 02/09/24 10:41 Insulin Glargine (*Bkc) 100 Units/Ml SUB-Q 30 units DAILY JAMES Administration Ipratropium [place] 0.5 mg 02/08/24 08:00 02/09/24 13:21 Ipratropium Br 0.02% Inh Soln 0.5 Mg/2.5 Ml Vial INHALATION 0.5 mg Q6HRT JAMES Administration Levalbuterol HCl 0.63 mg 02/08/24 08:00 02/09/24 13:21 Levalbuterol Neb 1.25 Mg/3 Ml INHALATION 0.63 mg Q6HRT JAMES Administration Levothyroxine Sodium 100 mcg 02/08/24 06:30 02/09/24 05:31 Levothyroxine Sodium 100 Mcg Tablet PO 100 mcg DAILY@0630 JAMES Administration Ondansetron HCl 4 mg 02/07/24 21:55 Ondansetron Inj 4 Mg/2 Ml Vial IV PUSH Q4H PRN Nausea Roflumilast 500 mcg 02/08/24 21:00 02/08/24 22:00 Roflumilast 500 Mcg Tablet PO 500 mcg HS JAMES Administration Radiology Results: ITS Impressions Chest X-Ray 02/07/24 17:03 IMPRESSION: Bilateral pneumonitis more on the left side. Differential include pulmonary edema although less likely. Venous Doppler Study 02/08/24 09:48 IMPRESSION: 1. No deep venous thrombosis in either lower limb. Labs Labs: Laboratory Results - last 24 hr 02/08/24 02/08/24 02/08/24 11:58 15:50 19:24 WBC RBC Hgb Hct MCV MCH MCHC RDW Plt Count MPV Immature Gran % (Auto) Neut % (Auto) Lymph % (Auto) [place] % (Auto) Eos % (Auto) Baso % (Auto) Lymph # (Auto) [place] # (Auto) Eos # (Auto) Baso # (Auto) Abs Immat Gran (auto) Absolute Neuts (auto) Absolute Nucleated RBC Nucleated RBC % PT INR Sodium Potassium Chloride Carbon Dioxide Anion Gap BUN Creatinine Estim Creat Clear Calc Estimated GFR Glucose POC Capillary Glucose 193 H 191 H 314 H Calcium Total Bilirubin Direct Bilirubin AST ALT Alkaline Phosphatase Total Protein Albumin 02/09/24 02/09/24 02/09/24 07:25 07:26 07:36 WBC 8.8 RBC 5.20 Hgb 11.5 L Hct 40.2 L MCV 77.3 L MCH 22.1 L MCHC 28.6 L RDW 16.3 H Plt Count 200 MPV 11.3 H Immature Gran % (Auto) 0.5 Neut % (Auto) 78.1 H Lymph % (Auto) 12.6 L [place] % (Auto) 8.7 H Eos % (Auto) 0.0 Baso % (Auto) 0.1 L Lymph # (Auto) 1.11 [place] # (Auto) 0.8 H Eos # (Auto) 0.0 Baso # (Auto) 0.0 Abs Immat Gran (auto) 0.04 H Absolute Neuts (auto) 6.9 H Absolute Nucleated RBC 0.000 Nucleated RBC % 0.0 PT 13.3 INR 1.0 Sodium 140 Potassium 4.2 Chloride 106 Carbon Dioxide 34 H Anion Gap 0 L BUN 18 Creatinine 0.60 L Estim Creat Clear Calc 133 Estimated GFR > 60 Glucose 132 H POC Capillary Glucose 136 H Calcium 8.7 Total Bilirubin 0.3 Direct Bilirubin 0.0 AST 29 ALT 18 Alkaline Phosphatase 70 Total Protein 7.0 Albumin 3.6
[2024-02-09] MEDS: BENZONATATE 100 MG CAPSULE PO ×2 (15:00→18:47)
[2024-02-09 16:16] LABS: Glucose Point of Care 282 mg/dl (65-105)
[2024-02-09 16:37] LABS: Glucose Point of Care 242 mg/dl (65-105)
[2024-02-09 20:09] LABS: Glucose Point of Care 245 mg/dl (65-105)
[2024-02-09] MEDS: ENOXAPARIN 40 MG/0.4 ML SYRINGE SUB-Q (21:07)
[2024-02-09] MEDS: ROFLUMILAST 500 MCG TABLET PO (21:07)
[2024-02-09] MEDS: REMDESIVIR 100 MG/NS 250 ML 100 MG/250 ML BAG 250 MG IVPB (21:16)
[2024-02-09] MEDS: SENNA/DOCUSATE SODIUM TABLET 1 TAB PO (22:33)
[2024-02-10] VITALS (21 sets, daily range): BP systolic 126–157; BP diastolic 57–81; PULSE 73–107; RESP 16–28; TEMP 36.4–36.8; O2SAT 94–100
[2024-02-10] MEDS: LEVALBUTEROL NEB 1.25 MG/3 ML 0.63 MG INHALATION ×4 (02:36→19:51)
[2024-02-10] MEDS: IPRATROPIUM BR 0.02% INH SOLN 0.5 MG/2.5 ML VIAL INHALATION ×4 (02:36→19:51)
[2024-02-10 05:20] LABS: Basophils Percent Auto 0.2 % (0.2-1.2); Hemoglobin 12.6 g/dL (14.0-18.0); Immature Granulocyte Absolute 0.06 K/mm3 (0.00-0.031); Immature Granulocyte Percent A 0.5 % (0-0.5); Lymphocytes Absolute Auto 1.12 K/mm3 (0.9-3.2); Lymphocytes Percent Auto 9.8 % (18.3-44.2); Mean Corpuscular HGB Conc 29.3 g/dl (32-36); Mean Corpuscular Hemoglobin 22.3 pg (26-34); Mean Platelet Volume 11.9 fl (7.4-10.4); Monocytes Absolute Auto 0.7 K/mm3 (0.1-0.6); Monocytes Percent Auto 6.2 % (2.6-8.5); Neutrophils Absolute Auto 9.6 K/mm3 (1.3-6.7); Neutrophils Percent Auto 83.3 % (45.5-73.1); Platelet Count Result 259 k/mm3 (150-375); Red Blood Count 5.66 M/mm3 (4.6-6.20); Red Cell Distribution Width 16.3 % (11.5-14.5); White Blood Count 11.5 K/mm3 (4.5-10.0)
[2024-02-10] MEDS: cefTRIAXone 2 GM/NS 100 ML 2 GM/100 ML BAG IVPB (05:29)
[2024-02-10 05:33] LABS: Anion Gap 3 mmol/L (4-12); Blood Urea Nitrogen 19 mg/dL (9-20); Carbon Dioxide 34 mmol/L (22-30); Chloride 103 mmol/L (98-107); Estimated CRCL calculation 102 ml/min; Estimated Glomerular Filt Rate > 60; Glucose 189 mg/dL (65-110); Potassium 4.1 mmol/L (3.4-5.0); Sodium 140 mmol/L (137-145)
[2024-02-10 05:45] LABS: Hypochromasia 1+; Platelet Estimate Adequate (Adequate)
[2024-02-10 05:46] LABS: Anisocytosis 1+; Ovalocytes 1+; Schistocytes None Seen
[2024-02-10] MEDS: AZITHROMYCIN 500 MG/NS 250 ML 500 MG/250 ML BAG 250 MG IVPB (06:05)
[2024-02-10] MEDS: LEVOTHYROXINE SODIUM 100 MCG TABLET PO (06:06)
[2024-02-10] MEDS: FLUTICASONE/UMECLIDIN/VILANTER 100-62.5-25 MCG ELLIPTA 1 PUFF INHALATION (07:20)
[2024-02-10 08:18] LABS: Glucose Point of Care 140 mg/dl (65-105)
[2024-02-10] MEDS: dexAMETHasone SOD PHOS INJ 10 MG/ML 1 ML VIAL 6 MG IV PUSH (09:39)
[2024-02-10] MEDS: dilTIAZem HCL CD 240 MG CAP.24HR PO (09:40)
[2024-02-10] MEDS: BENZONATATE 100 MG CAPSULE PO ×3 (09:40→18:36)
[2024-02-10] MEDS: polyethylene glycoL 3350 17 GM POWD.PACK PO (09:40)
[2024-02-10] MEDS: INSULIN GLARGINE (*BKC) 100 UNITS/ML 30 UNITS SUB-Q (09:40)
[2024-02-10] MEDS: ENOXAPARIN 40 MG/0.4 ML SYRINGE SUB-Q ×2 (09:40→21:38)
[2024-02-10] MEDS: AZELASTINE HCL NASAL 0.1% 137 MCG/SPR 30 ML BTL 1 SPRAY NASAL ×2 (09:40→21:39)
[2024-02-10] MEDS: EMPAGLIFLOZIN 25 MG TABLET PO (09:40)
--- NOTE | 2024-02-10 10:13 | P.PNIM_ITS ---
Progress Note: A&P Assessment and Plan (1) Acute on chronic hypoxic respiratory failure: Code(s): J96.21 - Acute and chronic respiratory failure with hypoxia Status: Acute Assessment and Plan: Chronic respiratory failure on 5 L NC at baseline. Noted to be hypoxic into the 80s on baseline oxygen per chart review. Likely due to COPD exacerbation secondary pneumonia and covid Patient is no longer requiring the use of BiPAP Back on 5 L of oxygen by nasal cannula with stable oxygen saturations Monitor (2) Pneumonia: Qualifiers: Laterality: unspecified laterality Lung location: unspecified part of lung Pneumonia type: due to unspecified organism Qualified Code(s): J18.9 - Pneumonia, unspecified organism Code(s): J18.9 - Pneumonia, unspecified organism Status: Acute Assessment and Plan: CXR: Bilateral pneumonitis more on the left side. Differential include pulmonary edema although less likely. - Complicating Factors: COPD on chronic oxygen supplementation - started on CAP tx: azithromycin ceftriaxone on 02/07 - Viral PCR: COVID positive - 5 supplemental O2 requirement (baseline) - Monitor vital signs, I&Os, neuro status and patient is a fall risk - Follow WBC, serum electrolytes, temperature curves and cultures (3) COPD (chronic obstructive pulmonary disease): Qualifiers: COPD type: unspecified COPD Qualified Code(s): J44.9 - Chronic obstructive pulmonary disease, unspecified Code(s): J44.9 - Chronic obstructive pulmonary disease, unspecified Status: Chronic Assessment and Plan: - Exacerbation likely secondary to pneumonia and covid - Started on azithromycin 02/07 - Duonebz q6H and Albuterol q2H prn - Decadron 6 mg IV daily for covid - Monitor vital signs, I&Os, neuro status and patient is a fall risk - Monitor serum electrolytes, cultures and CBC - Monitor Oxygen saturation, Oxygen via 5L NC (baseline); wean oxygen as tolerated, keep SpO2 greater than 88% (4) COVID-19: Code(s): U07.1 - COVID-19 Status: Acute Assessment and Plan: - Viral panel: Covid positive - Place in COVID19 isolation precautions, cardiac monitoring, and continuous pul se ox - Monitor serum electrolytes, CRP, Lactic acid, troponin, CBC, WBC, temperature curve and follow cultures - Remains on 5L NC (baseline). Oxygen via NC; wean as tolerated. Keep spO2 greater than 91% -Pneumonia treatment: IV Ceftriaxone 2 gram IV q24hr and Azithromycin 500mg IV 24 hours will be initiated - Pt is a candidate for Remdesivir and Dexamethasone, continue treatment according to suggested guidelines. 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 Status: Chronic Assessment and Plan: - hypoglycemia protocol - POC blood glucose ACHS - home medication - Jardiance 25 mg daily, tresiba 30 units daily, lispro 18 units with dinner - correct regimen ordered - Jardiance 25 mg daily, lantus 30 units daily, low dose TIDWM and HS - A1C 11/18/23: 7.6 (6) Hypertension: Qualifiers: Hypertension type: essential hypertension Qualified Code(s): I10 - Essential (primary) hypertension Code(s): I10 - Essential (primary) hypertension Status: Acute Assessment and Plan: Chronic, continue home medications - diltiazem 240 mg daily - monitor (7) CAD (coronary artery disease): Qualifiers: Associated angina: unspecified whether angina present Coronary Disease- Associated Artery/Lesion type: unspecified vessel or lesion type [place] vs. transplanted heart: [place] heart Qualified Code(s): I25.10 - Atherosclerotic heart disease of [place] coronary artery without angina pectoris Code(s): I25.10 - Atherosclerotic heart disease of [place] coronary artery without angina pectoris Status: Chronic Assessment and Plan: Chronic, continue home medications. Time Spent With Patient Time with patient: 25 - 35 minutes Subjective Date/time seen: 02/10/24 10:13 Interval history: 68 year old male with past medical history of CAD, COPD, diabetes with frozen shoulder, hypertension, hypothyroidism, dyslipidemia, and OTTO presents to the hospital for shortness of breath. Patient is pleasant sitting up comfortably in bed. He continues to be short of breath more so with ambulation. Complains of increased chest congestion with non productive cough. Patient is back on baseline oxygen supplementation. He denies chest pain, palpitations, nausea/vomiting and abdominal pain. Review of Systems Review of Systems: All systems reviewed & are unremarkable except as noted in HPI and below Exam Narrative: AF HR 78 RR 20 Spo2 98 5L NC Baseline BP 132/78 General: male in no acute respiratory distress who is nontoxic appearing, sitting up in bed HEENT: Normocephalic. Atraumatic. Extraocular movement intact. Sclera clear and anicteric. No facial asymmetry. Chest: Lungs are diminished/coarse to auscultation bilaterally. No wheezes. CV: Heart was regular rate and rhythm. S1/S2. No murmurs, gallops, or rubs. Abd: Abdomen was soft. Nontender. Nondistended. Positive bowel sounds. No organomegaly or masses. Ext: No clubbing, cyanosis, or edema. 2+ DP pulses bilaterally. Neuro: Patient is alert. Cranial nerves 2-12 are intact. Speech is clear. Objective Data Vital Signs Vital Signs: Vital Signs - 24 hr 02/09/24 11:48 02/09/24 11:48 02/09/24 12:00 Temperature 98.4 F Pulse Rate 102 H 100 81 Respiratory Rate 16 18 Blood Pressure 149/65 H Pulse Oximetry 94 98 Oxygen Delivery Nasal Cannula Oxygen Flow Rate 6 Fraction of Inspired Oxygen 40 02/09/24 13:17 02/09/24 13:21 02/09/24 13:21 Temperature Pulse Rate 95 103 H Respiratory Rate 20 Blood Pressure Pulse Oximetry 98 Oxygen Delivery Nasal Cannula Oxygen Flow Rate 5 Fraction of Inspired Oxygen 40 02/09/24 13:32 02/09/24 16:00 02/09/24 16:00 Temperature Pulse Rate 110 H 100 Respiratory Rate 20 Blood Pressure Pulse Oximetry 97 Oxygen Delivery Nasal Cannula Oxygen Flow Rate 6 Fraction of Inspired Oxygen 40 02/09/24 16:00 02/09/24 17:10 02/09/24 20:00 Temperature 98.1 F Pulse Rate 81 102 H Respiratory Rate 20 Blood Pressure 152/72 H Pulse Oximetry 91 92 Oxygen Delivery Nasal Cannula Oxygen Flow Rate 5 Fraction of Inspired Oxygen 02/09/24 20:00 02/09/24 20:28 02/09/24 21:10 Temperature 98.1 F Pulse Rate 81 84 79 Respiratory Rate 20 20 Blood Pressure 148/68 H Pulse Oximetry 92 Oxygen Delivery Oxygen Flow Rate Fraction of Inspired Oxygen 02/09/24 21:20 02/09/24 22:00 02/09/24 23:15 Temperature Pulse Rate 88 99 90 Respiratory Rate 20 24 H Blood Pressure Pulse Oximetry 97 Oxygen Delivery BiPAP Oxygen Flow Rate Fraction of Inspired Oxygen 02/09/24 23:43 02/10/24 00:00 02/10/24 00:00 Temperature 98.7 F Pulse Rate 102 H 107 H Respiratory Rate 20 Blood Pressure 136/62 Pulse Oximetry 96 Oxygen Delivery BiPAP Oxygen Flow Rate Fraction of Inspired Oxygen 02/10/24 02:00 02/10/24 02:38 02/10/24 02:40 Temperature Pulse Rate 85 78 78 Respiratory Rate 21 H 28 H Blood Pressure Pulse Oximetry 98 Oxygen Delivery BiPAP Oxygen Flow Rate Fraction of Inspired Oxygen 02/10/24 02:52 02/10/24 04:00 02/10/24 04:00 Temperature Pulse Rate 82 96 Respiratory Rate 21 H Blood Pressure Pulse Oximetry Oxygen Delivery BiPAP Oxygen Flow Rate Fraction of Inspired Oxygen 02/10/24 05:17 02/10/24 06:00 02/10/24 07:20 Temperature 98.2 F Pulse Rate 93 77 77 Respiratory Rate 20 18 Blood Pressure 126/57 L Pulse Oximetry 94 99 Oxygen Delivery Nasal Cannula Oxygen Flow Rate 5 Fraction of Inspired Oxygen 02/10/24 07:20 02/10/24 07:30 02/10/24 08:00 Temperature 97.8 F Pulse Rate 77 80 81 Respiratory Rate 18 20 16 Blood Pressure 157/73 H Pulse Oximetry 100 Oxygen Delivery Oxygen Flow Rate Fraction of Inspired Oxygen Intake/Output Intake/Output: Intake & Output 02/07/24 02/08/24 02/09/24 02/10/24 23:59 23:59 23:59 23:59 Intake Total 1000 2390 3140 1080 Output Total 1480 2680 700 Balance 1000 910 460 380 Meds/Results Medications: Active Medications Generic Name Dose Route Start Last Admin Trade Name Freq PRN Reason Stop Dose Admin Acetaminophen 1,000 mg 02/07/24 21:55 Acetaminophen 500 Mg Tablet PO Q6H PRN Mild Pain (1-3) or Fever Albuterol 1 puff 02/08/24 05:56 Albuterol Sulfate (*Sp) Aerosol 1 Puff INHALATION Q4HRT PRN shortness of breath or wheezing Azelastine HCl 1 spray 02/08/24 09:00 02/10/24 09:40 Azelastine Hcl Nasal 0.1% 137 Mcg/Spr 30 Ml Btl NASAL 1 spray Q12HR JAMES Administration Benzonatate 100 mg 02/09/24 14:30 02/10/24 09:40 Benzonatate 100 Mg Capsule PO 100 mg TID JAMES Administration Dexamethasone Sodium Phosphate 6 mg 02/08/24 09:00 02/10/24 09:39 Dexamethasone Sod Phos Inj 10 Mg/Ml 1 Ml Vial IV PUSH 02/16/24 09:01 6 mg DAILY JAMES Administration Dextrose 12.5 gm 02/07/24 22:10 Dextrose 50% 25 Gm/50 Ml Syringe IV PUSH PRN PRN Hypoglycemia Protocol Diltiazem HCl 240 mg 02/08/24 09:00 02/10/24 09:40 Diltiazem Hcl Cd 240 Mg Cap.24hr PO 240 mg DAILY JAMES Administration Empagliflozin 25 mg 02/08/24 09:00 02/10/24 09:40 Empagliflozin 25 Mg Tablet PO 25 mg DAILY JAMES Administration Enoxaparin Sodium 40 mg 02/09/24 21:00 02/10/24 09:40 Enoxaparin 40 Mg/0.4 Ml Syringe SUB-Q 40 mg Q12HR JAMES Administration Fluticasone Propionate 2 spray 02/08/24 05:56 Fluticasone Propionate 0.05% Na Spr 16 Gm Btl (*Bkc) NASAL DAILY PRN nasal congestion Fluticasone/Umeclidinium/Vilanterol 1 puff 02/08/24 08:00 02/10/24 07:20 Fluticasone/Umeclidin/Vilanter 100-62.5-25 Mcg Ellipta INHALATION 1 puff DAILYRT JAMES Administration Glucagon 1 mg 02/07/24 22:10 Glucagon For Inj 1 Mg Vial IM PRN PRN Hypoglycemia Protocol Glucose 15 gm 02/07/24 22:10 Glucose Oral Gel 15 Gm Of Glucse In 37.5 Gm Tube PO PRN PRN Hypoglycemia Protocol Remdesivir 100 mg in 250 mls @ 250 mls/hr 02/08/24 22:00 02/09/24 22:16 IVPB 02/11/24 22:59 Infused Q24H JAMES Infusion Dextrose 1,000 mls @ 100 mls/hr 02/07/24 22:10 Dextrose 5% 1,000 Ml IVPB PRN PRN Hypoglycemia Protocol Ceftriaxone Sodium 2 gm in 100 mls @ 200 mls/hr 02/08/24 05:00 02/10/24 05:29 Rocephin 2 Gm/Ns 100 Ml IVPB 200 mls/hr Q24H JAMES Administration Azithromycin 500 mg in 250 mls @ 250 mls/hr 02/08/24 06:00 02/10/24 06:05 Zithromax IVPB 250 mls/hr Q24H JAMES Administration Insulin Glargine 30 units 02/08/24 09:00 02/10/24 09:40 Insulin Glargine (*Bkc) 100 Units/Ml SUB-Q 30 units DAILY JAMES Administration Ipratropium [place] 0.5 mg 02/08/24 08:00 02/10/24 07:20 Ipratropium Br 0.02% Inh Soln 0.5 Mg/2.5 Ml Vial INHALATION 0.5 mg Q6HRT JAMES Administration Levalbuterol HCl 0.63 mg 02/08/24 08:00 02/10/24 07:20 Levalbuterol Neb 1.25 Mg/3 Ml INHALATION 0.63 mg Q6HRT JAMES Administration Levothyroxine Sodium 100 mcg 02/08/24 06:30 02/10/24 06:06 Levothyroxine Sodium 100 Mcg Tablet PO 100 mcg DAILY@0630 JAMES Administration Ondansetron HCl 4 mg 02/07/24 21:55 Ondansetron Inj 4 Mg/2 Ml Vial IV PUSH Q4H PRN Nausea Polyethylene Glycol 17 gm 02/10/24 09:00 02/10/24 09:40 Polyethylene Glycol 3350 17 Gm Powd.Pack PO 17 gm QAM JAMES Administration Roflumilast 500 mcg 02/08/24 21:00 02/09/24 21:07 Roflumilast 500 Mcg Tablet PO 500 mcg HS JAMES Administration Senna/Docusate Sodium 1 tab 02/09/24 21:30 02/09/24 22:33 Senna/Docusate Sodium Tablet PO 1 tab HS JAMES Administration Radiology Results: ITS Impressions Chest X-Ray 02/07/24 17:03 IMPRESSION: Bilateral pneumonitis more on the left side. Differential include pulmonary edema although less likely. Venous Doppler Study 02/08/24 09:48 IMPRESSION: 1. No deep venous thrombosis in either lower limb. Labs Labs: Laboratory Results - last 24 hr 02/09/24 02/09/24 02/09/24 15:19 16:17 19:55 WBC RBC Hgb Hct MCV MCH MCHC RDW Plt Count MPV Immature Gran % (Auto) Neut % (Auto) Lymph % (Auto) [place] % (Auto) Eos % (Auto) Baso % (Auto) Lymph # (Auto) [place] # (Auto) Eos # (Auto) Baso # (Auto) Abs Immat Gran (auto) Absolute Neuts (auto) Absolute Nucleated RBC Nucleated RBC % Platelet Estimate Hypochromasia Anisocytosis Ovalocytes Schistocytes Sodium Potassium Chloride Carbon Dioxide Anion Gap BUN Creatinine Estim Creat Clear Calc Estimated GFR Glucose POC Capillary Glucose 282 H 242 H 245 H Calcium 02/10/24 02/10/24 04:29 08:12 WBC 11.5 H RBC 5.66 Hgb 12.6 L Hct 43.0 MCV 76.0 L MCH 22.3 L MCHC 29.3 L RDW 16.3 H Plt Count 259 MPV 11.9 H Immature Gran % (Auto) 0.5 Neut % (Auto) 83.3 H Lymph % (Auto) 9.8 L [place] % (Auto) 6.2 Eos % (Auto) 0.0 Baso % (Auto) 0.2 Lymph # (Auto) 1.12 [place] # (Auto) 0.7 H Eos # (Auto) 0.0 Baso # (Auto) 0.0 Abs Immat Gran (auto) 0.06 H Absolute Neuts (auto) 9.6 H Absolute Nucleated RBC 0.000 Nucleated RBC % 0.0 Platelet Estimate Adequate Hypochromasia 1+ Anisocytosis 1+ Ovalocytes 1+ Schistocytes None seen Sodium 140 Potassium 4.1 Chloride 103 Carbon Dioxide 34 H Anion Gap 3 L BUN 19 Creatinine 0.80 Estim Creat Clear Calc 102 Estimated GFR > 60 Glucose 189 H POC Capillary Glucose 140 H Calcium 9.0 Quality VTE Prophylaxis VTE prophylaxis: pharmacologic ordered
[2024-02-10 12:00] LABS: Glucose Point of Care 170 mg/dl (65-105)
[2024-02-10 16:38] LABS: Glucose Point of Care 230 mg/dl (65-105)
[2024-02-10] MEDS: INSULIN ASPART (*BKC) 100 UNITS/ML SUB-Q (18:36)
[2024-02-10 20:29] LABS: Glucose Point of Care 223 mg/dl (65-105)
[2024-02-10] MEDS: SENNA/DOCUSATE SODIUM TABLET 1 TAB PO (21:38)
[2024-02-10] MEDS: ROFLUMILAST 500 MCG TABLET PO (21:38)
[2024-02-10] MEDS: REMDESIVIR 100 MG/NS 250 ML 100 MG/250 ML BAG 250 MG IVPB (21:39)
[2024-02-10 21:54] LABS: Glucose Point of Care 263 mg/dl (65-105)
[2024-02-11] VITALS (11 sets, daily range): BP systolic 134–152; BP diastolic 68–72; PULSE 68–102; RESP 20–29; TEMP 36.4–36.8; O2SAT 94–100
[2024-02-11] MEDS: IPRATROPIUM BR 0.02% INH SOLN 0.5 MG/2.5 ML VIAL INHALATION ×3 (01:26→13:20)
[2024-02-11] MEDS: LEVALBUTEROL NEB 1.25 MG/3 ML 0.63 MG INHALATION ×3 (01:26→13:21)
[2024-02-11] MEDS: LEVOTHYROXINE SODIUM 100 MCG TABLET PO (04:59)
[2024-02-11 05:31] LABS: INR 1.1; Prothrombin Time 14.4 Seconds (11.1-14.7)
[2024-02-11 05:33] LABS: Alanine Aminotransferase 22 U/L (6-50); Albumin Level 3.7 g/dL (3.5-5.1); Alkaline Phosphatase 74 U/L (38-126); Aspartate Amino Transferase 25 U/L (17-59); Bilirubin,Total 0.4 mg/dL (0.2-1.3)
[2024-02-11] MEDS: FLUTICASONE/UMECLIDIN/VILANTER 100-62.5-25 MCG ELLIPTA 1 PUFF INHALATION (07:42)
[2024-02-11 08:40] LABS: Glucose Point of Care 129 mg/dl (65-105)
[2024-02-11] MEDS: INSULIN GLARGINE (*BKC) 100 UNITS/ML 30 UNITS SUB-Q (08:51)
[2024-02-11] MEDS: ENOXAPARIN 40 MG/0.4 ML SYRINGE SUB-Q (08:51)
[2024-02-11] MEDS: polyethylene glycoL 3350 17 GM POWD.PACK PO (08:51)
[2024-02-11] MEDS: EMPAGLIFLOZIN 25 MG TABLET PO (08:52)
[2024-02-11] MEDS: dexAMETHasone 2 MG TABLET 6 MG PO (08:52)
[2024-02-11] MEDS: BENZONATATE 100 MG CAPSULE PO ×2 (08:52→12:38)
[2024-02-11] MEDS: AZELASTINE HCL NASAL 0.1% 137 MCG/SPR 30 ML BTL 1 SPRAY NASAL (08:52)
[2024-02-11] MEDS: AZITHROMYCIN 250 MG TABLET 500 MG PO (08:52)
[2024-02-11] MEDS: dilTIAZem HCL CD 240 MG CAP.24HR PO (08:52)
[2024-02-11] MEDS: AMOXICILLIN/CLAVULANATE K 875-125 MG TAB 1 TABLET PO (08:52)
--- NOTE | 2024-02-11 09:14 | P.PNIM_ITS ---
Progress Note: A&P Assessment and Plan (1) Acute on chronic hypoxic respiratory failure: Code(s): J96.21 - Acute and chronic respiratory failure with hypoxia Status: Acute Assessment and Plan: Chronic respiratory failure on 5 L NC at baseline. Noted to be hypoxic into the 80s on baseline oxygen per chart review. Likely due to COPD exacerbation secondary pneumonia and covid Patient is no longer requiring the use of BiPAP Back on 5 L of oxygen by nasal cannula with stable oxygen saturations Monitor (2) Pneumonia: Qualifiers: Laterality: unspecified laterality Lung location: unspecified part of lung Pneumonia type: due to unspecified organism Qualified Code(s): J18.9 - Pneumonia, unspecified organism Code(s): J18.9 - Pneumonia, unspecified organism Status: Acute Assessment and Plan: CXR: Bilateral pneumonitis more on the left side. Differential include pulmonary edema although less likely. - Complicating Factors: COPD on chronic oxygen supplementation - started on CAP tx: azithromycin ceftriaxone IV on 02/07, transitioned to PO azithromycin and Augmentin on 02/09 - Viral PCR: COVID positive - 5 supplemental O2 requirement (baseline) - Monitor vital signs, I&Os, neuro status and patient is a fall risk - Follow WBC, serum electrolytes, temperature curves and cultures (3) COPD (chronic obstructive pulmonary disease): Qualifiers: COPD type: unspecified COPD Qualified Code(s): J44.9 - Chronic obstructive pulmonary disease, unspecified Code(s): J44.9 - Chronic obstructive pulmonary disease, unspecified Status: Chronic Assessment and Plan: - Exacerbation likely secondary to pneumonia and covid - Started on azithromycin 02/07, transitioned to oral 02/09 - Duonebz q6H and Albuterol q2H prn - Decadron 6 mg IV daily for covid - Monitor vital signs, I&Os, neuro status and patient is a fall risk - Monitor serum electrolytes, cultures and CBC - Monitor Oxygen saturation, Oxygen via 5L NC (baseline); wean oxygen as tolerated, keep SpO2 greater than 88% (4) COVID-19: Code(s): U07.1 - COVID-19 Status: Acute Assessment and Plan: - Viral panel: Covid positive - Place in COVID19 isolation precautions, cardiac monitoring, and continuous pulse ox - Monitor serum electrolytes, CRP, Lactic acid, troponin, CBC, WBC, temperature curve and follow cultures - Remains on 5L NC (baseline). Oxygen via NC; wean as tolerated. Keep spO2 greater than 91% -Pneumonia treatment: IV Ceftriaxone 2 gram IV q24hr and Azithromycin 500mg IV 24 hours will be initiated - Pt is a candidate for Remdesivir and Dexamethasone, continue treatment according to suggested guidelines. 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 Status: Chronic Assessment and Plan: - hypoglycemia protocol - POC blood glucose ACHS - home medication - Jardiance 25 mg daily, tresiba 30 units daily, lispro 18 units with dinner - correct regimen ordered - Jardiance 25 mg daily, lantus 30 units daily, low dose TIDWM and HS - A1C 11/18/23: 7.6 (6) Hypertension: Qualifiers: Hypertension type: essential hypertension Qualified Code(s): I10 - Essential (primary) hypertension Code(s): I10 - Essential (primary) hypertension Status: Acute Assessment and Plan: Chronic, continue home medications - diltiazem 240 mg daily - monitor (7) CAD (coronary artery disease): Qualifiers: Coronary Disease-Associated Artery/Lesion type: unspecified vessel or lesion type [place] vs. transplanted heart: [place] heart Associated angina: unspecified whether angina present Qualified Code(s): I25.10 - Atherosclerotic heart disease of [place] coronary artery without angina pectoris Code(s): I25.10 - Atherosclerotic heart disease of [place] coronary artery without angina pectoris Status: Chronic Assessment and Plan: Chronic, continue home medications. Subjective Date/time seen: 02/11/24 09:14 Interval history: 68 year old male with past medical history of CAD, COPD, diabetes with frozen shoulder, hypertension, hypothyroidism, dyslipidemia, and OTTO presents to the hospital for shortness of breath. Review of Systems Review of Systems: All systems reviewed & are unremarkable except as noted in HPI and below Exam Narrative: AF HR General: male in no acute respiratory distress who is nontoxic appearing, sitting up in bed HEENT: Normocephalic. Atraumatic. Extraocular movement intact. Sclera clear and anicteric. No facial asymmetry. Chest: Lungs are diminished/coarse to auscultation bilaterally. No wheezes. CV: Heart was regular rate and rhythm. S1/S2. No murmurs, gallops, or rubs. Abd: Abdomen was soft. Nontender. Nondistended. Positive bowel sounds. No organomegaly or masses. Ext: No clubbing, cyanosis, or edema. 2+ DP pulses bilaterally. Neuro: Patient is alert. Cranial nerves 2-12 are intact. Speech is clear. Objective Data Vital Signs Vital Signs: Vital Signs - 24 hr 02/10/24 10:00 02/10/24 12:00 02/10/24 12:00 Temperature 98.1 F Pulse Rate 73 75 Respiratory Rate 24 H Blood Pressure 132/78 Pulse Oximetry 97 98 Oxygen Delivery Nasal Cannula Oxygen Flow Rate 5 Fraction of Inspired Oxygen 02/10/24 12:00 02/10/24 13:15 02/10/24 13:25 Temperature Pulse Rate 81 83 84 Respiratory Rate 18 20 Blood Pressure Pulse Oximetry Oxygen Delivery Oxygen Flow Rate Fraction of Inspired Oxygen 02/10/24 14:00 02/10/24 16:00 02/10/24 16:00 Temperature 97.6 F Pulse Rate 78 96 73 Respiratory Rate 25 H Blood Pressure 150/81 H Pulse Oximetry 96 Oxygen Delivery Oxygen Flow Rate Fraction of Inspired Oxygen 02/10/24 19:55 02/10/24 19:55 02/10/24 20:00 Temperature Pulse Rate 85 85 73 Respiratory Rate 18 18 20 Blood Pressure Pulse Oximetry 100 100 Oxygen Delivery Nasal Cannula Nasal Cannula Oxygen Flow Rate 5 5 Fraction of Inspired Oxygen 40 02/10/24 20:00 02/10/24 20:04 02/10/24 20:44 Temperature 98.2 F Pulse Rate 73 76 84 Respiratory Rate 20 20 Blood Pressure 132/63 Pulse Oximetry 100 Oxygen Delivery Oxygen Flow Rate Fraction of Inspired Oxygen 02/11/24 00:00 02/11/24 01:26 02/11/24 01:37 Temperature Pulse Rate 74 82 82 Respiratory Rate 29 H 29 H Blood Pressure Pulse Oximetry 98 Oxygen Delivery CPAP Oxygen Flow Rate Fraction of Inspired Oxygen 02/11/24 01:37 02/11/24 03:57 02/11/24 04:26 Temperature 98.3 F Pulse Rate 88 88 102 H Respiratory Rate 22 H 20 Blood Pressure 134/68 Pulse Oximetry 94 Oxygen Delivery Oxygen Flow Rate Fraction of Inspired Oxygen 02/11/24 07:43 02/11/24 07:43 02/11/24 07:54 Temperature Pulse Rate 68 70 Respiratory Rate 20 20 Blood Pressure Pulse Oximetry 97 Oxygen Delivery Nasal Cannula Oxygen Flow Rate 4 Fraction of Inspired Oxygen 02/11/24 08:00 Temperature 97.6 F Pulse Rate 81 Respiratory Rate 20 Blood Pressure 152/72 H Pulse Oximetry 97 Oxygen Delivery Oxygen Flow Rate Fraction of Inspired Oxygen Intake/Output Intake/Output: Intake & Output 02/08/24 02/09/24 02/10/24 02/11/24 23:59 23:59 23:59 23:59 Intake Total 2390 3140 2660 600 Output Total 1480 2680 1800 700 Balance 910 460 860 -100 Meds/Results Medications: Active Medications Generic Name Dose Route Start Last Admin Trade Name Freq PRN Reason Stop Dose Admin Acetaminophen 1,000 mg 02/07/24 21:55 Acetaminophen 500 Mg Tablet PO Q6H PRN Mild Pain (1-3) or Fever Albuterol 1 puff 02/08/24 05:56 Albuterol Sulfate (*Sp) Aerosol 1 Puff INHALATION Q4HRT PRN shortness of breath or wheezing Amoxicillin/Clavulanate Potassium 1 tablet 02/11/24 08:00 02/11/24 08:52 Amoxicillin/Clavulanate K 875-125 Mg Tab PO 02/14/24 20:01 1 tablet Q12H JAMES Administration Azelastine HCl 1 spray 02/08/24 09:00 02/11/24 08:52 Azelastine Hcl Nasal 0.1% 137 Mcg/Spr 30 Ml Btl NASAL 1 spray Q12HR JAMES Administration Azithromycin 500 mg 02/11/24 09:00 02/11/24 08:52 Azithromycin 250 Mg Tablet PO 02/12/24 09:01 500 mg DAILY JAMES Administration Benzonatate 100 mg 02/09/24 14:30 02/11/24 08:52 Benzonatate 100 Mg Capsule PO 100 mg TID JAMES Administration Dexamethasone 6 mg 02/11/24 08:00 02/11/24 08:52 Dexamethasone 2 Mg Tablet PO 02/16/24 08:01 6 mg DAILY@0800 JAMES Administration Dextrose 12.5 gm 02/07/24 22:10 Dextrose 50% 25 Gm/50 Ml Syringe IV PUSH PRN PRN Hypoglycemia Protocol Diltiazem HCl 240 mg 02/08/24 09:00 02/11/24 08:52 Diltiazem Hcl Cd 240 Mg Cap.24hr PO 240 mg DAILY JAMES Administration Empagliflozin 25 mg 02/08/24 09:00 02/11/24 08:52 Empagliflozin 25 Mg Tablet PO 25 mg DAILY JAMES Administration Enoxaparin Sodium 40 mg 02/09/24 21:00 02/11/24 08:51 Enoxaparin 40 Mg/0.4 Ml Syringe SUB-Q 40 mg Q12HR JAMES Administration Fluticasone Propionate 2 spray 02/08/24 05:56 Fluticasone Propionate 0.05% Na Spr 16 Gm Btl (*Bkc) NASAL DAILY PRN nasal congestion Fluticasone/Umeclidinium/Vilanterol 1 puff 02/08/24 08:00 02/11/24 07:42 Fluticasone/Umeclidin/Vilanter 100-62.5-25 Mcg Ellipta INHALATION 1 puff DAILYRT JAMES Administration Glucagon 1 mg 02/07/24 22:10 Glucagon For Inj 1 Mg Vial IM PRN PRN Hypoglycemia Protocol Glucose 15 gm 02/07/24 22:10 Glucose Oral Gel 15 Gm Of Glucse In 37.5 Gm Tube PO PRN PRN Hypoglycemia Protocol Remdesivir 100 mg in 250 mls @ 250 mls/hr 02/08/24 22:00 02/10/24 21:39 IVPB 02/11/24 22:59 250 mls/hr Q24H JAMES Administration Dextrose 1,000 mls @ 100 mls/hr 02/07/24 22:10 Dextrose 5% 1,000 Ml IVPB PRN PRN Hypoglycemia Protocol Insulin Aspart 2 - 5 units 02/10/24 17:00 02/11/24 08:45 Insulin Aspart (*Bkc) 100 Units/Ml SUB-Q Not Given TIDWM JAMES Protocol Insulin Glargine 30 units 02/08/24 09:00 02/11/24 08:51 Insulin Glargine (*Bkc) 100 Units/Ml SUB-Q 30 units DAILY JAMES Administration Ipratropium [place] 0.5 mg 02/08/24 08:00 02/11/24 07:42 Ipratropium Br 0.02% Inh Soln 0.5 Mg/2.5 Ml Vial INHALATION 0.5 mg Q6HRT JAMES Administration Levalbuterol HCl 0.63 mg 02/08/24 08:00 02/11/24 07:43 Levalbuterol Neb 1.25 Mg/3 Ml INHALATION 0.63 mg Q6HRT JAMES Administration Levothyroxine Sodium 100 mcg 02/08/24 06:30 02/11/24 04:59 Levothyroxine Sodium 100 Mcg Tablet PO 100 mcg DAILY@0630 JAMES Administration Ondansetron HCl 4 mg 02/07/24 21:55 Ondansetron Inj 4 Mg/2 Ml Vial IV PUSH Q4H PRN Nausea Polyethylene Glycol 17 gm 02/10/24 09:00 02/11/24 08:51 Polyethylene Glycol 3350 17 Gm Powd.Pack PO 17 gm QAM JAMES Administration Roflumilast 500 mcg 02/08/24 21:00 02/10/24 21:38 Roflumilast 500 Mcg Tablet PO 500 mcg HS JAMES Administration Senna/Docusate Sodium 1 tab 02/09/24 21:30 02/10/24 21:38 Senna/Docusate Sodium Tablet PO 1 tab HS JAMES Administration Radiology Results: ITS Impressions Chest X-Ray 02/07/24 17:03 IMPRESSION: Bilateral pneumonitis more on the left side. Differential include pulmonary edema although less likely. Venous Doppler Study 02/08/24 09:48 IMPRESSION: 1. No deep venous thrombosis in either lower limb. Labs Labs: Laboratory Results - last 24 hr 02/10/24 02/10/24 02/10/24 11:19 16:32 20:19 PT INR POC Capillary Glucose 170 H 230 H 223 H Total Bilirubin Direct Bilirubin AST ALT Alkaline Phosphatase Total Protein Albumin 02/10/24 02/11/24 02/11/24 21:51 04:49 08:20 PT 14.4 INR 1.1 POC Capillary Glucose 263 H 129 H Total Bilirubin 0.4 Direct Bilirubin 0.0 AST 25 ALT 22 Alkaline Phosphatase 74 Total Protein 7.0 Albumin 3.7 Quality VTE Prophylaxis VTE prophylaxis: pharmacologic ordered
[2024-02-11 09:27] LABS: Basophils Percent Auto 0.1 % (0.2-1.2); Eosinophils Percent Auto 0.1 % (0-4.4); Hematocrit 41.3 % (42.0-52.0); Hemoglobin 12.1 g/dL (14.0-18.0); Immature Granulocyte Absolute 0.06 K/mm3 (0.00-0.031); Immature Granulocyte Percent A 0.5 % (0-0.5); Lymphocytes Absolute Auto 1.29 K/mm3 (0.9-3.2); Lymphocytes Percent Auto 10.5 % (18.3-44.2); Mean Corpuscular HGB Conc 29.3 g/dl (32-36); Mean Corpuscular Hemoglobin 22.3 pg (26-34); Mean Corpuscular Volume 76.2 fl (80-100); Monocytes Absolute Auto 0.8 K/mm3 (0.1-0.6); Monocytes Percent Auto 6.7 % (2.6-8.5); Neutrophils Absolute Auto 10.1 K/mm3 (1.3-6.7); Neutrophils Percent Auto 82.1 % (45.5-73.1); Platelet Count Result 206 k/mm3 (150-375); Red Blood Count 5.42 M/mm3 (4.6-6.20); Red Cell Distribution Width 16.2 % (11.5-14.5); White Blood Count 12.3 K/mm3 (4.5-10.0)
[2024-02-11 10:19] LABS: Anisocytosis 1+; Ovalocytes 1+; Platelet Estimate Adequate (Adequate)
[2024-02-11 10:20] LABS: Schistocytes None Seen
[2024-02-11 10:32] LABS: Alanine Aminotransferase 22 U/L (6-50); Albumin Level 3.6 g/dL (3.5-5.1); Alkaline Phosphatase 77 U/L (38-126); Anion Gap 2 mmol/L (4-12); Aspartate Amino Transferase 23 U/L (17-59); Bilirubin,Total 0.3 mg/dL (0.2-1.3); Blood Urea Nitrogen 19 mg/dL (9-20); Calcium 9.4 mg/dL (8.4-10.2); Carbon Dioxide 33 mmol/L (22-30); Chloride 106 mmol/L (98-107); Estimated CRCL calculation 133 ml/min; Estimated Glomerular Filt Rate > 60; Glucose 135 mg/dL (65-110); Potassium 4.5 mmol/L (3.4-5.0); Sodium 141 mmol/L (137-145)
[2024-02-11 11:57] LABS: Glucose Point of Care 178 mg/dl (65-105)
--- NOTE | 2024-02-11 14:53 | P.DS_ITS ---
DS: Discharge Diagnosis Discharge Diagnosis (1) Acute on chronic hypoxic respiratory failure: Code(s): J96.21 - Acute and chronic respiratory failure with hypoxia Status: Acute (2) Pneumonia: Qualifiers: Laterality: unspecified laterality Lung location: unspecified part of lung Pneumonia type: due to unspecified organism Qualified Code(s): J18.9 - Pneumonia, unspecified organism Code(s): J18.9 - Pneumonia, unspecified organism Status: Acute (3) COPD (chronic obstructive pulmonary disease): Qualifiers: COPD type: unspecified COPD Qualified Code(s): J44.9 - Chronic obstructive pulmonary disease, unspecified Code(s): J44.9 - Chronic obstructive pulmonary disease, unspecified Status: Chronic (4) COVID-19: Code(s): U07.1 - COVID-19 Status: Acute (5) Type 2 diabetes mellitus treated with insulin: Code(s): E11.9 - Type 2 diabetes mellitus without complications; 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 transplanted heart: [place] heart Qualified Code(s): I25.10 - Atherosclerotic heart disease of [place] coronary artery without angina pectoris Code(s): I25.10 - Atherosclerotic heart disease of [place] coronary artery without angina pectoris Status: Chronic DS: Summary Time Spent with Patient Time attestation: Total time spent providing and/or coordinating discharge services: Exam Narrative: AF HR 76 RR 20 SPo2 100 5 L NC (baseline) BP 152/72 General: male in no acute respiratory distress who is nontoxic appearing, sitting up in bed HEENT: Normocephalic. Atraumatic. Extraocular movement intact. Sclera clear and anicteric. No facial asymmetry. Chest: Lungs are diminished but clear to auscultation bilaterally. No wheezes. CV: Heart was regular rate and rhythm. S1/S2. No murmurs, gallops, or rubs. Abd: Abdomen was soft. Nontender. Nondistended. Positive bowel sounds. No organomegaly or masses. Neuro: Patient is alert. Speech is clear. DS: Data Data Completed and Pending Labs on day of discharge: Labs from last 24 hours 02/11/24 02/11/24 02/11/24 11:25 08:20 04:49 WBC RBC Hgb Hct MCV MCH MCHC RDW Plt Count MPV Immature Gran % (Auto) Neut % (Auto) Lymph % (Auto) [place] % (Auto) Eos % (Auto) Baso % (Auto) Lymph # (Auto) [place] # (Auto) Eos # (Auto) Baso # (Auto) Abs Immat Gran (auto) Absolute Neuts (auto) Absolute Nucleated RBC Nucleated RBC % Platelet Estimate % Immature Plt Fraction Anisocytosis Ovalocytes Schistocytes PT INR Sodium Potassium Chloride Carbon Dioxide Anion Gap BUN Creatinine Estim Creat Clear Calc Estimated GFR Glucose POC Capillary Glucose 178 H 129 H Calcium Total Bilirubin Direct Bilirubin AST ALT Alkaline Phosphatase Total Protein Albumin 3.6 02/11/24 02/11/24 02/11/24 04:49 04:49 04:49 WBC RBC Hgb Hct MCV MCH MCHC RDW Plt Count MPV Immature Gran % (Auto) Neut % (Auto) Lymph % (Auto) [place] % (Auto) Eos % (Auto) Baso % (Auto) Lymph # (Auto) [place] # (Auto) Eos # (Auto) Baso # (Auto) Abs Immat Gran (auto) Absolute Neuts (auto) Absolute Nucleated RBC Nucleated RBC % Platelet Estimate % Immature Plt Fraction Anisocytosis Ovalocytes Schistocytes PT INR Sodium Potassium Chloride Carbon Dioxide Anion Gap BUN Creatinine Estim Creat Clear Calc Estimated GFR Glucose POC Capillary Glucose Calcium Total Bilirubin Direct Bilirubin AST ALT 22 Alkaline Phosphatase 77 74 Total Protein 6.0 L 7.0 Albumin 3.7 02/11/24 02/11/24 02/11/24 04:49 04:49 04:49 WBC RBC Hgb Hct MCV MCH MCHC RDW Plt Count MPV Immature Gran % (Auto) Neut % (Auto) Lymph % (Auto) [place] % (Auto) Eos % (Auto) Baso % (Auto) Lymph # (Auto) [place] # (Auto) Eos # (Auto) Baso # (Auto) Abs Immat Gran (auto) Absolute Neuts (auto) Absolute Nucleated RBC Nucleated RBC % Platelet Estimate % Immature Plt Fraction Anisocytosis Ovalocytes Schistocytes PT 14.4 INR 1.1 Sodium 141 Potassium 4.5 Chloride 106 Carbon Dioxide 33 H Anion Gap 2 L BUN 19 Creatinine 0.60 L Estim Creat Clear Calc 133 Estimated GFR > 60 Glucose 135 H POC Capillary Glucose Calcium 9.4 Total Bilirubin 0.3 0.4 Direct Bilirubin 0.0 AST 23 25 ALT 22 Alkaline Phosphatase Total Protein Albumin 02/11/24 02/10/24 02/10/24 04:47 21:51 20:19 WBC 12.3 H RBC 5.42 Hgb 12.1 L Hct 41.3 L MCV 76.2 L MCH 22.3 L MCHC 29.3 L RDW 16.2 H Plt Count 206 MPV 13.0 H Immature Gran % (Auto) 0.5 Neut % (Auto) 82.1 H Lymph % (Auto) 10.5 L [place] % (Auto) 6.7 Eos % (Auto) 0.1 Baso % (Auto) 0.1 L Lymph # (Auto) 1.29 [place] # (Auto) 0.8 H Eos # (Auto) 0.0 Baso # (Auto) 0.0 Abs Immat Gran (auto) 0.06 H Absolute Neuts (auto) 10.1 H Absolute Nucleated RBC 0.000 Nucleated RBC % 0.0 Platelet Estimate Adequate % Immature Plt Fraction 9.0 Anisocytosis 1+ Ovalocytes 1+ Schistocytes None seen PT INR Sodium Potassium Chloride Carbon Dioxide Anion Gap BUN Creatinine Estim Creat Clear Calc Estimated GFR Glucose POC Capillary Glucose 263 H 223 H Calcium Total Bilirubin Direct Bilirubin AST ALT Alkaline Phosphatase Total Protein Albumin 02/10/24 16:32 WBC RBC Hgb Hct MCV MCH MCHC RDW Plt Count MPV Immature Gran % (Auto) Neut % (Auto) Lymph % (Auto) [place] % (Auto) Eos % (Auto) Baso % (Auto) Lymph # (Auto) [place] # (Auto) Eos # (Auto) Baso # (Auto) Abs Immat Gran (auto) Absolute Neuts (auto) Absolute Nucleated RBC Nucleated RBC % Platelet Estimate % Immature Plt Fraction Anisocytosis Ovalocytes Schistocytes PT INR Sodium Potassium Chloride Carbon Dioxide Anion Gap BUN Creatinine Estim Creat Clear Calc Estimated GFR Glucose POC Capillary Glucose 230 H Calcium Total Bilirubin Direct Bilirubin AST ALT Alkaline Phosphatase Total Protein Albumin Preliminary micro results at discharge 02/07/24 19:47 Blood Culture - Preliminary Blood 02/07/24 19:47 Blood Culture - Preliminary Blood Discharge Plan Discharge Attending physician on discharge: Johan Naranjo Discharging Clinician: Chayito Tyson Anticipated Discharge Date/Time: 02/11/24 14:41 Patient Disposition: Home, Self-Care Activity: as tolerated Diet: as tolerated, heart healthy and diabetic Discharge Instructions: Discharge disposition: Patient admitted to the hospital for low oxygen levels on her chronic oxygen supplementation of 5 L Diagnosed with COPD exacerbation likely secondary to covid and pneumonia Patient was started on treatment and able to be weaned back down to baseline oxygen Continue oxygen supplementation of 5 L at home Take medications as prescribed Augmentin, course to be completed on 02/13 Azithromycin, course to be completed on 02/11 Decadron, course ot be completed on 02/15 Attached is information on these medications Monitor blood pressures Take caution while standing, rising, or moving Change positions slowly taking a break between each position change If you standing feel dizzy sat back down and take a break Continue to monitor blood glucose levels Continue your diabetes medications as prescribed Encouraged to continue with yearly vaccinations Return to the emergency department if he developed sudden shortness of breath, chest pain, nausea, vomiting, upset stomach or intractable diarrhea Return to the emergency department if you develop fever greater than 101.5 Follow-up with the primary care physician within 1-2 weeks Thank you for [facility] for your healthcare needs Patient Instructions: Antibiotic Form, Amoxicillin/Clavulanate Potassium (By mouth), Azithromycin (By mouth), Dexamethasone (By mouth), COPD (Chronic Obstruc tive Pulmonary Disease) (DC), Community Acquired Pneumonia (DC), COVID-19 (Coronavirus Disease 2019) (DC) Patient Language: Tajik Stand Alone Forms: General Discharge Information Follow-up/Referrals: Hilda Linares NP [Primary Care Provider] - 1 Week Discharge Medications: New azithromycin [Zithromax] 250 mg Tablet 500 mg PO DAILY Qty: 2 0RF dexamethasone 2 mg Tablet 6 mg PO DAILY@0800 Qty: 5 0RF amoxicillin-pot clavulanate 875-125 mg tablet 1 tablet PO Q12H Qty: 6 0RF Continued Humalog KwikPen Insulin 200 unit/mL (3 mL) insulin pen 18 unit subcut QACDINNER (DME) 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 Rx Instructions: As directed Jardiance 25 mg tablet 25 mg PO DAILY Qty: 90 1RF insulin degludec [Tresiba FlexTouch U-100] 100 unit/mL (3 mL) insulin pen 30 unit SUB-Q DAILY Rx Instructions: as per insulin protocol albuterol sulfate 2.5 mg /3 mL (0.083 %) solution for nebulization 2.5 mg INHALATION Q6H albuterol sulfate 90 mcg/actuation HFA aerosol inhaler See Rx Instructions .ROUTE .COMPLEX PRN (Reason: shortness of breath or wheezing) Rx Instructions: INHALE 1 PUFF BY MOUTH EVERY 4 TO 6 HOURS NEEDED FOR SHORTNESS OF BREATH. roflumilast 500 mcg tablet 500 mcg PO HS atorvastatin 40 mg tablet 40 mg PO DAILY levothyroxine 100 mcg tablet 100 mcg PO DAILY ezetimibe 10 mg tablet See Rx Instructions .ROUTE .COMPLEX Qty: 90 2RF Dose Instruction: Take 1 tablet by mouth once daily Rx Instructions: Take 1 tablet by mouth once daily Breztri Aerosphere 160-9-4.8 mcg/actuation HFA aerosol inhaler 2 inh inhalation BID 30 Days Qty: 10.7 11RF Rx Instructions: Rinse and spit after use. potassium chloride [Klor-Con 10] 10 mEq tablet extended release 10 meq PO DAILY Qty: 90 1RF azelastine 137 mcg (0.1 %) spray,non-aerosol 137 mcg intranasal Q12H 30 Days Qty: 8.22 5RF Rx Instructions: administer into each nostril fluticasone propionate [Flonase Allergy Relief] 50 mcg/actuation spray,suspension 2 spray intranasal DAILY PRN (Reason: nasal congestion) Qty: 9.9 5RF Rx Instructions: administer into each nostril furosemide 40 mg tablet See Rx Instructions .ROUTE .COMPLEX Qty: 180 2RF Dose Instruction: Take 1 tablet by mouth twice daily Rx Instructions: Take 1 tablet by mouth twice daily diltiazem HCl 240 mg capsule,extended release 24hr 240 mg PO DAILY Qty: 90 1RF Discontinued azithromycin 250 mg tablet 250 mg PO .COMPLEX 90 Days Qty: 44 2RF Rx Instructions: 250 mg orally take one 250 mg tab Mondays, Wednesdays and Fridays for COPD management; Date of admission: 02/08/24 08:09 Primary Care Provider: Hilda Linares Admitting Provider: Beba Adler V. Attending physician on admission: Chayito Tyson Condition: Stable
[2024-02-11 16:04] LABS: Glucose Point of Care 180 mg/dl (65-105)
== END 2024-02-11 16:38 | disposition home or self-care (01) | DRG 177 ==
LOC: ANHED 20:40 → ANHIMU 23:35
PROVIDERS: Family Medicine; Hospitalist; Admitting Provider Internal Medicine; Emergency Provider Physician Assistant; PCP Nurse Practitioner Family; Visit Provider Student in an Organized Health Care Education/Training Program
DX: U07.1 COVID-19 (principal); J18.9 Pneumonia, unspecified organism; J96.21 Acute and chronic respiratory failure with hypoxia; K86.1 Other chronic pancreatitis; J43.9 Emphysema, unspecified; E66.9 Obesity, unspecified; E11.9 Type 2 diabetes mellitus without complications; E78.5 Hyperlipidemia, unspecified; E03.9 Hypothyroidism, unspecified; G47.33 Obstructive sleep apnea (adult) (pediatric); I48.91 Unspecified atrial fibrillation; I10 Essential (primary) hypertension; I25.10 Atherosclerotic heart disease of native coronary artery without angina pectoris; Z79.4 Long term (current) use of insulin; Z99.81 Dependence on supplemental oxygen; Z79.84 Long term (current) use of oral hypoglycemic drugs; Z87.891 Personal history of nicotine dependence
CPT/HCPCS: 36415; 36569; 36600; 71045; 80048; 80053; 80076; 81003; 82375; 82805; 82948; 83050; 83605; 83880; 84484; 85018; 85025; 85055; 85380; 85610; 85730; 87040; 87637; 93005; 93970; 94640; 94660; 96361; 96365; 96375; 99285; A9270; C1751; G0378; J0248; J0456; J0696; J1100; J1650; J1815; J7030; J8540

== ENCOUNTER 2024-07-14 09:45 | Outpatient (CLI) | payer MEDICARE, MEDICAID, SELFPAY ==
--- NOTE | ~2024-07-14 | US_ITS ---
EXAMINATION: US carotid duplex BI DATE: 07/14/2024 10:38 INDICATION: Right carotid artery occlusion TECHNIQUE: Grayscale, color Doppler, and pulsed Doppler images of the cervical carotid arteries were obtained. The degree of vessel stenosis is placed in one of the following categories: normal, <50%, 5 0-69%, >=70% but less than near-occlusion, near-occlusion, or total occlusion. Note that percent sten osis relative to normal distal artery lumen diameter is indirectly measured from velocity measurement s as described by James, et al. Radiology 2003; 229:340-346. COMPARISON: None. FINDINGS: RIGHT: The right common carotid artery (CCA) peak systolic velocity (PSV) is 70 cm/s. Persistent occlusion o f the right internal carotid artery (ICA) with no discernible flow on color Doppler. The external car otid artery (ECA) PSV is 100 cm/s. There is antegrade flow in the right vertebral artery. LEFT: The left CCA PSV is 107 cm/s. The left ICA PSV is 95 cm/s. The left ICA end-diastolic velocity (EDV) is 27 cm/s. The left ICA/CCA PSV ratio is 1.0. Grayscale and color Doppler images yield an estimate o f <50% diameter reduction from plaque in the ICA. The ECA PSV is 131 cm/s. There is antegrade flow in the left vertebral artery. IMPRESSION: 1. 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 2. Unchanged <50% stenosis in the left internal carotid artery. Reviewed, dictated and finalized at location A.
--- OUTSIDE RECORDS SUMMARY | 2024-07-14 10:09 | XMS_ITS | Clinical Summary ---
Author Organization [facility] Address [address] [facility], [address] [address] Phone Care Team Providers Care Clinic Supervisor Name Role Phone Elder Castellano MD Primary Care Provider Nancy Jimenez MD Unavailable Allergies Active Allergy Reactions Criticality Noted Date Comments Lisinopril Swelling 05/27/2018 Other Anaphylaxis 05/09/2018 BP med, doesn't remember name of med, Face swelled, lips Medications ALBUTEROL IN take 2 Puffs by inhalation Daily as needed. Active aspirin EC 81 MG Tablet Delayed Response Take 81 mg by mouth daily. Active azithromycin (ZITHROMAX) 250 MG Tablet Take 250 mg by mouth daily. 2 tab(s) daily for 1 day, then 1 tab(s) daily for days 2-5. Active budesonide (PULMICORT) 90 MCG/ACT AEROSOL POWDER, BREATH ACTIVATED take 1-2 Puffs by inhalation every 12 hours. Active Calcium Carbonate Antacid (TUMS PO) Take 1 Tab by mouth Daily as needed. Active empagliflozin (JARDIANCE) 25 MG Tablet Take 25 mg by mouth daily. Active ezetimibe (ZETIA) 10 MG Tablet Take 10 mg by mouth daily. Active FLUTICASONE PROPIONATE, NASAL, NA 1 [place] by Nasal route daily as needed. Active furosemide (LASIX) 20 MG Tablet Take 20 mg by mouth daily. Active gabapentin (NEURONTIN) 300 MG Capsule Take 300 mg by mouth 3 times daily. Active glimepiride (AMARYL) 4 MG Tablet Take 4 mg by mouth 2 times daily. Active Multiple Vitamin (MULTI-VITAMIN PO) Take 1 Tab by mouth daily. Active DilTIAZem HCl Coated Beads (CARDIZEM LA) 240 MG TABLET SR 24 HR Take 240 mg by mouth daily. Active docusate sodium (COLACE) 100 MG Capsule Take 100 mg by mouth 2 times daily. Active Insulin Degludec (TRESIBA SC) 64 Units by Subcutaneous route daily. Active Insulin Aspart (NOVOLOG FLEXPEN SC) 15 Units by Subcutaneous route nightly. Active ipratropium-alb uterol (DUO-NEB) 0.5-2.5 (3) MG/3ML Solution 1.5 mL by Nebulization route 4 times daily as needed. Active lovastatin (MEVACOR) 40 MG Tablet Take 40 mg by mouth every evening. Active potassium chloride SA (KLORCON M) 10 MEQ Tablet Controlled Release Take 10 mEq by mouth daily. Active Fluticasone-Ume clidin-Vilant (TRELEGY ELLIPTA) 100-62.5-25 MCG/INH AEROSOL POWDER, BREATH ACTIVATED take 1 Puff by inhalation daily. Active levothyroxine (SYNTHROID) 88 MCG Tablet Take 88 mcg by mouth daily. Active Meloxicam 15 MG Tablet Take 15 mg by mouth daily. Active raNITIdine (ZANTAC) 150 MG TabletIndicatio ns:Pharyngoesop hageal dysphagia TAKE 1 TABLET BY MOUTH TWICE DAILY 180 Tab 1 9 Active Family History Medical History Relation Name Comments Heart Attack Father Cancer Mother breast Heart Attack Paternal Uncle Asthma Sister Relation Name Status Comments Father Mother Paternal Uncle Sister Social History Tobacco Use Types Packs/Day Years Used Date Smoking Tobacco: Former Cigarettes 1 32 0 05/10/1979 - 05/10/2011 Smokeless Tobacco: Never Comments:quit 2011 Alcohol Use Standard Drinks/Week Comments Never 0 (1 standard drink = 0.6 oz pur e alcohol) AUDIT-C Answer Date Recorded Frequency of Alcohol Consumption Never 05/09/2018 Average Number of Drinks Not on file 019 Frequency of Binge Drinking Not on file 04/12 Sex and Gender Information Value Date Recorded Sex Assigned at Not on file 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 Gender Identity Not on file Sexual Orientation Not on file 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 Job 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 Not on file Not on file Not on file Last Filed Vital Signs Vital Sign Reading Time Taken Comments Blood Pressure 154/86 05/27/2018 9:19 AM CDT Pulse 99 05/27/2018 9:19 AM CDT Temperature 36 C (96.8 F) 05/27/2018 9:19 AM CDT Respiratory Rate 17 05/27/2018 9:19 AM CDT Oxygen Saturation 98% 05/27/2018 9:19 AM CDT 6 L Inhaled Oxygen Concentration - - Weight 142 kg (313 lb) 05/27/2018 7:28 AM CDT Height 177.8 cm (5' 10) 05/27/2018 7:28 AM CDT Body Mass Index 44.91 05/27/2018 7:28 AM CDT Plan of Treatment Health Maintenance Due Date Last Done Comments Hepatitis C Virus (HCV) Screening 1955 TdaP Immunization 1955 Cologuard 07/18/2005 Immunochemical Fecal Occult Blood 07/18/2005 Pneumococcal Immunization (5 0+ years) (1 of 1 - PCV) 07/18/2005 Zoster Immunization (1 of 2) 07/18/2005 Respiratory Syncytial Virus (RSV) Immunization (Adult) (1 - Risk 60-74 years 1-dose series) 2015 Influenza Immunization (#1) 2023 SARS-COV-2 Immunization ( season) 2023 Colonoscopy 07/29/2024 07/29/2014 Colorectal Cancer Screening 07/29/2024 07/29/2014 Hepatitis B Immunization Aged Out No longer eligible based on patient's age to complete this topic Meningococcal Immunization (ACWY) Aged Out No longer eligible based on patient's age to complete this topic Rotavirus Immunization Aged Out No lo nger eligible based on patient's age to complete this topic Procedures Procedure Name Priority Date/Time Associated Diagnosis Comments COLONOSCOPY Routine 07/29/2014 from Last 3 Months or Most Recently Relevant to Health Maintenance Results * HM COLONOSCOPY (07/29/2014) us Naga Radford MD PROCEDURE/MINOR SURGICAL ORDERA BLES Final Result from Last 3 Months or Most Recently Relevant to Health Maintenance Insurance MEDICARE [place]ICAID [place] Care Teams Clinic Supervisor Relationship Specialty Start Date End Date Elder Castellano MD [address] [place] [address] PCP - General Family Medicine 03/17/18 [place] [id number] [address] Internal Medicine 03/17/18
== END 2024-07-14 09:46 | disposition home or self-care (01) ==
PROVIDERS: PCP Family Medicine; Visit Provider Internal Medicine Cardiovascular Disease
DX: I65.23 Occlusion and stenosis of bilateral carotid arteries (principal)
CPT/HCPCS: 93880

== ENCOUNTER 2024-08-31 09:31 | Outpatient (CLI) | payer MEDICARE, MEDICAID, SELFPAY ==
--- NOTE | ~2024-08-31 | CT_ITS ---
EXAM: CT abdomen pelvis w con - 08/31/2024 11:04 CDT History: 69 years old Male with epigastric pain, history of chronic pancreatitis TECHNIQUE: Multidetector CT of the abdomen and pelvis with intravenous contrast. Coronal and sagitta l reformats were also provided for review. Automatic exposure control was used for this study. CONTRAST: 100 cc of Optiray 350 was used for this study. COMPARISON: 03/13/2019. FINDINGS: VISUALIZED CHEST: Mild dependent changes. ABDOMEN and PELVIS: LIVER: Within normal limits. GALLBLADDER: Cholelithiasis. BILE DUCTS: No dilatation. SPLEEN: Within normal limits. PANCREAS: Within normal limits. ADRENAL GLANDS: Within normal limits. KIDNEYS and URETERS: No hydronephrosis or hydroureter. No nephroureterolithiasis. URINARY BLADDER: Within normal limits. STOMACH and BOWEL: No abnormal bowel wall thickening. No obstruction. REPRODUCTIVE ORGANS: Within normal limits. MESENTERY/PERITONEAL CAVITY: No free fluid or pneumoperitoneum. LYMPH NODES: No abdominal or pelvic lymphadenopathy. ABDOMINAL WALL: Small fat-containing umbilical hernia. VASCULATURE: Within normal limits. MUSCULOSKELETAL: Multilevel degenerative changes of the spine. IMPRESSION: 1. No evidence of acute pathology in the abdomen and pelvis. 2. Multiple chronic findings, as above. Reviewed, dictated and finalized at location A.
--- OUTSIDE RECORDS SUMMARY | 2024-08-31 09:21 | XMS_ITS | Clinical Summary ---
Author Organization [facility] Address [address] [facility], [address] [address] Phone Care Team Providers Care Hospitality Aide Name Role Phone Elder Castellano MD Primary [...] daily. Active FLUTICASONE PROPIONATE, NASAL, NA 1 [place] by Nasal route daily as needed. 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 Not on file Not [...] (HCV) Screening 1955 TdaP Immunization 1955 Cologuard 07/18/2000 Immunochemical Fecal Occult Blood 07/18/2000 Pneumococcal Immunization (5 0+ years) (1 of 1 - PCV) 07/18/2005 Zoster Immunization (1 of 2) 07/18/2005 Respiratory Syncytial Virus (RSV) Immunization (Adult) (1 - Risk 60-74 years 1-dose series) 2015 SARS-COV-2 Immunization ( - season) 2023 Colonoscopy 07/29/2024 07/29/2014 Colorectal Cancer Screening 07/29/2024 Influenza Immunization (#1) 2024 Hepatitis B Immunization Aged Out No longer eligible based on patient's age to complete this topic Human Papillomavirus (HPV) Immunization Aged Out No longer eligible b ased on patient's age to complete this topic Meningococcal Immunization (ACWY) Aged Out No longer eligible based on patient's age to complete this topic Rotavirus Immunization Aged Out No lo nger eligible based on patient's age to complete this topic Procedures Procedure Name Priority Date/Time Associated Diagnosis Comments COLONOSCOPY Routine 07/29/2014 from Last 3 Months or Most Recently Relevant to Health Maintenance Results * COLONOSCOPY (07/29/2014) Naga Radford MD PROCEDURE/MINOR SURGICAL ORDERA BLES Final Result from Last 3 Months or Most Recently Relevant to Health Maintenance Insurance MEDICARE [place]ICAID [place] Care Teams Hospitality Aide Relationship Specialty Start Date End Date Elder Castellano MD [address] [place] [address] PCP - General Family Medicine 03/17/18 [place] [id number] [address] Internal Medicine 03/17/18
[2024-08-31 11:09] LABS: Estimated Glomerular Filt Rate > 60
[2024-08-31 11:50] LABS: Hematocrit 41.5 % (42.0-52.0); Hemoglobin 11.9 g/dL (14.0-18.0); Mean Corpuscular HGB Conc 28.7 g/dl (32-36); Mean Corpuscular Hemoglobin 22.1 pg (26-34); Mean Corpuscular Volume 77.1 fl (80-100); Platelet Count Result 267 k/mm3 (150-375); Red Blood Count 5.38 M/mm3 (4.6-6.20); White Blood Count 15.5 K/mm3 (4.5-10.0)
[2024-08-31 11:59] LABS: Hemoglobin A1C 7.9 % (<5.7)
[2024-08-31 12:12] LABS: Cholesterol 156 mg/dL (0-200); HDL Direct 49 mg/dL; Triglycerides 80 mg/dL (<150)
[2024-08-31 12:20] LABS: Alanine Aminotransferase 19 U/L (6-50); Albumin Level 3.8 g/dL (3.5-5.1); Alkaline Phosphatase 82 U/L (38-126); Anion Gap 5 mmol/L (4-12); Aspartate Amino Transferase 22 U/L (17-59); Bilirubin,Total 0.3 mg/dL (0.2-1.3); Blood Urea Nitrogen 15 mg/dL (9-20); Calcium 8.9 mg/dL (8.4-10.2); Carbon Dioxide 35 mmol/L (22-30); Chloride 96 mmol/L (98-107); Estimated Glomerular Filt Rate > 60; Glucose 117 mg/dL (65-110); Potassium 3.7 mmol/L (3.4-5.0); Sodium 136 mmol/L (137-145); Total Protein 6.8 g/dL (6.3-8.2)
[2024-08-31 12:28] LABS: Free T4 Free Thyroxine 0.90 ng/dL (0.78-2.19)
[2024-08-31 12:51] LABS: Prostate Specific Antigen 2.0 ng/mL (< OR = 4.0); Thyroid Stimulating Hormone 2.290 uIU/mL (0.465-4.680)
[2024-08-31 13:26] LABS: Vitamin B12 421.0 pg/mL (239-931)
[2024-08-31 13:41] LABS: MALB Creatinine Ratio < 7.1 mg/g (0-30)
== END 2024-08-31 09:32 | disposition home or self-care (01) ==
PROVIDERS: PCP Family Medicine; Referring Provider Nurse Practitioner Family; Visit Provider Nurse Practitioner
DX: E78.5 Hyperlipidemia, unspecified (principal); Z12.5 Encounter for screening for malignant neoplasm of prostate; E11.9 Type 2 diabetes mellitus without complications; E03.9 Hypothyroidism, unspecified; K86.1 Other chronic pancreatitis; R10.13 Epigastric pain
CPT/HCPCS: 36415; 74177; 80053; 80061; 82043; 82607; 82746; 83036; 84153; 84439; 84443; 85027; G0103; Q9967

== ENCOUNTER 2024-10-22 00:46 | Day surgery (SDC) | payer MEDICARE, MEDICAID, SELFPAY ==
[2024-10-13 13:29] VITALS: BMI 37.8
--- OUTSIDE RECORDS SUMMARY | 2024-10-22 00:48 | XMS_ITS | Encounter Summary ---
Author Organization [facility] Care Team Providers Care Sash Sticker Name Role Phone Elder Castellano MD Primary Care Provider [phone] Maddi Johnson MD Primary Care Provider Ashlyn Alexis MD Primary Care Provider Cherelle Pineda MD Unavailable [phone] Cathy Soria NP Primary Care Provider [phone] Encounter Details Date Type Department Care Team (Latest Contact Info) Description 08/31/2011 Orders Only [facility] ProviderIleana MD [address] [place] [id number] Social History Tobacco Use Types Packs/Day Years Used Date Smoking Tobacco: Never Assessed Sex and Gender Information Value Date Recorded Sex Assigned at Not on file Legal Sex Male 3:16 AM 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 us Historical Provider [facility] ELLIE NGUYEN Final Result documented in this encounter Visit Diagnoses Not on filedocumented in this encounter Care Teams Sash Sticker Relationship Specialty Start Date End Date Elder Castellano MD [address] [place] [address] PCP - General Family Practice 01/09/17 11/24/18 Maddi Johnson MD [address] [place] [address] PCP - General Family Medicine 11/25/18 08/03/20 Ashlyn Alexis MD [address] [place] [address] PCP - General Family Practice 08/04/20 05/24/21 [place] [id number] [address] PCP - General Nurse Practitioner 05/25/21 [place] [id number] [address] Consulting Physician Endocrinology 08/04/20 documented as of this encounter
[2024-10-22 10:27] VITALS: BP 120/90; PULSE 112; RESP 18; TEMP 36.5; O2SAT 95; BMI 38.7
[2024-10-22] MEDS: LACTATED RINGERS 1,000 ML 150 ML IV CONT (10:44)
--- NOTE | 2024-10-22 10:45 | WPDANESEPPF ---
Anes - Initial Pre Proc Eval Procedure: Operation Date: 10/22/24 11:30 Proposed Procedures p EGD & Screening Colonoscopy - Mateus Escobar MD Date/Time: 10/22/24 10:45 Surgeon: Mateus Escobar MD Pre Op Diagnosis: Encounter for screening for malignant neoplasm of Patient Data Age: 69 Gender: M Height: 1.8 m Weight: 126.1 kg Last Vital Signs Temp 36.5 C 10/22/24 10:27 Pulse 112 H 10/22/24 10:27 Resp 18 10/22/24 10:27 BP 120/90 10/22/24 10:27 Pulse Ox 95 10/22/24 10:27 O2 Del Method Room Air 10/22/24 10:27 Allergies Allergy/AdvReac Type Severity Reaction Status Date / Time lisinopril Allergy Unknown Swelling Verified 10/22/24 10:25 Home Medications ?Medication ?Instructions ?Recorded ?Confirmed ?Type empagliflozin 25 mg tablet 25 mg PO DAILY #90 tabs 04/28/19 10/22/24 Rx (Jardiance) insulin lispro 200 unit/mL (3 mL) 18 unit subcut QACDINNER 05/11/22 10/22/24 History subcutaneous pen (Humalog KwikPen U-200 Insulin) blood-glucose,mammography technologist,cont 11/05/22 09/09/24 History (Dexcom G7 It Infrastructure Architect) atorvastatin 40 mg tablet 40 mg PO DAILY 12/14/22 10/22/24 History azelastine 137 mcg (0.1 %) nasal 137 mcg (0.137 mL) intranasal Q12H 11/04/23 10/22/24 Rx spray 1 month #8.22 mL fluticasone propionate 50 2 spray intranasal DAILY PRN nasal 11/08/23 10/13/24 Rx mcg/actuation nasal congestion #9.9 mL spray,suspension (Flonase Allergy Relief) albuterol sulfate 2.5 mg/3 mL 2.5 mg inhalation Q6H shortness of 02/08/24 10/13/24 History (0.083 %) solution for nebulization breath or wheezing diltiazem HCl 240 mg 240 mg PO DAILY #90 caps 07/03/24 10/22/24 Rx capsule,extended release 24 hr budesonide 160 mcg-glycopyr 9 See Rx Instructions .Route 07/28/25 09/11/25 Rx mcg-formot 4.8 mcg/actuation HFA .COMPLEX #11 grams inhaler (Breztri Aerosphere) ezetimibe 10 mg tablet 10 mg PO DAILY 09/09/24 10/22/24 History furosemide 40 mg tablet 40 mg PO BID 09/09/24 10/22/24 History insulin degludec 100 unit/mL (3 40 unit subcut DAILY 09/09/24 10/22/24 History mL) subcutaneous pen (Tresiba FlexTouch U-100 insulin) levothyroxine 125 mcg tablet 125 mcg PO DAILY 09/09/24 10/22/24 History roflumilast 500 mcg tablet 500 mcg PO DAILY 09/09/24 10/22/24 History semaglutide 2 mg/dose (8 mg/3 mL) 2 mg subcut WEEKLY 09/09/24 10/13/24 History subcutaneous pen injector (Ozempic) albuterol sulfate 90 mcg/actuation See Rx Instructions .Route 09/11/24 10/13/24 Rx aerosol inhaler .COMPLEX #9 grams potassium chloride 10 mEq 10 meq PO DAILY #90 tabs 10/07/24 10/22/24 Rx tablet,extended release (Klor-Con) aspirin 81 mg capsule 81 mg PO DAILY 10/13/24 10/22/24 History Patient hx anesthesia problems: none Family hx anesthesia problems: none Results Review: All pre-operative results and documents have been reviewed as part of the pre-operative evaluation. 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 Bloating Chronic respiratory failure with hypoxia, on home O2 therapy Carotid occlusion, right Chronic pancreatitis Former smoker COPD (chronic obstructive pulmonary disease) OTTO (obstructive sleep apnea) Hypertension Dyslipidemia Type 2 diabetes mellitus treated with insulin Follows with endocrine CAD (coronary artery disease) Hypothyroid Surgical History Surgical History H/O colonoscopy 09/2014 Family History Family History Father Family history of heart disease in male family member before age 55 Acute myocardial infarction Hypertension, Onset Age: 56 Drug addiction Sibling Family history of congenital heart disease, Onset Age: 32 Mother Family history of primary malignant neoplasm of liver Family history of malignant neoplasm of breast in first degree relative Asthma Sibling Chronic obstructive pulmonary disease Social History Social History (Updated 09/09/24 @ 12:51 by Hilda Linares NP) Social History: The patient is , his Esther is the durable power social media marketing specialist for healthcare. The patient has 5 biological children. He is disabled. He is a former smoker . He denies any alcohol, marijuana or illicit drug use. Code status full code Smoking packs per day: 1 Smoking cigarettes per day: 20.0 Years smoked: 36 Smoking pack-years: 36.00 Smoking status: Former smoker Tobacco type: cigarettes Second hand tobacco smoke exposure: No Smoking end date: 02/11/13 Alcohol intake: former Substance use: former Substance use type: crack/cocaine Other substance usage details: Pt states that he quit drinking 12 yrs ago and quit doing drugs 20 yrs ago. Do You Feel Safe in your Home?: Yes Lack of Transportation: No Lack of Food: Never True Current Housing: I Have Housing Concerned About Future Housing: No Difficulty Paying Gas/Electric Bills: YES Difficulty Paying for Meds: YES Currently Unemployed: No Education: High School Diploma/GED Difficulty w/ Childcare or Family Care: No Living arrangements: with family Occupation/Education: retired Gender identity (if verbalized by the patient): Male Spiritual care concerns: No Anes - Eval Final PreProcedure Day of Procedure 10/22/24 10:45 Patient weight: obese Heart: regular rate and rhythm Lungs: clear to auscultation Airway: Mallampati scale class II Neurological: alert and oriented Last oral intake: >/= 8 hours ASA classification: IV Emergent: no Anesthetic plan: proceed Anesthesia type and monitoring: general GIVS and standard monitoring Results Review: All pre-operative results and documents have been reviewed as part of the pre-operative evaluation. Informed Consent: The patient's anesthetic plan and its attendant risks and benefits were discussed with the patient/family/POA. Questions were solicited and answers provided to the satisfaction of the patient/family/POA.
--- NOTE | 2024-10-22 11:16 | PM.HPGS ---
History of Present Illness History of Present Illness Consent: Risks, benefits, and alternatives have been discussed and questions answered. Patient agrees to proceed with procedure. 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 Bloating Chronic respiratory failure with hypoxia, on home O2 therapy Carotid occlusion, right Chronic pancreatitis Former smoker COPD (chronic obstructive pulmonary disease) OTTO (obstructive sleep apnea) Hypertension Dyslipidemia Type 2 diabetes mellitus treated with insulin Follows with endocrine CAD (coronary artery disease) Hypothyroid Surgical History Surgical History H/O colonoscopy 09/2014 Family History Family History Father Family history of heart disease in male family member before age 55 Acute myocardial infarction Hypertension, Onset Age: 56 Drug addiction Sibling Family history of congenital heart disease, Onset Age: 32 Mother Family history of primary malignant neoplasm of liver Family history of malignant neoplasm of breast in first degree relative Asthma Sibling Chronic obstructive pulmonary disease Social History Social History (Updated 09/09/24 @ 12:51 by Hilda Linares NP) Social History: The patient is , his Esther is the durable power criminal defense attorney for healthcare. The patient has 5 biological children. He is disabled. He is a former smoker . He denies any alcohol, marijuana or illicit drug use. Code status full code Smoking packs per day: 1 Smoking cigarettes per day: 20.0 Years smoked: 36 Smoking pack-years: 36.00 Smoking status: Former smoker Tobacco type: cigarettes Second hand tobacco smoke exposure: No Smoking end date: 02/11/13 Alcohol intake: former Substance use: former Substance use type: crack/cocaine Other substance usage details: Pt states that he quit drinking 12 yrs ago and quit doing drugs 20 yrs ago. Do You Feel Safe in your Home?: Yes Lack of Transportation: No Lack of Food: Never True Current Housing: I Have Housing Concerned About Future Housing: No Difficulty Paying Gas/Electric Bills: YES Difficulty Paying for Meds: YES Currently Unemployed: No Education: High School Diploma/GED Difficulty w/ Childcare or Family Care: No Living arrangements: with family Occupation/Education: retired Gender identity (if verbalized by the patient): Male Spiritual care concerns: No Meds Home Medications and Allergies Home Medications ?Medication ?Instructions ?Recorded ?Confirmed ?Type empagliflozin 25 mg tablet 25 mg PO DAILY #90 tabs 04/28/19 10/22/24 Rx (Jardiance) insulin lispro 200 unit/mL (3 mL) 18 unit subcut QACDINNER 05/11/22 10/22/24 History subcutaneous pen (Humalog KwikPen U-200 Insulin) blood-glucose,stamp maker,cont 11/05/22 09/09/24 History (Dexcom G7 Outside Sales Account Manager) atorvastatin 40 mg tablet 40 mg PO DAILY 12/14/22 10/22/24 History azelastine 137 mcg (0.1 %) nasal 137 mcg (0.137 mL) intranasal Q12H 11/04/23 10/22/24 Rx spray 1 month #8.22 mL fluticasone propionate 50 2 spray intranasal DAILY PRN nasal 11/08/23 10/13/24 Rx mcg/actuation nasal congestion #9.9 mL spray,suspension (Flonase Allergy Relief) albuterol sulfate 2.5 mg/3 mL 2.5 mg inhalation Q6H shortness of 02/08/24 10/13/24 History (0.083 %) solution for nebulization breath or wheezing diltiazem HCl 240 mg 240 mg PO DAILY #90 caps 07/03/24 10/22/24 Rx capsule,extended release 24 hr budesonide 160 mcg-glycopyr 9 See Rx Instructions .Route 09/07/24 10/22/24 Rx mcg-formot 4.8 mcg/actuation HFA .COMPLEX #11 grams inhaler (Breztri Aerosphere) ezetimibe 10 mg tablet 10 mg PO DAILY 09/09/24 10/22/24 History furosemide 40 mg tablet 40 mg PO BID 09/09/24 10/22/24 History insulin degludec 100 unit/mL (3 40 unit subcut DAILY 09/09/24 10/22/24 History mL) subcutaneous pen (Tresiba FlexTouch U-100 insulin) levothyroxine 125 mcg tablet 125 mcg PO DAILY 09/09/24 10/22/24 History roflumilast 500 mcg tablet 500 mcg PO DAILY 09/09/24 10/22/24 History semaglutide 2 mg/dose (8 mg/3 mL) 2 mg subcut WEEKLY 09/09/24 10/13/24 History subcutaneous pen injector (Ozempic) albuterol sulfate 90 mcg/actuation See Rx Instructions .Route 09/11/24 10/13/24 Rx aerosol inhaler .COMPLEX #9 grams potassium chloride 10 mEq 10 meq PO DAILY #90 tabs 10/07/24 10/22/24 Rx tablet,extended release (Klor-Con) aspirin 81 mg capsule 81 mg PO DAILY 10/13/24 10/22/24 History Allergies Allergy/AdvReac Type Severity Reaction Status Date / Time lisinopril Allergy Unknown Swelling Verified 10/22/24 10:25 Vital Signs Vital Signs - 24 hr 10/22/24 10:27 Temperature 97.7 F Pulse Rate 112 H Respiratory Rate 18 Blood Pressure 120/90 Pulse Oximetry 95 Oxygen Delivery Room Air Exam Narrative: uses oxygen Const: General: comfortable and no acute distress HENMT: Face/Nose/Sinus: Normal nares present Eyes: General: appearance normal, both eyes and all related structures Cardio: Rate: regular rate Rhythm: regular rhythm GI: Inspection: non-distended GI Palp: Yes Soft to palpation Skin: General skin exam: normal color Neuro: Speech: normal speech Extrem: General: normal to inspection Psych: Mental Status: mental status grossly normal Assessment and Plan Assessment and plan (1) Epigastric pain: Code(s): R10.13 - Epigastric pain Status: Acute Assessment and Plan: egd (2) Colon cancer screening: Code(s): Z12.11 - Encounter for screening for malignant neoplasm of colon Status: Acute Assessment and Plan: colonoscopy (3) Chronic respiratory failure with hypoxia, on home O2 therapy: Code(s): J96.11 - Chronic respiratory failure with hypoxia; Z99.81 - Dependence on supplemental oxygen Status: Acute
--- NOTE | 2024-10-22 11:25 | S_PTH ---
PATIENT: Juni Merchant LOC: [facility] Abebe#:[id number] AGE/SX: 69/M ROOM: RE10/22/[address]: Mateus Escobar MD : 1955 BED: DIS: 10/22/2024 SPEC #: [id number] RECD: 10/22/24 12:23 STATUS: MARCELL REAimee #: [id number] JAVIER: 10/22/24 11:[address]: Mateus Escobar DEPT: [facility] Surgical RECD BY: Ronda Lema ENTERED: 10/22/24 12:23 SP TYPE: Surgical OTHR DR: Hilda Linares APRN Tissues: A - Gastric Biopsy Procedures: Hematoxylin and Eosin Stain Gross and Microscopic Level 4 H.Pylori
--- NOTE | 2024-10-22 11:30 | SUR.OPER ---
EGD TIME 7112-5031, COLONOSCOPY TIME 7045-6651
[2024-10-22 11:46] VITALS: BP 126/59; PULSE 102; RESP 19; O2SAT 97
[2024-10-22 11:56] VITALS: BP 121/52; PULSE 98; RESP 22; O2SAT 96
[2024-10-22 12:06] VITALS: BP 136/53; PULSE 98; RESP 21; O2SAT 97
== END 2024-10-22 12:20 | disposition home or self-care (01) ==
PROVIDERS: PCP Nurse Practitioner Family; Visit Provider Internal Medicine Gastroenterology
PROC: 0DJ08ZZ Inspection of Upper Intestinal Tract, Via Natural or Artificial Opening Endoscopic (ICD-10-PCS; CPT 45378; principal; 2024-10-22 11:30)
DX: Z12.11 Encounter for screening for malignant neoplasm of colon (principal); K57.30 Diverticulosis of large intestine without perforation or abscess without bleeding; K44.9 Diaphragmatic hernia without obstruction or gangrene; K29.50 Unspecified chronic gastritis without bleeding; I10 Essential (primary) hypertension; E78.5 Hyperlipidemia, unspecified; E11.9 Type 2 diabetes mellitus without complications; E03.9 Hypothyroidism, unspecified; I25.10 Atherosclerotic heart disease of native coronary artery without angina pectoris; J96.11 Chronic respiratory failure with hypoxia; K86.1 Other chronic pancreatitis; J44.9 Chronic obstructive pulmonary disease, unspecified; G47.33 Obstructive sleep apnea (adult) (pediatric); E66.9 Obesity, unspecified; Z68.38 Body mass index [BMI] 38.0-38.9, adult; Z79.84 Long term (current) use of oral hypoglycemic drugs; Z79.4 Long term (current) use of insulin; Z79.51 Long term (current) use of inhaled steroids; Z79.85 Long-term (current) use of injectable non-insulin antidiabetic drugs; Z79.82 Long term (current) use of aspirin; Z99.81 Dependence on supplemental oxygen; Z87.891 Personal history of nicotine dependence; Z86.79 Personal history of other diseases of the circulatory system; Z80.0 Family history of malignant neoplasm of digestive organs; Z80.3 Family history of malignant neoplasm of breast; Z82.49 Family history of ischemic heart disease and other diseases of the circulatory system
CPT/HCPCS: 43239; G0105; 82948; 88305; 88342; J2003; J2704; J7120

== ENCOUNTER 2024-12-14 10:28 | Outpatient (CLI) | payer MEDICARE, MEDICAID, SELFPAY ==
--- NOTE | ~2024-12-14 | CT_ITS ---
EXAMINATION: CT lung screening DATE: 12/14/2024 10:41 INDICATION: Personal history of nicotine dependence TECHNIQUE: Computed tomography (CT) of the chest was performed without intravenous contrast. The dose-length product was 357.76 mGy-cm. Automated exposure control and iterative reconstruction technique were employed. COMPARISON: CT dated 12/04/2024 FINDINGS: Heart size normal. No significant pleural or pericardial effusion. No thoracic lymphadenopathy. Heart size normal. No significant pleural or pericardial effusion. There are gallstones. There is emphysema. No endobronchial lesions. There are groundglass opacities of the left upper lobe which have developed since prior study there is a 5 mm pleural-based left lower lobe nodule, image 103. No new pulmonary nodules or masses. There is right lower lobe atelectasis/scarring. IMPRESSION: 1. Lung-RADS category 2: Benign appearance or behavior. 2: Groundglass opacities of the left upper lobe superimposed on emphysema. Differential diagnosis includes infection, smoking-related disease (i.e. respiratory bronchiolitis), hypersensitivity pneumonitis. Recommend follow-up CT in 6-12 weeks to evaluate for resolution or progression. Reviewed, dictated and finalized at location O. CTOR DATA ARCHITECTURE IMPRESSION: 1. Lung-RADS category 2: Benign appearance or behavior. 2: Groundglass opacities of the left upper lobe superimposed on emphysema. Diff erential diagnosis includes infection, smoking-related disease (i.e. respirator y bronchiolitis), hypersensitivity pneumonitis. Recommend follow-up CT in 6-12 weeks to evaluate for resolution or progression.
--- OUTSIDE RECORDS SUMMARY | 2024-12-14 11:31 | XMS_ITS | Encounter Summary ---
Author Organization [facility] Facility Care Team Providers Care Anodizing Line Operator Name Role Phone Elder Castellano MD Primary Care Provider [phone] Maddi Johnson MD Primary Care Provider Ashlyn Alexis MD Primary Care Provider Cherelle Pineda MD Unavailable [phone] Cathy Soria NP Primary Care Provider [phone] Encounter Details Date Type Department Care Team (Latest Contact Info) Description 08/31/2011 Orders Only [facility] CLINCONV ProviderIleana MD [address] [place] [address] Social History Tobacco Use Types Packs/Day Years Used Date Smoking Tobacco: Never Assessed Sex and Gender Information Value Date Recorded Sex Assigned at Not on file Legal Sex Male 3:16 AM MANAGER MENTAL HEALTH Gender Identity Male 02/13/2018 1:11 PM MANAGER MENTAL HEALTH Sexual Orientation Not on file documented as of this encounter Plan of Treatment Not on file documented as of this encounter Procedures Procedure Name Priority Date/Time Associated Diagnosis Comments CARDIOLOGY REPORT 04/10/2016 12: 00 AM MANAGER MENTAL HEALTH documented in this encounter Results * CARDIOLOGY REPORT (04/10/2016 12:00 AM MANAGER MENTAL HEALTH) Anatomical Region Laterality Modality Other Narrative 04/10/2016 12:00 AM MANAGER MENTAL HEALTH Ordered by an unspecified provider. us Historical Provider [facility] C[facility] ELLIE NGUYEN Final Result documented in this encounter Visit Diagnoses Not on filedocumented in this encounter Care Teams Anodizing Line Operator Relationship Specialty Start Date End Date Elder Castellano MD [address] [place] [address] PCP - General Family Practice 01/09/17 11/24/18 Maddi Johnson MD [address] [place] [address] PCP - General Family Medicine 11/25/18 08/03/20 Ashlyn Alexis MD [address] [place] [address] PCP - General Family Practice 08/04/20 05/24/21 [place] [address] [address] PCP - General Nurse Practitioner 05/25/21 [place] [address] [address] Consulting Physician Endocrinology 08/04/20 documented as of this encounter
--- OUTSIDE RECORDS SUMMARY | 2024-12-14 11:31 | XMS_ITS | Clinical Summary ---
Author Organization [facility] Address [address] [place] [address] Care Team Providers Care Ux Information Architect Name Role Phone Sondra Ascencio MD Primary Care Provider [phone] Source Comments [facility] Affiliates and Associated Physician Practices is amultiple site organization consisting of ambulatory clinics and hospital sitesin [place], [place], [place] and [place]. This disclosure is being madepursuant to the Care Everywhere program and may not contain all information available regarding this patient. Last updated 17.[facility] Allergies No known active allergies Medications * Be aware that medications may not be up to date on this document. Alwaysverify current medications with the patient. No known medications Social History Tobacco Use Types Packs/Day Years Used Date Smoking Tobacco: Never Assessed Sex and Gender Information Value Date Recorded Sex Assigned at Not on file Legal Sex Male 5:36 AM OPERATIONS ADVISOR Gender Identity Not on file Sexual Orientation Not on file Plan of Treatment Health Maintenance Due Date Last Done Comments COLOGUARD (AGES 45-75) - COL ON CA SCREENING 1955 COLON MONITORING 1955 COLONOSCOPY - COLON CA SCREENING 1955 CT COLONOGRAPHY - COLON CA SCREENING 1955 Colorectal Cancer Screening 1955 FIT - COLON CA SCREENING 1955 FLEX SIG - COLON CA SCREENING 1955 LIPID TESTING 1955 MEDICARE AWV 12 MONTHS 1955 HEPATITIS C SCREENING 07/14/1973 DTAP/TDAP/TD VACCINES (1 - Tdap) 07/18/1974 PNEUMOCOCCAL VACCINE 50+ (1 of 1 - PCV) 07/18/2005 ZOSTER VACCINE (1 of 2) 07/18/2005 DEPRESSION SCREENING 02/12/2024 COVID-19 VACCINE (1 - 2023-2 5 season) 2024 INFLUENZA VACCINE (#1) 2024 Respiratory Syncytial Virus (RSV) Vaccine Pt: or over 60 yrs (1 - 1-dose 75+ series) 07/18/2030 HEPATITIS B VACCINE Aged Out No longe r eligible based on patient's age to complete this topic HIB VACCINE Aged Out No longer eligi ble based on patient's age to complete this topic HPV VACCINE Aged Out No longer eligi ble based on patient's age to complete this topic MENINGOCOCCAL (Group B) VACC INE SHARED DECISION-MAKING Aged Out No longer eligibl e based on patient's age to complete this topic MENINGOCOCCAL GROUPS A/C/Y/W VACCINE Aged Out No longer eligible b ased on patient's age to complete this topic Insurance MEDICARE MEDICAID - OUT OF STATE [facility] MANAGED MEDICARE ADV MEDICAID - [place] SELF PAY NO INSURANCE Member Subscriber Plan / Payer (Ef fective for All Dates) Name:Teresa Aguila Member ID:Not on file Relation to Subscriber:Not on file Name:TERESA AGUILA Subscriber ID:Not on file (Home) Address: [place] [address] Payer ID:Not on file Group ID:Not on file Type:Self Pay Address: [place], [place] Care Teams Ux Information Architect Relationship Specialty Start Date End Date Sondra Ascencio MD [address] [place] [id number] PCP - General 06/10/18
--- OUTSIDE RECORDS SUMMARY | 2024-12-14 11:31 | XMS_ITS | Encounter Summary ---
Author Organization [facility] Facility Care Team Providers Care Veneer Production Machine Operator Name Role Phone Elder Castellano MD Primary Care Provider [phone] Maddi Johnson MD Primary Care Provider Ashlyn Alexis MD Primary Care Provider Cherelle Pineda MD Unavailable [phone] Cathy Soria NP Primary Care Provider [phone] Encounter Details Date Type Department Care Team (Latest Contact Info) Description 09/01/2011 Orders Only [facility] CLINCONV ProviderIleana MD [address] [place] [address] Social History Tobacco Use Types Packs/Day Years Used Date Smoking Tobacco: Never Assessed Sex and Gender Information Value Date Recorded Sex Assigned at Not on file Legal Sex Male 3:16 AM LEADING FIREFIGHTER Gender Identity Male 02/13/2018 1:11 PM LEADING FIREFIGHTER Sexual Orientation Not on file documented as of this encounter Plan of Treatment Not on file documented as of this encounter Procedures Procedure Name Priority Date/Time Associated Diagnosis Comments CARDIOLOGY REPORT 04/10/2016 12: 00 AM LEADING FIREFIGHTER documented in this encounter Results * CARDIOLOGY REPORT (04/10/2016 12:00 AM LEADING FIREFIGHTER) Anatomical Region Laterality Modality Other Narrative 04/10/2016 12:00 AM LEADING FIREFIGHTER Ordered by an unspecified provider. us Historical Provider [facility] ELLIE NGUYEN Final Result documented in this encounter Visit Diagnoses Not on filedocumented in this encounter Care Teams Veneer Production Machine Operator Relationship Specialty Start Date End Date Elder Castellano MD [address] [place] [address] PCP - General Family Practice 01/09/17 11/24/18 Maddi Johnson MD [address] [place] [address] PCP - General Family Medicine 11/25/18 08/03/20 Ashlyn Alexis MD [address] [place] [address] PCP - General Family Practice 08/04/20 05/24/21 [place] [address] [address] PCP - General Nurse Practitioner 05/25/21 [place] [address] [address] Consulting Physician Endocrinology 08/04/20 documented as of this encounter
--- OUTSIDE RECORDS SUMMARY | 2024-12-14 11:31 | XMS_ITS | Encounter Summary ---
Author Organization [facility] Facility Care Team Providers Care Marketing Operations Associate Name Role Phone Elder Castellano MD Primary Care Provider [phone] Maddi Johnson MD Primary Care Provider Ashlyn Alexis MD Primary Care Provider Cherelle Pineda MD Unavailable [phone] Cathy Soria NP Primary Care Provider [phone] Encounter Details Date Type Department Care Team (Latest Contact Info) Description 03/09/2014 Orders Only [facility] CLINCONV ProviderIleana MD [address] [place] [address] Social History Tobacco Use Types Packs/Day Years Used Date Smoking Tobacco: Never Assessed Sex and Gender Information Value Date Recorded Sex Assigned at Not on file Legal Sex Male 3:16 AM ELECTRIC DISTRIBUTION ENGINEER Gender Identity Male 02/13/2018 1:11 PM ELECTRIC DISTRIBUTION ENGINEER Sexual Orientation Not on file documented as of this encounter Plan of Treatment Not on file documented as of this encounter Procedures Procedure Name Priority Date/Time Associated Diagnosis Comments CARDIOLOGY REPORT 04/10/2016 12: 00 AM ELECTRIC DISTRIBUTION ENGINEER documented in this encounter Results * CARDIOLOGY REPORT (04/10/2016 12:00 AM ELECTRIC DISTRIBUTION ENGINEER) Anatomical Region Laterality Modality Other Narrative 04/10/2016 12:00 AM ELECTRIC DISTRIBUTION ENGINEER Ordered by an unspecified provider. us Historical Provider CV CARDIAC SERVICES ELLIE NGUYEN Final Result documented in this encounter Visit Diagnoses Not on filedocumented in this encounter Care Teams Marketing Operations Associate Relationship Specialty Start Date End Date Elder Castellano MD [address] [place] [address] PCP - General Family Practice 01/09/17 11/24/18 Maddi Johnson MD [address] [place] [address] PCP - General Family Medicine 11/25/18 08/03/20 Ashlyn Alexis MD [address] [place] [address] PCP - General Family Practice 08/04/20 05/24/21 [place] [address] [address] PCP - General Nurse Practitioner 05/25/21 [place] [address] [address] Consulting Physician Endocrinology 08/04/20 documented as of this encounter
--- OUTSIDE RECORDS SUMMARY | 2024-12-14 11:31 | XMS_ITS | Encounter Summary ---
Author Organization [facility] Facility Care Team Providers Care Motel Front Desk Clerk Name Role Phone Elder Castellano MD Primary Care Provider [phone] Maddi Johnson MD Primary Care Provider Ashlyn Alexis MD Primary Care Provider Cherelle Pineda MD Unavailable [phone] Cathy Soria NP Primary Care Provider [phone] Encounter Details Date Type Department Care Team (Latest Contact Info) Description 10/05/2014 Orders Only [facility] CLINCONV ProviderIleana MD [address] [place] [address] Social History Tobacco Use Types Packs/Day Years Used Date Smoking Tobacco: Never Assessed Sex and Gender Information Value Date Recorded Sex Assigned at Not on file Legal Sex Male 3:16 AM FLAT SURFACER JEWEL Gender Identity Male 02/13/2018 1:11 PM FLAT SURFACER JEWEL Sexual Orientation Not on file documented as of this encounter Plan of Treatment Not on file documented as of this encounter Procedures Procedure Name Priority Date/Time Associated Diagnosis Comments SCAN - LABS 04/10/2016 12:00 AM FLAT SURFACER JEWEL documented in this encounter Results * SCAN - LABS (04/10/2016 12:00 AM FLAT SURFACER JEWEL) Narrative 04/10/2016 12:00 AM FLAT SURFACER JEWEL Ordered by an unspecified provider. us Historical Provider Final Res ult documented in this encounter Visit Diagnoses Not on filedocumented in this encounter Care Teams Motel Front Desk Clerk Relationship Specialty Start Date End Date Elder Castellano MD [address] [place] [address] PCP - General Family Practice 01/09/17 11/24/18 Maddi Johnson MD [address] [place] [address] PCP - General Family Medicine 11/25/18 08/03/20 Ashlyn Alexis MD [address] [place] [address] PCP - General Family Practice 08/04/20 05/24/21 Cathy Soria, PROCESS STRIPPER [address] [address] PCP - General Nurse Practitioner 05/25/21 [place] [address] [address] Consulting Physician Endocrinology 08/04/20 documented as of this encounter
--- OUTSIDE RECORDS SUMMARY | 2024-12-14 11:31 | XMS_ITS | Clinical Summary ---
Author Organization [facility] Physician Office Building [address] [place] [id number] Care Team Providers Care Sheriffs Detective Name Role Phone Cherelle Pineda MD Unavailable [phone] Cathy Soria NP Primary Care Provider [phone] Allergies Active Allergy Reactions Criticality Noted Date Comments Lisinopril Swelling Medium 03/05/2017 Medications ezetimibe (ZETIA) 10 mg tablet Take 1 tablet (10 mg total) by mouth daily 01/08/20 17 Active fluticasone (FLONASE) 50 mcg/actuation nasal spray Administer 1 spray into each nostril daily 10/17/19 17 Active gabapentin (NEURONTIN) 300 mg capsule Take 1 capsule (300 mg total) by mouth 2 (two) times a day 01/12/20 17 Active POTASSIUM CHLORIDE ER 10 mEq CR tablet Take 1 tablet/capsule (10 mEq total) by mouth daily 11/14/19 17 Active calcium carbonate (TUMS) 500 mg calcium (200 mg of elemental calcium) chewable tablet Take 1 tablet/chew tab (500 mg total) by mouth daily Active aspirin 81 mg enteric coated tablet Take 1 tablet (81 mg total) by mouth daily Active furosemide (LASIX) 40 mg tablet Take 1 tablet (40 mg total) by mouth daily 5 08/07/19 19 Active Daliresp 250 mcg tablet Take 2 tablets (500 mcg total) by mouth daily 11/16/19 20 Active Breztri Aerosphere 160-9-4.8 mcg/actuation HFA aerosol inhaler INHALE 2 PUFFS TWICE DAILY RINSE AND SPIT 11/10/19 22 Active azelastine (ASTELIN) 137 mcg (0.1 %) nasal spray USE 1 SPRAY(S) IN EACH NOSTRIL EVERY 12 HOURS 08/21/19 23 Active albuterol HFA (PROVENTIL HFA,VENTOLIN HFA,PROAIR HFA) 90 mcg/actuation inhaler 07/09/19 24 Active dilTIAZem CD 240 mg 24 hr capsule Take 1 capsule (240 mg total) by mouth daily 06/28/19 24 Active pen needle, diabetic 32 gauge x /32 needleIndicati ons:Type 2 diabetes mellitus with hyperglycemia, with long-term current use of insulin ([facility]),Legally blind in right eye, as defined in [place] USE 1 THREE TIMES DAILY 200 each 1 02/04/20 24 Active predniSONE (DELTASONE) 10 mg tablet TAKE 4 TABLETS BY MOUTH ONCE DAILY FOR 3 DAYS IN THE MORNING WITH FOOD, DECREASE BY 1 TABLET EVERY 3 DAYS UNTIL COMPLETED 01/14/20 24 Active TRESIBA 200 unit/mL (3 mL) pen for injectionIndic ations:Type 2 diabetes mellitus with hyperglycemia, with long-term current use of insulin ([facility]) Inject 0.15 mL (30 Units total) under the skin nightly 15 mL 3 06/10/19 25 026 Active levothyroxine (SYNTHROID) 125 mcg tablet TAKE 1 TABLET BY MOUTH ONCE DAILY IN THE MORNING BEFORE BREAKFAST 90 tablet 1 08/25/19 25 Active empagliflozin (Jardiance) 25 mg tabletIndicati ons:Type 2 diabetes mellitus with hyperglycemia, with long-term current use of insulin ([facility]),Chronic diastolic congestive heart failure ([facility]) Take 1 tablet by mouth once daily 90 tablet 1 08/25/19 25 Active semaglutide (Ozempic) 2 mg/dose (8 mg/3 mL) pen injector injectionIndic ations:Type 2 diabetes mellitus with hyperglycemia, with long-term current use of insulin ([facility]) INJECT 2 MG SUBCUTANEOUSLY ONCE A WEEK 9 mL 1 11/03/19 25 Active atorvastatin (LIPITOR) 40 mg tabletIndicati ons:Hyperlipid emia associated with type 2 diabetes mellitus ([facility]) Take 1 tablet (40 mg total) by mouth daily 90 tablet 12/01/19 25 Active atorvastatin (LIPITOR) 40 mg tabletIndicati ons:Hyperlipid emia associated with type 2 diabetes mellitus ([facility]) Take 1 tablet by mouth once daily 90 tablet 03/02/19 25 025 Discontin ued(Reord er) Active Problems Problem Noted Date Diagnosed Date Memory disturbance 11/23/2020 History of stroke 11/23/2020 Right carotid artery occlusion 11/23/2020 Diabetic peripheral neuropathy 12/01/2018 Chronic obstructive lung disease 02/26/2018 Congestive heart failure 02/26/2018 Gastroesophageal reflux disease 02/26/2018 Monocular exotropia 02/26/2018 Nuclear sclerotic cataract 02/26/2018 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 Chronic diastolic congestive heart failure 06/19 Diabetic polyneuropathy asso ciated with type 2 diabetes mellitus 06/19/2017 Assessment & Plan (07/30/2020 9:25 AM CDT): Chronic, stable On gabapentin Assessment & Plan (03/25/2020 10:42 AM TAX ASSESSOR): Chronic, stable On gabapentin Assessment & Plan (11/20/2019 10:39 AM CDT): Chronic, stable On gabapentin Assessment & Plan (06/10/2019 11:03 AM CDT): Chronic, stable On gabapentin Assessment & Plan (11/11/2017 10:17 AM CDT): Work on tighter glycemic control Assessment & Plan (08/09/2017 10:05 AM CDT): Work on tighter glycemic control Acquired hypothyroidism 01/17/2017 Assessment & Plan (04/14/2024 11:50 AM TAX ASSESSOR): Clinically and biochemically euthyroid. No medication changes. Assessment & Plan (12/04/2023 12:33 PM CDT): Chronic, unknown status Patient currently on levothyroxine 125 mcg oral daily We will try to obtain patient's recent lab results from [facility] Assessment & Plan (07/10/2023 11:05 AM CDT): Chronic problem, dose recently adjusted. Recheck labs in 2-3 mos. Assessment & Plan (04/10/2023 10:21 AM TAX ASSESSOR): Chronic , Unknown Status Continue current dose of levothyroxine Recheck TSH today Assessment & Plan (03/01/2022 2:29 PM TAX ASSESSOR): Continue current dose of levothyroxine Assessment & Plan (11/14/2021 12:56 PM CDT): Continue current dose of levothyroxine Will ry to obtain pt recent lab results Assessment & Plan (05/16/2021 11:30 AM CDT): Continue current dose of levothyroxine recheck TSH before next visit Assessment & Plan (11/15/2020 12:40 PM CDT): Continue current dose of levothyroxine Recent TSH 10/2020 WNL Assessment & Plan (07/30/2020 9:26 AM CDT): Continue current dose of levothyroxine Last TSH 11/2019 -WNL Recheck TSH Assessment & Plan (03/25/2020 10:40 AM TAX ASSESSOR): Continue current dose of levothyroxine Last TSH 11/2019 -WNL Assessment & Plan (11/20/2019 10:38 AM CDT): Continue current dose of levothyroxine Recheck TSH today and further plans based on the test results Assessment & Plan (06/10/2019 11:03 AM CDT): Continue current dose of levothyroxine Recheck TSH during next visit Follow-up in 3 months Assessment & Plan (03/11/2019 8:57 PM TAX ASSESSOR): Pt currently on Levothyroxine dose to 88 mcg oral daily - recheck TSH, further plans based on the repeat test results Continue Levothyroxine 100 mcg oral daily Recheck TSH In next visit Instructions for taking levothyroxine Brand name is preferred Take thyroid pill all by itself Take thyroid pill one hour before food or 2 to 3 hours after food Heat, humidity, and direct sunlight will cause a loss of potency Never store thyroid pill in the bathroom The medication should be taken daily. If one or more pills are missing in a week, they can be taken all together at once, making sure at the end of the week, 7 tabs have been taken. Assessment & Plan (11/27/2018 8:07 AM CDT): Pt currently on Levothyroxine dose to 88 mcg oral daily - recheck TSH, further plans based on the repeat test results - reviewed patient recent outside TSH labs based on that Patient hypothyroidism worsening Increase levothyroxine to 100 mcg oral Recheck TSH in 3 months Instructions for taking levothyroxine Brand name is preferred Take thyroid pill all by itself Take thyroid pill one hour before food or 2 to 3 hours after food Heat, humidity, and direct sunlight will cause a loss of potency Never store thyroid pill in the bathroom The medication should be taken daily. If one or more pills are missing in a week, they can be taken all together at once, making sure at the end of the week, 7 tabs have been taken. Assessment & Plan (08/18/2018 10:39 AM CDT): - c/w Levothyroxine dose to 88 mcg oral daily - last TSH 12/2017 - WNL - recheck before next visit Instructions for taking levothyroxine Brand name is preferred Take thyroid pill all by itself Take thyroid pill one hour before food or 2 to 3 hours after food Heat, humidity, and direct sunlight will cause a loss of potency Never store thyroid pill in the bathroom The medication should be taken daily. If one or more pills are missing in a week, they can be taken all together at once, making sure at the end of the week, 7 tabs have been taken. Assessment & Plan (05/18/2018 2:08 PM CDT): - c/w Levothyroxine dose to 88 mcg oral daily - last TSH 12/2017 - WNL Instructions for taking levothyroxine Brand name is preferred Take thyroid pill all by itself Take thyroid pill one hour before food or 2 to 3 hours after food Heat, humidity, and direct sunlight will cause a loss of potency Never store thyroid pill in the bathroom The medication should be taken daily. If one or more pills are missing in a week, they can be taken all together at once, making sure at the end of the week, 7 tabs have been taken. Assessment & Plan (02/16/2018 6:53 PM TAX ASSESSOR): - c/w Levothyroxine dose to 88 mcg oral daily - recent TSH 12/2017 - WNL Instructions for taking levothyroxine Brand name is preferred Take thyroid pill all by itself Take thyroid pill one hour before food or 2 to 3 hours after food Heat, humidity, and direct sunlight will cause a loss of potency Never store thyroid pill in the bathroom The medication should be taken daily. If one or more pills are missing in a week, they can be taken all together at once, making sure at the end of the week, 7 tabs have been taken. Assessment & Plan (11/11/2017 10:18 AM CDT): - c/w Levothyroxine dose to 88 mcg oral daily - recheck TSH Instructions for taking levothyroxine Brand name is preferred Take thyroid pill all by itself Take thyroid pill one hour before food or 2 to 3 hours after food Heat, humidity, and direct sunlight will cause a loss of potency Never store thyroid pill in the bathroom The medication should be taken daily. If one or more pills are missing in a week, they can be taken all together at once, making sure at the end of the week, 7 tabs have been taken. Assessment & Plan (08/09/2017 12:40 PM CDT): - reviewed recent outside labs - 07/31/2017 TSH - 6.4 - increase Levothyroxine dose to 88 mcg oral daily - recheck TSH in 3 months Instructions for taking levothyroxine Brand name is preferred Take thyroid pill all by itself Take thyroid pill one hour before food or 2 to 3 hours after food Heat, humidity, and direct sunlight will cause a loss of potency Never store thyroid pill in the bathroom The medication should be taken daily. If one or more pills are missing in a week, they can be taken all together at once, making sure at the end of the week, 7 tabs have been taken. Assessment & Plan (06/19/2017 9:59 AM CDT): Advised to continue current dose Levothyroxine 75 mcg oral daily Last TSH - 01/2017 - WNL - recheck TSH before next visit Instructions for taking levothyroxine Brand name is preferred Take thyroid pill all by itself Take thyroid pill one hour before food or 2 to 3 hours after food Heat, humidity, and direct sunlight will cause a loss of potency Never store thyroid pill in the bathroom The medication should be taken daily. If one or more pills are missing in a week, they can be taken all together at once, making sure at the end of the week, 7 tabs have been taken. Assessment & Plan (05/05/2017 9:57 PM CDT): Advised to continue current dose Levothyroxine 75 mcg oral daily Last TSH - 01/2017 - WNL Instructions for taking levothyroxine Brand name is preferred Take thyroid pill all by itself Take thyroid pill one hour before food or 2 to 3 hours after food Heat, humidity, and direct sunlight will cause a loss of potency Never store thyroid pill in the bathroom The medication should be taken daily. If one or more pills are missing in a week, they can be taken all together at once, making sure at the end of the week, 7 tabs have been taken. Assessment & Plan (03/05/2017 2:36 PM TAX ASSESSOR): Advised to continue current dose Levothyroxine 75 mcg oral daily Last TSH - 01/2017 - WNL Instructions for taking levothyroxine Brand name is preferred Take thyroid pill all by itself Take thyroid pill one hour before food or 2 to 3 hours after food Heat, humidity, and direct sunlight will cause a loss of potency Never store thyroid pill in the bathroom The medication should be taken daily. If one or more pills are missing in a week, they can be taken all together at once, making sure at the end of the week, 7 tabs have been taken. Assessment & Plan (01/17/2017 11:21 AM TAX ASSESSOR): Advised to continue current dose Levothyroxine 75 mcg oral daily Will recheck TSH Instructions for taking levothyroxine Brand name is preferred Take thyroid pill all by itself Take thyroid pill one hour before food or 2 to 3 hours after food Heat, humidity, and direct sunlight will cause a loss of potency Never store thyroid pill in the bathroom The medication should be taken daily. If one or more pills are missing in a week, they can be taken all together at once, making sure at the end of the week, 7 tabs have been taken. Type 2 diabetes mellitus wit h hyperglycemia, with long-term current use of insulin 01/17/2017 Assessment & Plan (04/14/2024 1:07 PM TAX ASSESSOR): Chronic problem, not at goal. Has HL at home from when he was on it before. Recommend if he has to go on steroids that he start 5 units aB and aL based on his glucose patterns on prednisone. Can increase to 8-10 units if stays persistently elevated. Then stop it once steroid effect has resolved. Continue Jardiance and Ozempic. Request labs and eye exam, also ordered CMP. Assessment & Plan (12/04/2023 12:35 PM CDT): Chronic, uncontrolled, slowly improving but still above goal Hemoglobin A1c 7.6% Goal A1c at least less than 7.5-7% Unable to download the DexMedstro G7 as the site was down Counseled on diet and exercise Advised to increase Ozempic to 2 mg subQ weekly Advised to stop Humalog Continue current dose of Tresiba 30 units subQ daily at bedtime Continue Jardiance 25 mg oral daily We will to obtain patient's last lab results from [facility] Advised patient to make an eye exam appointment Advised to cut back on Tresiba by 5-10 units if having blood sugars less than 90 Assessment & Plan (07/10/2023 11:04 AM CDT): Chronic problem, not at goal. When he runs out of Ozempic 1 mg, increase to 2 mg. Change HL aD to 10 units. Continue same Jardiance and Tresiba. Update routine labs with next thyroid draw. Assessment & Plan (04/10/2023 10:22 AM TAX ASSESSOR): Chronic, uncontrolled, worsening Reviewed Dexcom G7 download Noted postprandial hyperglycemia - stop Glimepiride - start taking Ozempic 0.25 mg SQ weekly for 2 weeks than increase to 0.5 mg SQ weekly ( once you done with sample pen - increase the dose to 1 mg SQ weekly ) - decrease Tresiba to 30 units SQ daily - take 10 units Novolog with dinner - cut back on insulin by 5 units if having low blood sugars Assessment & Plan (09/12/2022 10:01 AM CDT): Chronic problem, generally stable per CBG recall. Continue same medication regimen. He is interested in CGM so will start order for Dexcom G7. Will need MA training so they will call to set up when they receive the device. Assessment & Plan (03/01/2022 2:29 PM TAX ASSESSOR): Chronic, overall fairly controlled improving 6.5% Counseled on diet and exercise Advised patient to be more compliant with his Ozempic injection Advised to decrease Tresiba to 40 units subQ daily Continue glimepiride 4 mg with dinner Continue NovoLog 18 units with dinner Continue Jardiance 25 mg oral daily Follow up as scheduled Assessment & Plan (11/14/2021 12:56 PM CDT): Chronic, uncontrolled, worsening 8.2% Counseled on diet and exercise Advised patient to cut back on fruit intake Advised patient to be more compliant with his Ozempic injection Continue current medication regimen Helped patient to create phone reminder for taking Ozempic every Saturday Pt states he recently had lab done at [facility], will try to obtain Follow up as scheduled Assessment & Plan (05/16/2021 11:30 AM CDT): Chronic, improving control A1c today - 6.6 % Advise to get consistent with meal timings And carb intake C/w Ozempic 1 mg SQ weekly Decrease Tresiba to 40 units SQ daily at bedtime C/w oral glimepiride, advised to cut back if having low BS Keep taking Jardiance 25 mg oral daily Novolog 18 units SQ daily with dinner Educated on hypoglycemia Daily foot care Counseled and educated on hypoglycemia Follow up in 6 months Assessment & Plan (11/15/2020 12:37 PM CDT): Chronic, improving control A1c today - 6.5 % Advise to get consistent with meal timings And carb intake C/w Ozempic 1 mg SQ weekly C/w Tresiba 44 units SQ daily at bedtime C/w oral glimepiride, advised to cut back if having low BS Keep taking Jardiance 25 mg oral daily Novolog 18 units SQ daily with dinner Educated on hypoglycemia Daily foot care Counseled and educated on hypoglycemia Follow up in 6 months Assessment & Plan (07/30/2020 9:27 AM CDT): Chronic, uncontrolled overall fair control for pt limitations A1c today - 7.7 % Advise to get consistent with meal timings And carb intake C/w Ozempic 1 mg SQ weekly C/w Tresiba 44 units SQ daily at bedtime C/w oral glimepiride, advised to cut back if having low BS Keep taking Jardiance 25 mg oral daily Novolog 18 units SQ daily with dinner Will try to obtain pt last eye exam copy Daily foot care Counseled and educated on hypoglycemia Follow up in 4 months Assessment & Plan (03/25/2020 10:39 AM TAX ASSESSOR): Chronic, uncontrolled overall fair control for pt limitations A1c today - 7.8 % Pt BS all over the place Advise to get consistent with meal timings And carb intake C/w Ozempic 1 mg SQ weekly C/w Tresiba 44 units SQ daily at bedtime C/w oral glimepiride, advised to cut back if having low BS Keep taking Jardiance 25 mg oral daily Novolog 18 units SQ daily with dinner Will try to obtain pt last eye exam copy Daily foot care Counseled and educated on hypoglycemia Follow up in 4 months Assessment & Plan (11/20/2019 10:42 AM CDT): Chronic, uncontrolled overall fair control for pt limitations A1c today - 7.7 % C/w Ozempic 1 mg SQ weekly Decrease Tresiba 44 units SQ daily at bedtime C/w oral glimepiride, advised to cut back if having low BS Keep taking Jardiance 25 mg oral daily Novolog 18 units SQ daily with dinner Do labs today Advised to make an eye doctor appt soon Daily foot care Counseled and educated on hypoglycemia Follow up in 4 months Assessment & Plan (06/10/2019 11:01 AM CDT): Chronic, improving control Reviewed pt Home BS log continue current medications regimen Advised to work on increasing physical activity Portion control diet Daily foot care Follow up in 3 months Assessment & Plan (03/11/2019 8:55 PM TAX ASSESSOR): Chronic, uncontrolled A1c today - 7.7 % - increase Ozempic 1 mg SQ weekly Decrease Tresiba 38 units SQ daily at bedtime Cut back on Glimepiride to 4 mg with dinner ( stop taking with breakfast Keep taking Jardiance 25 mg oral daily Decrease Novolog to 14 units SQ daily with dinner - send BS log in 4 weeks Assessment & Plan (01/05/2019 3:10 PM TAX ASSESSOR): DM foot exam performed and documented. Pt appropriate for DM shows d/t neuropathic pain, diminished sensaton and callus formation. Foot care reviewed. Assessment & Plan (11/26/2018 12:54 PM CDT): Diabetes is worsening HbA1c today - 7.8 % Decrease Tresiba to 50 units SQ daily at bedtime Start ozempic 0.25 mg Sq weekly for 2 weeks than increase to 0.5 mg SQ weekly - continue rest all medications the same - send blood sugar sheets in 6 weeks - mail them - follow up in 3 months Reminded to bring in blood sugar diary at next visit. Dietary recommendations for ADA diet. Regular aerobic exercise. Discussed ways to avoid symptomatic hypoglycemia. Discussed sick day management. Discussed foot care. Reminded to get yearly retinal exam. Medication changes per orders. Diabetes will be reassessed in 3 months. Assessment & Plan (08/18/2018 10:38 AM CDT): Diabetes is improving HbA1c today - 7.3 % Decrease Tresiba to 50 units SQ daily Start Ozempic 0.25 mg Sq weekly For 4 weeks than increase to 0.5 mg SQ weekly Advised to cut back on Tresiba insulin by 4 units if blood sugars in morning are less than 90 Advise to call if having trouble with low blood sugars Follow up in 3 months Reminded to bring in blood sugar diary at next visit. Dietary recommendations for ADA diet. Regular aerobic exercise. Discussed ways to avoid symptomatic hypoglycemia. Discussed sick day management. Discussed foot care. Reminded to get yearly retinal exam. Medication changes per orders. Diabetes will be reassessed in 3 months. Assessment & Plan (05/18/2018 2:08 PM CDT): Diabetes is worsening. A1c - 7.8 % - HbA1c - 7.8 % - decrease Tresiba To 60 units SQ daily - increase Novolog to 18 units SQ daily with dinner - advise to do smaller portions with meals - increase physical activity as tolerated Reminded to bring in blood sugar diary at next visit. Dietary recommendations for ADA diet. Regular aerobic exercise. Discussed ways to avoid symptomatic hypoglycemia. Discussed sick day management. Discussed foot care. Reminded to get yearly retinal exam. Medication changes per orders. Diabetes will be reassessed in 3 months. Assessment & Plan (02/16/2018 6:51 PM TAX ASSESSOR): Diabetes is improving with treatment. HbA1c - 7.3 % - advised to decrease Tresiba to 66 units SQ daily - continue rest all same - advised to notify us if having Low BS Reminded to bring in blood sugar diary at next visit. Dietary recommendations for ADA diet. Regular aerobic exercise. Discussed ways to avoid symptomatic hypoglycemia. Discussed sick day management. Discussed foot care. Reminded to get yearly retinal exam. Medication changes per orders. Diabetes will be reassessed in 3 months. Assessment & Plan (11/11/2017 10:19 AM CDT): Diabetes is improving with treatment. A1c today -7.6 % - reviewed BS log - advised to decrease Tresiba to 70 units SQ nightly - rest all continue same Reminded to bring in blood sugar diary at next visit. Dietary recommendations for ADA diet. Regular aerobic exercise. Discussed ways to avoid symptomatic hypoglycemia. Discussed sick day management. Discussed foot care. Reminded to get yearly retinal exam. Medication changes per orders. Diabetes will be reassessed in 3 months. Assessment & Plan (08/09/2017 10:03 AM CDT): Diabetes is improving with treatment. A1c today - 8.3 % - reviewed pt. BS log - fasting BS - low 70-90 mostly - advised to decrease Tresiba to 74 units SQ daily - continue rest all - follow up in 3 months Reminded to bring in blood sugar diary at next visit. Dietary recommendations for ADA diet. Regular aerobic exercise. Discussed ways to avoid symptomatic hypoglycemia. Discussed sick day management. Discussed foot care. Reminded to get yearly retinal exam. Medication changes per orders. Diabetes will be reassessed in 3 months. Assessment & Plan (06/19/2017 9:59 AM CDT): Diabetes is improving with treatment. - reviewed BS log, improving progressively - stop Bydureon - as pt. Has h/o alcoholic pancreatitis is past - advise to keep taking tresiba 80 units SQ daily at bedtime - start Jardiance 25 mg oral daily with breakfast ( gave samples and sent in script ) - advise to cut back Lasix to 20 mg oral daily - advise good oral hydration - advise to increase Novolog with dinner to 15 units SQ daily - keep taking Gliempirde - advise to check BS 4 x daily - before each meal and bedtime - advise to increase physical activity as tolerated - daily foot care - Blood work before next follow up visit - follow up in 7 weeks with BS log Reminded to bring in blood sugar diary at next visit. Dietary recommendations for ADA diet. Regular aerobic exercise. Discussed ways to avoid symptomatic hypoglycemia. Discussed sick day management. Discussed foot care. Reminded to get yearly retinal exam. Medication changes per orders. Diabetes will be reassessed in 7 weeks . Assessment & Plan (05/05/2017 9:47 PM CDT): Diabetes is worsening. - A1c today - 10.5 % - Continue with Levemir 50 units twice daily - Fill up Tresiba - if it covers, then start taking 80 units Sq daily at bedtime and stop Levemir - Novolog 15 units with dinner - start Bydureon BSCIE pen - 2 mg SQ weekly - Follow up in 6 weeks Reminded to bring in blood sugar diary at next visit. Dietary recommendations for ADA diet. Regular aerobic exercise. Discussed ways to avoid symptomatic hypoglycemia. Discussed sick day management. Discussed foot care. Reminded to get yearly retinal exam. Medication changes per orders. Diabetes will be reassessed in 6 weeks. Assessment & Plan (03/05/2017 2:36 PM TAX ASSESSOR): Diabetes is improving with treatment. - advise to start Metformin 500 mg oral twice daily after meals And in 2 weeks if tolerates increase up to 1000 mg oral twice daily - advise to continue insulin same and Glimepiride - follow Up in 2 months Reminded to bring in blood sugar diary at next visit. Dietary recommendations for ADA diet. Regular aerobic exercise. Discussed ways to avoid symptomatic hypoglycemia. Discussed sick day management. Discussed foot care. Reminded to get yearly retinal exam. Medication changes per orders. Diabetes will be reassessed in 3 months. Assessment & Plan (01/17/2017 11:24 AM TAX ASSESSOR): Diabetes is uncontrolled, A1c today 9.7 % , chronic . 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 Dietary recommendations for ADA diet. Regular aerobic exercise. Discussed ways to avoid symptomatic hypoglycemia. Discussed sick day management. Discussed foot care. Reminded to get yearly retinal exam. Medication changes per orders. Diabetes will be reassessed in 6 weeks. Hypertension associated with diabetes 01/17/2017 Assessment & Plan (12/04/2023 12:34 PM CDT): Chronic, uncontrolled, slightly elevated Continue current medication regimen Assessment & Plan (04/10/2023 10:22 AM TAX ASSESSOR): Chronic, improving control Continue current medication regimen Assessment & Plan (09/12/2022 10:00 AM CDT): Chronic problem, improved on recheck. Continue diltiazem. Assessment & Plan (03/01/2022 2:27 PM TAX ASSESSOR): Chronic, improving control Continue current medication regimen Assessment & Plan (11/14/2021 12:54 PM CDT): Chronic, improving control Continue current medication regimen Assessment & Plan (05/16/2021 11:29 AM CDT): Chronic, improving control Continue current medication regimen Assessment & Plan (11/15/2020 12:37 PM CDT): Chronic, improving control Continue current medication regimen Assessment & Plan (07/30/2020 9:25 AM CDT): Chronic, improving control Continue current medication regimen Assessment & Plan (03/25/2020 10:40 AM TAX ASSESSOR): Chronic, improving control Continue current medication regimen Assessment & Plan (11/20/2019 10:39 AM CDT): Chronic, improving control Continue current medication regimen Will reassess during next visit Assessment & Plan (06/10/2019 11:02 AM CDT): Blood pressure at home slightly running high Advised to continue home blood pressure monitoring Recommend low-salt diet Continue current medication regimen Will reassess during next visit Assessment & Plan (03/11/2019 8:55 PM TAX ASSESSOR): Hypertension is chronic, stable, well controlled . Continue current treatment regimen. Dietary sodium restriction. Weight loss. Regular aerobic exercise. Continue current medications. Blood pressure will be reassessed at the next regular appointment. Assessment & Plan (11/26/2018 12:55 PM CDT): Hypertension is chronic, stable, well controlled . Continue current treatment regimen. Dietary sodium restriction. Weight loss. Regular aerobic exercise. Continue current medications. Blood pressure will be reassessed at the next regular appointment. Assessment & Plan (02/16/2018 6:53 PM TAX ASSESSOR): Hypertension is chronic, stable, well controlled . Continue current treatment regimen. Dietary sodium restriction. Weight loss. Regular aerobic exercise. Continue current medications. Blood pressure will be reassessed at the next regular appointment. Assessment & Plan (11/11/2017 10:17 AM CDT): Hypertension is chronic, stable, well controlled . Continue current treatment regimen. Dietary sodium restriction. Weight loss. Regular aerobic exercise. Continue current medications. Blood pressure will be reassessed at the next regular appointment. Assessment & Plan (08/09/2017 10:04 AM CDT): Hypertension is chronic, stable, well controlled . Continue current treatment regimen. Dietary sodium restriction. Weight loss. Regular aerobic exercise. Continue current medications. Blood pressure will be reassessed at the next regular appointment. Assessment & Plan (06/19/2017 9:59 AM CDT): Hypertension is chronic, well controlled . Continue current treatment regimen. Dietary sodium restriction. Weight loss. Regular aerobic exercise. Blood pressure will be reassessed at the next regular appointment. Assessment & Plan (05/05/2017 10:01 PM CDT): Hypertension is chronic, well controlled . Continue current treatment regimen. Dietary sodium restriction. Weight loss. Regular aerobic exercise. Blood pressure will be reassessed at the next regular appointment. Assessment & Plan (03/05/2017 2:37 PM TAX ASSESSOR): Hypertension is well controlled at goal . Continue current treatment regimen. Dietary sodium restriction. Weight loss. Regular aerobic exercise. Blood pressure will be reassessed at the next regular appointment. Assessment & Plan (01/17/2017 11:20 AM TAX ASSESSOR): Hypertension is well controlled . Continue current treatment regimen. Dietary sodium restriction. Weight loss. Regular aerobic exercise. Continue current medications. Blood pressure will be reassessed at the next regular appointment. Morbid obesity with BMI of 40.0-44.9, adult 12/0 08/2016 Assessment & Plan (12/04/2023 12:34 PM CDT): Chronic progressively improving Counseled on diet and exercise Assessment & Plan (07/10/2023 11:04 AM CDT): Chronic problem, improving. Continue Ozempic. Assessment & Plan (04/10/2023 10:22 AM TAX ASSESSOR): Counseled on diet and exercise Assessment & Plan (03/01/2022 2:27 PM TAX ASSESSOR): Counseled on diet and exercise Assessment & Plan (11/14/2021 12:54 PM CDT): Chronic, above goal , unchanged Discussed about healthy lifestyle habits advise to work on healthy diet, avoid processed foods , increase vegetables and protein and cut back on carb portions and also avoid fruit juices and regular soda and desserts Increase physical activity , recommend at least 150 min of aerobic activity per week and include resistance training 2 x weekly Assessment & Plan (05/16/2021 11:29 AM CDT): Counseled on diet and exercise Assessment & Plan (11/15/2020 12:40 PM CDT): Slowly improving Counseled on diet and exercise Assessment & Plan (07/30/2020 9:27 AM CDT): Chronic, unchanged Discussed about healthy lifestyle habits advise to work on healthy diet, avoid processed foods , increase vegetables and protein and cut back on carb portions and also avoid fruit juices and regular soda and desserts Increase physical activity , recommend at least 150 min of aerobic activity per week and include resistance training 2 x weekly Assessment & Plan (03/25/2020 10:41 AM TAX ASSESSOR): Chronic, Improving slowly Counseled on diet and exercise Assessment & Plan (11/20/2019 10:39 AM CDT): Chronic, worsening Discussed about healthy lifestyle habits advise to work on healthy diet, avoid processed foods , increase vegetables and protein and cut back on carb portions and also avoid fruit juices and regular soda and desserts Increase physical activity , recommend at least 150 min of aerobic activity per week and include resistance training 2 x weekly Assessment & Plan (06/10/2019 11:02 AM CDT): Chronic, improving Counseled on diet and exercise Assessment & Plan (03/11/2019 8:55 PM TAX ASSESSOR): Chronic, improving Discussed about healthy lifestyle habits advise to work on healthy diet, avoid processed foods , increase vegetables and protein and cut back on carb portions and also avoid fruit juices and regular soda and desserts Increase physical activity , recommend at least 150 min of aerobic activity per week and include resistance training 2 x weekly Assessment & Plan (11/26/2018 12:55 PM CDT): Obesity is worsening Discussed the patient's BMI. The BMI is above average; BMI management plan is completed. General weight loss/lifestyle modification strategies discussed (elicit support from others; identify saboteurs; non-food rewards, etc). Behavioral treatment: stress management. Diet interventions: moderate (500 kCal/d) deficit diet. Informal exercise measures discussed, e.g. taking stairs instead of elevator. Regular aerobic exercise program discussed. Assessment & Plan (08/18/2018 10:39 AM CDT): Obesity is unchanged Discussed the patient's BMI. The BMI is above average; BMI management plan is completed. General weight loss/lifestyle modification strategies discussed (elicit support from others; identify saboteurs; non-food rewards, etc). Behavioral treatment: stress management. Diet interventions: moderate (500 kCal/d) deficit diet. Informal exercise measures discussed, e.g. taking stairs instead of elevator. Regular aerobic exercise program discussed. Assessment & Plan (05/18/2018 2:09 PM CDT): Obesity is worsening. Discussed the patient's BMI. The BMI is above average; BMI management plan is completed. General weight loss/lifestyle modification strategies discussed (elicit support from others; identify saboteurs; non-food rewards, etc). Behavioral treatment: stress management. Diet interventions: moderate (500 kCal/d) deficit diet. Informal exercise measures discussed, e.g. taking stairs instead of elevator. Regular aerobic exercise program discussed. Assessment & Plan (02/16/2018 6:53 PM TAX ASSESSOR): Obesity is worsening. Discussed the patient's BMI. The BMI is above average; BMI management plan is completed. General weight loss/lifestyle modification strategies discussed (elicit support from others; identify saboteurs; non-food rewards, etc). Behavioral treatment: stress management. Diet interventions: moderate (500 kCal/d) deficit diet. Informal exercise measures discussed, e.g. taking stairs instead of elevator. Regular aerobic exercise program discussed. Assessment & Plan (11/11/2017 10:18 AM CDT): Obesity is unchanged Discussed the patient's BMI. The BMI is above average; BMI management plan is completed. General weight loss/lifestyle modification strategies discussed (elicit support from others; identify saboteurs; non-food rewards, etc). Behavioral treatment: stress management. Diet interventions: moderate (500 kCal/d) deficit diet. Informal exercise measures discussed, e.g. taking stairs instead of elevator. Regular aerobic exercise program discussed. Assessment & Plan (08/09/2017 10:04 AM CDT): Obesity is worsening. Discussed the patient's BMI. The BMI is above average; BMI management plan is completed. General weight loss/lifestyle modification strategies discussed (elicit support from others; identify saboteurs; non-food rewards, etc). Behavioral treatment: stress management. Diet interventions: moderate (500 kCal/d) deficit diet. Informal exercise measures discussed, e.g. taking stairs instead of elevator. Regular aerobic exercise program discussed. Assessment & Plan (06/19/2017 9:59 AM CDT): Obesity is improving with lifestyle modifications. Discussed the patient's BMI. The BMI is above average; BMI management plan is completed. General weight loss/lifestyle modification strategies discussed (elicit support from others; identify saboteurs; non-food rewards, etc). Behavioral treatment: stress management. Diet interventions: moderate (500 kCal/d) deficit diet. Informal exercise measures discussed, e.g. taking stairs instead of elevator. Regular aerobic exercise program discussed. Assessment & Plan (05/05/2017 9:57 PM CDT): Obesity is improving with lifestyle modifications. Discussed the patient's BMI. The BMI is above average; BMI management plan is completed. General weight loss/lifestyle modification strategies discussed (elicit support from others; identify saboteurs; non-food rewards, etc). Behavioral treatment: stress management. Diet interventions: moderate (500 kCal/d) deficit diet. Informal exercise measures discussed, e.g. taking stairs instead of elevator. Regular aerobic exercise program discussed. Assessment & Plan (03/05/2017 2:36 PM TAX ASSESSOR): Obesity is unchanged. Discussed the patient's BMI. The BMI is above average; BMI management plan is completed. General weight loss/lifestyle modification strategies discussed (elicit support from others; identify saboteurs; non-food rewards, etc). Behavioral treatment: stress management. Diet interventions: moderate (500 kCal/d) deficit diet. Informal exercise measures discussed, e.g. taking stairs instead of elevator. Regular aerobic exercise program discussed. Assessment & Plan (01/17/2017 11:20 AM TAX ASSESSOR): Obesity is newly identified. Discussed the patient's BMI. The BMI is above average; BMI management plan is completed. General weight loss/lifestyle modification strategies discussed (elicit support from others; identify saboteurs; non-food rewards, etc). Behavioral treatment: stress management. Diet interventions: moderate (500 kCal/d) deficit diet. Informal exercise measures discussed, e.g. taking stairs instead of elevator. Regular aerobic exercise program discussed. Hyperlipidemia associated with type 2 diabetes yonatan fuentes 01/17/2017 Assessment & Plan (04/14/2024 11:50 AM TAX ASSESSOR): Chronic problem. On statin therapy, no changes. Assessment & Plan (12/04/2023 12:33 PM CDT): Continue statin therapy Assessment & Plan (07/10/2023 11:03 AM CDT): Chronic problem. On statin therapy, no changes. Assessment & Plan (04/10/2023 10:22 AM TAX ASSESSOR): Continue statin therapy tolerating well Assessment & Plan (09/12/2022 10:00 AM CDT): Chronic problem. On statin therapy, no changes. Assessment & Plan (03/01/2022 2:27 PM TAX ASSESSOR): Continue statin therapy tolerating well Assessment & Plan (11/14/2021 12:53 PM CDT): Continue statin therapy tolerating well Assessment & Plan (05/16/2021 11:29 AM CDT): Continue statin therapy tolerating well Assessment & Plan (11/15/2020 12:37 PM CDT): Continue statin therapy tolerating well Assessment & Plan (07/30/2020 9:25 AM CDT): Continue statin therapy tolerating well Assessment & Plan (03/25/2020 10:41 AM TAX ASSESSOR): Continue statin therapy tolerating well Assessment & Plan (11/20/2019 10:39 AM CDT): Continue statin therapy tolerating well reviewed today lipid panel results Assessment & Plan (06/10/2019 11:02 AM CDT): Continue statin therapy Assessment & Plan (03/11/2019 8:56 PM TAX ASSESSOR): On statin therapy Tolerating well Reviewed Lipid panel results from today LDL at goal Assessment & Plan (11/26/2018 12:57 PM CDT): On statin therapy Tolerating well Reviewed Lipid panel results from today LDL at goal Assessment & Plan (08/18/2018 10:38 AM CDT): On lipitor Recheck lipid panel in 3 months Assessment & Plan (05/18/2018 2:09 PM CDT): On lipitor Recheck lipid panel in 3 months Assessment & Plan (02/16/2018 6:52 PM TAX ASSESSOR): Pt on low strength statin therapy Recent LDL above goal Change lovastatin to Atorvastatin Assessment & Plan (11/11/2017 10:18 AM CDT): Pt. On statin therapy Last lipid panel - 01/2017 Recheck Lipid panel in 01/2018 Assessment & Plan (08/09/2017 10:05 AM CDT): Pt. On statin therapy Last lipid panel - 01/2017 Assessment & Plan (06/19/2017 10:00 AM CDT): Pt. On statin therapy Last lipid panel - 01/2017 Assessment & Plan (05/05/2017 9:46 PM CDT): Pt. On statin therapy Last lipid panel - 01/2017 Assessment & Plan (03/05/2017 2:37 PM TAX ASSESSOR): Pt. On statin therapy Last lipid panel - 01/2017 Assessment & Plan (01/17/2017 11:21 AM TAX ASSESSOR): Pt. On statin therapy Will recheck Lipid panel Encounters Date Type Department Care Team Description 11/30/2024 Telephone [facility] [address] [phone] Cherelle Pineda MD 10/13/2024 Telephone [facility] [address] [phone] Cherelle Pineda MD Med Management from Last 3 Months Immunizations Immunization Administration Dates Next Due Influenza, Quadrivalent, Rec ombinant, Egg Free, Preservative Free, Intramuscular 11/27/2019,11/13/2018 Influenza, Quadrivalent, Spl it, Preservative Free, Intramuscular 12/08/2017 Influenza, Trivalent, Preser vative Free, Intramuscular 10/18/2016,11/28/2015,01/28/2015 Pneumococcal Polysaccharide PPV23 10/18/2016 Td, adsorbed 01/11/2015 Tdap 08/13/2018,02/11/2014 ZOSTER Recombinant 08/13/2018,04/11/2018 Surgical History Surgery Date Site/Laterality Comments WISDOM TOOTH EXTRACTION COLONOSCOPY Medical History Medical History Date Comments Type 2 diabetes mellitus COPD (chronic obstructive pulmonary disease) Hypertension Stroke (cerebrum) Hypothyroidism Carpal tunnel syndrome 2017 GERD (gastroesophageal reflux disease) Diabetic peripheral neuropathy CHF (congestive heart failure) (HCC) Family History Medical History Relation Name Comments Heart attack Father Breast cancer Mother Relation Name Status Comments Father Mother Social History Tobacco Use Types Packs/Day Years Used Date Smoking Tobacco: Former Cigarettes 0.3 25 1 - 11/23/2012 Smokeless Tobacco: Former Snuff Tobacco Cessation:Counseling Given: Not Answered Alcohol Use Standard Drinks/Week Comments No 0 (1 standard drink = 0.6 oz pur e alcohol) AUDIT-C Answer Date Recorded Q1: How often do you have a drink containing alc ohol? Never 05/22/2021 Average Number of Drinks Not on file 022 Q3: How often do you have si x or more drinks on one occasion? Never 05/22/2021 PHQ-2 Answer Date Recorded PHQ-2 Total Score (If total score is 3 or more points, staff should administer the PHQ-9) 0 03/01/2022 Sex and Gender Information Value Date Recorded Sex Assigned at Not on file Legal Sex Male 3:16 AM TAX ASSESSOR Gender Identity Male 02/13/2018 1:11 PM TAX ASSESSOR Sexual Orientation Not on file Last Filed Vital Signs Vital Sign Reading Time Taken Comments Blood Pressure 138/78 08/04/2024 9:22 AM CDT Pulse 106 08/04/2024 9:22 AM CDT Temperature 36.6 C (97.8 F) 05/22/2021 11:07 AM CDT Respiratory Rate 17 08/04/2024 9:22 AM CDT Oxygen Saturation 97% 08/12/2018 8:36 AM CDT Inhaled Oxygen Concentration - - Weight 129.3 kg (285 lb) 08/04/2024 9:22 AM CDT Height 177.8 cm (5' 10) 08/04/2024 9:22 AM CDT Body Mass Index 40.89 08/04/2024 9:22 AM CDT Plan of Treatment Health Maintenance Due Date Last Done Comments Colon Cancer Screening-Colonoscopy 1955 Hepatitis C Screening 1955 Prostate Cancer Screening-PSA 1955 Hepatitis B Screening 07/18/1973 Pneumococcal vaccine 65+ (2 of 2 - PCV) 10/18/2017 10/18/2016 Abdominal Aortic Aneurysm (A AA) Screen 07/18/2020 09/09/2014, 08/13/2012 Well Visit 65+ 07/18/2020 Depression Screening 03/01/2023 03/01/2022, 11/15/2020, 07/29/2020, Additional history exists Dilated Eye Exam 12/05/2023 12/04/2022, 05/2020, 06/14/2020, Additional history exists Fall Risk Assessment 04/10/2024 04/10/2023 Influenza Vaccine (#1) 2024 , 11/13/2018, 12/08/2017, Additional history exists Foot Exam 12/03/2024 12/04/2023, 03/15, 03/01/2022, Additional history exists Hemoglobin A1C 02/03/2025 08/04/2024, 03/0 05/2024, 12/04/2023, Additional history exists Lipid Panel 04/14/2025 04/14/2024, 10/14, 10/28/2020, Additional history exists Albumin Creatinine Ratio, Urine 08/04/2025 08/04/2024, 11/18/2023, 11/10/2021, Additional history exists eGFR 08/04/2025 08/04/2024, 04/11, 10/28/2020, Additional history exists DTaP/Tdap/Td Vaccine (4 - Td or Tdap) 08/13/2028 08/13/2018, 01/11/2015, 02/11/2014 Zoster Vaccine Completed 08/13/2018, 04/11/2018 Procedures Procedure Name Priority Date/Time Associated Diagnosis Comments EGFR Routine 08/04/2024 9:51 AM CDT Type 2 diabetes mellitus with hyperglycemia, with long-term current use of insulin (HCC) Hypertension associated with diabetes (HCC) ALBUMIN CREATININE RATIO, URINE Routine 08/04/2024 9:51 AM CDT Type 2 diabetes mellitus with hyperglycemia, with long-term current use of insulin (HCC) Hypertension associated with diabetes (HCC) POCT HEMOGLOBIN A1C Routine 08/04/2024 9 :24 AM CDT Type 2 diabetes mellitus with hyperglycemia, with long-term current use of insulin (HCC) POCT LIPID PANEL Routine 04/14/2024 11:2 0 AM TAX ASSESSOR Type 2 diabetes mellitus with hyperglycemia, with long-term current use of insulin (HCC) HM DIABETES EYE EXAM Routine 12/04/2022 8:[address] ABDOMEN PELVIS W CONTRAST Routine 09/09/2014 2:00 PM CDT from Last 3 Months or Most Recently Relevant to Health Maintenance Results * eGFR (08/04/2024 9:51 AM CDT) eGFR >90 >=60 mL/min/1. 73 m2 Comment: Interpretive Data Reference Interval Normal >/= 90 mL/min/1.73m2 Mildly decreased* 60 - 89 mL/min/1.73m2 Mildly to moderately decreased 45 - 59 mL/min/1.73m2 Moderately to severely decreased 30 - 44 mL/min/1.73m2 Severely decreased 15 - 29 mL/min/1.73m2 Kidney Failure < 15 mL/min/1.73m2 *Relative to young adult level Estimated glomerular filtration rate is determined by the 2020 CKD-EPI equation recommended by the [employer] (A Unifying Approach to GFR Estimation: Recommendations of the NKF-ASK Task Force on Reassessing the Inclusion of Race in Diagnosing Kidney Disease, JASN 2020). The CKD-EPI equation should not be used for patients with unstable renal function and has not been validated in children and those over 70. Current interpretive data was last reviewed 2020. Blood 08/04/2024 9:51 AM CDT 08/04/2024 12:22 PM CDT us Cherelle Brown MD LAB BLOOD ORDERABLE S Final Result [facility] [id number] Department [place] [address] * Albumin Creatinine Ratio, Urine (08/04/2024 9:51 AM CDT) Albumin Ur <12.0 mg/L Comment: Interpretive Data No reference range established. Current interpretive data was last revised 2018. Creatinine Ur 89.7 mg/dL [facility] Comment: Interpretive Data No reference range established. Current interpretive data was last revised 2018. Albumin Creatinine Ratio, Ur <13 1 - 29 mg/g [facility] Urine 08/04/2024 9:51 AM CDT 08/04/2024 12:05 PM CDT Cherelle Brown MD LAB URINE ORDERABLE S Final Result [facility] [id number] Department [place] [address] * (ABNORMAL) POCT hemoglobin A1c (08/04/2024 9:24 AM CDT) Hemoglobin A1C, POC 8.2(A) 4.0 - 5.6 % Blood 08/04/2024 9:24 AM CDT Result [facility] Cherelle Brown MD POINT OF CARE TEST ORDERABLES Final Result * POCT lipid panel (04/14/2024 11:20 AM TAX ASSESSOR) Cholesterol, POC 144 mg/dL HDL, POC 64 mg/dL Triglycerides, POC 94 mg/dL LDL Cholesterol POC 61 mg/dL Chol/HDL Ratio, POC 2.2 Non-HDL Cholesterol, POC 79 mg/dL Cholesterol Total, POC 144 mg/dL Capillary blood 04/14/2024 1 1:20 AM TAX ASSESSOR Tatiana AGUILAR POINT OF CARE TEST ORDE RABLES Final Result * DIABETES EYE EXAM (12/04/2022 8:10 AM CDT) Ileana Amaya MD HEALTH MAINTENANCE Final Result * CT Abdomen Pelvis W Contrast (09/09/2014 2:00 PM CDT) Anatomical Region Laterality Modality Body N/A Computed Tomogra phy 09/09/2014 2:00 PM CDT Impressions 09/10/2014 8:12 AM CD[address] evidence for acute intra-abdominal or pelvic process. No CT features of acute or chronic pancreatitis. 2. Hepatic steatosis. 3. Cholelithiasis. 4. Fat-containing periumbilical and bilateral inguinal hernias. THIS IS AN ELECTRONICALLY VERIFIED REPORT 09/10/2014 8:09 AM: Jaleel Alfaro D.O. Jaleel Alfaro D.O. :as 08:09 AM 08:09 AM [facility] [EOD] Narrative 09/10/2014 8:12 AM CDT EXAMINATION: CT OF THE ABDOMEN and PELVIS with IV contrast HISTORY: Abdominal pain with history of pancreatitis. TECHNIQUE: CT of the abdomen and pelvis was performed with oral and IV contrast. 100 mL Omnipaque 350 was instilled intravenously through the right hand without complications. 40 mL enteric contrast was utilized. Comparison is made to CT abdomen and pelvis 08/13/2012. ABDOMEN: There is discoid atelectasis or possibly scarring within both lung bases including portions of the right middle lobe. There is diffuse hepatic steatosis. Gallbladder demonstrates dependent calcifications likely small stones. There is no pericholecystic fluid. The biliary tree is not dilated. The pancreas and spleen are normal. No adrenal lesions are identified. Renal enhancement is symmetric. There is no hydronephrosis or perinephric fluid. No obstructive ureteral calculi are identified. The aorta is non-aneurysmal. There is no adenopathy. No ascites or pneumoperitoneum is observed. There is no mechanical bowel obstruction. There is a ventral periumbilical hernia which contains only fat. PELVIS: The cecum, terminal ileum and appendix are normal. No pelvic free fluid. Urinary bladder is unremarkable. There are fat-containing bilateral inguinal hernias. No adenopathy. Mild degenerative changes of the lumbar spine without a compression fracture or malalignment. No aggressive osteolytic or blastic lesions are identified. Procedure Note Provider, MD Ileana - 06/28/2020 EXAMINATION: CT OF THE ABDOMEN and PELVIS with IV contrast HISTORY: Abdominal pain with history of pancreatitis. TECHNIQUE: CT of the abdomen and pelvis was performed with oral and IV contrast. 100 mL Omnipaque 350 was instilled intravenously through theright hand without complications. 40 mL enteric contrast was utilized. Comparison is made to CT abdomen and pelvis 08/13/2012. ABDOMEN: There is discoid atelectasis or possibly scarring within bothlung bases including portions of the right middle lobe. There is diffuse hepatic steatosis. Gallbladder demonstrates dependent calcifications likely small stones. There is no pericholecystic fluid.The biliary tree is not dilated. The pancreas and spleen are normal. Noadrenal lesions are identified. Renal enhancement is symmetric. There is no hydronephrosis or perinephric fluid. No obstructive ureteral calculi are identified. The aorta is non-aneurysmal. There is no adenopathy. Noascites or pneumoperitoneum is observed. There is no mechanical bowelobstruction. There is a ventral periumbilical hernia which contains only fat. PELVIS: The cecum, terminal ileum and appendix are normal. No pelvic free fluid. Urinary bladder is unremarkable. There are fat-containingbilateral inguinal hernias. No adenopathy. Mild degenerative changes of the lumbar spine without a compressionfracture or malalignment. No aggressive osteolytic or blastic lesions areidentified. IMPRESSION: 1. No CT evidence for acute intra-abdominal or pelvic process. No CT features of acute or chronic pancreatitis. 2. Hepatic steatosis. 3. Cholelithiasis. 4. Fat-containing periumbilical and bilateral inguinal hernias. THIS IS AN ELECTRONICALLY VERIFIED REPORT 09/10/2014 8:09 AM: Jaleel Alfaro D.O. Jaleel Alfaro D.O. 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
--- OUTSIDE RECORDS SUMMARY | 2024-12-14 11:31 | XMS_ITS | Encounter Summary ---
Author Organization [facility] Facility Care Team Providers Care Automotive Service Advisor Name Role Phone Elder Castellano MD Primary Care Provider [phone] Maddi Johnson MD Primary Care Provider Ashlyn Alexis MD Primary Care Provider Cherelle Pineda MD Unavailable [phone] Cathy Soria NP Primary Care Provider [phone] Encounter Details Date Type Department Care Team (Latest Contact Info) Description 09/08/2013 Orders Only [facility] CLINCONV ProviderIleana MD [address] [place] [address] Social History Tobacco Use Types Packs/Day Years Used Date Smoking Tobacco: Never Assessed Sex and Gender Information Value Date Recorded Sex Assigned at Not on file Legal Sex Male 3:16 AM VIDEO GAME TESTER Gender Identity Male 02/13/2018 1:11 PM VIDEO GAME TESTER Sexual Orientation Not on file documented as of this encounter Plan of Treatment Not on file documented as of this encounter Procedures Procedure Name Priority Date/Time Associated Diagnosis Comments CARDIOLOGY REPORT 04/10/2016 12: 00 AM VIDEO GAME TESTER documented in this encounter Results * CARDIOLOGY REPORT (04/10/2016 12:00 AM VIDEO GAME TESTER) Anatomical Region Laterality Modality Other Narrative 04/10/2016 12:00 AM VIDEO GAME TESTER Ordered by an unspecified provider. us Historical Provider [facility]GUYEN Final Result documented in this encounter Visit Diagnoses Not on filedocumented in this encounter Care Teams Automotive Service Advisor Relationship Specialty Start Date End Date Elder Castellano MD [address] [place] [address] PCP - General Family Practice 01/09/17 11/24/18 Maddi Johnson MD [address] [place] [address] PCP - General Family Medicine 11/25/18 08/03/20 Ashlyn Alexis MD [address] [place] [address] PCP - General Family Practice 08/04/20 05/24/21 [place] [address] [address] PCP - General Nurse Practitioner 05/25/21 [place] [id number] [address] Consulting Physician Endocrinology 08/04/20 documented as of this encounter
--- OUTSIDE RECORDS SUMMARY | 2024-12-14 11:31 | XMS_ITS | Clinical Summary ---
Author Organization [facility] Address [address] [facility], [address] [address] Phone Care Team Providers Care Sewing Machines Salesperson Name Role Phone Elder Castellano MD Primary Care Provider Nancy Jimenez MD Unavailable [phone] Allergies Active Allergy Reactions Criticality Noted Date [...] daily. Active FLUTICASONE PROPIONATE, NASAL, NA 1 [place] by Nasal route daily as needed. 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 Not on file Not [...] 07/18/2005 Zoster Immunization (1 of 2) 07/18/2005 Medicare Initial AWV G0438 03/14/2015 Respiratory Syncytial Virus (RSV) Immunization (Adult) (1 - Risk 60-74 years 1-dose series) 2015 Colonoscopy 07/29/2024 07/29/2014 Colorectal Cancer Screening 07/29/2024 Influenza Immunization (#1) 2024 SARS-COV-2 Immunization ( - season) 2024 Hepatitis B Immunization Aged Out No [...] Maintenance Insurance MEDICARE MEDICAID [place] Care Teams Sewing Machines Salesperson Relationship Specialty Start Date End Date Elder Castellano MD [address] [place] [address] PCP - General Family Medicine 03/17/18 [place] [address] [address] Internal Medicine 03/17/18
== END 2024-12-14 10:29 | disposition home or self-care (01) ==
PROVIDERS: PCP Nurse Practitioner Family; Visit Provider Internal Medicine Critical Care Medicine
DX: Z12.2 Encounter for screening for malignant neoplasm of respiratory organs (principal); Z87.891 Personal history of nicotine dependence; R91.8 Other nonspecific abnormal finding of lung field
CPT/HCPCS: 71271

== ENCOUNTER 2025-01-26 06:53 | Outpatient (CLI) | payer MEDICARE, MEDICAID, SELFPAY ==
--- NOTE | ~2025-01-26 | US_ITS ---
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 Findings: Within the subcutaneous tissues correlating with the palpable area there is a large solid-appearing lesion measuring 7.5 x 2.2 x 3.1 cm, no increased flow IMPRESSION: Probable large lipoma. If there is pain in this location or there remains clinical concern correlation with CT or MRI Reviewed, dictated and finalized at location P. [place] MEDIA SENIOR ASSOCIATE IMPRESSION: Probable large lipoma. If there is pain in this location or there r emains clinical concern correlation with CT or MRI
--- OUTSIDE RECORDS SUMMARY | 2025-01-26 06:56 | XMS_ITS | Encounter Summary ---
Author Organization [facility] Facility Care Team Providers Care Cd Reactor Operator Head Name Role Phone Elder Castellano MD Primary Care Provider [phone] Maddi Johnson MD Primary Care Provider Ashlyn Alexis MD Primary Care Provider Cherelle Pineda MD Unavailable [phone] Cathy Soria NP Primary Care Provider [phone] Encounter Details Date Type Department Care Team (Latest Contact Info) Description 08/31/2011 Orders Only [facility] CLINCONV ProviderIleana MD [address] [place] [address] Social History Tobacco Use Types Packs/Day Years Used Date Smoking Tobacco: Never Assessed Sex and Gender Information Value Date Recorded Sex Assigned at Not on file Legal Sex Male 3:16 AM STARCH AND PROSIZE MIXER Gender Identity Male 02/13/2018 1:11 PM STARCH AND PROSIZE MIXER Sexual Orientation Not on file documented as of this encounter Plan of Treatment Not on file documented as of this encounter Procedures Procedure Name Priority Date/Time Associated Diagnosis Comments CARDIOLOGY REPORT 04/10/2016 12: 00 AM STARCH AND PROSIZE MIXER documented in this encounter Results * CARDIOLOGY REPORT (04/10/2016 12:00 AM STARCH AND PROSIZE MIXER) Anatomical Region Laterality Modality Other Narrative 04/10/2016 12:00 AM STARCH AND PROSIZE MIXER Ordered by an unspecified provider. us Historical Provider [facility] ELL[facility] NGUYEN Final Result documented in this encounter Visit Diagnoses Not on filedocumented in this encounter Care Teams Cd Reactor Operator Head Relationship Specialty Start Date End Date Elder Castellano MD [address] [place] [address] PCP - General Family Practice 01/09/17 11/24/18 Maddi Johnson MD [address] [place] [address] PCP - General Family Medicine 11/25/18 08/03/20 Ashlyn Alexis MD [address] [place] [address] PCP - General Family Practice 08/04/20 05/24/21 [place] [address] [address] PCP - General Nurse Practitioner 05/25/21 [place] [address] [address] Consulting Physician Endocrinology 08/04/20 documented as of this encounter
--- OUTSIDE RECORDS SUMMARY | 2025-01-26 06:56 | XMS_ITS | Clinical Summary ---
Author Organization [facility] Address [address] [facility], [address] [address] Phone Care Team Providers Care General Store Manager Name Role Phone Elder Castellano MD Primary [...] daily. Active FLUTICASONE PROPIONATE, NASAL, NA 1 [place] by Nasal route daily as needed. 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 Not on file Not on [...] years) (1 of 1 - PCV) 07/18/2005 Respiratory Syncytial Virus (RSV) Immunization (Adult) (1 - Risk 50-74 years 1-dose series) 07/18/2005 Zoster Immunization (1 of 2) 07/18/2005 Medicare Initial AWV G0438 03/14/2015 Colonoscopy 07/29/2024 07/29/2014 Colorectal Cancer Screening 07/29/2024 Influenza Immunization (#1) 2024 SARS-COV-2 Immunization ( - season) 2024 Hepatitis B Immunization Aged Out No longer eligible based on patient's age to complete this topic Human Papillomavirus (HPV) Immunization (No Doses Required) Completed Meningococcal Immunization (ACWY) Aged Out No longer [...] Maintenance Insurance MEDICARE [place]ICAID [place] Care Teams General Store Manager Relationship Specialty Start Date End Date Elder Castellano MD [address] [place] [address] PCP - General Family Medicine 03/17/18 [place] [address] [facility] [address] [place] [address] Internal Medicine 03/17/18
--- OUTSIDE RECORDS SUMMARY | 2025-01-26 06:56 | XMS_ITS | Encounter Summary ---
Author Organization [facility] Facility Care Team Providers Care Deputy Clerk Of Court Name Role Phone Elder Castellano MD Primary Care Provider [phone] Maddi Johnson MD Primary Care Provider Ashlyn Alexis MD Primary Care Provider Cherelle Pineda MD Unavailable [phone] Cathy Soria NP Primary Care Provider [phone] Encounter Details Date Type Department Care Team (Latest Contact Info) Description 10/05/2014 Orders Only [facility] CLINCONV ProviderIleana MD [address] [place] [address] Social History Tobacco Use Types Packs/Day Years Used Date Smoking Tobacco: Never Assessed Sex and Gender Information Value Date Recorded Sex Assigned at Not on file Legal Sex Male 3:16 AM SUPERVISING NURSE Gender Identity Male 02/13/2018 1:11 PM SUPERVISING NURSE Sexual Orientation Not on file documented as of this encounter Plan of Treatment Not on file documented as of this encounter Procedures Procedure Name Priority Date/Time Associated Diagnosis Comments SCAN - LABS 04/10/2016 12:00 AM SUPERVISING NURSE documented in this encounter Results * SCAN - LABS (04/10/2016 12:00 AM SUPERVISING NURSE) Narrative 04/10/2016 12:00 AM SUPERVISING NURSE Ordered by an unspecified provider. us Historical Provider Final Res ult documented in this encounter Visit Diagnoses Not on filedocumented in this encounter Care Teams Deputy Clerk Of Court Relationship Specialty Start Date End Date Elder Castellano MD [address] [place] [address] PCP - General Family Practice 01/09/17 11/24/18 Maddi Johnson MD [address] [place] [address] PCP - General Family Medicine 11/25/18 08/03/20 Ashlyn Alexis MD [address] [place] [address] PCP - General Family Practice 08/04/20 05/24/21 Cathy Soria, SLURRY BLENDER [address] [address] PCP - General Nurse Practitioner 05/25/21 [place] [address] [address] Consulting Physician Endocrinology 08/04/20 documented as of this encounter
--- OUTSIDE RECORDS SUMMARY | 2025-01-26 06:56 | XMS_ITS | Clinical Summary ---
Author Organization [facility] Physician Office Building [address] [place] [address] Care Team Providers Care Cloth Baler Name Role Phone Cherelle Pineda MD Unavailable [phone] Cathy Soria NP Primary Care Provider [phone] Allergies Active Allergy Reactions Criticality Noted Date [...] tablet (81 mg total) by mouth daily Act aaliyah furosemide (LASIX) 40 mg tablet Take 1 [...] Active pen needle, diabetic 32 gauge x 5/32 needleIndicati ons:Type 2 diabetes mellitus with hyperglycemia, with long-term current use of insulin ([facility]),Legally blind in right eye, as defined in [...] hyperglycemia, with long-term current use of insulin ([facility]) Inject 0.15 mL (30 Units total) under the skin nightly 15 mL 3 06/10/19 25 026 Active Additional Information Patient taking differently: 40 Unitssubcutaneous Nightly, Reported on 12/22/2024 levothyroxine (SYNTHROID) 125 mcg tablet TAKE 1 TABLET BY MOUTH ONCE DAILY IN THE MORNING BEFORE BREAKFAST 90 tablet 08/25/19 25 Active empagliflozin (Jardiance) 25 mg tabletIndicati ons:Type 2 diabetes mellitus with hyperglycemia, with long-term current use of insulin ([facility]),Chronic diastolic congestive heart failure (HCC) Take 1 tablet by mouth once daily 90 tablet 1 08/25/19 25 Active semaglutide (Ozempic) 2 mg/dose (8 mg/3 mL) pen injector injectionIndic ations:Type 2 diabetes mellitus with hyperglycemia, with long-term current use of insulin ([facility]) INJECT 2 MG SUBCUTANEOUSLY ONCE A WEEK 9 mL 1 11/03/19 25 Active atorvastatin (LIPITOR) 40 mg tabletIndicati ons:Hyperlipid emia associated with type 2 diabetes mellitus (HCC) Take 1 tablet (40 mg total) by mouth daily 90 tablet 12/01/19 25 Active dexAMETHasone (DECADRON) 2 mg tablet TAKE 3 TABLETS BY MOUTH DAILY AT 8:00 AM Active insulin aspart, niacinamide, (FIASP) 100 unit/mL (3 mL) cartridge 18 Units 05/11/19 21 Active roflumilast (DALIRESP) 500 mcg tablet Take 1 tablet (500 mcg total) by mouth daily 12/10/19 25 Active Active Problems Problem Noted Date Diagnosed Date [...] gabapentin Assessment & Plan (03/25/2020 10:42 AM BOGGER OPERATOR): Chronic, stable On gabapentin Assessment & Plan (11/20/2019 10:39 AM CDT): Chronic, stable On gabapentin Assessment & Plan (06/10/2019 11:03 AM CDT): Chronic, stable On gabapentin Assessment & Plan (11/11/2017 10:17 AM CDT): Work on tighter glycemic control Assessment & Plan (08/09/2017 10:05 AM CDT): Work on tighter glycemic control Acquired hypothyroidism 01/17/2017 Assessment & Plan (12/22/2024 12:59 PM BOGGER OPERATOR): Clinically and biochemically euthyroid. No medication changes. Assessment & Plan (04/14/2024 11:50 AM BOGGER OPERATOR): Clinically and biochemically euthyroid. No medication changes. Assessment & Plan (12/04/2023 12:33 PM CDT): Chronic, unknown status Patient currently on levothyroxine 125 mcg oral daily We will try to obtain patient's recent lab results from [facility] Assessment & Plan (07/10/2023 11:05 AM CDT): Chronic problem, dose recently adjusted. Recheck labs in 2-3 mos. Assessment & Plan (04/10/2023 10:21 AM BOGGER OPERATOR): Chronic , Unknown Status Continue current dose of levothyroxine Recheck TSH today Assessment & Plan (03/01/2022 2:29 PM BOGGER OPERATOR): Continue current dose of levothyroxine Assessment & [...] TSH Assessment & Plan (03/25/2020 10:40 AM BOGGER OPERATOR): Continue current dose of levothyroxine Last TSH 11/2019 -WNL Assessment & Plan (11/20/2019 10:38 AM CDT): Continue current dose of levothyroxine Recheck TSH today and further plans based on the test results Assessment & Plan (06/10/2019 11:03 AM CDT): Continue current dose of levothyroxine Recheck TSH during next visit Follow-up in 3 months Assessment & Plan (03/11/2019 8:57 PM BOGGER OPERATOR): Pt currently on Levothyroxine dose to 88 [...] taken. Assessment & Plan (02/16/2018 6:53 PM BOGGER OPERATOR): - c/w Levothyroxine dose to 88 mcg [...] taken. Assessment & Plan (03/05/2017 2:36 PM BOGGER OPERATOR): Advised to continue current dose Levothyroxine 75 [...] taken. Assessment & Plan (01/17/2017 11:21 AM BOGGER OPERATOR): Advised to continue current dose Levothyroxine 75 [...] use of insulin 01/17/2017 Assessment & Plan (12/22/2024 1:01 PM BOGGER OPERATOR): Chronic problem, not at goal. A1c much higher, when looking at dexcom comparison from last 4 weeks we reviewed significant hyperglycemia when on steroids. He has HL at home but does not use it as it gave him lows when he would take 15 units or so. Recommended when he's on steroids to use HL as needed, for starters take 5 units if >200 aC, 10 units if >300. And can adjust from there if needed. Assessment & Plan (04/14/2024 1:07 PM BOGGER OPERATOR): Chronic problem, not at goal. Has HL [...] less than 7.5-7% Unable to download the Dexcom G7 as the site was down Counseled on diet and exercise Advised to increase Ozempic to 2 mg subQ weekly Advised to stop Humalog Continue current dose of Tresiba 30 units subQ daily at bedtime Continue Jardiance 25 mg oral daily We will to obtain patient's last lab results from [facility] Advised patient to make an eye [...] draw. Assessment & Plan (04/10/2023 10:22 AM BOGGER OPERATOR): Chronic, uncontrolled, worsening Reviewed Dexcom G7 download [...] device. Assessment & Plan (03/01/2022 2:29 PM BOGGER OPERATOR): Chronic, overall fairly controlled improving 6.5% Counseled [...] states he recently had lab done at [facility], will try to obtain Follow up as [...] months Assessment & Plan (03/25/2020 10:39 AM BOGGER OPERATOR): Chronic, uncontrolled overall fair control for pt [...] months Assessment & Plan (03/11/2019 8:55 PM BOGGER OPERATOR): Chronic, uncontrolled A1c today - 7.7 % [...] weeks Assessment & Plan (01/05/2019 3:10 PM BOGGER OPERATOR): DM foot exam performed and documented. Pt [...] months. Assessment & Plan (02/16/2018 6:51 PM BOGGER OPERATOR): Diabetes is improving with treatment. HbA1c - [...] weeks. Assessment & Plan (03/05/2017 2:36 PM BOGGER OPERATOR): Diabetes is improving with treatment. - advise [...] months. Assessment & Plan (01/17/2017 11:24 AM BOGGER OPERATOR): Diabetes is uncontrolled, A1c today 9.7 % [...] regimen Assessment & Plan (04/10/2023 10:22 AM BOGGER OPERATOR): Chronic, improving control Continue current medication regimen Assessment & Plan (09/12/2022 10:00 AM CDT): Chronic problem, improved on recheck. Continue diltiazem. Assessment & Plan (03/01/2022 2:27 PM BOGGER OPERATOR): Chronic, improving control Continue current medication regimen [...] regimen Assessment & Plan (03/25/2020 10:40 AM BOGGER OPERATOR): Chronic, improving control Continue current medication regimen [...] visit Assessment & Plan (03/11/2019 8:55 PM BOGGER OPERATOR): Hypertension is chronic, stable, well controlled . [...] appointment. Assessment & Plan (02/16/2018 6:53 PM BOGGER OPERATOR): Hypertension is chronic, stable, well controlled . [...] appointment. Assessment & Plan (03/05/2017 2:37 PM BOGGER OPERATOR): Hypertension is well controlled at goal . Continue current treatment regimen. Dietary sodium restriction. Weight loss. Regular aerobic exercise. Blood pressure will be reassessed at the next regular appointment. Assessment & Plan (01/17/2017 11:20 AM BOGGER OPERATOR): Hypertension is well controlled . Continue current treatment regimen. Dietary sodium restriction. Weight loss. Regular aerobic exercise. Continue current medications. Blood pressure will be reassessed at the next regular appointment. Morbid obesity with BMI of 40.0-44.9, adult 12/08/2016 Assessment & Plan (12/22/2024 1:00 PM BOGGER OPERATOR): Chronic problem, has noticed more weight gain with steroids. On max dose Ozempic. He's working on snacking. Assessment & Plan (12/04/2023 12:34 PM CDT): Chronic progressively improving Counseled on diet and exercise Assessment & Plan (07/10/2023 11:04 AM CDT): Chronic problem, improving. Continue Ozempic. Assessment & Plan (04/10/2023 10:22 AM BOGGER OPERATOR): Counseled on diet and exercise Assessment & Plan (03/01/2022 2:27 PM BOGGER OPERATOR): Counseled on diet and exercise Assessment & [...] weekly Assessment & Plan (03/25/2020 10:41 AM BOGGER OPERATOR): Chronic, Improving slowly Counseled on diet and [...] exercise Assessment & Plan (03/11/2019 8:55 PM BOGGER OPERATOR): Chronic, improving Discussed about healthy lifestyle habits [...] discussed. Assessment & Plan (02/16/2018 6:53 PM BOGGER OPERATOR): Obesity is worsening. Discussed the patient's BMI. [...] discussed. Assessment & Plan (03/05/2017 2:36 PM BOGGER OPERATOR): Obesity is unchanged. Discussed the patient's BMI. [...] discussed. Assessment & Plan (01/17/2017 11:20 AM BOGGER OPERATOR): Obesity is newly identified. Discussed the patient's [...] diabetes yonatan fuentes 01/17/2017 Assessment & Plan (12/22/2024 12:59 PM BOGGER OPERATOR): Chronic problem. On statin therapy, no changes. Assessment & Plan (04/14/2024 11:50 AM BOGGER OPERATOR): Chronic problem. On statin therapy, no changes. Assessment & Plan (12/04/2023 12:33 PM CDT): Continue statin therapy Assessment & Plan (07/10/2023 11:03 AM CDT): Chronic problem. On statin therapy, no changes. Assessment & Plan (04/10/2023 10:22 AM BOGGER OPERATOR): Continue statin therapy tolerating well Assessment & Plan (09/12/2022 10:00 AM CDT): Chronic problem. On statin therapy, no changes. Assessment & Plan (03/01/2022 2:27 PM BOGGER OPERATOR): Continue statin therapy tolerating well Assessment & Plan (11/14/2021 12:53 PM CDT): Continue statin therapy tolerating well Assessment & Plan (05/16/2021 11:29 AM CDT): Continue statin therapy tolerating well Assessment & Plan (11/15/2020 12:37 PM CDT): Continue statin therapy tolerating well Assessment & Plan (07/30/2020 9:25 AM CDT): Continue statin therapy tolerating well Assessment & Plan (03/25/2020 10:41 AM BOGGER OPERATOR): Continue statin therapy tolerating well Assessment & Plan (11/20/2019 10:39 AM CDT): Continue statin therapy tolerating well reviewed today lipid panel results Assessment & Plan (06/10/2019 11:02 AM CDT): Continue statin therapy Assessment & Plan (03/11/2019 8:56 PM BOGGER OPERATOR): On statin therapy Tolerating well Reviewed Lipid [...] months Assessment & Plan (02/16/2018 6:52 PM BOGGER OPERATOR): Pt on low strength statin therapy Recent [...] 01/2017 Assessment & Plan (03/05/2017 2:37 PM BOGGER OPERATOR): Pt. On statin therapy Last lipid panel - 01/2017 Assessment & Plan (01/17/2017 11:21 AM BOGGER OPERATOR): Pt. On statin therapy Will recheck Lipid panel Encounters Date Type Department Care Team Description 01/18/2025 Orders Only [facility] [address] [address] ProviderIleana MD 12/31/2024 Telephone [facility] [address] [address] Tatiana Lopez PA Forms/questionnaires (SendGrid ) 12/22/2024 9:30 AM BOGGER OPERATOR Office Visit [facility] [address] [address] Tatiana Lopez PA Type 2 diabetes mellitus with hyperglycemia, with long-term current use of insulin (HCC) (Primary Dx); Hyperlipidemia associated with type 2 diabetes mellitus (HCC); Acquired hypothyroidism; Morbid obesity with BMI of 40.0-44.9, adult (HCC) 11/30/2024 Telephone [facility] [address] [address] Cherelle Pineda MD from Last 3 Months Immunizations Immunization Administration [...] 1 - 11/23/2012 Smokeless Tobacco: Former Snuff Alcohol Use Standard Drinks/Week Comments No 0 [...] on file Legal Sex Male 3:16 AM BOGGER OPERATOR Gender Identity Male 02/13/2018 1:11 PM BOGGER OPERATOR Sexual Orientation Not on file Last Filed Vital Signs Vital Sign Reading Time Taken Comments Blood Pressure 132/70 12/22/2024 9:18 AM BOGGER OPERATOR Pulse 94 12/22/2024 9:18 AM BOGGER OPERATOR Temperature 36.6 C (97.8 F) 05/22/2021 11:07 AM CDT Respiratory Rate 20 12/22/2024 9:18 AM BOGGER OPERATOR Oxygen Saturation 97% 08/12/2018 8:36 AM CDT Inhaled Oxygen Concentration - - Weight 127.5 kg (281 lb) 12/22/2024 9:18 AM BOGGER OPERATOR Height 177.8 cm (5' 10) 12/22/2024 9:18 AM BOGGER OPERATOR Body Mass Index 40.32 12/22/2024 9:18 AM BOGGER OPERATOR Plan of Treatment Health Maintenance Due Date Last Done Comments Colon Cancer Screening-Colonoscopy 1955 Hepatitis C Screening 1955 Prostate Cancer Screening-PSA 1955 Hepatitis B Screening 07/18/1973 Pneumococcal vaccine 65+ (2 of 2 - PCV) 01/22/2018 01/22/2017, 10/18/2016 Abdominal Aortic Aneurysm (A AA) Screen 07/18/2020 09/09/2014, 08/13/2012 Well Visit 65+ 07/18/2020 Depression Screening 03/01/2023 03/01/2022, 11/15/2020, 07/29/2020, Additional history exists Fall Risk Assessment 04/10/2024 04/10/2023 Influenza Vaccine (#1) 2024 , 11/24/2019, 11/13/2018, Additional history exists Foot Exam 12/03/2024 12/04/2023, 03/15, 03/01/2022, Additional history exists Lipid Panel 04/14/2025 04/14/2024, 10/14, 10/28/2020, Additional history exists Hemoglobin A1C 06/21/2025 12/22/2024, 07/13, 04/14/2024, Additional history exists Albumin Creatinine Ratio, Urine 08/04/2025 08/04/2024, 11/18/2023, 11/10/2021, Additional history exists eGFR 08/04/2025 08/04/2024, 04/11, 10/28/2020, Additional history exists Dilated Eye Exam 12/29/2025 12/29/2024, , 06/14/2020, Additional history exists DTaP/Tdap/Td Vaccine (5 - Td or Tdap) 08/13/2028 08/13/2018, 04/07/2018, 01/11/2015, Additional history exists Zoster Vaccine Completed 08/13/2018, 04/11/2018 Procedures Procedure Name Priority Date/Time Associated Diagnosis Comments HM DIABETES EYE EXAM Routine 12/29/2024 3:00 PM BOGGER OPERATOR POCT HEMOGLOBIN A1C Routine 12/22/2024 9 :24 AM BOGGER OPERATOR Type 2 diabetes mellitus with hyperglycemia, with long-term current use of insulin (HCC) POCT GLUCOSE Routine 12/22/2024 9:24 AM BOGGER OPERATOR Type 2 diabetes mellitus with hyperglycemia, with long-term current use of insulin (HCC) EGFR Routine 08/04/2024 9:51 AM CDT Type 2 diabetes mellitus with hyperglycemia, with long-term current use of insulin (HCC) Hypertension associated with diabetes (HCC) ALBUMIN CREATININE RATIO, URINE Routine 08/04/2024 9:51 AM CDT Type 2 diabetes mellitus with hyperglycemia, with long-term current use of insulin (HCC) Hypertension associated with diabetes (HCC) POCT LIPID PANEL Routine 04/14/2024 11:2 0 AM BOGGER OPERATOR Type 2 diabetes mellitus with hyperglycemia, with long-term current use of insulin (HCC) CT ABDOMEN PELVIS W CONTRAST Routine 09/09/2014 2:00 PM CDT from Last 3 Months or Most Recently Relevant to Health Maintenance Results * DIABETES EYE EXAM (12/29/2024 3:00 PM BOGGER OPERATOR) [facility] Provider HEALTH MAINTENANCE Final Result * (ABNORMAL) POCT hemoglobin A1c (12/22/2024 9:24 AM BOGGER OPERATOR) [facility] Hemoglobin A1C, POC 9.7(A) 4.0 - 5.6 % Blood 12/22/2024 9:24 AM BOGGER OPERATOR Tatiana AGUILAR POINT OF CARE TEST ORDE RABJULIO CESAR Final Result * (ABNORMAL) POCT glucose (12/22/2024 9:24 AM BOGGER OPERATOR) [facility] Glucose Blood, POC 181 Normal Fasting 70 - 100, Random <200 mg/dL Blood 12/22/2024 9:24 AM BOGGER OPERATOR Tatiana AGUILAR POINT OF CARE TEST ORDE RABJULIO CESAR Final Result * eGFR (08/04/2024 9:51 AM CDT) [facility] eGFR >90 >=60 mL/min/1. 73 m2 Comment: [...] 9:51 AM CDT 08/04/2024 12:22 PM CDT Cherelle Brown MD LAB BLOOD ORDERABLE S Final Result Performing Organization Address [facility] Co de Phone Number RAFI GATES [address] [place], [place] [id number] * Albumin Creatinine Ratio, Urine (08/04/2024 9:51 [...] 9:51 AM CDT 08/04/2024 12:05 PM CDT us Cherelle Brown MD LAB URINE ORDERABLE S Final Result Performing Organization Address City/[facility]/ZIP Co de Phone Number RAFI GATES [address] [facility] [place] [address] * POCT lipid panel (04/14/2024 11:20 AM BOGGER OPERATOR) Cholesterol, POC 144 mg/dL HDL, POC 64 mg/dL Triglycerides, POC 94 mg/dL LDL Cholesterol POC 61 mg/dL Chol/HDL Ratio, POC 2.2 Non-HDL Cholesterol, POC 79 mg/dL Cholesterol Total, POC 144 mg/dL Capillary blood 04/14/2024 1 1:20 AM BOGGER OPERATOR Tatiana AGUILAR POINT OF CARE TEST ASE KHANNA Final Result * CT Abdomen Pelvis W [...] Alfaro D.O. :as 08:09 AM 08:09 AM [facility] [EOD] Narrative 09/10/2014 8:12 AM CDT EXAMINATION: [...] Alfaro D.O. :as 08:09 AM 08:09 AM BM [EOD] Naga Radford MD IM CT PROCEDURES Final Result from Last 3 Months or Most Recently Relevant to Health Maintenance Insurance [facility] MEDICARE ADVANTAGE [facility] MEDICARE Address: [address] [address] [place] [address] MEDICARE [facility] IDPA [facility] MEDICARE ADVANTAGE [facility] MEDICARE Address: [address] [address] [place] [address] Advance Directives For more information, please contact: [phone] Documents on File Type Date Recorded Patient Clay Modeler Expl anation ADVANCE DIRECTIVE 03/05/2013 12:00 AM PAUL Monroy OF INSPECTOR FLOOR FINANCIAL/MEDICAL Care Teams Cloth Baler Relationship Specialty [place] [address] [address] [place] [address] PCP - General Nurse Practitioner 05/25/21 [place] [address] [place] [address] Consulting Physician Endocrinology 08/04/20
--- OUTSIDE RECORDS SUMMARY | 2025-01-26 06:56 | XMS_ITS | Encounter Summary ---
Author Organization [facility] Care Team Providers Care Construction Laborer Name Role Phone Elder Castellano MD Primary Care Provider [phone] Maddi Johnson MD Primary Care Provider Ashlyn Alexis MD Primary Care Provider Cherelle Pineda MD Unavailable [phone] Cathy Soria NP Primary Care Provider [phone] Encounter Details Date Type Department Care Team (Latest Contact Info) Description 09/01/2011 Orders Only [facility] ProviderIleana MD [address] [place] [id number] Social History Tobacco Use Types Packs/Day Years Used Date Smoking Tobacco: Never Assessed Sex and Gender Information Value Date Recorded Sex Assigned at Not on file Legal Sex Male 3:16 AM SPECIAL PROCEDURES TECHNOLOGIST Gender Identity Male 02/13/2018 1:11 PM SPECIAL PROCEDURES TECHNOLOGIST Sexual Orientation Not on file documented as of this encounter Plan of Treatment Not on file documented as of this encounter Procedures Procedure Name Priority Date/Time Associated Diagnosis Comments CARDIOLOGY REPORT 04/10/2016 12: 00 AM SPECIAL PROCEDURES TECHNOLOGIST documented in this encounter Results * CARDIOLOGY REPORT (04/10/2016 12:00 AM SPECIAL PROCEDURES TECHNOLOGIST) Anatomical Region Laterality Modality Other Narrative 04/10/2016 12:00 AM SPECIAL PROCEDURES TECHNOLOGIST Ordered by an unspecified provider. us Historical Provider [facility] ELLIE NGUYEN Final Result documented in this encounter Visit Diagnoses Not on filedocumented in this encounter Care Teams Construction Laborer Relationship Specialty Start Date End Date Elder Castellano MD [address] [place] [address] PCP - General Family Practice 01/09/17 11/24/18 Maddi Johnson MD [address] [place] [address] PCP - General Family Medicine 11/25/18 08/03/20 Ashlyn Alexis MD [address] [place] [address] PCP - General Family Practice 08/04/20 05/24/21 [place] [id number] [address] PCP - General Nurse Practitioner 05/25/21 [place] [address] [address] Consulting Physician Endocrinology 08/04/20 documented as of this encounter
--- OUTSIDE RECORDS SUMMARY | 2025-01-26 06:56 | XMS_ITS | Clinical Summary ---
Author Organization [facility] Address [address] [place] [address] Care Team Providers Care Steel Heater Name Role Phone Sondra Ascencio MD Primary Care Provider [phone] Source Comments [facility],non-[facility] Affiliates and Associated Physician Practices is amultiple site organization consisting of ambulatory clinics and hospital sitesin [place], [place], [place] and [place]. This disclosure is being madepursuant to the Care Everywhere program and may not contain all information available regarding this patient. Last updated 17.[facility] Spor Allergies No known active allergies Medications * Be aware that medications may not be up to date on this document. Alwaysverify current medications with the patient. No known medications Social History Tobacco Use Types Packs/Day Years Used Date Smoking Tobacco: Never Assessed Sex and Gender Information Value Date Recorded Sex Assigned at Not on file Legal Sex Male 5:36 AM TILTROTOR CREW CHIEF Gender Identity Not on file Sexual Orientation [...] COLON CA SCREENING 1955 LIPID TESTING 1955 HEPATITIS C SCREENING 07/14/1973 DTAP/TDAP/TD VACCINES (1 - Tdap) 07/18/1974 PNEUMOCOCCAL VACCINE 50+ (1 of 1 - PCV) 07/18/2005 ZOSTER VACCINE (1 of 2) 07/18/2005 DEPRESSION SCREENING 02/12/2024 COVID-19 VACCINE (1 - 2024-2 6 season) 2024 INFLUENZA VACCINE (#1) 2024 Respiratory [...] Insurance MEDICARE MEDICAID - OUT OF STATE [facility] MANAGED MEDICARE ADV MEDICAID - [place] SELF PAY NO INSURANCE Member Subscriber Plan / Payer (Ef fective for All Dates) Name:Teresa Aguila Member ID:Not on file Relation to Subscriber:Not on file Name:TERESA AGUILA Subscriber ID:Not on file (Home) Address: [place] [address] Payer ID:Not on file Group ID:Not on file Type:Self Pay Address: [place] Care Teams Steel Heater Relationship Specialty Start Date End Date Sondra Ascencio MD [address] [place] [phone] PCP - General 06/10/18
--- OUTSIDE RECORDS SUMMARY | 2025-01-26 06:56 | XMS_ITS | Encounter Summary ---
Author Organization [facility] Facility Care Team Providers Care Industrial Maintenance Electrician Name Role Phone Elder Castellano MD Primary Care Provider [phone] Maddi Johnson MD Primary Care Provider Ashlyn Alexis MD Primary Care Provider Cherelle Pineda MD Unavailable [phone] Cathy Soria NP Primary Care Provider [phone] Encounter Details Date Type Department Care Team (Latest Contact Info) Description 03/09/2014 Orders Only [facility]INCON[facility] ProviderIleana MD [address] [place] [address] Social History Tobacco Use Types Packs/Day Years Used Date Smoking Tobacco: Never Assessed Sex and Gender Information Value Date Recorded Sex Assigned at Not on file Legal Sex Male 3:16 AM SAS ETL DEVELOPER Gender Identity Male 02/13/2018 1:11 PM SAS ETL DEVELOPER Sexual Orientation Not on file documented as of this encounter Plan of Treatment Not on file documented as of this encounter Procedures Procedure Name Priority Date/Time Associated Diagnosis Comments CARDIOLOGY REPORT 04/10/2016 12: 00 AM SAS ETL DEVELOPER documented in this encounter Results * CARDIOLOGY REPORT (04/10/2016 12:00 AM SAS ETL DEVELOPER) Anatomical Region Laterality Modality Other Narrative 04/10/2016 12:00 AM SAS ETL DEVELOPER Ordered by an unspecified provider. us Historical Provider [facility] NGUYEN Final Result documented in this encounter Visit Diagnoses Not on filedocumented in this encounter Care Teams Industrial Maintenance Electrician Relationship Specialty Start Date End Date Elder Castellano MD [address] [place] [address] PCP - General Family Practice 01/09/17 11/24/18 Maddi Johnson MD [address] [place] [address] PCP - General Family Medicine 11/25/18 08/03/20 Ashlyn Alexis MD [address] [place] [address] PCP - General Family Practice 08/04/20 05/24/21 [place] [id number] [address] PCP - General Nurse Practitioner 05/25/21 [place] [id number] [address] Consulting Physician Endocrinology 08/04/20 documented as of this encounter
--- OUTSIDE RECORDS SUMMARY | 2025-01-26 06:56 | XMS_ITS | Encounter Summary ---
Author Organization [facility] Facility Care Team Providers Care Breaker Table Worker Name Role Phone Elder Castellano MD Primary Care Provider [phone] Maddi Johnson MD Primary Care Provider Ashlyn Alexis MD Primary Care Provider Cherelle Pineda MD Unavailable [phone] Cathy Soria NP Primary Care Provider [phone] Encounter Details Date Type Department Care Team (Latest Contact Info) Description 09/08/2013 Orders Only [facility] CLINCON[facility] ProviderIleana MD [address] [place] [address] Social History Tobacco Use Types Packs/Day Years Used Date Smoking Tobacco: Never Assessed Sex and Gender Information Value Date Recorded Sex Assigned at Not on file Legal Sex Male 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 us Historical Provider [facility] ELLIE NGUYEN Final Result documented in this encounter Visit Diagnoses Not on filedocumented in this encounter Care Teams Breaker Table Worker Relationship Specialty Start Date End Date Elder Castellano MD [address] [place] [address] PCP - General Family Practice 01/09/17 11/24/18 Maddi Johnson MD [address] [place] [address] PCP - General Family Medicine 11/25/18 08/03/20 Ashlyn Alexis MD [address] [place] [address] PCP - General Family Practice 08/04/20 05/24/21 [place] [id number] [address] PCP - General Nurse Practitioner 05/25/21 [place] [id number] [address] Consulting Physician Endocrinology 08/04/20 documented as of this encounter
== END 2025-01-26 06:54 | disposition home or self-care (01) ==
PROVIDERS: PCP Nurse Practitioner Family; Visit Provider Nurse Practitioner Family
DX: M79.89 Other specified soft tissue disorders (principal)
CPT/HCPCS: 76705